=== PATIENT | male | born 1950 | race Caucasian/White ===

== ENCOUNTER → 2020-07-17 08:57 | Outpatient (BNVA) | payer OTHER, SELFPAY | PROVIDERS: Family Provider Family Medicine Adult Medicine; PCP Emergency Medicine Emergency Medical Services; Visit Provider Internal Medicine | DX: Z20.818 Contact with and (suspected) exposure to other bacterial communicable diseases (principal); Z86.010 Personal history of colon polyps | CPT/HCPCS: 87635 ==

== ENCOUNTER → 2020-07-28 15:40 | Outpatient (BNVA) | payer OTHER, SELFPAY | PROVIDERS: Family Provider Family Medicine Adult Medicine; PCP Emergency Medicine Emergency Medical Services; Visit Provider Nurse Practitioner Family | DX: R06.02 Shortness of breath (principal) | CPT/HCPCS: 87635 ==

== ENCOUNTER → 2021-03-08 11:50 | Outpatient (BNVA) | payer OTHER, SELFPAY | PROVIDERS: Family Provider Family Medicine Adult Medicine; PCP Nurse Practitioner Family; Referring Provider Emergency Medicine Emergency Medical Services; Visit Provider Specialist | DX: M25.561 Pain in right knee (principal); M17.11 Unilateral primary osteoarthritis, right knee | CPT/HCPCS: 73560; 73565 ==

== ENCOUNTER → 2021-09-27 10:07 | Outpatient (BNVA) | payer OTHER, SELFPAY | PROVIDERS: Family Provider Family Medicine Adult Medicine; PCP Nurse Practitioner Family; Visit Provider Surgery | DX: Z20.822 Contact with and (suspected) exposure to COVID-19 (principal); Z86.010 Personal history of colon polyps | CPT/HCPCS: 87635 ==

== ENCOUNTER → 2023-06-27 13:17 | Outpatient (BNVA) | payer OTHER, SELFPAY | PROVIDERS: Family Provider Family Medicine Adult Medicine; PCP Nurse Practitioner; Visit Provider Nurse Practitioner Family | DX: I87.2 Venous insufficiency (chronic) (peripheral) (principal); L30.4 Erythema intertrigo; D18.01 Hemangioma of skin and subcutaneous tissue; L71.1 Rhinophyma; L57.8 Other skin changes due to chronic exposure to nonionizing radiation; L85.3 Xerosis cutis; L81.4 Other melanin hyperpigmentation | CPT/HCPCS: 99214 ==

== ENCOUNTER 2023-09-15 11:04 | Emergency (ER) | payer OTHER, SELFPAY ==
[2023-09-15 11:06] VITALS: BP 161/79; PULSE 75; RESP 15; TEMP 36.8; O2SAT 96; BMI 51.3
--- NOTE | 2023-09-15 11:15 | ED_ITS ---
HPI - General Adult General: Chief complaint: General Medical Stated complaint: right abd pain Time Seen by Provider: 09/15/23 11:15 History of Present Illness: 72-year-old male presents emerged part with complaints of right lower quad abdominal pain. He states he was seen by his primary care provider approximately 45 minutes ago and was advised to come to the emergency department for additional evaluation treatment and care. He states that approximately 1 week ago he felt like he may have pulled something in his right lower groin/right lower quadrant abdominal area. He states it is continued to be a dull nagging type pain that he describes as a 4 out of 10 at present. He denies nausea vomiting fevers chills or night sweats. He states that nothing seems to be making it worse and nothing seems to be making it better Associated symptoms: Deny nausea or vomiting Review of Systems General: Reports: 10 or more systems reviewed and unremarkable except in HPI a nd below GI: Reports: abdominal pain; Denies: nausea or vomiting [facility] ED PFSH: Medical History DM type 2 (diabetes mellitus, type 2) Essential hypertension GERD (gastroesophageal reflux disease) Otitis externa Surgical History History of colonoscopy with polypectomy History of prostate surgery 2017 Family History Denies family history of Anesthesia complication Bleeding disorder Social History Smoking and tobacco/nicotine status: never used tobacco/nicotine Second hand smoke exposure: No Alcohol intake: never Physical Exam Narrative: EXAM NARRATIVE: Constitutional: the patient appeared well nourished and normally developed. Vital signs as documented. HENMT: Head exam is unremarkable. Neck is without jugular venous distension, thyromegaly, or carotid bruits. Carotid upstrokes are brisk bilaterally. Eye: No scleral icterus or corneal arcus noted Resp: Lungs are clear to auscultation and percussion. Cardio: Cardiac exam reveals the PMI to be normally sized and situated. Rhythm is regular. First and second heart sounds normal. No murmurs, rubs or gallops. GI: Abdominal exam reveals normal bowel sounds, no masses, no organomegaly and no aortic enlargement. Soft, mild tenderness to palpation to the right lower quadrant.. No obvious palpable masses noted. No hepatomegaly appreciated. Extremity: Extremities are non-edematous and both femoral and pedal pulses are normal. Moves all extremities well, she has sensation in all extremities. Neuro: Alert and oriented x4, person, place, time and situation. Cranial nerves II through XII are grossly intact, there is no focal neurological deficits that I can appreciate at present. Motor strength in the upper and lower extremities are equal and bilateral 5/5. Psych: Cooperative, calm, normal thought process, appropriate judgment. Skin: No lesions, rashes. Course Vital Signs: Vital signs: Vital Signs Temperature 98.2 F 09/15/23 11:06 Pulse Rate 57 L 09/15/23 12:03 Respiratory Rate 16 09/15/23 12:03 Blood Pressure 134/66 09/15/23 12:03 Pulse Oximetry 95 09/15/23 12:03 Oxygen Delivery Me thod Room Air 09/15/23 12:03 MDM - General Adult Medical Decision Making Physical exam completed and documented, I will obtain a CBC as well as a CMP and order the patient a CT scan of the abdomen pelvis with IV contrast. Given that he is a diabetic we will wait until his creatinine clearance and GFR returns to improve patient's safety. Differential Diagnosis Differential diagnosis includes acute appendicitis, inguinal hernia, femoral hernia, musculoskeletal strain. Medical Records I reviewed the patient's medical records. Lab Data I reviewed the patient's lab results. 09/15/23 11:38 09/15/23 11:38 Laboratory Results WBC 6.18 10^3/uL (3.29-11.43) 09/15/23 11:38 RBC 4.96 10^6/uL (3.85-5.65) 09/15/23 11:38 Hgb 14.20 g/dL (11.27-16.99) 09/15/23 11:38 Hct 44.2 % (37-53) 09/15/23 11:38 MCV 89.1 fl (82-101) 09/15/23 11:38 MCH 28.6 pg (27-33) 09/15/23 11:38 MCHC 32.1 g/dL (30-55) 09/15/23 11:38 RDW 13.6 % (12.1-15.1) 09/15/23 11:38 Plt Count 187 10^3/cmm (157-399) 09/15/23 11:38 MPV 9.6 fL (7.4-10.4) 09/15/23 11:38 Neut % (Auto) 68.8 % 09/15/23 11:38 Lymph % (Auto) 19.4 % 09/15/23 11:38 [place] % (Auto) 7.0 % 09/15/23 11:38 Eos % (Auto) 4.0 % 09/15/23 11:38 Baso % (Auto) 0.6 % 09/15/23 11:38 Neut # (Auto) 4.25 10^3/uL (1.8-7.7) 09/15/23 11:38 Lymph # (Auto) 1.2 10^3/uL (0.8-4.8) 09/15/23 11:38 [place] # (Auto) 0.4 10^3/uL (0.2-0.9) 09/15/23 11:38 Eos # (Auto) 0.3 10^3/uL (0.0-0.8) 09/15/23 11:38 Baso # (Auto) 0.0 10^3/uL (0.0-0.1) 09/15/23 11:38 Nucleated RBC % (auto) 0 % 09/15/23 11:38 Nucleated RBCs # 0.0 /100WBC 09/15/23 11:38 Sodium 137 mmol/L (136-145) 09/15/23 11:38 Potassium 4.4 mmol/L (3.5-5.1) 09/15/23 11:38 Chloride 100 mmol/L (98-107) 09/15/23 11:38 Carbon Dioxide 26 mmol/L (22-29) 09/15/23 11:38 Anion Gap 15.4 (5-19) 09/15/23 11:38 BUN 19 mg/dL (8-23) 09/15/23 11:38 Creatinine 1.0 mg/dL (0.7-1.2) 09/15/23 11:38 GFR Calculation 73.9 mL/min (90-130) L 09/15/23 11:38 Glucose 195 mg/dL (65-115) H 09/15/23 11:38 POC Glucose 159 mg/dL (70-110) H 09/15/23 13:22 Calculated Osmolality 292 mOsm/kg (285-295) 09/15/23 11:38 Calcium 9.1 mg/dL (8.5-10.5) 09/15/23 11:38 Total Bilirubin 0.4 mg/dL (0.15-1.2) 09/15/23 11:38 AST 12 U/L (0-40) 09/15/23 11:38 ALT 15 U/L (0-41) 09/15/23 11:38 Alkaline Phosphatase 71 U/L (40-130) 09/15/23 11:38 Total Protein 6.3 g/dL (6.6-8.7) L 09/15/23 11:38 Albumin 3.9 g/dL (3.5-5.2) 09/15/23 11:38 Globulin 2.4 g/dL (1.3-4.6) 09/15/23 11:38 All radiology interpretation(s) finalized by discharge ED provider radiology interpretation(s): CT scan of the abdomen pelvis as reported by Dr. Blackmon the radiologist demonstrates a small right lower abdominal wall hematoma most likely secondary to previous trauma. There is incidental finding of cholelithiasis without cholecystitis. Discharge Plan Discharge Patient Disposition: Home Clinical Impression: Traumatic hematoma of abdominal wall, Abdominal pain, Abdominal wall strain Condition: Stable Prescriptions: No Action diltiazem HCl 240 mg capsule,extended release 24hr 240 mg PO QAM lisinopril 5 mg tablet 2.5 mg PO DAILY naproxen 500 mg tablet 500 mg PO BID PRN (Reason: PAIN OR INFLAMATION) simvastatin 20 mg tablet 10 mg PO QPM urea 40 % Cream See Rx Instructions .ROUTE .COMPLEX Rx Instructions: Apply lightly to affected area(s) twice daily to promote healing. Rub in until completely absorbed. for topical use only clobetasol 0.05 % Cream 1 applic TOPICAL DAILY PRN (Reason: Rash) tamsulosin 0.4 mg Capsule 0.8 mg PO QPM Nitrostat 0.4 mg Tablet, Sublingual 0.4 mg SUBLINGUAL Q5M PRN (Reason: Chest Pain) Rx Instructions: do not exceed 3 doses per episode omeprazole 20 mg Capsule,Delayed Release(Dr/Ec) 20 mg PO BID EpiPen 0.3 mg/0.3 mL Auto-Injector See Rx Instructions .ROUTE .COMPLEX PRN (Reason: Allergic Reaction) Rx Instructions: 0.3 mg intramuscularly one time to thigh as needed for allergic reactio n/anaphylaxis. pioglitazone 30 mg Tablet 30 mg PO QAM Novolog Mix 70-30 U-100 Insuln 100 unit/mL (70-30) Solution See Rx Instructions .ROUTE .COMPLEX Rx Instructions: INJECT 81 UNITS UNDER THE SKIN EVERY MORNING AND 75 UNITS EVERY EVENING. ADMINISTER DOSE WITHIN 5-10 MINUTES OF START OF A MEAL. folic acid 0.8 mg Capsule 0.4 mg PO DAILY Vitamin D3 50 mcg (2,000 unit) Capsule 50 mcg PO DAILY Eucerin Cream See Rx Instructions .ROUTE .COMPLEX Rx Instructions: Apply sparingly to affected area(s) twice daily. (external use only) empagliflozin 25 mg Tablet 25 mg PO QAM Discharge Orders: Discharge ED (Routine); Ordered 09/15/23 Ordered By: Mike Brumfield Referrals: Hui Quevedo FNP [Primary Care Provider] - Patient Instructions: Abdominal Pain (ED) Activity Restrictions/Additional Instructions: Activity Restrictions/Additional Instructions: Thank you for choosing [facility] for your healthcare needs today. Please realize that you were seen in the Emergency Department and that we are providing you with an emergency medical screening exam and this may not be complete and all inclusive of all the testing and or medical work-up that you may need to determine your ailment or severity of your illness. It is very important that you follow-up as instructed with your Primary care provider or Specialist for additional evaluation and to discuss your medical treatment plan. You may return to the Emergency Department should you have concerns or if your condition changes or worsens in any way. Coding Level of Care Code ED Technology Infusion Specialist for Jose Aragon
--- NOTE | 2023-09-15 11:19 | CT_ITS ---
WS: [id number] CT ABDOMEN PELVIS TECHNIQUE: Contrast-enhanced CT of the abdomen and pelvis with coronal and sagittal reformatted image s. CLINICAL INFORMATION: Right lower quadrant abd pain COMPARISON: None. DLP: 1820.[address] scans at [facility] use at least one of these dose optimization techniques: automated e xposure control; mA and/or kV adjustment per patient size (includes targeted exams where dose is matc hed to clinical indication); or iterative reconstruction. FINDINGS: Mild induration with inflammatory stranding in the RIGHT abdominal wall fat. Thickening of the RIGHT rectus sheath suspicious for a small amount of rectus sheath hematoma. Mild diffuse fatty infiltration of the liver. Cholelithiasis. Normal spleen. Normal GE junction. Norm al portal vein and splenic vein. Lung bases are well aerated. Normal caliber abdominal aorta. Celiac and SMA are patent. Adrenal glands are normal. Normal renal pa renchymal enhancement. No hydronephrosis. Tiny fat-containing umbilical hernia. Sigmoid diverticulosi s. No evidence of acute diverticulitis. Urine distended lobulated bladder. IMPRESSION: 1. Thickening of the RIGHT rectus sheath suspicious for a small amount of rectus sheath hematoma. In flammatory stranding in the RIGHT adjacent abdominal wall fat. 2. Cholelithiasis. No gallbladder wall thickening or pericholecystic fluid. 3. No hydronephrosis in either kidney. 4. No other suspicious findings. Notified Mike Brumfield MD at 09/15/2023 1:32 PM.
[2023-09-15 11:44] LABS: Basophils % 0.6 %; Eosinophils # 0.3 10^3/uL (0.0-0.8); Hematocrit 44.2 % (37-53); Lymphocytes # 1.2 10^3/uL (0.8-4.8); Lymphocytes % 19.4 %; Mean Corpuscular HGB Conc 32.1 g/dL (30-55); Mean Corpuscular Hemoglobin 28.6 pg (27-33); Mean Corpuscular Volume 89.1 fl (82-101); Mean Platelet Volume 9.6 fL (7.4-10.4); Monocytes # 0.4 10^3/uL (0.2-0.9); Neutrophils # 4.25 10^3/uL (1.8-7.7); Neutrophils % 68.8 %; Nucleated Red Blood Cells % 0 %; Platelet Count 187 10^3/cmm (157-399); Red Blood Count 4.96 10^6/uL (3.85-5.65); Red Cell Distribution Width 13.6 % (12.1-15.1); White Blood Count 6.18 10^3/uL (3.29-11.43)
[2023-09-15 12:02] LABS: Alanine Aminotransferase 15 U/L (0-41); Albumin Level 3.9 g/dL (3.5-5.2); Alkaline Phosphatase 71 U/L (40-130); Anion Gap 15.4 (5-19); Aspartate Amino Transferase 12 U/L (0-40); Blood Urea Nitrogen 19 mg/dL (8-23); Calcium 9.1 mg/dL (8.5-10.5); Carbon Dioxide 26 mmol/L (22-29); Chloride 100 mmol/L (98-107); Globulin 2.4 g/dL (1.3-4.6); Glomerular Filtration Rate 73.9 mL/min (90-130); Glucose 195 mg/dL (65-115); Osmolality Calculated 292 mOsm/kg (285-295); Potassium 4.4 mmol/L (3.5-5.1); Sodium 137 mmol/L (136-145); Total Bilirubin 0.4 mg/dL (0.15-1.2); Total Protein 6.3 g/dL (6.6-8.7)
[2023-09-15 12:03] VITALS: BP 134/66; PULSE 57; RESP 16; O2SAT 95
[2023-09-15] MEDS: iohexol 350 mg/mL 500 mL Btl (per mL) IV (13:02)
[2023-09-15 13:25] LABS: Glucose Point of Care 159 mg/dL (70-110)
== END 2023-09-15 13:41 | disposition home or self-care (01) ==
PROVIDERS: Emergency Provider Internal Medicine; PCP Nurse Practitioner
DX: S30.1XXA Contusion of abdominal wall, initial encounter (principal); S39.011A Strain of muscle, fascia and tendon of abdomen, initial encounter; Z79.4 Long term (current) use of insulin; E11.9 Type 2 diabetes mellitus without complications; I10 Essential (primary) hypertension; X58.XXXA Exposure to other specified factors, initial encounter
CPT/HCPCS: 36415; 36416; 74177; 80053; 82962; 85025; 99285; Q9967

== ENCOUNTER → 2023-09-27 14:07 | Outpatient (BNVA) | payer OTHER, SELFPAY | PROVIDERS: PCP Nurse Practitioner; Visit Provider Nurse Practitioner Family | DX: I87.2 Venous insufficiency (chronic) (peripheral) (principal); L30.4 Erythema intertrigo; L71.1 Rhinophyma; D22.5 Melanocytic nevi of trunk; L57.8 Other skin changes due to chronic exposure to nonionizing radiation | CPT/HCPCS: 99214 ==

== ENCOUNTER → 2023-10-02 11:07 | Outpatient (BNVA) | payer OTHER, SELFPAY | PROVIDERS: PCP Nurse Practitioner; Referring Provider Emergency Medicine Emergency Medical Services; Visit Provider Surgery | DX: Z12.11 Encounter for screening for malignant neoplasm of colon (principal) | CPT/HCPCS: 99214 ==

== ENCOUNTER 2023-10-31 10:07 | Emergency (ER) | payer OTHER, SELFPAY ==
[2023-10-31 10:26] LABS: Basophils # 0.1 10^3/uL (0.0-0.1); Basophils % 0.7 %; Eosinophils # 0.3 10^3/uL (0.0-0.8); Eosinophils % 4.7 %; Lymphocytes # 1.3 10^3/uL (0.8-4.8); Lymphocytes % 18.1 %; Mean Corpuscular HGB Conc 31.7 g/dL (30-55); Mean Corpuscular Hemoglobin 28.7 pg (27-33); Mean Corpuscular Volume 90.6 fl (82-101); Mean Platelet Volume 9.8 fL (7.4-10.4); Monocytes # 0.4 10^3/uL (0.2-0.9); Monocytes % 5.5 %; Neutrophils # 5.17 10^3/uL (1.8-7.7); Neutrophils % 70.7 %; Nucleated Red Blood Cells % 0 %; Platelet Count 207 10^3/cmm (157-399); Red Blood Count 5.08 10^6/uL (3.85-5.65); Red Cell Distribution Width 13.5 % (12.1-15.1)
[2023-10-31 10:46] VITALS: BP 185/73; PULSE 68; TEMP 36.8; O2SAT 94; BMI 54.1
[2023-10-31 10:57] LABS: Alanine Aminotransferase 15 U/L (0-41); Albumin Level 3.9 g/dL (3.5-5.2); Alkaline Phosphatase 77 U/L (40-130); Anion Gap 13.3 (5-19); Aspartate Amino Transferase 11 U/L (0-40); Blood Urea Nitrogen 19 mg/dL (8-23); Calcium 9.2 mg/dL (8.5-10.5); Carbon Dioxide 28 mmol/L (22-29); Chloride 98 mmol/L (98-107); Globulin 2.9 g/dL (1.3-4.6); Glucose 218 mg/dL (65-115); Lipase 21 U/L (13-60); Osmolality Calculated 289 mOsm/kg (285-295); Potassium 4.3 mmol/L (3.5-5.1); Sodium 135 mmol/L (136-145); Total Bilirubin 0.5 mg/dL (0.15-1.2); Total Protein 6.8 g/dL (6.6-8.7)
--- NOTE | 2023-10-31 11:46 | CT_ITS ---
WS: [id number] CT ABDOMEN PELVIS TECHNIQUE: Contrast-enhanced CT of the abdomen and pelvis with coronal and sagittal reformatted image s. CLINICAL INFORMATION: abd pain COMPARISON: CT 09/15/23 DLP: 1654.[address] scans at [facility] use at least one of these dose optimization techniques: automated e xposure control; mA and/or kV adjustment per patient size (includes targeted exams where dose is matc hed to clinical indication); or iterative reconstruction. FINDINGS: Lung bases are well aerated. Cholelithiasis. Mild diffuse fatty filtration of the liver. Small esopha geal hiatal hernia. Normal spleen. Normal renal parenchymal enhancement. Cholelithiasis. Gallbladder is contracted. Normal portal vein and splenic vein. Adrenal glands are normal. No hydronephrosis in e ither kidney. Normal caliber abdominal aorta. Sigmoid diverticulosis. No evidence of acute diverticul itis. No evidence of high-grade small or large bowel obstruction. Small fat-containing umbilical hernia. In duration in the RIGHT abdominal subcutaneous fat similar to previous. Previously described small rect us sheath hematoma appears improved. Small amount of residual rectus sheath hematoma inferiorly. Mode rate spondylitic changes lumbar spine with multilevel disc bulging. No inguinal hernia. IMPRESSION: 1. Previously described small RIGHT rectus sheath hematoma appears improved with a small amount of r esidual increased attenuation hematoma along the RIGHT inferior rectus sheath. Stable induration in t he RIGHT anterior abdominal wall. 2. Stable cholelithiasis. 3. Sigmoid diverticulosis. 4. No other suspicious findings or changes compared to previous.
--- NOTE | 2023-10-31 11:48 | ED_ITS ---
HPI - Male Genitourinary 2 General: Chief complaint: Urogenital-Male Stated complaint: lower abd pain Time Seen by Provider: 10/31/23 10:08 Source: patient Mode of arrival: ambulatory Limitations: no limitations History of Present Illness: 33-year-old male over a month ago was di agnosed with rectus sheath hematoma he states over the last week has been having worsening pain in his right lower quadrant and right groin. States pain sharp in nature much worse with movement improved with rest he rates it a 4 out of 10 currently denies any vomiting denies any fevers. Associated symptoms: Deny dysuria, nausea or vomiting Review of Systems 2 Const: Denies: fever(s), chills, body aches or change in appetite ENMT: Denies: throat pain or dental pain Card: Denies: chest pain Resp: Denies: dyspnea GI: Reports: abdominal pain; Denies: nausea, vomiting or diarrhea : Denies: dysuria Musc: Denies: neck pain or back pain Skin/Breast: Denies: rash Neuro: Denies: headache(s) PFSH ED 2 PFSH: Medical History Otitis externa Essential hypertension DM type 2 (diabetes mellitus, type 2) GERD (gastroesophageal reflux disease) Surgical History History of prostate surgery 2017 History of colonoscopy with polypectomy Family History Denies family history of Anesthesia complication Bleeding disorder Social History Smoking and tobacco/nicotine status: never used tobacco/nicotine Second hand smoke exposure: No Alcohol intake: never Physical Exam 2 Const: COMMON NORMALS: no acute distress, patient oriented x3 and healthy appearing HENMT: COMMON NORMALS: normocephalic and atraumatic HEAD & SCALP: n ormocephalic and atraumatic Neck/C-Spine: COMMON NORMALS: full ROM and supple Chest: COMMONS NORMALS: normal inspection of the chest and normal palpation of entire chest wall Resp: COMMON NORMALS: normal respiratory effort Cardio: COMMON NORMALS: regular rate, regular rhythm and No murmurs present (Cardio) RATE: regular rate RHYTHM: regular rhythm GI: COMMON NORMALS: Normal to inspection, nondistended, normoactive bowel sounds present, Soft to palpation and no masses PALPATION: Yes Soft to palpation and Yes Tenderness to palpation present (GI) Details: RLQ Extremity: COMMON NORMALS: normal to inspection and full ROM Neuro: COMMON NORMALS: patient oriented x3, moves all extremities and no focal motor deficits Psych: COMMON NORMALS: mental status grossly normal, Normal thought process present and cooperative THOUGHT PROCESS: Normal thought process present Skin: COMMON NORMALS: no rashes or lesions noted and no wounds GENERAL SKIN EXAM: no rashes or lesions noted Course 2 Vital Signs: Vital signs: Vital Signs Temperature 98.2 F 10/31/23 10:46 Pulse Rate 61 10/31/23 13:20 Respiratory Rate 16 10/31/23 13:20 Blood Pressure 137/66 10/31/23 13:20 Pulse Oximetry 95 10/31/23 13:20 Oxygen Delivery Me thod Nasal Cannula 10/31/23 12:13 MDM - Male Medical Decision Making Patient presents abdominal pain likely from his rectus sheath hematoma is improving no other acute findings he feels improved here we will prescribe him tramadol for home he is follow-up with PCP and return if worsening. Medical Records I reviewed the patient's medical records. Lab Data I reviewed the patient's lab results. 10/31/23 10:18 10/31/23 10:18 Laboratory Results WBC 7.30 10^3/uL (3.29-11.43) 10/31/23 10:18 RBC 5.08 10^6/uL (3.85-5.65) 10/31/23 10:18 Hgb 14.60 g/dL (11.27-16.99) 10/31/23 10:18 Hct 46.0 % (37-53) 10/31/23 10:18 MCV 90.6 fl (82-101) 10/31/23 10:18 MCH 28.7 pg (27-33) 10/31/23 10:18 MCHC 31.7 g/dL (30-55) 10/31/23 10:18 RDW 13.5 % (12.1-15.1) 10/31/23 10:18 Plt Count 207 10^3/cmm (157-399) 10/31/23 10:18 MPV 9.8 fL (7.4-10.4) 10/31/23 10:18 Neut % (Auto) 70.7 % 10/31/23 10:18 Lymph % (Auto) 18.1 % 10/31/23 10:18 [place] % (Auto) 5.5 % 10/31/23 10:18 Eos % (Auto) 4.7 % 10/31/23 10:18 Baso % (Auto) 0.7 % 10/31/23 10:18 Neut # (Auto) 5.17 10^3/uL (1.8-7.7) 10/31/23 10:18 Lymph # (Auto) 1.3 10^3/uL (0.8-4.8) 10/31/23 10:18 [place] # (Auto) 0.4 10^3/uL (0.2-0.9) 10/31/23 10:18 Eos # (Auto) 0.3 10^3/uL (0.0-0.8) 10/31/23 10:18 Baso # (Auto) 0.1 10^3/uL (0.0-0.1) 10/31/23 10:18 Nucleated RBC % (auto) 0 % 10/31/23 10:18 Nucleated RBCs # 0.0 /100WBC 10/31/23 10:18 Sodium 135 mmol/L (136-145) L 10/31/23 10:18 Potassium 4.3 mmol/L (3.5-5.1) 10/31/23 10:18 Chloride 98 mmol/L (98-107) 10/31/23 10:18 Carbon Dioxide 28 mmol/L (22-29) 10/31/23 10:18 Anion Gap 13.3 (5-19) 10/31/23 10:18 BUN 19 mg/dL (8-23) 10/31/23 10:18 Creatinine 1.1 mg/dL (0.7-1.2) 10/31/23 10:18 GFR Calculation Not Reportable 10/31/23 10:18 Glucose 218 mg/dL (65-115) H 10/31/23 10:18 Calculated Osmolality 289 mOsm/kg (285-295) 10/31/23 10:18 Calcium 9.2 mg/dL (8.5-10.5) 10/31/23 10:18 Total Bilirubin 0.5 mg/dL (0.15-1.2) 10/31/23 10:18 AST 11 U/L (0-40) 10/31/23 10:18 ALT 15 U/L (0-41) 10/31/23 10:18 Alkaline Phosphatase 77 U/L (40-130) 10/31/23 10:18 Total Protein 6.8 g/dL (6.6-8.7) 10/31/23 10:18 Albumin 3.9 g/dL (3.5-5.2) 10/31/23 10:18 Globulin 2.9 g/dL (1.3-4.6) 10/31/23 10:18 Lipase 21 U/L (13-60) 10/31/23 10:18 Urine Color Yellow (Yellow) 10/31/23 12:07 Urine Appearance Clear (CLEAR) 10/31/23 12:07 Urine pH 5 (5-7) 10/31/23 12:07 Ur Specific [place] 1.010 (1.005-1.030) 10/31/23 12:07 Urine Protein Neg (Negative) 10/31/23 12:07 Urine Glucose (UA) 4+ (Normal) H 10/31/23 12:07 Urine Ketones 1+ (Negative) H 10/31/23 12:07 Urine Blood Neg (Negative) 10/31/23 12:07 Urine Nitrate Negative (Negative) 10/31/23 12:07 Urine Bilirubin Neg (Negative) 10/31/23 12:07 Urine Urobilinogen Norm mg/dL (Negative) 10/31/23 12:07 Ur Leukocyte Esterase Negative (Negative) 10/31/23 12:07 All radiology interpretation(s) finalized by discharge Discharge Plan Discharge Patient Disposition: Home Clinical Impression: Abdominal pain, Hematoma of rectus sheath Condition: Stable Prescriptions: New tramadol 50 mg tablet 50 mg PO Q8H PRN (Reason: pain) Qty: 14 0RF No Action diltiazem HCl 240 mg capsule,extended release 24hr 240 mg PO QAM lisinopril 5 mg tablet 2.5 mg PO DAILY simvastatin 20 mg tablet 10 mg PO QPM ibuprofen 800 mg Tablet 800 mg PO TID urea 40 % Cream See Rx Instructions .ROUTE .COMPLEX Rx Instructions: Apply lightly to affected area(s) twice daily to promote healing. Rub in until completely absorbed. for topical use only clobetasol 0.05 % Cream 1 applic TOPICAL DAILY PRN (Reason: Rash) tamsulosin 0.4 mg Capsule 0.8 mg PO QPM nitroglycerin [Nitrostat] 0.4 mg Tablet, Sublingual 0.4 mg SUBLINGUAL Q5M PRN (Reason: Chest Pain) Rx Instructions: do not exceed 3 doses per episode omeprazole 20 mg Capsule,Delayed Release(Dr/Ec) 20 mg PO BID epinephrine [EpiPen] 0.3 mg/0.3 mL Auto-Injector See Rx Instructions .ROUTE .COMPLEX PRN (Reason: Allergic Reaction) Rx Instructions: 0.3 mg intramuscularly one time to thigh as needed for allergic reaction/anaphylaxis. pioglitazone 30 mg Tablet 30 mg PO QAM insulin asp prt-insulin aspart [Novolog Mix 70-30 U-100 Insuln] 100 unit/mL (70-30) Solution See Rx Instructions .ROUTE .COMPLEX Rx Instructions: INJECT 70 UNITS UNDER THE SKIN EVERY MORNING AND 60 UNITS EVERY EVENING. ADMINISTER DOSE WITHIN 5-10 MINUTES OF START OF A MEAL. folic acid 0.8 mg Capsule 0.4 mg PO DAILY cholecalciferol (vitamin D3) [Vitamin D3] 50 mcg (2,000 unit) Capsule 50 mcg PO DAILY Eucerin Cream See Rx Instructions .ROUTE .COMPLEX Rx Instructions: Apply sparingly to affected area(s) twice daily. (external use only) Jardiance 25 mg Tablet 25 mg PO QAM Discharge Orders: Discharge ED (Routine); Ordered 10/31/23 Ordered By: Trupti Vo Referrals: Hui Quevedo FNP [Primary Care Provider] - 1-3 days Discharge Diet: Advance as tolerated Discharge Activity: Resume usual activity Patient Instructions: Abdominal Pain (ED), Hematoma (ED) Coding Level of Care Code ED Data Processing Mechanic for Jose Aragon
[2023-10-31 12:13] VITALS: BP 163/88; PULSE 68; RESP 18; O2SAT 97
[2023-10-31 12:32] LABS: Add Urine Microscopic? NO; Charge for UA Resulting for Rev
[2023-10-31] MEDS: TRAMadol 50 mg Tablet PO (12:33)
[2023-10-31 12:35] LABS: Urine Appearance Clear (CLEAR); Urine Color Yellow (Yellow)
[2023-10-31 12:36] LABS: Bilirubin Urine Neg (Negative); Blood Urine Neg (Negative); Glucose Urine UA 4+ (Normal); Ketones Urine 1+ (Negative); Leukocyte Esterase Urine Negative (Negative); Nitrate Urine Negative (Negative); Protein Urine Neg (Negative); Urobilinogen Urine Norm (Negative); pH Urine 5 (5-7)
[2023-10-31] MEDS: iohexol 350 mg/mL 500 mL Btl (per mL) IV (12:49)
--- NOTE | 2023-10-31 13:19 | PC.PHAR ---
VERIFIED MEDICATIONS WITH PT AND [facility] FOR [facility]. WILL MAKE CORRECTIONS. 10/31/23
[2023-10-31 13:20] VITALS: BP 137/66; PULSE 61; RESP 16; O2SAT 95
== END 2023-10-31 13:39 | disposition home or self-care (01) ==
PROVIDERS: Family Medicine; Emergency Provider Emergency Medicine; PCP Nurse Practitioner
DX: S36.62XA Contusion of rectum, initial encounter (principal); I10 Essential (primary) hypertension; E11.9 Type 2 diabetes mellitus without complications; R10.31 Right lower quadrant pain; X58.XXXA Exposure to other specified factors, initial encounter
CPT/HCPCS: 36415; 74177; 80053; 81003; 83690; 85025; 99285; Q9967

== ENCOUNTER 2023-11-04 19:04 | Observation (INO) | payer OTHER, SELFPAY ==
[2023-11-04 19:10] VITALS: BP 166/88; PULSE 96; RESP 20; TEMP 36.4; O2SAT 97; BMI 44.7
[2023-11-04 19:28] VITALS: BP 166/88; PULSE 59; RESP 12; O2SAT 97
--- NOTE | 2023-11-04 19:37 | ED_ITS ---
HPI - Dizziness 2 General: Chief Complaint: Dizziness Stated Complaint: DIZZY Time Seen by Provider: 11/04/23 19:19 Source: patient Mode of arrival: ambulatory Limitations: no limitations History of Present Illness: HPI Narrative: This patient states that he began becoming sick approximately 10:10 AM today. He states he has been body aches nausea dizziness and decreased appetite. He states he developed a mild headache later on in the day but had no headache initially and had no vertiginous symptoms. He is just felt a little lightheaded no one in his home is currently ill. He denies chest pain cough shortness of breath vomiting or diarrhea prior to arrival. He not been immunized against influenza or COVID this year. He does have a history of angina but again denies any chest pain. He denied any difficulty with speech, focal weakness or other neurologic symptoms MD elicited complaint: lightheadedness Associated symptoms: Reports chills, nausea and vomiting; Denies chest pain, headache(s), nasal congestion, palpitations or syncope Associated neuro symptoms: Deny numbness in extremities Review of Systems 2 Const: Reports: chills and body aches; Denies: fever(s) Eyes: Denies: change in vision or blurry vision ENMT: Denies: odynophagia, nasal discharge or nasal congestion Card: Denies: chest pain, palpitations, irregular heart rhythm, syncope or pre-syncope Resp: Denies: productive cough or non-productive cough GI: Reports: nausea and vomiting; Denies: abdominal pain or diarrhea : Denies: flank pain, difficulty urinating, dysuria or urinary frequency Musc: Denies: neck pain, back pain, extremity pain or extremity swelling Skin/Breast: Denies: rash, pruritus or erythema Neuro: Denies: headache(s), numbness in extremities, weakness in extremities or vertigo Psych: Denies: anxiety or depression Endo: Denies: polyuria Mason/Lymph: Denies: easy bruising or easy bleeding PFSH ED 2 PFSH: Medical History Otitis externa Essential hypertension DM type 2 (diabetes mellitus, type 2) GERD (gastroesophageal reflux disease) Surgical History History of prostate surgery 2017 History of colonoscopy with polypectomy Family History Denies family history of Anesthesia complication Bleeding disorder Social History Smoking and tobacco/nicotine status: never used tobacco/nicotine Second hand smoke exposure: No Alcohol intake: never Physical Exam 2 Narrative: EXAM NARRATIVE: Patient is alert and cooperative. During the initial part of the evaluation he became nauseated and retched a few times. Const: COMMON NORMALS: patient oriented x3 GENERAL APPEARANCE: cooperative NUTRITIONAL APPEARANCE: obese HENMT: COMMON NORMALS: normocephalic, atraumatic, Normal nasal mucous membranes and turbinates present and moist oral mucous membranes HEAD & SCALP: normocephalic and atraumatic FACE & SINUS: normal facial exam NOSE: Normal nasal mucous membranes and turbinates present Eye: COMMON NORMALS: Equal, round and reactive pupils present, EOMs intact bilaterally and conjunctivae normal CONJUNCTIVA: Yes conjunctivae normal P UPIL: Yes Equal, round and reactive pupils present OTHER: No nystagmus noted Neck/C-Spine: COMMON NORMALS: full ROM, no lymphadenopathy, supple, no JVD and No carotid bruits Chest: COMMONS NORMALS: normal inspection of the chest Resp: COMMON NORMALS: normal respiratory effort, No retractions, No use of accessory muscles and clear to auscultation bilaterally AUSCULTATION: clear to auscultation bilaterally Cardio: COMMON NORMALS: no JVD, regular rate, regular rhythm, No murmurs present (Cardio) and Peripheral pulses 2+ throughout RATE: regular rate R HYTHM: regular rhythm PERIPHERAL PULSES: Peripheral pulses 2+ throughout GI: COMMON NORMALS: Soft to palpation, non-tender and no masses INSPECTION: Yes central obesity PALPATION: Yes Soft to palpation : COMMON NORMALS: Yes no CVA tenderness BLADDER/KIDNEY EXAM: Yes no CVA tenderness Back/Pelvis: COMMON NORMALS: no CVA tenderness, thoracic and lumbar spine normal to inspection, no thoracic nor lumbar tenderness and thoraco-lumbar ROM normal Extremity: COMMON NORMALS: normal to inspection, full ROM, capillary refill normal, no joint enlargement, no clubbing, cyanosis or edema, no calf tenderness and no pedal edema Neuro: COMMON NORMALS: patient oriented x3, moves all extremities, no focal motor deficits and no sensory deficits noted CRANIAL NERVES: Yes CN normal except as noted Psych: COMMON NORMALS: mental status grossly normal Skin: COMMON NORMALS: no rashes or lesions noted, no wounds and turgor normal GENERAL SKIN EXAM: no rashes or lesions noted and turgor normal Course 2 Reevaluation(s): Reevaluation #1: Patient's spouse is now here. She collaborates his history. He states he feels a little bit better at this time. It was reexamined and no focal findings noted. Time: 20:57 Reevaluation #2: Patient states he is feeling some better. His blood pressure is improved and otherwise his vital signs are normal. He prefers to be discharged at this time. Discussed risks and benefits of going home without full or at least a more extensive workup at this time. He has family was also present and admonished him they would like for him to be more evaluated. We will get him up and see how he feels and see what his ability to do his ADLs and may be that we will shed more light on his going home. Time: 21:51 Reevaluation #3: Reviewed his current medications with his spouse as well. He apparently has been taking tramadol 3 times daily since earlier this week. That was for a rectal sheath hematoma. He also apparently has been having intermittent vertigo episodes since last fall which sometimes will be episodic and occur for some time and then ángel for period of time. Time: 22:43 Additional Reevaluation(s): Because of his recurrent vertigo and not well-controlled in the emergency department and the issue with being able to get him home safely with his elderly we will plan on putting him in observation to control his symptoms and then ensure that he is safe to discharge tomorrow. Again no evidence at this time to suggest this is a central etiology to his current presentation. Consultations: Consultation #1: Discussed with hospitalist who agreed to placement observation. Time: 23:09 Vital Signs: Vital signs: Vital Signs Temperature 97.6 F 11/04/23 19:10 Pulse Rate 79 11/04/23 22:49 Respiratory Rate 14 11/04/23 22:49 Blood Pressure 181/91 11/04/23 22:49 Pulse Oximetry 95 11/04/23 22:49 Oxygen Delivery Me thod Room Air 11/04/23 19:28 MDM - Dizziness Medical Decision Making Patient presented to our emergency department because of feeling lightheaded and dizzy today. He has a history of recurrent intermittent vertigo which has been present since last fall. He has not felt well today. He has a history of diabetes as well as his vertigo. He denies any headache or focal neurologic symptoms. He denies any fevers or chills but was having episodes of nausea with some retching with his vertigo symptoms. Evaluation here revealed him to be slightly hypertensive but otherwise no evidence of hypoxia tachycardia etc. His chest revealed some diminished breath sounds bilaterally with some intermittent crackles. Cardiovascular examination was unremarkable. His abdominal examination revealed to be soft and nontender without any masses but he has central obesity making his physical examination limited. Extremities revealed slight pretibial edema but otherwise no abnormalities. There was no neurologic focal findings notable. Workup ensued and was negative for any findings to suggest ACS, congestive heart failure or other concerning findings. His viral studies to include flu and COVID were also reassuring. No evidence at this time of a central etiology to his vertigo. He has biomarkers and other parameters did not suggest ACS acute congestive heart failure etc. He has recalcitrant vertigo that we will place in observation for control and then planning on discharge in the morning. Lab Data I reviewed the patient's lab results. 11/04/23 19:47 11/04/23 19:47 Radiology Impressions Chest X-Ray 11/04/23 20:57 IMPRESSION: 1. Interval development of moderate interstitial pulmonary edema. 2. Incidental/nonacute findings are listed in the report. Head CT 11/04/23 20:57 IMPRESSION: 1. No acute abnormality of the brain. 2. Moderate atrophy of the brain parenchyma. 3. Mild chronic white matter microangiopathic change. 4. 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 5. Incidental/nonacute findings are listed in the report. Laboratory Results WBC 8.09 10^3/uL (3.29-11.43) 11/04/23 19:47 RBC 5.16 10^6/uL (3.85-5.65) 11/04/23 19:47 Hgb 14.80 g/dL (11.27-16.99) 11/04/23 19:47 Hct 45.5 % (37-53) 11/04/23 19:47 MCV 88.2 fl (82-101) 11/04/23 19:47 MCH 28.7 pg (27-33) 11/04/23 19:47 MCHC 32.5 g/dL (30-55) 11/04/23 19:47 RDW 13.2 % (12.1-15.1) 11/04/23 19:47 Plt Count 203 10^3/cmm (157-399) 11/04/23 19:47 MPV 9.5 fL (7.4-10.4) 11/04/23 19:47 Neut % (Auto) 83.0 % 11/04/23 19:47 Lymph % (Auto) 10.1 % 11/04/23 19:47 Denali % (Auto) 4.0 % 11/04/23 19:47 Eos % (Auto) 1.6 % 11/04/23 19:47 Baso % (Auto) 0.4 % 11/04/23 19:47 Neut # (Auto) 6.72 10^3/uL (1.8-7.7) 11/04/23 19:47 Lymph # (Auto) 0.8 10^3/uL (0.8-4.8) 11/04/23 19:47 Denali # (Auto) 0.3 10^3/uL (0.2-0.9) 11/04/23 19:47 Eos # (Auto) 0.1 10^3/uL (0.0-0.8) 11/04/23 19:47 Baso # (Auto) 0.0 10^3/uL (0.0-0.1) 11/04/23 19:47 Nucleated RBC % (auto) 0 % 11/04/23 19:47 Nucleated RBCs # 0.0 /100WBC 11/04/23 19:47 Sodium 134 mmol/L (136-145) L 11/04/23 19:47 Potassium 4.5 mmol/L (3.5-5.1) 11/04/23 19:47 Chloride 98 mmol/L (98-107) 11/04/23 19:47 Carbon Dioxide 26 mmol/L (22-29) 11/04/23 19:47 Anion Gap 14.5 (5-19) 11/04/23 19:47 BUN 15 mg/dL (8-23) 11/04/23 19:47 Creatinine 0.9 mg/dL (0.7-1.2) 11/04/23 19:47 GFR Calculation Not Reportable 11/04/23 19:47 Glucose 187 mg/dL (65-115) H 11/04/23 19:47 Calculated Osmolality 284 mOsm/kg (285-295) L 11/04/23 19:47 Calcium 9.1 mg/dL (8.5-10.5) 11/04/23 19:47 Total Bilirubin 0.5 mg/dL (0.15-1.2) 11/04/23 19:47 AST 11 U/L (0-40) 11/04/23 19:47 ALT 15 U/L (0-41) 11/04/23 19:47 Alkaline Phosphatase 89 U/L (40-130) 11/04/23 19:47 Troponin T Baseline 10 ng/L (0-15) 11/04/23 19:47 Troponin T 120 Minute 11.03 ng/L (0-15) 11/04/23 22:05 Delta Troponin T 1.03 ABS# (0-10) 11/04/23 22:05 NT-Pro-B Natriuret Pep 56 pg/mL (0-125) 11/04/23 21:47 Total Protein 6.6 g/dL (6.6-8.7) 11/04/23 19:47 Albumin 4.1 g/dL (3.5-5.2) 11/04/23 19:47 Globulin 2.5 g/dL (1.3-4.6) 11/04/23 19:47 Lipase 14 U/L (13-60) 11/04/23 19:47 Influenza Type A Ag negative (Negative) 11/04/23 19:54 Influenza Type B Ag negative (Negative) 11/04/23 19:54 SARS-CoV-2 Ag (Rapid) negative (Negative) 11/04/23 19:54 All radiology interpretation(s) finalized by discharge EKG Data EKG 1: I personally reviewed and interpreted this EKG as follows: Interpretation: Resting EKG reveals a ventricular rate of 60 bpm. Borderline prolonged MA interval at 270 ms. Normal QRS duration, normal corrected QT interval. Leftward axis. No acute ST-T wave changes noted. No prior tracing available for comparison EKG 2: I personally reviewed and interpreted this EKG as follows: Interpretation: Second EKG contemporaneously reviewed this visit reveals a ventricular rate of 73 bpm. Still has a slightly prolonged MA interval suggestive of first-degree AV block. Normal QRS duration, normal corrected QT interval, leftward axis. Consistent with a left anterior Heema block but no acute ST-T wave changes and no change from prior tracing this visit Discharge Plan Discharge Patient Disposition: Placed in Observation Clinical Impression: Vertigo Condition: Stable Prescriptions: No Action diltiazem HCl 240 mg capsule,extended release 24hr 240 mg PO QAM lisinopril 5 mg tablet 2.5 mg PO DAILY simvastatin 20 mg tablet 10 mg PO QPM ibuprofen 800 mg Tablet 800 mg PO TID tramadol 50 mg tablet 50 mg PO Q8H PRN (Reason: pain) Qty: 14 0RF urea 40 % Cream See Rx Instructions .ROUTE .COMPLEX Rx Instructions: Apply lightly to affected area(s) twice daily to promote healing. Rub in until completely absorbed. for topical use only clobetasol 0.05 % Cream 1 applic TOPICAL DAILY PRN (Reason: Rash) tamsulosin 0.4 mg Capsule 0.8 mg PO QPM nitroglycerin [Nitrostat] 0.4 mg Tablet, Sublingual 0.4 mg SUBLINGUAL Q5M PRN (Reason: Chest Pain) Rx Instructions: do not exceed 3 doses per episode omeprazole 20 mg Capsule,Delayed Release(Dr/Ec) 20 mg PO BID epinephrine [EpiPen] 0.3 mg/0.3 mL Auto-Injector See Rx Instructions .ROUTE .COMPLEX PRN (Reason: Allergic Reaction) Rx Instructions: 0.3 mg intramuscularly one time to thigh as needed for allergic reaction/anaphylaxis. pioglitazone 30 mg Tablet 30 mg PO QAM insulin asp prt-insulin aspart [Novolog Mix 70-30 U-100 Insuln] 100 unit/mL (70-30) Solution See Rx Instructions .ROUTE .COMPLEX Rx Instructions: INJECT 70 UNITS UNDER THE SKIN EVERY MORNING AND 60 UNITS EVERY EVENING. ADMINISTER DOSE WITHIN 5-10 MINUTES OF START OF A MEAL. folic acid 0.8 mg Capsule 0.4 mg PO DAILY cholecalciferol (vitamin D3) [Vitamin D3] 50 mcg (2,000 unit) Capsule 50 mcg PO DAILY Eucerin Cream See Rx Instructions .ROUTE .COMPLEX Rx Instructions: Apply sparingly to affected area(s) twice daily. (external use only) Jardiance 25 mg Tablet 25 mg PO QAM Referrals: Hui Quevedo FNP [Primary Care Provider] - Coding Level of Care Code ED Optical Laboratory Manager for Pelong Margo
[2023-11-04 19:53] LABS: Basophils % 0.4 %; Eosinophils # 0.1 10^3/uL (0.0-0.8); Eosinophils % 1.6 %; Hematocrit 45.5 % (37-53); Lymphocytes # 0.8 10^3/uL (0.8-4.8); Lymphocytes % 10.1 %; Mean Corpuscular HGB Conc 32.5 g/dL (30-55); Mean Corpuscular Hemoglobin 28.7 pg (27-33); Mean Corpuscular Volume 88.2 fl (82-101); Mean Platelet Volume 9.5 fL (7.4-10.4); Monocytes # 0.3 10^3/uL (0.2-0.9); Neutrophils # 6.72 10^3/uL (1.8-7.7); Nucleated Red Blood Cells % 0 %; Platelet Count 203 10^3/cmm (157-399); Red Blood Count 5.16 10^6/uL (3.85-5.65); Red Cell Distribution Width 13.2 % (12.1-15.1); White Blood Count 8.09 10^3/uL (3.29-11.43)
[2023-11-04] MEDS: ondansetron 2 mg/ML SDV 2 mL 4 MG IVP (19:55)
[2023-11-04] MEDS: sodium chloride 0.9% 1,000 ML 999 ML IV (19:55)
[2023-11-04 20:17] VITALS: PULSE 72; RESP 16; O2SAT 97
[2023-11-04 20:18] LABS: Troponin(5th) Baseline 10 ng/L (0-15)
[2023-11-04 20:23] LABS: Alanine Aminotransferase 15 U/L (0-41); Albumin Level 4.1 g/dL (3.5-5.2); Alkaline Phosphatase 89 U/L (40-130); Anion Gap 14.5 (5-19); Aspartate Amino Transferase 11 U/L (0-40); Blood Urea Nitrogen 15 mg/dL (8-23); Calcium 9.1 mg/dL (8.5-10.5); Carbon Dioxide 26 mmol/L (22-29); Chloride 98 mmol/L (98-107); Globulin 2.5 g/dL (1.3-4.6); Glucose 187 mg/dL (65-115); Lipase 14 U/L (13-60); Osmolality Calculated 284 mOsm/kg (285-295); Potassium 4.5 mmol/L (3.5-5.1); Sodium 134 mmol/L (136-145); Total Bilirubin 0.5 mg/dL (0.15-1.2); Total Protein 6.6 g/dL (6.6-8.7)
[2023-11-04] MEDS: metoclopramide 5 mg/mL SDV 2 mL 10 MG IVP (20:32)
[2023-11-04 20:36] LABS: Influenza A by IFA negative (Negative); Influenza B by IFA negative (Negative); SARS Covid-2 Antigen negative (Negative)
[2023-11-04 20:54] VITALS: BP 182/91; PULSE 76; RESP 19; O2SAT 96
--- NOTE | 2023-11-04 20:57 | XRR_ITS ---
PROCEDURE INFORMATION: Exam: XR Chest Exam date and time: 11/04/2023 9:04 PM Age: 73 years old Clinical indication: Shortness of breath; Pt HX: SOB; Nausea TECHNIQUE: Imaging protocol: Radiologic exam of the chest. Views: 1 view. COMPARISON: CT abdomen pelvis w con* [id number] 10/31/2023 12:45 PM FINDINGS: Lungs: Interval development of moderate interstitial pulmonary edema. Stable mild elevation of the right hemidiaphragm. Pleural spaces: No pleural effusion. No pneumothorax. Heart/Mediastinum: Patien Stable moderate enlargement of the cardiac silhouette. Mediastinal contours are unremarkable. Bones/joints: Unremarkable for age. XR/XR chest 1V portable [id number] IMPRESSION: 1. Interval development of moderate interstitial pulmonary edema. 2. Incidental/nonacute findings are listed in the report.
--- NOTE | 2023-11-04 20:57 | CTR_ITS ---
PROCEDURE INFORMATION: Exam: CT Head Without Contrast Exam date and time: 11/04/2023 9:54 PM Age: 73 years old Clinical indication: Patient HX: Dizziness with nausea; Additional info: Dizzy and nauseated TECHNIQUE: Imaging protocol: Computed tomography of the head without contrast. Sagittal and coronal reformatted images were created and reviewed. Radiation optimization: All CT scans at this facility use at least one of these dose optimization techniques: automated exposure control; mA and/or kV adjustment per patient size (includes targeted exams where dose is matched to clinical indication); or iterative reconstruction. REPORTING DATA: Count of CT and Cardiac NM exams in prior 12 months: This patient has received 2 known CTs and 0 known cardiac nuclear medicine studies in the 12 months prior to the current study. COMPARISON: No relevant prior studies available. RADIATION DOSE METRICS: Total DLP (mGy-cm): 1945.91 FINDINGS: Brain: No acute intracranial hemorrhage. No acute infarct. No intra-axial or extra-axial masses. Koehler-white matter differentiation is preserved. No cerebral edema. No extra-axial fluid collections. No midline shift. Moderate atrophy of the brain parenchyma. Mildly decreased attenuation in the deep white matter, consistent with mild chronic microangiopathic change. Cerebral ventricles: No hydrocephalus. 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 Paranasal sinuses: Visualized paranasal sinuses are clear. Mastoid air cells: Visualized mastoid air cells are clear. Orbital cavities: No acute abnormality in the visualized orbits. Bones/joints: No acute fracture. Soft tissues: The extracranial soft tissues are unremarkable. Vasculature: Moderate atherosclerotic changes in the visualized arteries. CT/CT head wo con* [id number] IMPRESSION: 1. No acute abnormality of the brain. 2. Moderate atrophy of the brain parenchyma. 3. Mild chronic white matter microangiopathic change. 4. 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 5. Incidental/nonacute findings are listed in the report.
--- NOTE | 2023-11-04 21:36 | ECG_ITS ---
[facility] Test Date: 2023-11-04 Pat Name: Leon Barger Department: Room: 254 Gender: Male Manager City: : 1950 Requested By: Carson Dawson Order Number: [id number] Tomi MD: Lobo Abdalla M.D. Measurements Intervals [place] Rate: 60 P: 51 UT: 217 QRS: -55 QRSD: 98 T: 75 QT: 453 QTc: 453 Interpretive Statements SINUS RHYTHM WITH SINUS ARRHYTHMIA WITH FIRST DEGREE AV BLOCK PATTERN CONSISTENT WITH PULMONARY DISEASE LEFT ANTERIOR FASCICULAR BLOCK [QRS AXIS <= -45, QR IN I, RS IN II] No previous ECG available for comparison Electronically Signed On 11-05-2023 10:01:03 CONSTRUCTION PROJECT ASSISTANT by Lobo Abdalla M.D. [email or web address]
--- NOTE | 2023-11-04 21:39 | PC.NURSE ---
Patient was given ativan for CT scan. Patient was explained the reason for the ativan and medication was administered due to patient being agreeable to medication. Patient then began to refuse CT scan and stated he wanted to go home. Patient was adament he wanted to refuse CT scan. informed of this.
--- NOTE | 2023-11-04 21:44 | ECG_ITS ---
[facility] Test Date: 2023-11-04 Pat Name: Leon Barger Department: Room: Gender: Male Wedding Designer: : 1950 Requested By: Carson Dawson Order Number: [id number] Tomi MD: Lobo Abdalla M.D. Measurements Intervals [place] Rate: 73 P: 50 [place]: 217 QRS: -53 QRSD: 103 T: 79 QT: 430 QTc: 475 Interpretive Statements SINUS RHYTHM WITH FIRST DEGREE AV BLOCK PATTERN CONSISTENT WITH PULMONARY DISEASE LEFT ANTERIOR FASCICULAR BLOCK [QRS AXIS <= -45, QR IN I, RS IN II] No previous ECG available for comparison Electronically Signed On 11-05-2023 9:58:46 LIMEROCK TOWER LOADER by Lobo Abdalla M.D. [email or web address] [id number]
[2023-11-04 22:45] LABS: Troponin 5 2HR 11.03 ng/L (0-15); Troponin 5 2HR Delta 1.03 ABS# (0-10)
[2023-11-04 22:49] VITALS: BP 181/91; PULSE 79; RESP 14; O2SAT 95
[2023-11-04 22:54] LABS: NT Pro B Type Natriuretic Pept 56 pg/mL (0-125)
--- NOTE | 2023-11-04 23:07 | P.HP_ITS ---
Providers/Chief Complaint 2 Primary Care Provider: Hui Quevedo APN Chief Complaint: DIZZY History of Present Illness Leon Barger is a 73 year old male who present to the hospital for chief complaint of not feeling well. He has been experiencing dizziness which are associated with nausea and decreased appetite. This started today around 10 AM. Because of worsening of symptoms he developed headache as well, he has not experienced any syncope, chest pain, seizure-like activity recent diarrhea or febrile events. In the ER patient is not able to get up and walk around, stating that his will not be able to take care of him at home CBC BMP unremarkable, CT head unremarkable, Review of Systems 2 Const: Denies: fever(s) Eyes: Denies: change in vision ENMT: Denies: throat pain Card: Denies: chest pain Resp: Denies: dyspnea GI: Reports: nausea : Denies: flank pain Musc: Denies: neck pain Medications/Allergies Home Medications Medication Instructions Recorded Confirmed Last Taken Type diltiazem HCl 240 mg 240 mg PO QAM 12/24/19 11/03/23 10/31/23 History capsule,extended release 24 hr lisinopril 5 mg tablet 2.5 mg PO DAILY 12/24/19 11/03/23 10/31/23 History simvastatin 20 mg tablet 10 mg PO QPM 12/24/19 11/03/23 10/30/23 History cholecalciferol (vitamin D3) 50 50 mcg PO DAILY 09/15/23 11/03/23 10/31/23 History mcg (2,000 unit) capsule (Vitamin D3) clobetasol 0.05 % topical cream 1 applic topical DAILY PRN Rash 09/15/23 11/03/23 Unknown History empagliflozin 25 mg tablet 25 mg PO QAM 09/15/23 11/03/23 10/31/23 History (Jardiance) epinephrine 0.3 mg/0.3 mL See Rx Instructions .Route 09/15/23 11/03/23 Unknown History injection, auto-injector (EpiPen) .COMPLEX PRN Allergic Reaction folic acid 0.8 mg capsule 0.4 mg PO DAILY 09/15/23 11/03/23 10/31/23 History insulin aspar prt-insulin aspart See Rx Instructions .Route .COMPLEX 09/15/23 11/03/23 10/31/23 History 100 unit/mL (70-30) subcutaneous soln (Novolog Mix 70-30 U-100 Insuln) lanolin alcohols-mineral See Rx Instructions .Route .COMPLEX 09/15/23 11/03/23 09/14/23 History oil-w.petrolatum-ceresin topical cream (Eucerin topical cream) nitroglycerin 0.4 mg sublingual 0.4 mg sublingual Q5M PRN Chest 09/15/23 11/03/23 Unknown History tablet (Nitrostat) Pain omeprazole 20 mg capsule,delayed 20 mg PO BID 09/15/23 11/03/23 10/31/23 History release pioglitazone 30 mg tablet 30 mg PO QAM 09/15/23 11/03/23 10/31/23 History tamsulosin 0.4 mg capsule 0.8 mg PO QPM 09/15/23 11/03/23 10/30/23 History urea 40 % topical cream See Rx Instructions .Route .COMPLEX 09/15/23 11/03/23 09/15/23 History ibuprofen 800 mg tablet 800 mg PO TID 10/31/23 11/03/23 10/31/23 History tramadol 50 mg tablet 50 mg PO Q8H PRN pain #14 tabs 10/31/23 11/03/23 Unknown Rx Allergies Allergy/AdvReac Type Severity Reaction Status Date / Time Opioids - Morphine Analogues Allergy Intermediate sick Verified 11/03/23 13:23 PFSH Acute 2 PFSH: Medical History Otitis externa Essential hypertension DM type 2 (diabetes mellitus, type 2) GERD (gastroesophageal reflux disease) Surgical History History of prostate surgery 2017 History of colonoscopy with polypectomy Family History Denies family history of Anesthesia complication Bleeding disorder Social History Smoking and tobacco/nicotine status: never used tobacco/nicotine Second hand smoke exposure: No Alcohol intake: never Vitals/I&O/Wt Last Vital Signs Temp 97.6 F 11/04/23 19:10 Pulse 79 11/04/23 22:49 Resp 14 11/04/23 22:49 BP 181/91 11/04/23 22:49 Pulse Ox 95 11/04/23 22:49 O2 Del Method Room Air 11/04/23 19:28 Weight last 48 hrs Weight 149.685 kg Physical Exam 2 Narrative: Nonfocal neuroexam Mild signs of fluid overload Currently on room air Hypertension GCS 15 Pleasant and cooperative S1, S2 Abdomen soft No active wheezing or crackles Data 11/04/23 19:47 11/04/23 19:47 A&P Assessment and plan (1) Vertigo: Plan BPPV Symptomatic vertigo Requested physical therapy for Lacey's maneuver in the morning Hold meclizine until PT evaluation No active focal deficit to suggest posterior circulation stroke Troponin negative COVID antigen negative Patient is hypertensive I will discontinue lisinopril low-dose and given daily regimen of lisinopril 20 mg, Cardizem, he may benefit from the third agent considering his. Grade 2 hypertension Preserved ejection fraction heart failure exacerbation with mild edema Add low-dose Lasix No previous history of congestive heart failure Full code Consistent carb diet Continue sliding scale Unremarkable DVT No need to repeat labs in the morning Head CT unremarkable COVID antigen negative Will check B12 and TSH Attestations 2 Medical Necessity Statement*: Anticipating discharge within 48 hours Diagnoses Vertigo R42
[2023-11-04 23:27] VITALS: BP 181/91; PULSE 81; RESP 14; O2SAT 98
[2023-11-04 23:33] VITALS: BMI 44.7
[2023-11-05] VITALS: BP 181/80; PULSE 78; RESP 19; TEMP 36.6; O2SAT 93
--- NOTE | 2023-11-05 00:28 | USCV_ITS ---
Leon Barger Age: 73 Gender: M : 1950 Exam Date: 11/05/2023 12:54 Ordering Phys: Ramón Pierre MD Technologist: Maurice Lu [place] [facility] [place]: CHF BP: 135 / 66 HR: 68 Rhythm: Sinus Technical Quality: Adequate MEASUREMENTS (Male / Female) Normal Values 2D ECHO LVOT Diameter 2.2 cm LV Ejection Fraction MOD 2C 66.2 % LV Ejection Fraction 2C AL 66.5 % LA Diameter 4.5 cm LA Width 3.8 cm LA Height 3.7 cm RA Width 3.1 cm RA Height 4.2 cm Aorta at Sinotubular Diameter 2.3 cm M-MODE Aortic Annulus Diameter 3.0 cm LA Ao Ratio MM 1.6 MV E Point Septal Separation 0.6 cm DOPPLER MV Peak Velocity 106.0 cm/s MV Area PHT 4.2 cm squared Mitral E to A Ratio 0.8 MV E' Velocity 39.0 cm/s Mitral E to MV E' Ratio 8.7 Mitral E to LV E' Lateral Ratio 8.6 Mitral E to LV E' Septal Ratio 8.9 Right Atrial Pressure 8.0 mmHg PV Peak Velocity 119.0 cm/s RV Acceleration Time 0.1 s RV Ejection Time 0.2 s RV AcT/ET 0.4 FINDINGS Left Ventricle Left ventricle is normal in size. LV systolic function is normal with EF of 60 to 65%. No regional wall motion abnormalities are seen. Grade 1 diastolic dysfunction. Right Ventricle Normal in size and function Right Atrium Normal in size Left Atrium Normal in size Mitral Valve Grossly normal. Trace mitral regurgitation. Aortic Valve Aortic valve is thickened. Tricuspid Valve Not well visualized Pulmonic Valve Not well visualized Pericardium Not well visualized Aorta Grossly normal in size IVC Not well visualized CONCLUSIONS Technically limited quality echocardiogram because of poor ultrasonic windows. LV systolic function is normal with EF of 60 to 65%. Grade 1 diastolic dysfunction. Trace mitral regurgitation No comparsion studies are available Lobo Abdalla MD (Electronically Signed) Final Date: 05 November 2023 14:06 S
[2023-11-05] MEDS: lisinopril 20 mg Tablet PO ×2 (00:52→08:35)
[2023-11-05 02:09] LABS: D Dimer 0.51 ug/mLFEU (0-0.59)
[2023-11-05 02:16] LABS: Magnesium 2.1 mg/dL (1.7-2.3)
[2023-11-05 02:20] LABS: Troponin 5 6HR 10.78 ng/L (0-15); Troponin 5 6HR Delta 0.78 ng/L (0-12)
[2023-11-05 02:35] LABS: NT Pro B Type Natriuretic Pept 92 pg/mL (0-125); Thyroid Stimulating Hormone 1.48 uIU/mL (0.27-4.20); Vitamin B12 444 pg/mL (232-1245)
[2023-11-05 04:00] VITALS: BP 162/83; PULSE 84; RESP 19; TEMP 36.7; O2SAT 94
[2023-11-05] MEDS: dilTIAZem ER (24HR) 240 mg Capsule PO (05:34)
[2023-11-05] MEDS: enoxaparin 40 mg/0.4 mL Syringe SUBCUT (05:34)
[2023-11-05 06:42] LABS: Glucose Point of Care 117 mg/dL (70-110)
[2023-11-05 07:23] VITALS: PULSE 94; RESP 18; O2SAT 94
[2023-11-05 07:55] VITALS: BP 135/66; PULSE 91; RESP 18; O2SAT 94
[2023-11-05] MEDS: FUROsemide 10 mg/mL SDV 2mL 20 MG IVP (08:35)
[2023-11-05] MEDS: folic acid 1 mg Tablet PO (08:35)
--- NOTE | 2023-11-05 09:53 | CTR_ITS ---
PROCEDURE INFORMATION: Exam: CTA Head With Contrast, Arteriography Exam date and time: 11/05/2023 10:41 AM Age: 73 years old Clinical indication: Dizziness and giddiness; Additional info: Dizzyness TECHNIQUE: Imaging protocol: Computed tomographic angiography of the head with contrast. Exam focused on the arteries. 3D rendering (Not supervised by radiologist): MIP and/or 3D reconstructed images were created by the technologist. Total images: 1 Radiation optimization: All CT scans at this facility use at least one of these dose optimization techniques: automated exposure control; mA and/or kV adjustment per patient size (includes targeted exams where dose is matched to clinical indication); or iterative reconstruction. Contrast material: OMNI 350; Contrast volume: 100 ml; Contrast route: INTRAVENOUS (IV); REPORTING DATA: Count of CT and Cardiac NM exams in prior 12 months: This patient has received 3 known CTs and 0 known cardiac nuclear medicine studies in the 12 months prior to the current study. COMPARISON: CT head wo con* [id number] 11/04/2023 9:54 PM RADIATION DOSE METRICS: Total DLP (mGy-cm): 1103.92 FINDINGS: ANTERIOR CIRCULATION: Right internal carotid artery: Intracranial segment is patent with no significant stenosis. No aneurysm. Right middle cerebral artery: No occlusion or significant stenosis. No aneurysm. Right anterior cerebral artery: No occlusion or significant stenosis. No aneurysm. Left internal carotid artery: Intracranial segment is patent with no significant stenosis. No aneurysm. Left middle cerebral artery: No occlusion or significant stenosis. No aneurysm. Left anterior cerebral artery: No occlusion or significant stenosis. No aneurysm. POSTERIOR CIRCULATION: Right vertebral artery: Right vertebral artery dominant. Left vertebral artery: Hypoplastic left vertebral artery terminating into PICA. Basilar artery: No occlusion or significant stenosis. No aneurysm. Right posterior cerebral artery: No occlusion or significant stenosis. No aneurysm. Left posterior cerebral artery: No occlusion or significant stenosis. No aneurysm. 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 Cerebral ventricles: See Brain finding. Orbital cavities: Prior right lens extraction. Mastoid air cells: Under pneumatization of right mastoid air cells. Bones/joints: Unremarkable. No acute fracture. Soft tissues: Unremarkable. PROCEDURE INFORMATION: Exam: CTA Neck With Contrast Exam date and time: 11/05/2023 10:41 AM Age: 73 years old Clinical indication: Dizziness and giddiness; Additional info: Dizzyness TECHNIQUE: Imaging protocol: Computed tomographic angiography of the neck with contrast. Exam focused on the cervical segments of the vasculature. 3D rendering (Not supervised by radiologist): MIP and/or 3D reconstructed images were created by the technologist. Radiation optimization: All CT scans at this facility use at least one of these dose optimization techniques: automated exposure control; mA and/or kV adjustment per patient size (includes targeted exams where dose is matched to clinical indication); or iterative reconstruction. Contrast material: OMNI 350; Contrast volume: 100 ml; Contrast route: INTRAVENOUS (IV); REPORTING DATA: Count of CT and Cardiac NM exams in prior 12 months: This patient has received 3 known CTs and 0 known cardiac nuclear medicine studies in the 12 months prior to the current study. COMPARISON: CT head wo con* [id number] 11/04/2023 9:54 PM RADIATION DOSE METRICS: Total DLP (mGy-cm): 1103.92 FINDINGS: Right common carotid artery: No stenosis. No dissection or occlusion. Right internal carotid artery: No stenosis of the extracranial segment. No dissection or occlusion. Right external carotid artery: No occlusion or stenosis of the origin. Left common carotid artery: No stenosis. No dissection or occlusion. Left internal carotid artery: No stenosis of the extracranial segment. No dissection or occlusion. Left external carotid artery: No occlusion or stenosis of the origin. Right vertebral artery: Right vertebral artery dominant. Left vertebral artery: Hypoplastic left vertebral artery. Soft tissues: Normal. No significant soft tissue swelling. Bones/joints: Mild scattered degenerative changes of the spine. C5-7 degenerative disc disease with disc space narrowing and osteophyte formation. Other findings: Streak artifact from dental amalgam. CT/CT angio headneck* [id number] IMPRESSION: 1. No acute intracranial pathology detected. 2. No hemodynamically significant stenosis, vascular occlusions, aneurysm, dissection, nor AV malformation. IMPRESSION: No stenosis or occlusion. REFERENCES: NASCET CRITERIA. The degree of stenosis in the cervical segment of the internal carotid artery is based on NASCET criteria. Normal is no stenosis. Mild is less than 50% stenosis. Moderate is 50-69% stenosis. Severe is 70% to 99% stenosis. Total occlusion is no detectable patent lumen.
[2023-11-05 11:05] LABS: Glucose Point of Care 218 mg/dL (70-110)
[2023-11-05 11:49] VITALS: BP 115/65; PULSE 73; RESP 16; TEMP 36.6; O2SAT 91
[2023-11-05] MEDS: insulin lispro 100 unit/1 mL SUBCUT (11:53)
--- NOTE | 2023-11-05 11:54 | P.DS_ITS ---
Discharge Providers Date of Admission: 11/04/23 23:18 Date of Discharge: November 05, 2023 Attending Provider at Admission: Ramón Pierre MD Attending Provider at Discharge: Holden Esparza MD Primary Care Provider: Hui Quevedo APN Diagnoses at Discharge Discharge Diagnosis (1) Vertigo: Status: Acute Reason for Visit Reason for Visit: DIZZY Hospital Course Hospital Course This is a 73-year-old male with a past medical history of morbid obesity, type 2 diabetes mellitus, hyperlipidemia, who presents to [facility] due to complaints of feeling unwell and lightheadedness. Patient tells me that he has a history of dizziness and lightheadedness for the last 10 years, typically when changing positions done with changing head positions, however last night he started develop episodes of dizziness which changing position, which was persisting associate with feeling unwell,. He denies any chest pain, no palpitations, no slurring of his words no facial droop, no focal weakness, no focal paresthesias, no trouble coordinating, ? Here in the emergency room his CT head no acute findings ? CTA head and neck was within normal limits, ? EKG troponin trend was within normal limits ? Blood work was within normal limits ? He worked with PT OT, no recurrent lightheadedness or dizziness episodes was shown the Lacey maneuver, ? On examination he was alert oriented x 3, no focal neurologic deficits, he was seen and ambulating in the room without lightheadedness no focal weakness or trouble coordinating ? Etiology behind dizziness could be BPPV versus TIA ?discharged on aspirin and statin ? If any recurrent symptoms please go to emergency room context ?discharged with an event monitor Physical Exam Const: COMMON NORMALS: no acute distress and patient oriented x3 HENMT: COMMON NORMALS: normocephalic HEAD & SCALP: normocephalic Resp: COMMON NORMALS: normal respiratory effort, No retractions, No use of accessory muscles and clear to auscultation bilaterally AUSCULTATION: clear to auscultation bilaterally Cardio: COMMON NORMALS: regular rate, regular rhythm, S1 normal heart sound present and S2 normal heart sound present RATE: regular rate RHYTHM: regular rhythm HEART SOUNDS: S1 normal heart sound present and S2 normal heart sound present GI: COMMON NORMALS: Normal to inspection, nondistended, normoactive bowel sounds present and non-tender Extremity: COMMON NORMALS: no pedal edema Neuro: COMMON NORMALS: patient oriented x3, CN's II-XII intact bilaterally, moves all extremities, no focal motor deficits and no sensory deficits noted Psych: COMMON NORMALS: mental status grossly normal Discharge Data Studies Completed and Pending Completed Studies During Hospitalization Category Date Time Status CT angio head neck [CT angio headneck* [id number]] Cat Scan 11/05/23 09:[address] head wo con* [id number] Stat Cat Scan 11/04/23 20:57 Completed XR chest 1V portable [id number] Stat Exams 11/04/23 20:57 Completed Pending at discharge Category Date Time Status CV. echo complete* [id number] Routine Ultrasound 11/05/23 00:28 Ordered Radiology Impressions Chest X-Ray 11/04/23 20:57 IMPRESSION: 1. Interval development of moderate interstitial pulmonary edema. 2. Incidental/nonacute findings are listed in the report. Head CT 11/04/23 20:57 IMPRESSION: 1. No acute abnormality of the brain. 2. Moderate atrophy of the brain parenchyma. 3. Mild chronic white matter microangiopathic change. 4. 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 5. Incidental/nonacute findings are listed in the report. Head/Neck CTA 11/05/23 09:53 IMPRESSION: 1. No acute intracranial pathology detected. 2. No hemodynamically significant stenosis, vascular occlusions, aneurysm, dissection, nor AV malformation. IMPRESSION: No stenosis or occlusion. REFERENCES: NASCET CRITERIA. The degree of stenosis in the cervical segment of the internal carotid artery is based on NASCET criteria. Normal is no stenosis. Mild is less than 50% stenosis. Moderate is 50-69% stenosis. Severe is 70% to 99% stenosis. Total occlusion is no detectable patent lumen. Laboratory Results WBC 8.09 10^3/uL (3.29-11.43) 11/04/23 19:47 RBC 5.16 10^6/uL (3.85-5.65) 11/04/23 19:47 Hgb 14.80 g/dL (11.27-16.99) 11/04/23 19:47 Hct 45.5 % (37-53) 11/04/23 19:47 MCV 88.2 fl (82-101) 11/04/23 19:47 MCH 28.7 pg (27-33) 11/04/23 19:47 MCHC 32.5 g/dL (30-55) 11/04/23 19:47 RDW 13.2 % (12.1-15.1) 11/04/23 19:47 Plt Count 203 10^3/cmm (157-399) 11/04/23 19:47 MPV 9.5 fL (7.4-10.4) 11/04/23 19:47 Neut % (Auto) 83.0 % 11/04/23 19:47 Lymph % (Auto) 10.1 % 11/04/23 19:47 [place] % (Auto) 4.0 % 11/04/23 19:47 Eos % (Auto) 1.6 % 11/04/23 19:47 Baso % (Auto) 0.4 % 11/04/23 19:47 Neut # (Auto) 6.72 10^3/uL (1.8-7.7) 11/04/23 19:47 Lymph # (Auto) 0.8 10^3/uL (0.8-4.8) 11/04/23 19:47 [place] # (Auto) 0.3 10^3/uL (0.2-0.9) 11/04/23 19:47 Eos # (Auto) 0.1 10^3/uL (0.0-0.8) 11/04/23 19:47 Baso # (Auto) 0.0 10^3/uL (0.0-0.1) 11/04/23 19:47 Nucleated RBC % (auto) 0 % 11/04/23 19:47 Nucleated RBCs # 0.0 /100WBC 11/04/23 19:47 D-Dimer 0.51 ug/mLFEU (0-0.59) 11/05/23 01:43 Sodium 134 mmol/L (136-145) L 11/04/23 19:47 Potassium 4.5 mmol/L (3.5-5.1) 11/04/23 19:47 Chloride 98 mmol/L (98-107) 11/04/23 19:47 Carbon Dioxide 26 mmol/L (22-29) 11/04/23 19:47 Anion Gap 14.5 (5-19) 11/04/23 19:47 BUN 15 mg/dL (8-23) 11/04/23 19:47 Creatinine 0.9 mg/dL (0.7-1.2) 11/04/23 19:47 GFR Calculation Not Reportable 11/04/23 19:47 Glucose 187 mg/dL (65-115) H 11/04/23 19:47 POC Glucose 218 mg/dL (70-110) H 11/05/23 11:02 Calculated Osmolality 284 mOsm/kg (285-295) L 11/04/23 19:47 Calcium 9.1 mg/dL (8.5-10.5) 11/04/23 19:47 Magnesium 2.1 mg/dL (1.7-2.3) 11/05/23 01:43 Total Bilirubin 0.5 mg/dL (0.15-1.2) 11/04/23 19:47 AST 11 U/L (0-40) 11/04/23 19:47 ALT 15 U/L (0-41) 11/04/23 19:47 Alkaline Phosphatase 89 U/L (40-130) 11/04/23 19:47 Troponin T Baseline 10 ng/L (0-15) 11/04/23 19:47 Troponin T 120 Minute 11.03 ng/L (0-15) 11/04/23 22:05 Delta Troponin T 1.03 ABS# (0-10) 11/04/23 22:05 Troponin T Hi Sens 6Hr 10.78 ng/L (0-15) 11/05/23 01:43 Troponin T Hi Sens 6Hr Delta 0.78 ng/L (0-12) 11/05/23 01:43 NT-Pro-B Natriuret Pep 92 pg/mL (0-125) 11/05/23 01:43 Total Protein 6.6 g/dL (6.6-8.7) 11/04/23 19:47 Albumin 4.1 g/dL (3.5-5.2) 11/04/23 19:47 Globulin 2.5 g/dL (1.3-4.6) 11/04/23 19:47 Lipase 14 U/L (13-60) 11/04/23 19:47 Vitamin B12 444 pg/mL (232-1245) 11/05/23 01:43 TSH 1.48 uIU/mL (0.27-4.20) 11/05/23 01:43 Influenza Type A Ag negative (Negative) 11/04/23 19:54 Influenza Type B Ag negative (Negative) 11/04/23 19:54 SARS-CoV-2 Ag (Rapid) negative (Negative) 11/04/23 19:54 Vitals Last Vital Signs Temp 97.9 F 11/05/23 11:49 Pulse 73 11/05/23 11:49 Resp 16 11/05/23 11:49 BP 115/65 11/05/23 11:49 Pulse Ox 91 11/05/23 11:49 O2 Del Method Room Air 11/05/23 11:49 Discharge Plan Discharge Patient Disposition: Home Condition: Stable Prescriptions: New lisinopril 20 mg Tablet 20 mg PO DAILY 30 Days Qty: 30 0RF Continued diltiazem HCl 240 mg capsule,extended release 24hr 240 mg PO QAM simvastatin 20 mg tablet 10 mg PO QPM tramadol 50 mg tablet 50 mg PO Q8H PRN (Reason: pain) Qty: 14 0RF clobetasol 0.05 % Cream 1 applic TOPICAL DAILY PRN (Reason: Rash) tamsulosin 0.4 mg Capsule 0.8 mg PO QPM nitroglycerin [Nitrostat] 0.4 mg Tablet, Sublingual 0.4 mg SUBLINGUAL Q5M PRN (Reason: Chest Pain) Rx Instructions: do not exceed 3 doses per episode omeprazole 20 mg Capsule,Delayed Release(Dr/Ec) 20 mg PO BID epinephrine [EpiPen] 0.3 mg/0.3 mL Auto-Injector See Rx Instructions .ROUTE .COMPLEX PRN (Reason: Allergic Reaction) Rx Instructions: 0.3 mg intramuscularly one time to thigh as needed for allergic reaction/anaphylaxis. pioglitazone 30 mg Tablet 30 mg PO QAM insulin asp prt-insulin aspart [Novolog Mix 70-30 U-100 Insuln] 100 unit/mL (70-30) Solution See Rx Instructions .ROUTE .COMPLEX Rx Instructions: INJECT 70 UNITS UNDER THE SKIN EVERY MORNING AND 60 UNITS EVERY EVENING. ADMINISTER DOSE WITHIN 5-10 MINUTES OF START OF A MEAL. folic acid 0.8 mg Capsule 0.4 mg PO DAILY cholecalciferol (vitamin D3) [Vitamin D3] 50 mcg (2,000 unit) Capsule 50 mcg PO DAILY Eucerin Cream See Rx Instructions .ROUTE .COMPLEX Rx Instructions: Apply sparingly to affected area(s) twice daily. (external use only) Jardiance 25 mg Tablet 25 mg PO QAM Aspir-81 81 mg Tablet,Delayed Release (Dr/Ec) 81 mg PO DAILY Discontinued lisinopril 5 mg tablet 2.5 mg PO DAILY ibuprofen 800 mg Tablet 800 mg PO TID Discharge Orders: Discharge Order (Routine); Ordered 11/05/23 Ordered By: Holden Esparza Referrals: Hui Quevedo FNP [Primary Care Provider] - (We have notified your physician's clinic of the need for a follow-up appointment to be scheduled. If you have not heard from them within the next 2 business days, please call them directly. ) Discharge Diet: Cardiac Discharge Activity: Resume usual activity Patient Instructions: Lisinopril (By mouth), Vertigo (DC), Opioid Safety Activity Restrictions/Additional Instructions: - If you have any recurrent strokelike symptoms please go to the emergency room ? If any recurrent lightheadedness or dizziness please go to emergency room Discharge Attestations Time Spent in Discharge Care*: greater than 30 min Quality Metrics Clinical Quality Measures [ No reported AMI, CVA or VTE this stay] Coding Level of Care Code 06126 Total time (in minutes) for Discharge: 45 Diagnoses Vertigo R42
[2023-11-05] MEDS: perflutren protein-a microsphr 0.22 mg/mL SDV 3 mL IV (13:32)
[2023-11-05 15:24] VITALS: BP 115/65; PULSE 73; RESP 16; TEMP 36.6; O2SAT 91
== END 2023-11-05 15:25 | disposition home or self-care (01) ==
LOC: ER 23:17 → MEDSURG 23:18
PROVIDERS: Admitting Provider Internal Medicine; Emergency Provider Emergency Medicine; PCP Nurse Practitioner; Visit Provider Family Medicine
DX: H81.10 Benign paroxysmal vertigo, unspecified ear (principal); E66.01 Morbid (severe) obesity due to excess calories; Z68.43 Body mass index [BMI] 50.0-59.9, adult; E78.5 Hyperlipidemia, unspecified; I10 Essential (primary) hypertension; E11.9 Type 2 diabetes mellitus without complications; K21.9 Gastro-esophageal reflux disease without esophagitis; I44.0 Atrioventricular block, first degree
CPT/HCPCS: 36415; 36416; 70450; 70496; 70498; 71045; 80053; 82607; 82962; 83690; 83735; 83880; 84443; 84484; 85025; 85378; 87426; 87804; 93005; 96372; 96374; 96375; 97161; 99285; C8929; G0378; J1650; J1815; J1940; J2060; J2405; J2765; J7030; Q9956; Q9967

== ENCOUNTER → 2024-01-22 13:10 | Outpatient (BNVA) | payer OTHER, SELFPAY | PROVIDERS: PCP Nurse Practitioner; Referring Provider Emergency Medicine Emergency Medical Services; Visit Provider Internal Medicine Cardiovascular Disease | DX: R42 Dizziness and giddiness (principal); R06.02 Shortness of breath | CPT/HCPCS: 99203 ==

== ENCOUNTER → 2024-07-30 10:00 | Outpatient (BNVA) | payer OTHER, SELFPAY | PROVIDERS: PCP Nurse Practitioner; Visit Provider Internal Medicine Cardiovascular Disease | DX: R06.02 Shortness of breath (principal); E11.9 Type 2 diabetes mellitus without complications; E66.01 Morbid (severe) obesity due to excess calories; R42 Dizziness and giddiness; I10 Essential (primary) hypertension; Z68.43 Body mass index [BMI] 50.0-59.9, adult | CPT/HCPCS: 99214 ==

== ENCOUNTER 2024-08-06 10:05 | Day surgery (SDC) | payer OTHER, SELFPAY ==
[2024-08-06 10:30] VITALS: BP 166/87; PULSE 68; RESP 16; TEMP 36.2; O2SAT 97
[2024-08-06 10:33] VITALS: BMI 53.0
--- NOTE | 2024-08-06 10:37 | W.PM.OPSFHP ---
Same Day Surgery H&P Indication for Procedure/HPI DATE OF PROCEDURE: August 06, 2024 CHIEF COMPLAINT/INDICATIONFOR SURGICAL PROCEDURE: need for screening colonoscopy PREOP DIAGNOSIS: need for screening colonoscopy PLANNED PROCEDURE: Operation Date: 08/06/24 11:30 Proposed Procedures p Colonoscopy - 65551,G0121,Z12.11(Not Applicable) - Giuliano Martin MD Medications/Allergies* Home Medications Medication Instructions Recorded Confirmed Type diltiazem HCl 240 mg 240 mg PO QAM 12/24/19 08/06/24 History capsule,extended release 24 hr simvastatin 20 mg tablet 10 mg PO QPM 12/24/19 08/06/24 History cholecalciferol (vitamin D3) 50 50 mcg PO DAILY 09/15/23 08/06/24 History mcg (2,000 unit) capsule (Vitamin D3) empagliflozin 25 mg tablet 25 mg PO QAM 09/15/23 08/06/24 History (Jardiance) epinephrine 0.3 mg/0.3 mL 0.3 mg SUBCUT PRN PRN Allergic 09/15/23 08/06/24 History injection, auto-injector (EpiPen) Reaction folic acid 0.8 mg capsule 0.4 mg PO DAILY 09/15/23 08/06/24 History insulin aspar prt-insulin aspart 30 unit SUBCUT QAM PRN blood sugar 09/15/23 08/06/24 History 100 unit/mL (70-30) subcutaneous soln (Novolog Mix 70-30 U-100 Insuln) lanolin alcohols-mineral 1 applic topical BID PRN Itching 09/15/23 08/06/24 History oil-w.petrolatum-ceresin topical cream (Eucerin topical cream) nitroglycerin 0.4 mg sublingual 0.4 mg sublingual Q5M PRN Chest 09/15/23 08/06/24 History tablet (Nitrostat) Pain pioglitazone 30 mg tablet (Actos) 30 mg PO QAM 09/15/23 08/06/24 History tamsulosin 0.4 mg capsule 0.8 mg PO QPM 09/15/23 08/06/24 History aspirin 81 mg tablet,delayed 81 mg PO DAILY 11/05/23 08/06/24 History release semaglutide 1 mg/dose (2 mg/1.5 2 mg SUBCUT .WEEKLY 01/22/24 08/06/24 History mL) subcutaneous pen injector insulin aspar prot-insulin aspart 30 unit SUBCUT QPM PRN blood sugar 04/09/24 08/06/24 History 100 unit/mL (70-30) subcutaneous pen (Novolog Mix 70-30FlexPen U-100) furosemide 20 mg tablet 20 mg PO DAILY 07/30/24 08/06/24 History lisinopril 40 mg tablet 40 mg PO DAILY 07/30/24 08/06/24 History sucralfate 1 gram tablet 1 g PO BID 07/30/24 08/06/24 History Allergies/Adverse Reactions Allergy/AdvReac Type Severity Reaction Status Date / Time Opioids - Morphine Analogues Allergy Intermediate sick Verified 07/30/24 10:21 Pertinent History/Comorbid Conditions* Medical History (Updated 07/30/24 @ 13:06 by Aura Hernadez MD) Otitis externa Essential hypertension DM type 2 (diabetes mellitus, type 2) GERD (gastroesophageal reflux disease) Surgical History (Updated 11/06/23 @ 00:00 by DANIELLE Goss) History of prostate surgery 2017 History of colonoscopy with polypectomy Family History (Updated 02/17/20 @ 12:11 by Jacki Chen, [place]) Denies family history of Anesthesia complication Bleeding disorder Social History Smoking and tobacco/nicotine status: never used tobacco/nicotine Second hand smoke exposure: No Alcohol intake: never Pertinent Exam Findings alert, oriented x 3, clear to auscultation bilaterally and regular rate & rhythm Recommendations Surgery/Procedure today Coding Level of Care Code Acute Code for Jose Aragon
[2024-08-06] MEDS: sodium chloride 0.9% 1,000 ML 30 ML IV (10:44)
[2024-08-06 10:51] LABS: Glucose Point of Care 128 mg/dL (70-110)
--- NOTE | 2024-08-06 10:57 | ANES.PREANE2 ---
Pre-Anesthetic Assessment Height/Weight: Height 1.73 m Weight 158.304 kg Temp Pulse Resp BP Pulse Ox O2 Del Method 97.1 F L 68 16 166/87 97 Room Air 08/06/24 10:30 08/06/24 10:30 08/06/24 10:30 08/06/24 10:30 08/06/24 10:30 08/06/24 10:30 Preop Diagnosis: need for screening colonoscopy Operation Date: 08/06/24 11:30 Proposed Procedures p Colonoscopy - 09253,G0121,Z12.11(Not Applicable) - Giuliano Martin MD Familial anesthetic complications: None Was Beta Chente taken within 24 hours: N/A Was Clonidine taken within 24 hours: N/A Last intake: Intake Last Liquid Date 08/05/24 Last Liquid Time 23:00 Last Solid Date 08/04/24 Last Solid Time 22:00 Social No alcohol and No tobacco Exam alert, oriented x 3, clear to auscultation bilaterally and regular rate & rhythm Airway Mallampati: Class IV Dentition: full CV/HEM Stable Angina, Coronary Artery Disease and Hypertension Metabolic Diabetes Mellitus and Morbid Obesity Anesthetic Plan ASA status: 4 Anesthesia: MAC Risk of > 500 ml blood loss (7ml/kg in children): No Medications/Allergies Home Medications Medication Instructions Recorded Confirmed Last Taken Type diltiazem HCl 240 mg 240 mg PO QAM 12/24/19 08/06/24 08/05/24 History capsule,extended release 24 hr simvastatin 20 mg tablet 10 mg PO QPM 12/24/19 08/06/24 08/05/24 History cholecalciferol (vitamin D3) 50 50 mcg PO DAILY 09/15/23 08/06/24 08/05/24 History mcg (2,000 unit) capsule (Vitamin D3) empagliflozin 25 mg tablet 25 mg PO QAM 09/15/23 08/06/24 08/05/24 History (Jardiance) epinephrine 0.3 mg/0.3 mL 0.3 mg SUBCUT PRN PRN Allergic 09/15/23 08/06/24 04/09/24 History injection, auto-injector (EpiPen) Reaction folic acid 0.8 mg capsule 0.4 mg PO DAILY 09/15/23 08/06/24 08/05/24 History insulin aspar prt-insulin aspart 30 unit SUBCUT QAM PRN blood sugar 09/15/23 08/06/24 07/25/24 History 100 unit/mL (70-30) subcutaneous soln (Novolog Mix 70-30 U-100 Insuln) lanolin alcohols-mineral 1 applic topical BID PRN Itching 09/15/23 08/06/24 08/05/24 History oil-w.petrolatum-ceresin topical cream (Eucerin topical cream) nitroglycerin 0.4 mg sublingual 0.4 mg sublingual Q5M PRN Chest 09/15/23 08/06/24 04/09/24 History tablet (Nitrostat) Pain pioglitazone 30 mg tablet (Actos) 30 mg PO QAM 09/15/23 08/06/24 08/05/24 History tamsulosin 0.4 mg capsule 0.8 mg PO QPM 09/15/23 08/06/24 08/05/24 History aspirin 81 mg tablet,delayed 81 mg PO DAILY 11/05/23 08/06/24 08/05/24 History release semaglutide 1 mg/dose (2 mg/1.5 2 mg SUBCUT .WEEKLY 01/22/24 08/06/24 07/25/24 History mL) subcutaneous pen injector insulin aspar prot-insulin aspart 30 unit SUBCUT QPM PRN blood sugar 04/09/24 08/06/24 06/12/24 History 100 unit/mL (70-30) subcutaneous pen (Novolog Mix 70-30FlexPen U-100) ondansetron 4 mg disintegrating 8 mg (2 x 4 mg) PO Q8H PRN nausea 07/02/24 08/06/24 Unknown Rx tablet and vomiting #20 tabs furosemide 20 mg tablet 20 mg PO DAILY 07/30/24 08/06/24 08/05/24 History lisinopril 40 mg tablet 40 mg PO DAILY 07/30/24 08/06/24 08/05/24 History sucralfate 1 gram tablet 1 g PO BID 07/30/24 08/06/24 08/05/24 History Allergies Allergy/AdvReac Type Severity Reaction Status Date / Time Opioids - Morphine Analogues Allergy Intermediate sick Verified 07/30/24 10:21 Current Medications Generic Name Dose Route Start Last Admin Trade Name Freq PRN Reason Stop Dose Admin Sodium Chloride 1,000 mls @ 30 mls/hr 08/06/24 10:30 08/06/24 10:44 Sodium Chloride 0.9% IV 08/07/24 10:29 30 mls/hr .Q24H MELVIN Administration PFSH Anesthesia Medical History (Updated 07/30/24 @ 13:06 by Aura Hernadez MD) Otitis externa Essential hypertension DM type 2 (diabetes mellitus, type 2) GERD (gastroesophageal reflux disease) Surgical History History of prostate surgery 2017 History of colonoscopy with polypectomy Family History Denies family history of Anesthesia complication Bleeding disorder Social History Smoking and tobacco/nicotine status: never used tobacco/nicotine Second hand smoke exposure: No Alcohol intake: never Data Anesthesia Cardiac Studies: Echocardiogram 11/05/23 Cardiac Event Monitor 12/14/23
[2024-08-06 11:24] VITALS: BP 113/56; PULSE 62; RESP 18; TEMP 36.3; O2SAT 92
--- NOTE | 2024-08-06 11:32 | ANE.PACU2 ---
Inpatient post-anesthesia follow up: Airway intact: Yes Vital signs: Temperature 97.4 F Pulse Rate 62 Respiratory Rate 18 Blood Pressure 113/56 Pulse Oximetry 92 Oxygen Delivery Me thod Room Air Oxygen Flow Rate Fraction of Inspir ed Oxygen Hydration adequate: Yes Nausea and vomiting: No Pain level: 1 Mental status: Baseline
[2024-08-06 11:44] VITALS: BP 124/66; PULSE 68; RESP 20; O2SAT 94
== END 2024-08-06 12:15 | disposition home or self-care (01) ==
PROVIDERS: PCP Nurse Practitioner; Visit Provider Surgery
PROC: 0DJD8ZZ Inspection of Lower Intestinal Tract, Via Natural or Artificial Opening Endoscopic (ICD-10-PCS; CPT 45330; principal; 2024-08-06 11:30)
DX: Z12.11 Encounter for screening for malignant neoplasm of colon (principal); Z79.4 Long term (current) use of insulin; I10 Essential (primary) hypertension; E11.9 Type 2 diabetes mellitus without complications; K21.9 Gastro-esophageal reflux disease without esophagitis; I25.10 Atherosclerotic heart disease of native coronary artery without angina pectoris; E66.01 Morbid (severe) obesity due to excess calories; Z68.43 Body mass index [BMI] 50.0-59.9, adult; Z79.82 Long term (current) use of aspirin
CPT/HCPCS: 36416; 45330; 82962; J2704; J7030

== ENCOUNTER → 2024-09-24 11:15 | Outpatient (BNVA) | payer OTHER, SELFPAY | PROVIDERS: PCP Nurse Practitioner; Visit Provider Nurse Practitioner Family | DX: I87.2 Venous insufficiency (chronic) (peripheral) (principal); L71.1 Rhinophyma; D22.5 Melanocytic nevi of trunk; L57.8 Other skin changes due to chronic exposure to nonionizing radiation; L85.3 Xerosis cutis; L81.4 Other melanin hyperpigmentation; L91.8 Other hypertrophic disorders of the skin; L30.4 Erythema intertrigo; L57.0 Actinic keratosis; L73.8 Other specified follicular disorders | CPT/HCPCS: 17000; 99214 ==

== ENCOUNTER 2025-05-29 14:28 | Emergency (ER) | payer OTHER, SELFPAY ==
--- OUTSIDE RECORDS SUMMARY | 2024-07-09 08:00 | XMS_ITS | Encounter Summary ---
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 This section includes the names of all active insurance providers for the patient. Insurance Provider Type of Coverage Plan Name Start of Policy Coverage End of Policy Coverage Group Number Member ID Insurance Provider's Telephone Number Policy Mcgraw's Name Patient's Relationship to Policy Mcgraw [employer] RX PRESCRIPT ION ACTIV E [id number] May 13, 2012 [id number] [phone] Funmi COTTRELL PATIENT MEDICARE (WNR) MEDICARE (M) PART A Apr 13, 2016 PART A [id number] Funmi COTTRELL PATIENT MEDICARE (WNR) MEDICARE (M) PART A Apr 13, 2016 PART A [id number] [phone] Funmi COTTRELL PATIENT MEDICARE (WNR) MEDICARE (M) PART A Apr 13, 2016 PART A [id number] [phone] Funmi COTTRELL PATIENT [facility] [place] Bridges [facility] May 13, 2008 [id number] Funmi COTTRELL PATIENT Selected Encounter This section includes the information on record at [place] for the Encounter. Date/Time Encounter Type Encounter Description Reason Provider Source Jul 09, 2024 01:00 PM OFF/OP EST MARCH X REQ PHY/QHP PODIATRY ICD-10-CM L60.3 Nail dystrophy LAXMI ROCHA Trish Encounter Template Text not used by [place] Assessments - Encounter Diagnoses This section includes the primary and secondary diagnoses documented for the Encounter. Date/Time Primary/Secondary Diagnosis Diagnosis Name Provider Source Jul 09, 2024 01:50 PM PRIMARY Nail dystrophy LAXMI ROCHA POPLAR BLGATO [facility] Plan of Treatment: Future Appointments (+ 6 months) and Future Tests (+/- 45 days) The Plan of Treatment section includes future care activities for the patient from all [place] treatmentfacilities. This section includes future appointments and future orders which are active, pending or scheduled. Future Appointments This section includes appointments that were scheduled to occur 6 months from the date of the Encounter, up to a maximum of 20 appointments. The data comes from all [place] treatment facilities. Appointment Date/Time Appointment Type Appointme nt Facility Name Jul 30, 2024 10:00 AM AMBULATORY - MEDICINE [facility] BLU[facility] Jul 30, 2024 11:30 AM AMBULATORY - MEDICINE [facility] Aug 23, 2024 12:00 PM AMBULATORY - MEDICINE [facility] Aug 23, 2024 12:01 PM AMBULATORY - MEDICINE [facility] Sep 13, 2024 02:30 PM [facility] Sep 24, 2024 11:30 AM AMBULATORY - MEDICINE [facility] Oct 01, 2024 01:00 PM [facility] Oct 24, 2024 02:00 PM AMBULATORY - MEDICINE [facility] Oct 29, 2024 11:30 AM AMBULATORY - MEDICINE [facility] Nov 14, 2024 10:30 AM AMBULATORY - MEDICINE [facility] Jan 06, 2025 10:30 AM AMBULATORY - MEDICINE [facility] Jan 06, 2025 10:32 AM AMBULATORY - MEDICINE RAMONE WOOD [facility] Advance Directives: All historical and current Section Date Range: From patient's date of to the date document was created. This section includes ALL of a patient's completed or amended [place] Advance and Rescinded Directives. The entries below indicate that a directive exists for the patient, but an actual copy is not included with this document. The data comes from all [place] facilities. Date Advance Directives Provider Source Apr 24, 2015 RESCINDED ADVANCE DIRECTIVE PETE CROFT [facility] Encounter Notes: All associated encounter notes This section contains the clinical notes associated to the Encounter. Date/Time Encounter Note(s) Provider Source Jul 09, 2024 01:37 PM NURSING NOTE: LOCAL TITLE: SPECIALTY CLINIC NURSE FOOT CARE NOTE PB STANDARD TITLE: NURSING NOTE DATE OF NOTE: JUL 09, 2024@13:37 ENTRY DATE: JUL 09, 2024@13:37:10 AUTHOR: LAXMI ROCHA EXP COSIGNER: URGENCY: STATUS: COMPLETED Foot Assessment PB Patient's language preference for health information: Mozambican Other Communication Methods Needed: NONE Preferred Method of Education: Verbal Diagnosis or condition: Diabetes, Neuropathy Mobility or gait (how they arrived): Ambulatory, With Walker. [place] arrived in stable condition; verified Name, last 4 of SSN, COVID status, purpose of visit, allergies, and generalized pain level of 2/10. Anticoagulants: No Footwear: Type: prescribed Fit: adequate Condition: adequate Interior: clean Insoles: custom FOOT ASSESSMENT/PALPATION Skin Integrity: Warm, Dry, Callosities , Interdigital spaces dry, Hygiene appropriate, Color normal. Noted a healing wound on the Left midcalf, [place] stated it was from bug bites and he is putting medication on it. Noted redness and raised areas of the skin on shins, bilateral without drainage. stated he is being treated by the Senior Web Analyst for this condition along with the plaque areas on his feet, bilateral. PERFUSION: RIGHT: Dorsalis Pedis, Right: Yes Posterior Tibial, Right: Yes Capillary Refill Time (SURVEILLANCE ANALYST): Right: instant LEFT: Dorsalis Pedis, Left: Yes Posterior Tibial, Left: Yes Capillary Refill Time (SURVEILLANCE ANALYST): Left: instant Edema: Yes ankle, pre-tibial, pedal, bilateral, Non-pitting. stated he is being treated for the swelling by his PCP. Foot Structure: No abnormalities noted Nails: Dystrophic, Discolored, Subungual debris, Trauma or Nail hemorrhage, Left foot, 3rd toe, stated he did not know how he obtained the injury. NURSING FOOT CARE: Nails filed, Nails trimmed, Nails debrided (shortening or thinning of nail), Callus management: Heels bilateral INSTRUCTION OR PREVENTIVE CARE: Self-foot care and inspection, Foot wear, Prosthetic request for diabetic footwear, socks, sock aid and telescoping mirror. Risk Assessment Category: Moderate RTC: 3 months Notes: presents for routine Diabetic foot care. Nails moderate in length. [place] wearing Diabetic shoes and Diabetic white cotton socks. All nails trimmed, shortened, Thinned and shaped with rae were necessary. Calluses, as noted above, sanded until softened. educated on how to keep feet dry and clean; the usage of lotion on heels and sides of the feet, and to avoid moisture between toes due to possible maceration, acknowledged. [place] advised to keep a watch on the abrasions, noted above, for signs/symptoms of infection and to report it to his PCP or come to Urgent Care if needed, acknowledged. Coronavirus Disease 2019 (COVID-19) Screen The patient was asked if in the last 14 days they have had new onset of any COVID-19 symptoms. They report the following: No symptoms Within the past 14 days, the patient reports no exposure to someone with a febrile/respiratory illness or someone with a known or suspected case of COVID-19 (within 6 feet for > 15 minutes). Result: Screen is negative. /smith/ ULISSES Arias CGRN Anton Armstrong [facility] Signed: 07/09/2024 13:49 LAXMI ROCHAAR ISRAEL OSEGUERA [facility] Jul 09, 2024 01:05 PM TEAM OUTPATIENT NO TE: LOCAL TITLE: SPECIALTY CLINIC OUTPATIENT INSTRUCTIONS PB STANDARD TITLE: TEAM OUTPATIENT NOTE DATE OF NOTE: JUL 09, 2024@13:05 ENTRY DATE: JUL 09, 2024@13:05:51 AUTHOR: LAXMI ROCHA EXP COSIGNER: URGENCY: STATUS: COMPLETED Podiatry/Foot: +++++++++++++++++++++++++++++ ++++++++++++++++++++++++++ DIAGNOSIS: Diabetes, Neuropathy PROCEDURE: Nail Care CONSULTS: ASA Score: Mallampati Score: SPECIAL INSTRUCTIONS: 12/01/23 MRT1 - Med Reconciliation INCLUDED IN THIS LIST: Alphabetical list of active outpatient prescriptions dispensed from this [place] (local) and dispensed from another [place] or [facility] facility (remote) as well as inpatient orders (local pending and active), local clinic medications, locally documented non-VA medications, and local prescriptions that have or been discontinued in the past 90 days. Non-VA Meds Last Documented On: Sep 07, 2015 NOTE The display of VA prescriptions dispensed from another [place] or [facility] facility (remote) is limited to active outpatient prescription entries matched to National Drug File at the originating site and may not include some items such as investigational drugs, compounds, etc. NOT INCLUDED IN THIS LIST: Medications self-entered by the patient into personal health records (i.e. [employer]) are NOT included in this list. Non-VA medications documented outside this [place], remote inpatient orders (regardless of status) and remote clinic medications are NOT included in this list. The patient and provider must always discuss medications the patient is taking, regardless of where the medication was dispensed or obtained. OUTPT CHOLECALCIF 50MCG (D3-2,000UNIT) TAB (Status = Active) TAKE ONE TABLET BY MOUTH ONCE A DAY FOR VITAMIN D DEFICIENCY. Rx# [id number] Last Released: 03/20/24 Qty/Days Supply: 100/90 Rx Expiration Date: 02/28/25 Refills Remainin OUTPT CLOBETASOL PROPIONATE 0.05% CREAM (Status = Active) APPLY LIGHTLY TO AFFECTED AREA(S) TWICE DAILY NEEDED APPLY TOPICALLY TWICE A DAY TO AFFECTED AREAS ON LEGS NEEDED. NO MORE THAN 2 WEEKS OF THE MONTH. Rx# [id number] Last Released: 10/02/23 Qty/Days Supply: 60/30 Rx Expiration Date: 09/27/24 Refills Remainin Non-VA CLOTRIMAZOLE 1% TOP CREAM APPLY SPARINGLY TO AFFECTED AREA(S) TWICE A DAY Non-VA medication recommended by VA provider. to affected area daily OUTPT DILTIAZEM (EQV-TIAZAC) 240MG 24HR CAP (Status = Active) TAKE ONE CAPSULE BY MOUTH EVERY MORNING BEFORE A MEAL FOR HEART OR TO LOWER BLOOD PRESSURE Rx# [id number] Last Released: 03/22/24 Qty/Days Supply: 90/ Rx Expiration Date: 02/28/25 Refills Remainin OUTPT DOCUSATE NA 100MG CAP (Status = Active) TAKE ONE CAPSULE BY MOUTH THREE TIMES A DAY FOR SOFTENING STOOL HOLD FOR LOOSE STOOL/DIARRHEA. Rx# [id number] Last Released: 04/02/24 Qty/Days Supply: 300/90 Rx Expiration Date: 03/26/25 Refills Remainin Indication: FOR SOFTENING STOOL OUTPT EMPAGLIFLOZIN 25MG TAB (Status = Active) TAKE ONE TABLET BY MOUTH ONCE A DAY Rx# [id number] Last Released: 03/20/24 Qty/Days Supply: 90 Rx Expiration Date: 02/28/25 Refills Remainin OUTPT FOLIC ACID 0.4MG TAB (Status = Active) TAKE ONE TABLET BY MOUTH ONCE A DAY Rx# [id number] Last Released: 07/06/24 Qty/Days Supply: 100/90 Rx Expiration Date: 10/11/24 Refills Remainin Indication: FOR FOLIC ACID SUPPLEMENTATION OUTPT FUROSEMIDE 20MG TAB (Status = Discontinued) TAKE ONE TABLET BY MOUTH EVERY MORNING NEEDED FOR FLUID RETENTION (EDEMA) Rx# [id number] Last Released: 03/01/24 Qty/Days Supply: 50/90 Rx Expiration Date: 03/01/25 Refills Remainin Indication: FOR FLUID RETENTION (EDEMA) OUTPT FUROSEMIDE 20MG TAB (Status = Active) TAKE ONE TABLET BY MOUTH EVERY MORNING NEEDED FOR FLUID RETENTION (EDEMA) Rx# [id number] Last Released: 04/29/24 Qty/Days Supply: 90 Rx Expiration Date: 04/27/25 Refills Remainin Indication: FOR FLUID RETENTION (EDEMA) OUTPT HYDROPHILIC (EQV EUCERIN) TOP CREAM (Status = ) APPLY SPARINGLY TO AFFECTED AREA(S) TWICE A DAY (EXTERNAL USE ONLY) Rx# [id number] Last Released: 07/24/23 Qty/Days Supply: 1362/30 Rx Expiration Date: 06/27/24 Refills Remainin OUTPT INSULIN,ASPART,HUMAN 30 NOVOLOG INJ (Status = Active) INJECT 81 UNITS UNDER THE SKIN EVERY MORNING AND INJECT 75 UNITS EVERY EVENING (ADMINISTER DOSE WITHIN 5-10 MINUTES OF START OF A MEAL) Rx# [id number] Last Released: 12/12/23 Qty/Days Supply: Rx Expiration Date: 10/11/24 Refills Remainin OUTPT LISINOPRIL 40MG TAB (Status = Active) TAKE ONE-HALF TABLET BY MOUTH ONCE A DAY FOR HIGH BLOOD PRESSURE FOR BLOOD PRESSURE THIS TABLET IS TO BE CUT IN HALF FOR YOUR DOSE Rx# [id number] Last Released: 04/24/24 Qty/Days Supply: 45/90 Rx Expiration Date: 02/28/25 Refills Remainin Indication: FOR HIGH BLOOD PRESSURE OUTPT MECLIZINE HCL 25MG CHEW TAB (Status = Active) CHEW AND SWALLOW ONE TABLET BY MOUTH THREE TIMES A DAY NEEDED FOR VERTIGO CHEWABLE TABLETS MAY BE CHEWED OR SWALLOWED WHOLE. MAY CAUSE DROWSINESS. Rx# [id number] Last Released: 11/18/23 Qty/Days Supply: 100/90 Rx Expiration Date: 11/17/24 Refills Remainin Indication: FOR VERTIGO OUTPT NAPROXEN 500MG TAB (Status = Active) TAKE ONE TABLET BY MOUTH TWICE DAILY NEEDED FOR PAIN AND/OR INFLAMMATION. TAKE WITH FOOD. Rx# [id number] Last Released: 05/31/24 Qty/Days Supply: 100/50 Rx Expiration Date: 10/11/24 Refills Remainin OUTPT NITROGLYCERIN 0.4MG SL TAB (Status = Active) DISSOLVE ONE TABLET UNDER THE TONGUE ONE-TIME FOR CHEST PAIN NEEDED ; IF NO IMPROVEMENT AFTER FIRST DOSE CALL 9-1-1. MAY TAKE 2 ADDITIONAL DOSES, 5 MINUTES APART. TAKE WHILE SITTING. Rx# [id number] Last Released: 04/19/24 Qty/Days Supply: 100/ Rx Expiration Date: 04/18/25 Refills Remainin Indication: FOR CHEST PAIN OUTPT OMEPRAZOLE 20MG EC CAP (Status = Active) TAKE ONE CAPSULE BY MOUTH TWICE A DAY TO LOWER STOMACH ACID. TAKE 30 MINUTES PRIOR TO FOOD. Rx# [id number] Last Released: 10/12/23 Qty/Days Supply: 180 Rx Expiration Date: 10/11/24 Refills Remainin OUTPT ONDANSETRON 4MG ORAL DISINTEGRATING TAB (Status = Active) TAKE TWO TABLETS UNDER THE TONGUE EVERY EIGHT(8) HOURS NEEDED FOR NAUSEA AND VOMITING Rx# [id number] Last Released: 07/06/24 Qty/Days Supply: 30 Rx Expiration Date: 08/01/24 Refills Remainin OUTPT PIOGLITAZONE HCL 30MG TAB (Status = Active) TAKE ONE TABLET BY MOUTH ONCE A DAY FOR DIABETES TAKE WITH MORNING MEAL Rx# [id number] Last Released: 03/22/24 Qty/Days Supply: Rx Expiration Date: 02/28/25 Refills Remainin Indication: FOR DIABETES OUTPT POTASSIUM CL 20MEQ SA TAB (DISPERSIBLE) (Status = Discontinued) TAKE ONE-HALF TABLET BY MOUTH ONCE A DAY FOR POTASSIUM SUPPLEMENTATION TAKE WITH FOOD TAKE WITH LASIX Rx# [id number] Last Released: 05/01/24 Qty/Days Supply: 45 Rx Expiration Date: 04/27/25 Refills Remainin Indication: FOR POTASSIUM SUPPLEMENTATION OUTPT POTASSIUM CL 20MEQ SA TAB (DISPERSIBLE) (Status = Active) TAKE ONE-HALF TABLET BY MOUTH EVERY OTHER DAY FOR POTASSIUM SUPPLEMENTATION TAKE WITH FOOD TAKE WITH LASIX Rx# [id number] Last Released: 05/17/24 Qty/Days Supply: Rx Expiration Date: 05/14/25 Refills Remainin Indication: FOR POTASSIUM SUPPLEMENTATION OUTPT SEMAGLUTIDE 1MG/0.75ML INJ PEN 3ML (Status = Active) INJECT 1MG UNDER THE SKIN EVERY WEEK FOR DIABETES Rx# [id number] Last Released: 05/29/24 Qty/Days Supply: 12/10 Rx Expiration Date: 12/22/24 Refills Remainin Indication: FOR DIABETES OUTPT SIMVASTATIN 20MG TAB (Status = Active) TAKE ONE-HALF TABLET BY MOUTH EVERY EVENING TO LOWER CHOLESTEROL (REPORT ANY MUSCLE PAIN OR WEAKNESS) THIS TABLET IS TO BE CUT IN HALF FOR YOUR DOSE Rx# [id number] Last Released: 06/20/24 Qty/Days Supply: Rx Expiration Date: 07/20/24 Refills Remainin OUTPT TAMSULOSIN HCL 0.4MG CAP (Status = Active) TAKE TWO CAPSULES BY MOUTH EVERY EVENING FOR BENIGN PROSTATIC HYPERPLASIA APPROXIMATELY 30 MINUTES AFTER THE SAME MEAL EACH DAY (FOR PROSTATE) Rx# [id number] Last Released: 02/29/24 Qty/Days Supply: 180 Rx Expiration Date: 02/28/25 Refills Remainin Indication: FOR BENIGN PROSTATIC HYPERPLASIA OUTPT UREA 40% CREAM (Status = Active) APPLY LIGHTLY TO AFFECTED AREA(S) TWICE DAILY TO PROMOTE HEALING. RUB IN UNTIL COMPLETELY ABSORBED. FOR TOPICAL USE ONLY. Rx# [id number] Last Released: 03/04/24 Qty/Days Supply: 210 Rx Expiration Date: 02/28/25 Refills Remainin SUPPLIES OUTPT ACCU-CHEK GUIDE (GLUCOSE) TEST STRIP (Status = Active) USE 1 STRIP FOR BLOOD TEST TWICE A DAY FOR BLOOD SUGAR MONITORING Rx# [id number] Last Released: 07/03/24 Qty/Days Supply: 200/ Rx Expiration Date: 11/29/24 Refills Remainin Indication: FOR BLOOD SUGAR MONITORING OUTPT INSULIN SYRINGE 1ML 31G 6MM (Status = Active) USE SYRINGE UNDER THE SKIN TWICE A DAY FOR USE WITH INSULIN TO CONTROL BLOOD SUGAR. Rx# [id number] Last Released: 12/08/23 Qty/Days Supply: 200/90 Rx Expiration Date: 10/11/24 Refills Remainin OUTPT LANCET,SOFTCLIX (Status = Active) USE LANCET FOR BLOOD TEST TWICE A DAY TO MONITOR BLOOD SUGAR. USE DIRECTED. Rx# [id number] Last Released: 10/16/23 Qty/Days Supply: 200/90 Rx Expiration Date: 10/11/24 Refills Remainin PHARMACY TERMS AND POSSIBLE PATIENT ACTIONS INPT = [place] inpatient order IV = [place] intravenous medication OUTPT = [place] outpatient prescription PHARMACY POSSIBLE PATIENT TERMS EXPLANATION ACTIONS -------- --- ACTIVE A prescription that can be If you have refills, filled at the local [place] pharmacy. you may request a refill of this prescription from your [place] pharmacy. CLINIC A medication you received during If you have questions a visit to a [place] clinic or about this medication emergency department. contact your [place] healthcare team. DISCONTINUED A prescription your provider has Contact your VA stopped. It is no longer healthcare team if you available to be sent to you or need more of this picked up at the [place] pharmacy medication. window. A prescription which is too old Contact your VA to fill. This does not refer to healthcare team if you the expiration date of the need more of this medication in the container. medication. NON-VA A medication that came from If this medication someplace other than a VA information is pharmacy. This may be a incorrect or out of prescription from either the VA date, please tell your or non VA providers that was VA healthcare team. filled outside the VA. Or, it may be an [id number] (OTC), herbal, dietary supplements or sample medication. ON HOLD An active prescription that will Contact your VA not be filled until pharmacy pharmacy when you need resolves the issue. more of this medication. PARKED An active prescription that will Contact your VA not be filled until the patient pharmacy when you need requests it. this medication. PENDING This prescription order has been If you have been sent to the pharmacy for review instructed to start and is not ready yet. this medication now, contact your VA pharmacy. SUSPENDED An active prescription that is Contact your VA not scheduled to be filled yet. pharmacy if you need You should receive it before this medication now. you run out. ======== . RETURN TO CLINIC: Return appointment is needed. . /es/ ULISSES Arias CGRN Anton Armstrong [facility] Signed: 07/09/2024 13:09 LAXMI ROCHA [facility]
--- OUTSIDE RECORDS SUMMARY | 2024-08-23 07:01 | XMS_ITS ---
Author Name [facility] [facility] [facility] [place] Address [address] [place] [address] Care Team Providers Care Compensation Consultant Name Role Phone REINALDO HOLT Primary Care [...] Mcgraw CATALYST RX PRESCRIPT ION ACTIV E [id number] A25 May 13, 2012 [id number] SIMBAFunmi SVENCyrus PATIENT MEDICARE (WNR) MEDICARE (M) PART A Apr 13, 2016 PART A [id number] COTTRELLFunmi SVENL PATIENT MEDICARE (WNR) MEDICARE (M) PART A Apr 13, 2016 PART A [id number] SIMBAFunmi SVENL PATIENT MEDICARE (WNR) MEDICARE (M) PART A Apr 13, 2016 PART A [id number] SIMBAFunmi ANDREW PATIENT [facility] POINT OF SERVICE [place] Bridges [facility] May 13, 2008 [id number] Funmi COTTRELL PATIENT Selected Encounter This section includes the information on record at [place] for the Encounter. Date/Time Encounter Type Encounter Description Reason Provider Source Aug 23, 2024 12:01 PM HEARING AID REPAIR/MODIFYIN G AUDIOLOGY ICD-10-CM Z46.1 Encounter for fitting and adjustment of hearing aid RON NEGRO RA Chris [facility] Encounter Template Text not used by [place] Assessments - Encounter Diagnoses This section includes the primary and secondary diagnoses documented for the Encounter. Date/Time Primary/Secondary Diagnosis Diagnosis Name Provider Source Aug 23, 2024 11:58 AM PRIMARY Encounter for fitting and adjustment of hearing aid MARKYRON Chris [facility] Aug 23, 2024 11:58 AM SECONDARY Sensorineural hearing loss, bilateral RON NEGRO A [facility] Aug 23, 2024 11:58 AM SECONDARY Tinnitus, bilateral RON NEGRO RA A [facility] Plan of Treatment: Future Appointments (+ 6 months) and Future Tests (+/- 45 days) The Plan of Treatment section includes future care activities for the patient from all [place] treatmentfacilities. This section includes future appointments and future orders which are active, pending or scheduled. Future Appointments This section includes appointments that were scheduled to occur 6 months from the date of the Encounter, up to a maximum of 20 appointments. The data comes from all [place] treatment facilities. Appointment Date/Time Appointment Type Appointme nt Facility Name Sep 13, 2024 02:30 PM AMBULATORY - MEDICINE [facility] Sep 24, 2024 11:30 AM [facility] Oct 01, 2024 01:00 PM AMBULATORY - MEDICINE [facility] Oct 24, 2024 02:00 PM AMBULATORY - MEDICINE [facility] Oct 29, 2024 11:30 AM [facility] Nov 14, 2024 10:30 AM [facility] Jan 06, 2025 10:30 AM [facility] - MEDICINE [facility] Jan 06, 2025 10:32 AM [facility] Jan 17, 2025 02:00 PM AM[facility]ATORY - [facility] Jan 22, 2025 01:45 PM [facility] Feb 04, 2025 11:00 AM [facility] Feb 10, 2025 11:30 AM [facility] Advance Directives: All historical and current Section Date Range: From patient's date of to the date document was created. This section includes ALL of a patient's completed or amended [place] Advance and Rescinded Directives. The entries below indicate that a directive exists for the patient, but an actual copy is not included with this document. The data comes from all [place] facilities. Date Advance Directives Provider Source Apr 24, 2015 RESCINDED ADVANCE DIRECTIVE PETE CROFT [facility] Encounter Notes: All associated encounter notes This section contains the clinical notes associated to the Encounter. Date/Time Encounter Note(s) Provider Source Aug 23, 2024 08:07 AM AUDIOLOGY NOTE: LOCAL TITLE: HEARING CLINIC STANDARD TITLE: AUDIOLOGY NOTE DATE OF NOTE: AUG 23, 2024@08:07 ENTRY DATE: AUG 23, 2024@08:07:27 AUTHOR: FEDERICA NEGRO COSIGNER: URGENCY: STATUS: COMPLETED Diagnosis: Sensorineural Hearing Loss, Bilateral and Tinnitus, Bilateral Treatment: Hearing Aid Check Time spent with [place]: 30 minutes seen for a hearing aid check via Audio Telehealth and verbally consented to the Telehealth modality. Multi-factor personally identifiable information of the was obtained verbally (full name and date of ). [place] accompanied by: none Patient site: [facility] ____ HISTORY: Reason for Appointment: Patient is here today reporting 2022 hearing aids squeal with increased volume. He reports 2021 hearing aids are too sharp . He is requesting an additional distribution operations manager. HEARING DEVICES: 08/08/23 KAPIL NINOSKA AI ITC R R [id number] 08/08/23 KAPIL NINOSKA AI ITC R L [id number] - HEARCLEAR BACK UP HEARING DEVICES: 06/22/22 KAPIL EVOLV AI ITC R R [id number]* 06/22/22 KAPIL EVOLV AI ITC R L [id number]* OBJECTIVE/ASSESSMENT: Otoscopy was performed by collaboration of telehealth clinical cardiopulmonary technician and eeg tech and provider via telehealth technology/video otoscope which revealed: Right ear: unremarkable Left ear: unremarkable Both 2021 hearing aids were cleaned including replacement of filters. A listening check performed by the TCT confirmed proper function. Connected hearing aids to software. Decreased high frequency gain. Hearing aids are set to experience level 2. Both 2022 hearing aids were cleaned including replacement of filters. A listening check performed by the TCT confirmed proper function. Connected hearing aids to software. Datalogging showed about 14 hours of daily use. Completed feedback canceller. Reduced gain in areas of potential feedback. The was counseled/educated on services provided today and is in agreement with the plan. PLAN: Ordered additional distribution operations manager to patient home address in [place]. /smith/ Rae Caputo [facility] Signed: 08/23/2024 12:15 FEDERICA NEGRO [facility]
--- OUTSIDE RECORDS SUMMARY | 2024-10-24 09:00 | XMS_ITS | Encounter Summary ---
Author Name [facility] [place] [facility] [place] Address [address] [place] [address] Care Team Providers Care Supervisor Fruit Grading Name Role Phone YANET REINALDO Primary Care Provider Unavail able Insurance Providers: [...] Mcgraw CATALYST RX PRESCRIPT ION ACTIV E [id number] May 13, 2012 [id number] [phone] Funmi COTTRELL AUCyrus PATIENT MEDICARE (WNR) MEDICARE (M) PART A Apr 13, 2016 PART A [id number] Funmi COTTRELL AUL PATIENT MEDICARE (WNR) MEDICARE (M) PART A Apr 13, 2016 PART A [id number] Funmi COTTRELL AUL PATIENT MEDICARE (WNR) MEDICARE (M) PART A Apr 13, 2016 PART A [id number] Funmi COTTRELL AUCyrus PATIENT [facility] POINT OF SERVICE [place] Bridges [facility] May 13, 2008 [id number] Funmi COTTRELL PATIENT Selected Encounter This section includes the information on record at [place] for the Encounter. Date/Time Encounter Type Encounter Description Reason Provider Source Oct 24, 2024 02:00 PM OFFICE O/P EST MOD 30 MIN PRIMARY CARE/MEDICINE ICD-10-CM K59.00 Constipation, unspecified ZACK HOLT INE R IHE Encounter Template Text not used by [place] Assessments - Encounter Diagnoses This section includes the primary and secondary diagnoses documented for the Encounter. Date/Time Primary/Secondary Diagnosis Diagnosis Name Provider Source Oct 24, 2024 10:44 PM PRIMARY Constipation, unspecified ALPA HOLT NE R [facility] Plan of Treatment: Future Appointments (+ 6 months) and Future Tests (+/- 45 days) The Plan of Treatment section includes future care activities for the patient from all [place] treatmentfacilities. This section includes future appointments and future orders which are active, pending or scheduled. Future Appointments This section includes appointments that were scheduled to occur 6 months from the date of the Encounter, up to a maximum of 20 appointments. The data comes from all [place] treatment facilities. Appointment Date/Time Appointment Type Appointme nt Facility Name Oct 29, 2024 11:30 AM AMBULATORY - MEDIC[facility] Nov 14, 2024 10:30 AM AMBULATORY - MEDICINE [facility] Jan 06, 2025 10:30 AM AMBUL[facility]ORY - MEDICINE [facility] Jan 06, 2025 10:32 AM AMBULATORY - MEDIC[facility] Jan 17, 2025 02:00 PM AMBULATORY - [facility]CHIATRY [facility] Jan 22, 2025 01:45 PM AMBULATORY - MEDICINE [facility] Feb 04, 2025 11:00 AM AMBULATORY - MEDICINE [facility] Feb 10, 2025 11:30 AM [facility] [place] [facility] Mar 03, 2025 09:30 AM AMBULATORY - MEDICINE [facility] March 13, 2025 11:00 AM AMBULATORY - MEDICINE [facility] March 19, 2025 12:00 PM AMBULATORY - MEDICINE [facility] [place] [facility] March 19, 2025 12:01 PM [facility] [place] [facility] March 19, 2025 01:30 PM AMBULATORY - MEDICINE [facility] [place] [facility] March 20, 2025 11:00 AM [facility] [place] [facility] March 21, 2025 01:30 PM AMBULATORY - MEDICINE [facility] April 03, 2025 01:00 PM AMBULATORY - MEDICINE [facility] April 04, 2025 09:15 AM AMBULATORY [place]IC[place] [facility] April 08, 2025 08:30 AM [place]UL[place]IC[place] [facility] April 08, 2025 08:31 AM [facility]UL[facility]ORY [facility]IC[place] [facility] Apr 15, 2025 12:00 PM AMBULATORY - [place]IC[place] [facility] Vital Signs: All taken on the encounter date This section contains inpatient and outpatient Vital Signs collected on the date of the Encounter. Date/Time Temperature Pulse Blood Pressure Respiratory Rate SP02 Pain Height Weight Body Mass Index Source Oct 24, 2024 02:18 PM 97.8 58 124/78 22 97 3 336.5 51 [facility] Social History: Smoking Status (Most current) and Tobacco Use (All prior to encounter date) This section includes the most current, and the historical, smoking and tobacco- related health factors from the [place] facility where the Encounter took place. Current Smoking Status This section includes the most current smoking, or tobacco-related health factor, from the [place] facility where the Encounter took place. Date/Time Current Smoking Status Comment Facil ity Oct 02, 2023 09:30 AM VA-TOBACCO NEVER USED [facility] Tobacco Use History This section includes a history of the smoking, or tobacco-related health factors, that were collected on or before the date of the Encounter. The data comes from the [place] facility where the Encounter took place. Date/Time Smoking Status/Tobacco Use Comment F acility Apr 26, 2022 01:00 PM VA-TOBACCO FORMER USER [facility] Apr 26, 2022 01:00 PM VA-TOBACCO QUIT 5 TO < 15 YRS [facility] May 04, 2021 11:00 AM VA-TOBACCO NEVER USED [facility] [place] [facility] Aug 16, 2019 02:05 PM VA-TOBACCO NEVER USED [facility] [place] [facility] Jun 05, 2014 01:09 PM LIFETIME NON-USER OF TOBACCO [facility] Advance Directives: All historical and current Section Date Range: From patient's date of to the date document was created. This section includes ALL of a patient's completed or amended [place] Advance and Rescinded Directives. The entries below indicate that a directive exists for the patient, but an actual copy is not included with this document. The data comes from all [place] facilities. Date Advance Directives Provider Source Apr 24, 2015 RESCINDED ADVANCE DIRECTIVE PETE CROFT [facility] Encounter Notes: All associated encounter notes This section contains the clinical notes associated to the Encounter. Date/Time Encounter Note(s) Provider Source Oct 24, 2024 02:18 PM PRIMARY CARE NURSI NG NOTE: LOCAL TITLE: PRIMARY CARE NURSING PROGRESS NOTE (TEXT) NURSING P STANDARD TITLE: PRIMARY CARE NURSING NOTE DATE OF NOTE: OCT 24, 2024@14:18 ENTRY DATE: OCT 24, 2024@14:19:02 AUTHOR: EDE BAUGH EXP COSIGNER: URGENCY: STATUS: COMPLETED Established Patient FLASH COTTRELL IS A 74 YEAR OLD MALE BEING SEEN IN CLINIC OCT 24, 2024. == == REASON FOR VISIT: Here for complaint of increased acid reflux, abdominal painn that he states it's like when you are really hungry and you stomach grumbles but it's a pain . He states he is no longer having bm's every day but every 2-3 days and he is very concerned. Are you receiving care any where other than the [facility]? No HEALTH AND SURGICAL HISTORY: Does patient report using home oxygen? CURRENT ACTIVE MEDICATIONS FOR REVIEW: Allergies/ADRs (Tool #5) FACILITY ALLERGY/ADR -------- [facility] - ACETAMINOPHEN/HYDROCODONE [facility] - BEE STINGS [facility] BEE STINGS [facility] MORPHINE Med. Reconciliation (Tool #1) INCLUDED IN THIS LIST: Alphabetical list of active outpatient prescriptions dispensed from this [place] (local) and dispensed from another [place] or [facility] facility (remote) as well as inpatient orders (local pending and active), local clinic medications, locally documented non-VA medications, and local prescriptions that have or been discontinued in the past 90 days. Non-VA Meds Last Documented On: Sep 07, 2015 NOTE The display of VA prescriptions dispensed from another [place] or [facility] facility (remote) is limited to active outpatient prescription entries matched to National Drug File at the originating site and may not include some items such as investigational drugs, compounds, etc. NOT INCLUDED IN THIS LIST: Medications self-entered by the patient into personal health records (i.e. [facility]) are NOT included in this list. Non-VA medications documented outside this [place], remote inpatient orders (regardless of status) and remote clinic medications are NOT included in this list. The patient and provider must always discuss medications the patient is taking, regardless of where the medication was dispensed or obtained. OUTPT ALBUTEROL 90MCG (CFC-F) 200D ORAL INHL (Status = Active) INHALE 2 PUFFS BY ORAL INHALATION FOUR TIMES A DAY FOR COPD SHAKE WELL. RINSE MOUTHPIECE FREQUENTLY TO PREVENT CLOGGING. Rx# [id number] Last Released: 09/19/24 Qty/Days Supply: Rx Expiration Date: 09/14/25 Refills Remainin Indication: FOR COPD OUTPT BENZOYL PEROXIDE 5% WASH (Status = Active) WASH TO AFFECTED AREA(S) ONCE A DAY USE BODY WASH. ALLOW TO SIT FOR 2 MINUTES BEFORE RINSING Rx# [id number] Last Released: 09/30/24 Qty/Days Supply: 150/30 Rx Expiration Date: 09/25/25 Refills Remainin OUTPT CHOLECALCIF 50MCG (D3-2,000UNIT) TAB (Status = Active) TAKE ONE TABLET BY MOUTH ONCE A DAY FOR VITAMIN D DEFICIENCY. Rx# [id number] Last Released: 07/31/24 Qty/Days Supply: 100/90 Rx Expiration Date: 02/28/25 Refills Remainin OUTPT CLOBETASOL PROPIONATE 0.05% CREAM (Status = Discontinued) APPLY LIGHTLY TO AFFECTED AREA(S) TWICE DAILY NEEDED APPLY TOPICALLY TWICE A DAY TO AFFECTED AREAS ON LEGS NEEDED. NO MORE THAN 2 WEEKS OF THE MONTH. Rx# [id number] Last Released: 10/02/23 Qty/Days Supply: 60/30 Rx Expiration Date: 09/27/24 Refills Remainin OUTPT CLOBETASOL PROPIONATE 0.05% CREAM (Status = Active) APPLY TO AFFECTED AREA(S) TWICE DAILY NEEDED ON LEGS. NO MORE THAN TWO WEEKS OF THE MONTH.DO NOT USE ON FACE,GROIN,OR SKIN FOLDS. Rx# [id number] Last Released: 10/01/24 Qty/Days Supply: 60/30 Rx Expiration Date: 09/25/25 Refills Remainin Non-VA CLOTRIMAZOLE 1% TOP CREAM APPLY SPARINGLY TO AFFECTED AREA(S) TWICE A DAY Non-VA medication recommended by VA provider. to affected area daily OUTPT DILTIAZEM (EQV-TIAZAC) 240MG 24HR CAP (Status = Active) TAKE ONE CAPSULE BY MOUTH EVERY MORNING BEFORE A MEAL FOR HEART OR TO LOWER BLOOD PRESSURE Rx# [id number] Last Released: 10/04/24 Qty/Days Supply: 90/90 Rx Expiration Date: 02/28/25 Refills Remainin OUTPT DOCUSATE NA 100MG CAP (Status = Active) TAKE ONE CAPSULE BY MOUTH THREE TIMES A DAY FOR SOFTENING STOOL HOLD FOR LOOSE STOOL/DIARRHEA. Rx# [id number] Last Released: 04/02/24 Qty/Days Supply: 300/90 Rx Expiration Date: 03/26/25 Refills Remainin Indication: FOR SOFTENING STOOL OUTPT EMPAGLIFLOZIN 25MG TAB (Status = Active) TAKE ONE TABLET BY MOUTH ONCE A DAY Rx# [id number] Last Released: 08/01/24 Qty/Days Supply: Rx Expiration Date: 02/28/25 Refills Remainin OUTPT FLUTICAS 250/SALMETEROL 50 INHL DISK 60 (Status = Discontinued) INHALE 1 INHALATION BY ORAL INHALATION TWICE A DAY FOR COPD (OPEN DISKUS; CLICK ONLY ONCE; MAY INHALE TWICE TO COMPLETE DOSE; CLOSE WHEN FINISHED) RINSE MOUTH AND SPIT AFTER EACH USE. Rx# [id number] Last Released: 08/07/24 Qty/Days Supply: Rx Expiration Date: 08/01/25 Refills Remainin Indication: FOR COPD OUTPT FOLIC ACID 0.4MG TAB (Status = ) TAKE ONE TABLET BY MOUTH ONCE A DAY Rx# [id number] Last Released: 10/01/24 Qty/Days Supply: Rx Expiration Date: 10/11/24 Refills Remainin Indication: FOR FOLIC ACID SUPPLEMENTATION OUTPT FOLIC ACID 0.4MG TAB (Status = Pending) TAKE ONE TABLET BY MOUTH ONCE A DAY Renewed from Rx# [id number] Qty/ Supply: Login Date: 10/24/24 Refills Ordered: 3 OUTPT FUROSEMIDE 20MG TAB (Status = Active) TAKE ONE TABLET BY MOUTH EVERY MORNING NEEDED FOR FLUID RETENTION (EDEMA) Rx# [id number] Last Released: 10/03/24 Qty/Days Supply: Rx Expiration Date: 04/27/25 Refills Remainin Indication: FOR FLUID RETENTION (EDEMA) OUTPT INSULIN,ASPART,HUMAN 70/30 NOVOLOG INJ (Status = Discontinued) INJECT 81 UNITS UNDER THE SKIN EVERY MORNING AND INJECT 75 UNITS EVERY EVENING (ADMINISTER DOSE WITHIN 5-10 MINUTES OF START OF A MEAL) Rx# [id number] Last Released: 12/12/23 Qty/Days Supply: Rx Expiration Date: 10/11/24 Refills Remainin OUTPT INSULIN,ASPART,HUMAN 70/30 NOVOLOG INJ (Status = Active) INJECT 21 UNITS UNDER THE SKIN EVERY EVENING FOR DIABETES (ADMINISTER DOSE WITHIN 5-10 MINUTES OF START OF A MEAL) Rx# [id number] Last Released: 10/03/24 Qty/Days Supply: Rx Expiration Date: 10/02/25 Refills Remainin Indication: FOR DIABETES OUTPT KETOCONAZOLE 2% CREAM (Status = Active) APPLY TO AFFECTED AREA(S) ONCE A DAY FOR 28 DAYS MAY USE FOR RECURRENT FLARES. Rx# [id number] Last Released: 10/01/24 Qty/Days Supply: 60/30 Rx Expiration Date: 09/25/25 Refills Remainin OUTPT LISINOPRIL 40MG TAB (Status = Active) TAKE ONE-HALF TABLET BY MOUTH ONCE A DAY FOR HIGH BLOOD PRESSURE FOR BLOOD PRESSURE THIS TABLET IS TO BE CUT IN HALF FOR YOUR DOSE Rx# [id number] Last Released: 10/11/24 Qty/Days Supply: 45/90 Rx Expiration Date: 02/28/25 Refills Remainin Indication: FOR HIGH BLOOD PRESSURE OUTPT MECLIZINE HCL 25MG CHEW TAB (Status = Active) CHEW AND SWALLOW ONE TABLET BY MOUTH THREE TIMES A DAY NEEDED FOR VERTIGO CHEWABLE TABLETS MAY BE CHEWED OR SWALLOWED WHOLE. MAY CAUSE DROWSINESS. Rx# [id number] Last Released: 10/04/24 Qty/Days Supply: 100/90 Rx Expiration Date: 11/17/24 Refills Remainin Indication: FOR VERTIGO OUTPT MICONAZOLE NITRATE 2% TOP PWDR (Status = Active) APPLY TO AFFECTED AREA(S) ONCE A DAY NEEDED TO SKIN FOLDS. (EXTERNAL USE ONLY) Rx# [id number] Last Released: 09/27/24 Qty/Days Supply: 90/30 Rx Expiration Date: 09/25/25 Refills Remainin OUTPT NAPROXEN 500MG TAB (Status = ) TAKE ONE TABLET BY MOUTH TWICE DAILY NEEDED FOR PAIN AND/OR INFLAMMATION. TAKE WITH FOOD. Rx# [id number] Last Released: 09/13/24 Qty/Days Supply: 100/50 Rx Expiration Date: 10/11/24 Refills Remainin OUTPT NITROGLYCERIN 0.4MG SL TAB (Status = Active) DISSOLVE ONE TABLET UNDER THE TONGUE ONE-TIME FOR CHEST PAIN NEEDED ; IF NO IMPROVEMENT AFTER FIRST DOSE CALL --1. MAY TAKE 2 ADDITIONAL DOSES, 5 MINUTES APART. TAKE WHILE SITTING. Rx# [id number] Last Released: 04/19/24 Qty/Days Supply: 100/90 Rx Expiration Date: 04/18/25 Refills Remainin Indication: FOR CHEST PAIN OUTPT OMEPRAZOLE 20MG EC CAP (Status = ) TAKE ONE CAPSULE BY MOUTH TWICE A DAY TO LOWER STOMACH ACID. TAKE 30 MINUTES PRIOR TO FOOD. Rx# [id number] Last Released: 10/12/23 Qty/Days Supply: Rx Expiration Date: 10/11/24 Refills Remainin OUTPT ONDANSETRON 4MG ORAL DISINTEGRATING TAB (Status = ) TAKE TWO TABLETS UNDER THE TONGUE EVERY EIGHT(8) HOURS NEEDED FOR NAUSEA AND VOMITING Rx# [id number] Last Released: 07/06/24 Qty/Days Supply: 09/02 Rx Expiration Date: 08/01/24 Refills Remainin OUTPT PIOGLITAZONE HCL 30MG TAB (Status = Active) TAKE ONE TABLET BY MOUTH ONCE A DAY FOR DIABETES TAKE WITH MORNING MEAL Rx# [id number] Last Released: 08/05/24 Qty/Days Supply: Rx Expiration Date: 02/28/25 Refills Remainin Indication: FOR DIABETES OUTPT POTASSIUM CL 20MEQ SA TAB (DISPERSIBLE) (Status = Active/Suspended) TAKE ONE-HALF TABLET BY MOUTH EVERY OTHER DAY FOR POTASSIUM SUPPLEMENTATION TAKE WITH FOOD TAKE WITH LASIX Rx# [id number] Last Released: 09/17/24 Qty/Days Supply: Rx Expiration Date: 05/14/25 Refills Remainin Indication: FOR POTASSIUM SUPPLEMENTATION OUTPT SEMAGLUTIDE 1MG/0.75ML INJ PEN 3ML (Status = Active) INJECT 1MG UNDER THE SKIN EVERY WEEK FOR DIABETES Rx# [id number] Last Released: 09/10/24 Qty/Days Supply: 12/10 Rx Expiration Date: 12/22/24 Refills Remainin Indication: FOR DIABETES OUTPT SIMVASTATIN 20MG TAB (Status = Active) TAKE ONE-HALF TABLET BY MOUTH EVERY EVENING TO LOWER CHOLESTEROL (REPORT ANY MUSCLE PAIN OR WEAKNESS) THIS TABLET IS TO BE CUT IN HALF FOR YOUR DOSE Rx# [id number] Last Released: 08/28/24 Qty/Days Supply: Rx Expiration Date: 08/13/25 Refills Remainin OUTPT SUCRALFATE 1GM TAB (Status = Active) TAKE ONE TABLET BY MOUTH FOUR TIMES A DAY FOR ACID REFLUX - TAKE ON AN EMPTY STOMACH. Rx# [id number] Last Released: 10/09/24 Qty/Days Supply: 360/90 Rx Expiration Date: 07/31/25 Refills Remainin Indication: FOR ACID REFLUX OUTPT TAMSULOSIN HCL 0.4MG CAP (Status = Active) TAKE TWO CAPSULES BY MOUTH EVERY EVENING FOR BENIGN PROSTATIC HYPERPLASIA APPROXIMATELY 30 MINUTES AFTER THE SAME MEAL EACH DAY (FOR PROSTATE) Rx# [id number] Last Released: 02/29/24 Qty/Days Supply: 180/90 Rx Expiration Date: 02/28/25 Refills Remainin Indication: FOR BENIGN PROSTATIC HYPERPLASIA OUTPT UREA 40% CREAM (Status = Active) APPLY LIGHTLY TO AFFECTED AREA(S) TWICE DAILY TO PROMOTE HEALING. RUB IN UNTIL COMPLETELY ABSORBED. FOR TOPICAL USE ONLY. Rx# [id number] Last Released: 03/04/24 Qty/Days Supply: 210/90 Rx Expiration Date: 02/28/25 Refills Remainin SUPPLIES OUTPT ACCU-CHEK GUIDE (GLUCOSE) TEST STRIP (Status = Discontinued) USE 1 STRIP FOR BLOOD TEST TWICE A DAY FOR BLOOD SUGAR MONITORING Rx# [id number] Last Released: 07/03/24 Qty/Days Supply: 200/90 Rx Expiration Date: 10/11/24 Refills Remainin Indication: FOR BLOOD SUGAR MONITORING OUTPT ACCU-CHEK GUIDE (GLUCOSE) TEST STRIP (Status = Active) USE 1 STRIP FOR BLOOD TEST TWICE A DAY FOR BLOOD SUGAR MONITORING Rx# [id number] Last Released: 09/19/24 Qty/Days Supply: 100/50 Rx Expiration Date: 09/03/25 Refills Remainin Indication: FOR BLOOD SUGAR MONITORING OUTPT INSULIN SYRINGE 1ML 31G 6MM (Status = ) USE SYRINGE UNDER THE SKIN TWICE A DAY FOR USE WITH INSULIN TO CONTROL BLOOD SUGAR. Rx# [id number] Last Released: 12/08/23 Qty/Days Supply: 200/90 Rx Expiration Date: 10/11/24 Refills Remainin OUTPT INSULIN SYRINGE 1ML 31G 6MM (Status = Pending) 31G 6MM USE SYRINGE UNDER THE SKIN TWICE A DAY FOR USE WITH INSULIN TO CONTROL BLOOD SUGAR. Renewed from Rx# [id number] Qty/Days Supply: 200/90 Login Date: 10/24/24 Refills Ordered: 3 OUTPT LANCET,SOFTCLIX (Status = ) USE LANCET FOR BLOOD TEST TWICE A DAY TO MONITOR BLOOD SUGAR. USE DIRECTED. Rx# [id number] Last Released: 10/16/23 Qty/Days Supply: 200/90 Rx Expiration Date: 10/11/24 Refills Remainin OUTPT LANCET,SOFTCLIX (Status = Pending) USE LANCET FOR BLOOD TEST TWICE A DAY TO MONITOR BLOOD SUGAR. USE DIRECTED. Renewed from Rx# [id number] Qty/Days Supply: 20090 Login Date: 10/24/24 Refills Ordered: 3 PHARMACY TERMS AND POSSIBLE PATIENT ACTIONS INPT = [place] inpatient order IV = [place] intravenous medication OUTPT = [place] outpatient prescription PHARMACY POSSIBLE PATIENT TERMS EXPLANATION ACTIONS -------- ----- ACTIVE A prescription that can be If you have refills, filled at the local [place] pharmacy. you may request a refill of this prescription from your [place] pharmacy. CLINIC A medication you received during If you have questions a visit to a [place] clinic or about this medication emergency department. contact your [place] healthcare team. DISCONTINUED A prescription your provider has Contact your [facility] stopped. It is no longer healthcare team if you available to be sent to you or need more of this picked up at the [place] pharmacy medication. window. A prescription which is [...] the VA. Or, it may be an [id number] (OTC), herbal, dietary supplements or sample medication. [...] An active prescription that is Contact your [place] not scheduled to be filled yet. pharmacy if you need You should receive it before this medication now. you run out. insulin is as needed / He is taking sucralfate tid not qid / taking colace prn not daily / not using omeprazole. IS PATIENT TAKING ANY OVER THE COUNTER MEDICATIONS, SUCH VITAMINS OR HERBAL SUPPLEMENTS, INCLUDING ANY MEDICATIONS PRESCRIBED BY ANOTHER PHYSICIAN? No ALLERGIES/ADVERSE REACTIONS: MORPHINE, BEE STINGS Does patient have any new allergies to report since last visit? VITALS: TEMPERATURE: 97.8 F [36.6 C] (10/24/2024 14:18) BP: 124/78 (10/24/2024 14:18) RESP: 22 (10/24/2024 14:18) PULSE: 58 (10/24/2024 14:18) HT: 68.0 in [172.7 cm] (05/09/2024 10:57) WT: 336.5 lb [152.63 kg] (10/24/2024 14:18) BMI: 51.3 PAIN ASSESSMENT: (Most Recent Pain Score in Vitals Package: 3 (10/24/2024 14:18) ) The patient indicated that they and their close contacts have not traveled outside of the [place] in the past 21 days. The patient reports the following symptoms: No symptoms present The patient is not immunocompromised. The patient does not report having a history of Multi Drug Resistant Organism (MDRO) within the last five years. The patient does not report having been exposed to measles, chickenpox, or zoster in last 30 days. STRESS: Thank you for your service. Now let us serve you. At the [facility], we strive to provide you with exceptional health care that improves your health and well-being. Are you feeling sad, empty, or depressed? No Do you need to talk about things in your life that worry you or cause you stress? No Do you need to talk about personal problems, family problems, alcohol use, drug use, or mental or emotional illness? No SUICIDE SCREENING: The patient was asked, Over the past two weeks, how often have you been bothered by thoughts that you would be better off or of hurting yourself in some way? Not At All SPIRITUAL ASSESSMENT: Are there mosque practices or spiritual concerns you want the perinatal coordinator, your physician, and other health care team members to immediately know about? Patient advised to call the clinic for any concerns, questions, or symptoms. Patient and/or caregiver verbalized understanding of plan of care. Pain Assessment: - PAIN ASSESSMENT: .. Patient is reporting some pain. PAIN SCORE TODAY: 3 Patient's self identified pain goal: 0 /es/ EDE BAUGH SCRATCH POLISHER Signed: 10/24/2024 14:22 EDE BAUGH [facility] Oct 24, 2024 02:18 PM PRIMARY CARE PROGR ESS NOTE: LOCAL TITLE: PRIMARY CARE CLINIC PROGRESS NOTE PB STANDARD TITLE: PRIMARY CARE PROGRESS NOTE DATE OF NOTE: OCT 24, 2024@14:18 ENTRY DATE: OCT 24, 2024@14:18:50 AUTHOR: REINALDO HOLT COSIGNER: URGENCY: STATUS: COMPLETED PROVIDER ASSESSMENT DATE & TIME:Oct@14:18 CHIEF COMPLAINT: Stomach problems. HISTORY OF PRESENT ILLNESS: is being seen for complaints of acid reflux, constipation and fears of throat cancer. [place] states he is not taking his sulcrafate but three times a day, not taking his omeprazole and only has a normal bowel movement every other day. The rest of the time he has normal bowel movements. He is on ozempic and has noticed that he can not eat as much as once. He does not have chest pain. We have discussed that most of this is most likely related to his ozempic and that he needs to increase his water intake and avoid fried foods. He has lost close to 2lbs per week. We discussed staying on ozempic but taking his other medications as prescribed and adjusting his diet. He will try this and let the clinic know if this is effective. 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: 1) Vertigo (SNOMED CT 930087484) 2) DM - Diabetes mellitus (SNOMED CT 39408717) 3) Obesity 4) Primary hypertension (SNOMED CT 82912452) 5) Gastro-esophageal reflux (SNOMED CT 705995263) 6) Benign prostatic hyperplasia 7) Osteoarthritis 8) Sleep Apnea (SCT 77673901) 9) Angina 10) Cholelithiasis 11) Sensorineural hearing loss of bilateral ears 12) Bilateral tinnitus Active Outpatient Medications (including Supplies): Active Outpatient Medications Status 1) ACCU-CHEK GUIDE (GLUCOSE) TEST STRIP USE 1 STRIP FOR ACTIVE BLOOD TEST TWICE A DAY FOR BLOOD SUGAR MONITORING 2) ALBUTEROL 90MCG (CFC-F) 200D ORAL INHL INHALE 2 PUFFS ACTIVE BY ORAL INHALATION FOUR TIMES A DAY FOR COPD SHAKE WELL. RINSE MOUTHPIECE FREQUENTLY TO PREVENT CLOGGING. 3) BENZOYL PEROXIDE 5% WASH WASH TO AFFECTED AREA(S) ACTIVE ONCE A DAY USE BODY WASH. ALLOW TO SIT FOR 2 MINUTES BEFORE RINSING 4) CHOLECALCIF 50MCG (D3-2,000UNIT) TAB TAKE ONE TABLET ACTIVE BY MOUTH ONCE A DAY FOR VITAMIN D DEFICIENCY. 5) CLOBETASOL PROPIONATE 0.05% CREAM APPLY TO AFFECTED ACTIVE AREA(S) TWICE DAILY NEEDED ON LEGS. NO MORE THAN TWO WEEKS OF THE MONTH.DO NOT USE ON FACE,GROIN,OR SKIN FOLDS. 6) DILTIAZEM (EQV-TIAZAC) 240MG 24HR CAP TAKE ONE ACTIVE CAPSULE BY MOUTH EVERY MORNING BEFORE A MEAL FOR HEART OR TO LOWER BLOOD PRESSURE 7) DOCUSATE NA 100MG CAP TAKE ONE CAPSULE BY MOUTH THREE ACTIVE TIMES A DAY FOR SOFTENING STOOL HOLD FOR LOOSE STOOL/DIARRHEA. 8) EMPAGLIFLOZIN 25MG TAB TAKE ONE TABLET BY MOUTH ONCE ACTIVE A DAY 9) FUROSEMIDE 20MG TAB TAKE ONE TABLET BY MOUTH EVERY ACTIVE MORNING NEEDED FOR FLUID RETENTION (EDEMA) 10) INSULIN,ASPART,HUMAN 70/30 NOVOLOG INJ INJECT 21 ACTIVE UNITS UNDER THE SKIN EVERY EVENING FOR DIABETES (ADMINISTER DOSE WITHIN 5-10 MINUTES OF START OF A MEAL) 11) KETOCONAZOLE 2% CREAM APPLY TO AFFECTED AREA(S) ACTIVE ONCE A DAY FOR 28 DAYS MAY USE FOR RECURRENT FLARES. 12) LISINOPRIL 40MG TAB TAKE ONE-HALF TABLET BY MOUTH ACTIVE ONCE A DAY FOR HIGH BLOOD PRESSURE FOR BLOOD PRESSURE THIS TABLET IS TO BE CUT IN HALF FOR YOUR DOSE 13) MECLIZINE HCL 25MG CHEW TAB CHEW AND SWALLOW ONE ACTIVE TABLET BY MOUTH THREE TIMES A DAY NEEDED FOR VERTIGO CHEWABLE TABLETS MAY BE CHEWED OR SWALLOWED WHOLE. MAY CAUSE DROWSINESS. 14) MICONAZOLE NITRATE 2% TOP PWDR APPLY TO AFFECTED ACTIVE AREA(S) ONCE A DAY NEEDED TO SKIN FOLDS. (EXTERNAL USE ONLY) 15) NITROGLYCERIN 0.4MG SL TAB DISSOLVE ONE TABLET UNDER ACTIVE THE TONGUE ONE-TIME FOR CHEST PAIN NEEDED ; IF NO IMPROVEMENT AFTER FIRST DOSE CALL 9-1-1. MAY TAKE 2 ADDITIONAL DOSES, 5 MINUTES APART. TAKE WHILE SITTING. 16) PIOGLITAZONE HCL 30MG TAB TAKE ONE TABLET BY MOUTH ACTIVE ONCE A DAY FOR DIABETES TAKE WITH MORNING MEAL 17) POTASSIUM CL 20MEQ SA TAB (DISPERSIBLE) TAKE ONE-HALF ACTIVE (S) TABLET BY MOUTH EVERY OTHER DAY FOR POTASSIUM SUPPLEMENTATION TAKE WITH FOOD TAKE WITH LASIX 18) SEMAGLUTIDE 1MG/0.75ML INJ PEN 3ML INJECT 1MG UNDER ACTIVE THE SKIN EVERY WEEK FOR DIABETES 19) SIMVASTATIN 20MG TAB TAKE ONE-HALF TABLET BY MOUTH ACTIVE EVERY EVENING TO LOWER CHOLESTEROL (REPORT ANY MUSCLE PAIN OR WEAKNESS) THIS TABLET IS TO BE CUT IN HALF FOR YOUR DOSE 20) SUCRALFATE 1GM TAB TAKE ONE TABLET BY MOUTH FOUR ACTIVE TIMES A DAY FOR ACID REFLUX - TAKE ON AN EMPTY STOMACH. 21) TAMSULOSIN HCL 0.4MG CAP TAKE TWO CAPSULES BY MOUTH ACTIVE EVERY EVENING FOR BENIGN PROSTATIC HYPERPLASIA APPROXIMATELY 30 MINUTES AFTER THE SAME MEAL EACH DAY (FOR PROSTATE) 22) UREA 40% CREAM APPLY LIGHTLY TO AFFECTED AREA(S) ACTIVE TWICE DAILY TO PROMOTE HEALING. RUB IN UNTIL COMPLETELY ABSORBED. FOR TOPICAL USE ONLY. Pending Outpatient Medications Status 1) FOLIC ACID 0.4MG TAB TAKE ONE TABLET BY MOUTH ONCE A PENDING DAY 2) INSULIN SYRINGE 1ML 31G 6MM USE SYRINGE UNDER THE PENDING SKIN TWICE A DAY FOR USE WITH INSULIN TO CONTROL BLOOD SUGAR. 3) LANCET,SOFTCLIX USE LANCET FOR BLOOD TEST TWICE A DAY PENDING TO MONITOR BLOOD SUGAR. USE DIRECTED. Active Non-[facility] Medications Status 1) Non-[facility] CLOTRIMAZOLE 1% TOP CREAM SPARINGLY TO ACTIVE AFFECTED AREA(S) TWICE A DAY 26 Total Medications REVIEW OF SYSTEMS: HEENT: No Headache. No blurry vision, vision loss, eye pain, red eyes, or foreign body. No runnynose, congestion, or nose bleed. No hearing loss, ringing in the ears, or vertigo. No sore throat or dental pain. RESPIRATORY: No cough, SOA, wheezing, or sputum production. CARDIOVASCULAR: No chest pain, palpitations, tachycardia, PND, or orthopnea. GI: No abdominal pain, nausea, vomiting, diarrhea, constipation, melena, or hematochezia. acid reflux. : No dysuria, hematuria, urinary frequency, weak stream, or post-void dribbling. MUSCULOSKELETAL:No muscle or joint pain. SKIN: No rash, lesions, or infection PSYCH: No Depression or Anxiety. Not suicidal. PHYSICAL ASSESSMENT: VITAL SIGNS Pulse: 58 (10/24/2024 14:18) Blood Pressure: 124/78 (10/24/2024 14:18) Respiratory Rate: 22 (10/24/2024 14:18) Temperature: 97.8 F [36.6 C] (10/24/2024 14:18) Weight: 336.5 lb [152.63 kg] (10/24/2024 14:18) Height: 68.0 in [172.7 cm] (05/09/2024 10:57) Pain: 3 (10/24/2024 14:18) CARDIAC: Regular rate and rhythm without murmur. No edema. RESPIRATORY: CTA, BEBS GI: Abdomen soft,with ABS, no HSM, no guarding or rebound. MUSCULOSKELETAL:No muscle or joint tenderness. FROM. SKIN: [place] without rash or lesions. NEUROLOGICAL: The [place] is alert and oriented without distress. Affect appropriate. IMPRESSION: GERD-current Constipation-current PLAN: Increase water intake. Continue current medications. Discussed diet and water intake. RTC as previously scheduled. Patient is advised this primary care clinic has open access and he can make a same day appointment anytime a problem/concern arises. Patient further advised he can be seen on a walk-in basis as needed. Patient is provided clinic contact information. Medications reviewed and reconciled. Discussed diet and exercise as relevant to patient conditions. Treatment plan as noted above and the After Visit Summary was reviewed with ; opportunity provided to report concerns and ask question regarding aspects of care or treatment or services; concurrence reached and verbalized understanding. Please refer to addendum or follow up lab letter for plan of care/changes related to lab/test results not available at conclusion of appointment, if any. Discussed with patient that in the event of community imaging / testing being ordered in the future, once the imaging / testing has been completed, please notify [facility] of within 1 week by a [facility]; this is due to intermittent lapses in notification of imaging completion within [facility]. All questions answered; agrees to plan of care. Follow up as listed above, annually, and as needed. Keep all completion at outside facility if not called with results appointments. Medications Reconciled. Time spent 30 minutes. /smith/ JAKE Horne CBOC Signed: 10/24/2024 22:40 REINALDO HOLT
--- OUTSIDE RECORDS SUMMARY | 2024-10-29 06:30 | XMS_ITS | Encounter Summary ---
Author Name [facility] Address [address] [place] [address] Care Team Providers Care Proposal Analyst Name Role Phone REINALDO HOLT Primary Care [...] Mcgraw CATALYST RX PRESCRIPT ION ACTIV E [id number] May 13, [id number] [id number] Funmi COTTRELL PATIENT MEDICARE (WNR) MEDICARE (M) PART A Apr 13, 2016 PART A [id number] Funmi COTTRELL PATIENT MEDICARE (WNR) MEDICARE (M) PART A Apr 13, 2016 PART A [id number] [phone] Funmi COTTRELL PATIENT MEDICARE (WNR) MEDICARE (M) PART A Apr 13, 2016 PART A [id number] Funmi [address] PATIENT [facility] POINT OF SERVICE [place] [facility] May 13, 2008 [id number] Funmi COTTRELL PATIENT Selected Encounter This section includes the information on record at [place] for the Encounter. Date/Time Encounter Type Encounter Description Reason Provider Source Oct 29, 2024 11:30 AM OFF/OP EST MARCH X REQ PHY/QHP PODIATRY ICD-10-CM B35.1 Tinea unguium HANNY VERA Trish Encounter Template Text not used by [place] Assessments - Encounter Diagnoses This section includes the primary and secondary diagnoses documented for the Encounter. Date/Time Primary/Secondary Diagnosis Diagnosis Name Provider Source Oct 29, 2024 12:06 PM PRIMARY Tinea unguium FELIPE VERAAR [facility] [facility] Oct 29, 2024 12:06 PM SECONDARY Corns and callosities FELIPE VERA [place] Oct 29, 2024 12:06 PM SECONDARY Nail dystrophy FELIPE VERA [place] [facility] Plan of Treatment: Future Appointments (+ 6 months) and Future Tests (+/- 45 days) The Plan of Treatment section includes future care activities for the patient from all [place] treatmentfacilities. This section includes future appointments and future orders which are active, pending or scheduled. Future Appointments This section includes appointments that were scheduled to occur 6 months from the date of the Encounter, up to a maximum of 20 appointments. The data comes from all [place] treatment facilities. Appointment Date/Time Appointment Type Appointme nt Facility Name Nov 14, 2024 10:30 AM AMBULATORY - MEDICINE [place] [facility] Jan 06, 2025 10:30 AM AMBULATORY - MEDICINE MEDICINE [facility] Jan 06, 2025 10:32 AM AMBULATORY - MEDICINE [place] [facility] Jan 17, 2025 02:00 PM AMBULATORY - PSYCHIATRY [facility] Jan 22, 2025 01:45 PM AMBULATORY - MEDICINE [place] [facility] Feb 04, 2025 11:00 AM AMBULATORY - MEDICINE [place] [facility] Feb 10, 2025 11:30 AM AMBULATORY - MEDICINE [place] [facility] Mar 03, 2025 09:30 AM [facility] [place] [facility] [facility] March 13, 2025 11:00 AM [facility] [place] [facility] March 19, 2025 12:00 PM [facility] [place] [facility] March 19, 2025 12:01 PM AMBULATORY - MEDICINE [place] [facility] March 19, 2025 01:30 PM [facility] March 20, 2025 11:00 AM AMBULATORY - MEDICINE [place] [facility] March 21, 2025 01:30 PM [facility] April 03, 2025 01:00 PM [facility] April 04, 2025 09:15 AM AMBULATORY - MEDICINE [place] [facility] April 08, 2025 08:30 AM AMBULATORY - MEDICINE [facility] April 08, 2025 08:31 AM AMBULATORY - MEDICINE [place] [facility] Apr 15, 2025 12:00 PM AMBULATORY - MEDICINE [place] [facility] Apr 15, 2025 12:01 PM AMBULATORY - MEDICINE [facility] Advance Directives: All historical and current Section Date Range: From patient's date of to the date document was created. This section includes ALL of a patient's completed or amended [place] Advance and Rescinded Directives. The entries below indicate that a directive exists for the patient, but an actual copy is not included with this document. The data comes from all [place] facilities. Date Advance Directives Provider Source Apr 24, 2015 RESCINDED ADVANCE DIRECTIVE PETE CROFT [facility] Encounter Notes: All associated encounter notes This section contains the clinical notes associated to the Encounter. Date/Time Encounter Note(s) Provider Source Oct 29, 2024 11:53 AM NURSING NOTE: LOCAL TITLE: SPECIALTY CLINIC NURSE FOOT CARE NOTE PB STANDARD TITLE: NURSING NOTE DATE OF NOTE: OCT 29, 2024@11:53 ENTRY DATE: OCT 29, 2024@11:53:45 AUTHOR: FELIPE VERA COSIGNER: URGENCY: STATUS: COMPLETED Foot Assessment PB Patient's language preference for health information: Lao Other Communication Methods Needed: NONE Preferred Method of Education: Verbal Diagnosis or condition: Diabetes, Neuropathy Mobility or gait (how they arrived): Ambulatory, With Walker Anticoagulants: No Footwear: Type: prescribed Fit: adequate Condition: adequate Interior: clean Insoles: custom FOOT ASSESSMENT/PALPATION Skin Integrity: Warm, Dry, Callosities , Interdigital spaces with maceration; specify: Left foot: 1st and 2nd space, Hygiene appropriate, Color normal Calluses on Bilateral Heels Patient arrived to clinic with band-aid on left foot, 2nd toe. I removed the band-aid. Upon inspection, patient toe is macerated. Patient states, I tried to clip my toe nails and I cut myself. Patient's left foot: 2nd toe, right foot: 2nd and 4th toe have healing wounds. Patient states, I put that band-aid on because it was bleeding bad. I left it on for four days. I have been taking baths with it on. Cleaned sites with iodine. Informed patient to report to urgent care for evaluation of his toes. Advised patient to call [facility] to change appointment if toe nails are too long. Patient verbally agreed. PERFUSION: RIGHT: Dorsalis Pedis, Right: Yes Posterior Tibial, Right: Yes Capillary Refill Time (PHOTOGRAPH EDITOR): Right: instant LEFT: Dorsalis Pedis, Left: Yes Posterior Tibial, Left: Yes Capillary Refill Time (PHOTOGRAPH EDITOR): Left: instant Edema: No Foot Structure: No abnormalities noted Nails: Dystrophic, Malformed, Onychomycosis NURSING FOOT CARE: Nails filed, Nails trimmed, Nails debrided (shortening or thinning of nail), Moisturizer to Feet INSTRUCTION OR PREVENTIVE CARE: Self-foot care and inspection, Foot wear, Callus, corn care Risk Assessment Category: Moderate RTC: 3 months Notes: The patient is wearing clean diabetic shoes and socks. Patient nails were short in length. Foot odor is not present at is time. Assessed patients pulses. 2+ bilateral pulses noted. All toe nails were trimmed, debrided, and filed. Checked each nail for snags and filed until smooth. Calluses sanded down until soft. Cleaned patient feet with alcohol based svp monetization, cleaned in between patients toes with 4X4 gauze, and moisturized patients feet with Vaseline lotion provided by the facility. Applied patients shoes and socks. Patient educated on foot wear, self-foot care, how to inspect feet daily. Patient vocalized understanding. Patient has no question or concerns about this foot care at this time. Patient left the clinic in stable condition. Patient advised to return to clinic in three months. /smith/ MILTON Chandler [facility] Signed: 10/29/2024 12:06 Receipt Acknowledged By: 10/29/2024 13:59 /smith/ MONICA AriasN CGRN Anton Armstrong [facility] FELIPE VERA [facility] Oct 29, 2024 11:23 AM TEAM OUTPATIENT NO TE: LOCAL TITLE: SPECIALTY CLINIC OUTPATIENT INSTRUCTIONS PB STANDARD TITLE: TEAM OUTPATIENT NOTE DATE OF NOTE: OCT 29, 2024@11:23 ENTRY DATE: OCT 29, 2024@11:23:35 AUTHOR: FELIPE VERA EXP COSIGNER: URGENCY: STATUS: COMPLETED Podiatry/Foot: Today Labs: LABS TO BE DRAWN AT CLINIC APPT: LABS TO BE DRAWN 1 WEEK PRIOR TO APPT: \ \ ... ... RADIOLOGY/DIAGNOSTIC ORDERS: +++++++++++++++++++++++++++ +++++++++++++++++++++++++++ + DIAGNOSIS: Diabetes, neuropathy PROCEDURE: Nail Care CONSULTS: ASA Score: Mallampati Score: SPECIAL INSTRUCTIONS: 12/01/23 MRT1 - Med Reconciliation INCLUDED IN THIS LIST: Alphabetical list of active outpatient prescriptions dispensed from this [place] (local) and dispensed from another [place] or [facility] facility (remote) as well as inpatient orders (local pending and active), local clinic medications, locally documented non-VA medications, and local prescriptions that have or been discontinued in the past 90 days. Non-VA Meds Last Documented On: Sep 07, 2015 NOTE The display of VA prescriptions dispensed from another [place] or [facility] facility (remote) is limited to active outpatient prescription entries matched to National Drug File at the originating site and may not include some items such as investigational drugs, compounds, etc. NOT INCLUDED IN THIS LIST: Medications self-entered by the patient into personal health records (i.e. [employer]) are NOT included in this list. Non-VA medications documented outside this [place], remote inpatient orders (regardless of status) and [...] RINSE MOUTHPIECE FREQUENTLY TO PREVENT CLOGGING. Rx# [id number] Last Released: 09/19/24 Qty/Days Supply: Rx Expiration Date: 09/14/25 Refills Remainin Indication: FOR COPD OUTPT BENZOYL PEROXIDE 5% WASH (Status = Active) WASH TO AFFECTED AREA(S) ONCE A DAY USE BODY WASH. ALLOW TO SIT FOR 2 MINUTES BEFORE RINSING Rx# [id number] Last Released: 09/30/24 Qty/Days Supply: 150/30 Rx Expiration Date: 09/25/25 Refills Remainin OUTPT CHOLECALCIF 50MCG (D3-2,000UNIT) TAB (Status = Active) TAKE ONE TABLET BY MOUTH ONCE A DAY FOR VITAMIN D DEFICIENCY. Rx# [id number] Last Released: 07/31/24 Qty/Days Supply: 100/90 Rx Expiration Date: 02/28/25 Refills Remainin OUTPT CLOBETASOL PROPIONATE 0.05% CREAM (Status = Discontinued) APPLY LIGHTLY TO AFFECTED AREA(S) TWICE DAILY NEEDED APPLY TOPICALLY TWICE A DAY TO AFFECTED AREAS ON LEGS NEEDED. NO MORE THAN 2 WEEKS OF THE MONTH. Rx# [id number] Last Released: 10/02/23 Qty/Days Supply: 60/30 Rx Expiration Date: 09/27/24 Refills Remainin OUTPT CLOBETASOL PROPIONATE 0.05% CREAM (Status = Active) APPLY TO AFFECTED AREA(S) TWICE DAILY NEEDED ON LEGS. NO MORE THAN TWO WEEKS OF THE MONTH.DO NOT USE ON FACE,GROIN,OR SKIN FOLDS. Rx# [id number] Last Released: 10/01/24 Qty/Days Supply: 60 Rx Expiration Date: 09/25/25 Refills Remainin Non-VA CLOTRIMAZOLE 1% TOP CREAM APPLY SPARINGLY TO AFFECTED AREA(S) TWICE A DAY Non-VA medication recommended by VA provider. to affected area daily OUTPT DILTIAZEM (EQV-TIAZAC) 240MG 24HR CAP (Status = Active) TAKE ONE CAPSULE BY MOUTH EVERY MORNING BEFORE A MEAL FOR HEART OR TO LOWER BLOOD PRESSURE Rx# [id number] Last Released: 10/04/24 Qty/Days Supply: Rx Expiration Date: 02/28/25 Refills Remainin OUTPT DOCUSATE NA 100MG CAP (Status = Active) TAKE ONE CAPSULE BY MOUTH THREE TIMES A DAY FOR SOFTENING STOOL HOLD FOR LOOSE STOOL/DIARRHEA. Rx# [id number] Last Released: 04/02/24 Qty/Days Supply: 300/ Rx Expiration Date: 03/26/25 Refills Remainin Indication: FOR SOFTENING STOOL OUTPT EMPAGLIFLOZIN 25MG TAB (Status = Active) TAKE ONE TABLET BY MOUTH ONCE A DAY Rx# [id number] Last Released: 08/01/24 Qty/Days Supply: Rx Expiration Date: 02/28/25 Refills Remainin OUTPT FLUTICAS 250/SALMETEROL 50 INHL DISK 60 (Status = Discontinued) INHALE 1 INHALATION BY ORAL INHALATION TWICE A DAY FOR COPD (OPEN DISKUS; CLICK ONLY ONCE; MAY INHALE TWICE TO COMPLETE DOSE; CLOSE WHEN FINISHED) RINSE MOUTH AND SPIT AFTER EACH USE. Rx# [id number] Last Released: 08/07/24 Qty/Days Supply: Rx Expiration Date: 08/01/25 Refills Remainin Indication: FOR COPD OUTPT FOLIC ACID 0.4MG TAB (Status = Discontinued) TAKE ONE TABLET BY MOUTH ONCE A DAY Rx# [id number] Last Released: 10/01/24 Qty/Days Supply: 100 Rx Expiration Date: 10/11/24 Refills Remainin Indication: FOR FOLIC ACID SUPPLEMENTATION OUTPT FOLIC ACID 0.4MG TAB (Status = Active/Suspended) TAKE ONE TABLET BY MOUTH ONCE A DAY Rx# [id number] Last Released: Qt Supply: 100 Rx Expiration Date: 10/25/25 Refills Remainin Indication: FOR FOLIC ACID SUPPLEMENTATION OUTPT FUROSEMIDE 20MG TAB (Status = Active) TAKE ONE TABLET BY MOUTH EVERY MORNING NEEDED FOR FLUID RETENTION (EDEMA) Rx# [id number] Last Released: 10/03/24 Qty/Days Supply: 90 Rx Expiration Date: 04/27/25 Refills Remainin Indication: FOR FLUID RETENTION (EDEMA) OUTPT INSULIN,ASPART,HUMAN 70/30 NOVOLOG INJ (Status = Discontinued) INJECT 81 UNITS UNDER THE SKIN EVERY MORNING AND INJECT 75 UNITS EVERY EVENING (ADMINISTER DOSE WITHIN 5-10 MINUTES OF START OF A MEAL) Rx# [id number] Last Released: 12/12/23 Qty/Days Supply: Rx Expiration Date: 10/11/24 Refills Remainin OUTPT INSULIN,ASPART,HUMAN 70/30 NOVOLOG INJ (Status = Active) INJECT 21 UNITS UNDER THE SKIN EVERY EVENING FOR DIABETES (ADMINISTER DOSE WITHIN 5-10 MINUTES OF START OF A MEAL) Rx# [id number] Last Released: 10/03/24 Qty/Days Supply: Rx Expiration Date: 10/02/25 Refills Remainin Indication: FOR DIABETES OUTPT KETOCONAZOLE 2% CREAM (Status = Active) APPLY TO AFFECTED AREA(S) ONCE A DAY FOR 28 DAYS MAY USE FOR RECURRENT FLARES. Rx# [id number] Last Released: 10/01/24 Qty/Days Supply: 60 Rx Expiration Date: 09/25/25 Refills Remainin OUTPT LISINOPRIL 40MG TAB (Status = Active) TAKE ONE-HALF TABLET BY MOUTH ONCE A DAY FOR HIGH BLOOD PRESSURE FOR BLOOD PRESSURE THIS TABLET IS TO BE CUT IN HALF FOR YOUR DOSE Rx# [id number] Last Released: 10/11/24 Qty/Days Supply: 45 Rx Expiration Date: 02/28/25 Refills Remainin Indication: FOR HIGH BLOOD PRESSURE OUTPT MECLIZINE HCL 25MG CHEW TAB (Status = Active) CHEW AND SWALLOW ONE TABLET BY MOUTH THREE TIMES A DAY NEEDED FOR VERTIGO CHEWABLE TABLETS MAY BE CHEWED OR SWALLOWED WHOLE. MAY CAUSE DROWSINESS. Rx# [id number] Last Released: 10/04/24 Qty/Days Supply: 100/90 Rx Expiration Date: 11/17/24 Refills Remainin Indication: FOR VERTIGO OUTPT MICONAZOLE NITRATE 2% TOP PWDR (Status = Active) APPLY TO AFFECTED AREA(S) ONCE A DAY NEEDED TO SKIN FOLDS. (EXTERNAL USE ONLY) Rx# [id number] Last Released: 09/27/24 Qty/Days Supply: 90 Rx Expiration Date: 09/25/25 Refills Remainin OUTPT NAPROXEN 500MG TAB (Status = ) TAKE ONE TABLET BY MOUTH TWICE DAILY NEEDED FOR PAIN AND/OR INFLAMMATION. TAKE WITH FOOD. Rx# [id number] Last Released: 09/13/24 Qty/Days Supply: 100/50 Rx Expiration Date: 10/11/24 Refills Remainin OUTPT NITROGLYCERIN 0.4MG SL TAB (Status = Active) DISSOLVE ONE TABLET UNDER THE TONGUE ONE-TIME FOR CHEST PAIN NEEDED ; IF NO IMPROVEMENT AFTER FIRST DOSE CALL 9-1-1. MAY TAKE 2 ADDITIONAL DOSES, 5 MINUTES APART. TAKE WHILE SITTING. Rx# [id number] Last Released: 04/19/24 Qty/Days Supply: 100/90 Rx Expiration Date: 04/18/25 Refills Remainin Indication: FOR CHEST PAIN OUTPT OMEPRAZOLE 20MG EC CAP (Status = ) TAKE ONE CAPSULE BY MOUTH TWICE A DAY TO LOWER STOMACH ACID. TAKE 30 MINUTES PRIOR TO FOOD. Rx# [id number] Last Released: 10/12/23 Qty/Days Supply: 180/90 Rx Expiration Date: 10/11/24 Refills Remainin OUTPT ONDANSETRON 4MG ORAL DISINTEGRATING TAB (Status = ) TAKE TWO TABLETS UNDER THE TONGUE EVERY EIGHT(8) HOURS NEEDED FOR NAUSEA AND VOMITING Rx# [id number] Last Released: 07/06/24 Qty/Days Supply: 30/ Rx Expiration Date: 08/01/24 Refills Remainin OUTPT PIOGLITAZONE HCL 30MG TAB (Status = Active) TAKE ONE TABLET BY MOUTH ONCE A DAY FOR DIABETES TAKE WITH MORNING MEAL Rx# [id number] Last Released: 08/05/24 Qty/Days Supply: Rx Expiration Date: 02/28/25 Refills Remainin Indication: FOR DIABETES OUTPT POTASSIUM CL 20MEQ SA TAB (DISPERSIBLE) (Status = Active/Suspended) TAKE ONE-HALF TABLET BY MOUTH EVERY OTHER DAY FOR POTASSIUM SUPPLEMENTATION TAKE WITH FOOD TAKE WITH LASIX Rx# [id number] Last Released: 09/17/24 Qty/Days Supply: Rx Expiration Date: 05/14/25 Refills Remainin Indication: FOR POTASSIUM SUPPLEMENTATION OUTPT SEMAGLUTIDE 1MG/0.75ML INJ PEN 3ML (Status = Active) INJECT 1MG UNDER THE SKIN EVERY WEEK FOR DIABETES Rx# [id number] Last Released: 09/10/24 Qty/Days Supply: 12/10 Rx Expiration Date: 12/22/24 Refills Remainin Indication: FOR DIABETES OUTPT SIMVASTATIN 20MG TAB (Status = Active) TAKE ONE-HALF TABLET BY MOUTH EVERY EVENING TO LOWER CHOLESTEROL (REPORT ANY MUSCLE PAIN OR WEAKNESS) THIS TABLET IS TO BE CUT IN HALF FOR YOUR DOSE Rx# [id number] Last Released: 08/28/24 Qty/Days Supply: Rx Expiration Date: 08/13/25 Refills Remainin OUTPT SUCRALFATE 1GM TAB (Status = Active) TAKE ONE TABLET BY MOUTH FOUR TIMES A DAY FOR ACID REFLUX - TAKE ON AN EMPTY STOMACH. Rx# [id number] Last Released: 10/09/24 Qty/Days Supply: Rx Expiration Date: 07/31/25 Refills Remainin Indication: FOR ACID REFLUX OUTPT TAMSULOSIN HCL 0.4MG CAP (Status = Active) TAKE TWO CAPSULES BY MOUTH EVERY EVENING FOR BENIGN PROSTATIC HYPERPLASIA APPROXIMATELY 30 MINUTES AFTER THE SAME MEAL EACH DAY (FOR PROSTATE) Rx# [id number] Last Released: 02/29/24 Qty/Days Supply: Rx Expiration Date: 02/28/25 Refills Remainin Indication: FOR BENIGN PROSTATIC HYPERPLASIA OUTPT UREA 40% CREAM (Status = Active) APPLY LIGHTLY TO AFFECTED AREA(S) TWICE DAILY TO PROMOTE HEALING. RUB IN UNTIL COMPLETELY ABSORBED. FOR TOPICAL USE ONLY. Rx# [id number] Last Released: 03/04/24 Qty/Days Supply: 210/90 Rx Expiration Date: 02/28/25 Refills Remainin SUPPLIES OUTPT ACCU-CHEK GUIDE (GLUCOSE) TEST STRIP (Status = Discontinued) USE 1 STRIP FOR BLOOD TEST TWICE A DAY FOR BLOOD SUGAR MONITORING Rx# [id number] Last Released: 07/03/24 Qty/Days Supply: 200/90 Rx Expiration Date: 10/11/24 Refills Remainin Indication: FOR BLOOD SUGAR MONITORING OUTPT ACCU-CHEK GUIDE (GLUCOSE) TEST STRIP (Status = Active) USE 1 STRIP FOR BLOOD TEST TWICE A DAY FOR BLOOD SUGAR MONITORING Rx# [id number] Last Released: 09/19/24 Qty/Days Supply: 100/50 Rx Expiration Date: 09/03/25 Refills Remainin Indication: FOR BLOOD SUGAR MONITORING OUTPT INSULIN SYRINGE 1ML 31G 6MM (Status = Discontinued) USE SYRINGE UNDER THE SKIN TWICE A DAY FOR USE WITH INSULIN TO CONTROL BLOOD SUGAR. Rx# [id number] Last Released: 12/08/23 Qty/Days Supply: 200/90 Rx Expiration Date: 10/11/24 Refills Remainin OUTPT INSULIN SYRINGE 1ML 31G 6MM (Status = Active) USE SYRINGE UNDER THE SKIN TWICE A DAY FOR USE WITH INSULIN TO CONTROL BLOOD SUGAR. Rx# [id number] Last Released: 10/28/24 Qty/Days Supply: 200/90 Rx Expiration Date: 10/25/25 Refills Remainin OUTPT LANCET,SOFTCLIX (Status = Discontinued) USE LANCET FOR BLOOD TEST TWICE A DAY TO MONITOR BLOOD SUGAR. USE DIRECTED. Rx# [id number] Last Released: 10/16/23 Qty/Days Supply: 200/90 Rx Expiration Date: 10/11/24 Refills Remainin OUTPT LANCET,SOFTCLIX (Status = Active) USE LANCET FOR BLOOD TEST TWICE A DAY TO MONITOR BLOOD SUGAR. USE DIRECTED. Rx# [id number] Last Released: 10/29/24 Qty/Days Supply: 200/90 Rx Expiration Date: 10/25/25 Refills Remainin PHARMACY TERMS AND POSSIBLE PATIENT ACTIONS INPT = [place] inpatient order IV = HI intravenous medication OUTPT = [place] outpatient prescription PHARMACY POSSIBLE PATIENT TERMS EXPLANATION ACTIONS -------- ----- ACTIVE A prescription that can be If you have refills, filled at the local [place] pharmacy. you may request a refill of this prescription from your [facility] pharmacy. CLINIC A medication you received during If you have questions a visit to a [place] clinic or about this medication emergency department. contact your VA healthcare team. DISCONTINUED A prescription your provider has Contact your VA stopped. It is no longer healthcare team if you available to be sent to you or need more of this picked up at the [place] pharmacy medication. window. A prescription which is [...] the VA. Or, it may be an bqde-usa-hjmolvz (OTC), herbal, dietary supplements or sample medication. [...] before this medication now. you run out. . RETURN TO CLINIC: Return appointment is needed. . /es/ MILTON Chandler, [facility] Signed: 10/29/2024 12:55 FELIPE VERA [facility]
--- OUTSIDE RECORDS SUMMARY | 2025-01-06 05:30 | XMS_ITS | Encounter Summary ---
Author Name [facility] Organization [facility] Address [address] [place] [address] Care Team Providers Care Bladder Blower Name Role Phone REINALDO HOLT Primary Care [...] Mcgraw CATALYST RX PRESCRIPT ION ACTIV E [id number] May 13, 2012 [id number] Funmi COTTRELL PATIENT MEDICARE (WNR) MEDICARE (M) PART A Apr 13, 2016 PART A [id number] Funmi COTTRELL PATIENT MEDICARE (WNR) MEDICARE (M) PART A Apr 13, 2016 PART A [id number] Funmi COTTRELL PATIENT MEDICARE (WNR) MEDICARE (M) PART A Apr 13, 2016 PART A [id number] Funmi COTTRELL PATIENT [facility] POINT OF SERVICE [place] Bridges [facility] May 13, 2008 [id number] Funmi COTTRELL PATIENT Selected Encounter This section includes the information on record at ME for the Encounter. Date/Time Encounter Type Encounter Description Reason Provider Source Jan 06, 2025 10:30 AM [facility]LE[facility] FACILITY FEE PRIMARY CARE/MEDICINE ICD-10-CM H57.11 Ocular pain, right eye CRAFFORD,MARCELLA Cyrus M E Encounter Template Text not used by ME Assessments - Encounter Diagnoses This section includes the primary and secondary diagnoses documented for the Encounter. Date/Time Primary/Secondary Diagnosis Diagnosis Name Provider Source Jan 07, 2025 04:36 PM PRIMARY Ocular pain, right eye HENRY GALINDO [facility] Jan 07, 2025 04:36 PM SECONDARY Benign paroxysmal vertigo, unspecified ear HENRY GALINDO [facility] Jan 07, 2025 04:36 PM SECONDARY Headache, unspecified GONZALEZ,LUIS [facility] Jan 07, 2025 04:36 PM SECONDARY Type 2 diabetes mellitus without complications [facility] Plan of Treatment: Future Appointments (+ 6 months) and Future Tests (+/- 45 days) The Plan of Treatment section includes future care activities for the patient from all ME treatmentfacilities. This section includes future appointments and future orders which are active, pending or scheduled. Future Appointments This section includes appointments that were scheduled to occur 6 months from the date of the Encounter, up to a maximum of 20 appointments. The data comes from all ME treatment facilities. Appointment Date/Time Appointment Type Appointme nt Facility Name Jan 17, 2025 02:00 PM AMBULATORY - PS[facility]RY [facility] Jan 22, 2025 01:45 PM [facility]BULAT[facility] - MEDIC[facility] [place] [facility] Feb 04, 2025 11:00 AM [facility]ORY - [facility]IC[facility] [place] [facility] Feb 10, 2025 11:30 AM AM[facility]ORY - MEDIC[facility] [place] [facility] Mar 03, 2025 09:30 AM AMBULATORY - MEDICINE [facility] March 13, 2025 11:00 AM AMBULATORY - MEDICINE [facility] March 19, 2025 12:00 PM [place] [facility] March 19, 2025 12:01 PM [place] [facility] March 19, 2025 01:30 PM [place] [facility] March 20, 2025 11:00 AM [place]ORY [place] [facility] March 21, 2025 01:30 PM [place] [facility] April 03, 2025 01:00 PM [place] [facility] April 04, 2025 09:15 AM [place] [place] [facility] April 08, 2025 08:30 AM [place] [facility] April 08, 2025 08:31 AM [place] [place] [facility] Apr 15, 2025 12:00 PM AM[facility]ORY [place] [facility] Apr 15, 2025 12:01 PM AMBULATORY - MEDICINE [facility] Apr 24, 2025 01:20 PM [place] [facility] May 07, 2025 12:30 PM AMBULATORY - MEDICINE [facility] May 07, 2025 12:31 PM AMBULATORY - MEDICINE [place] [facility] Lab Results: +/- 30 days of the encounter This section includes the Chemistry and Hematology Lab Results on record with ME for the patient. Radiology Reports and Pathology Reports are provided separately, in subsequent sections. Lab Results This section contains the Chemistry/Hematology Results that were resulted 30 days before or 30 daysafter the date of the Encounter. Date/Time Source Result Type Result - Unit Interpretation Reference Range Specimen Type Comment Jan 06, 2025 10:58 AM [place] [facility] COMPREHENSIVE METABOLIC PANEL PLASMA Specimen Type: PLASMA No comment entered. Ordering Provider: NAFISA TODD Report Released Date/Time: Jan 06, 2025 08:43 AM Reporting Lab: [place] [facility] [address] [place] [address] Performing Lab: [place] [facility] [address] [place] [address] CREATININE 1.05 mg/dL 0.7-1.3 UREA NITROGEN 20 mg/dL 9-25 GLUCOSE 207 mg/dL H 72-99 SODIUM 141 meq/L 136-145 POTASSIUM 5.4 meq/L H 3.5-5 CHLORIDE 105 meq/L 98-107 CARBON DIOXIDE 26 meq/L 22-31 CALCIUM 9.5 mg/dL 8.4-10.4 PROTEIN 7.0 g/dL 6-8.6 ALBUMIN 4.2 g/dL 3.4-5 TOTAL BILIRUBIN 0.5 mg/dL 0.2-1.2 ALKALINE PHOSPHATASE 87 U/L 40-150 AST/SGOT 14 U/L 5-34 ALT/SGPT 11 U/L 8-40 EGFR (CKD-EPI 2020) 75 Jan 06, 2025 10:58 AM [facility] URINALYSIS W/ CX REFLEX (STL-PB) URINE Specim en Type: URINE Comment: Specific [place] may be elevated due to high Urine Glucose or high Urine Protein Ordering Provider: NAFISA TODD Report Released Date/Time: Jan 06, 2025 08:44 AM Reporting Lab: [place] [facility] [address] [facility] [place] [facility] [address] Performing Lab: [place] [facility] [address] [place] [facility] [address] URINE COLOR Light Yellow Yellow U.BILIRUBIN NEGATIVE mg/dL Negative U.PH 6.0 5.0-8.0 URINE WBC/HPF 6 /[HPF] H 0-5 URINE RBC/HPF 5 /[HPF] 0-5 APPEARANCE CLEAR Clear U.NITRITE NEGATIVE mg/dL Negative SQUAMOUS EPITH. <1 /[HPF] 0-5 URN.GLUCOSE >=1000 mg/dL H Negative URN.PROTEIN NEGATIVE mg/dL URN.UROBILINOGEN NORMAL mg/dL Normal URN.BLOOD 2+ mg/dL H Negative-Trace URN.KETONES NEGATIVE mg/dL Negative-Trac e URN.LEUK.EST. NEGATIVE Negative-Trace URN.SPECIFIC GRAVITY 1.037 H 1.005-1.029 Jan 06, 2025 10:58 AM [facility] CBC BLOO D Specimen Type: BLOOD No comment entered. Ordering Provider: NAFISA TODD Report Released Date/Time: Jan 06, 2025 08:43 AM Reporting Lab: [place] [facility] [address] [place] [facility] [address] Performing Lab: [place] [facility] [address] [place] [facility] [address] WBC 10.3 10*3/uL 3.6-11.2 RBC 5.18 10*6/uL 4.10-5.70 HGB 15.0 g/dL 13.1-16.8 HCT 48.1 38.2-48.4 MCV 92.9 fL 80.0-100.0 MCH 29.0 pg 27.0-34.0 MCHC 31.2 g/dL L 33.0-36.0 PLT 302 10*3/uL 150-400 MPV 10.4 fL 7.5-11.2 RDW 13.6 11.8-15.1 LYMPHOCYTES, AUTO % 17.1 MONOCYTES, AUTO % 5.4 NEUTROPHILS, AUTO % 74.5 EOSINOPHILS, AUTO % 2.1 BASOPHILS, AUTO % 0.5 LYMPHOCYTES, ABSOLUTE 1.76 10*3/uL 0.77- 4.50 MONOCYTES, ABSOLUTE 0.55 10*3/uL 0.19-0. 8 NEUTROPHILS, ABSOLUTE 7.66 10*3/uL 2.10- 8.00 EOSINOPHILS, ABSOLUTE 0.22 10*3/uL 0.00- 0.60 BASOPHILS, ABSOLUTE 0.05 10*3/uL 0.00-0. 20 IMMATURE GRANS, AUTO % 0.4 IMMATURE GRANS, AUTO ABS 0.04 10*3/uL 0. 00-0.05 Vital Signs: All taken on the encounter date This section contains inpatient and outpatient Vital Signs collected on the date of the Encounter. Date/Time Temperature Pulse Blood Pressure Respiratory Rate SP02 Pain Height Weight Body Mass Index Source Jan 06, 2025 10:35 AM 78 125/80 22 97 68.0 330.6 50 [facility] Social History: Smoking Status (Most current) and Tobacco Use (All prior to encounter date) This section includes the most current, and the historical, smoking and tobacco- related health factors from the ME facility where the Encounter took place. Current Smoking Status This section includes the most current smoking, or tobacco-related health factor, from the ME facility where the Encounter took place. Date/Time Current Smoking Status Comment Facil ity Oct 02, 2023 09:30 AM VA-TOBACCO NEVER USED [facility] Tobacco Use History This section includes a history of the smoking, or tobacco-related health factors, that were collected on or before the date of the Encounter. The data comes from the ME facility where the Encounter took place. Date/Time Smoking Status/Tobacco Use Comment F acility Apr 26, 2022 01:00 PM VA-TOBACCO FORMER USER [place] [facility] Apr 26, 2022 01:00 PM VA-TOBACCO QUIT 5 TO < 15 YRS [place] [facility] May 04, 2021 11:00 AM VA-TOBACCO NEVER USED [facility] Aug 16, 2019 02:05 PM VA-TOBACCO NEVER USED [facility] Jun 05, 2014 01:09 PM LIFETIME NON-USER OF TOBACCO [facility] Advance Directives: All historical and current Section Date Range: From patient's date of to the date document was created. This section includes ALL of a patient's completed or amended VA Advance and Rescinded Directives. The entries below indicate that a directive exists for the patient, but an actual copy is not included with this document. The data comes from all ME facilities. Date Advance Directives Provider Source Apr 24, 2015 RESCINDED ADVANCE DIRECTIVE PETE CROFT [facility] Radiology Reports: +/- 30 days of the encounter Radiology Reports For cases when an order for radiology services may have been completed prior to the date of the Encounter, the report list includes the Radiology Reports that were completed up to 30 days before dateof the Encounter. For cases when an order for radiology services may have been completed after the date of the Encounter, the report list also includes the Radiology Reports that were completed up to30 days after date of the Encounter. The data comes from all ME treatment facilities. Date/Time Radiology Report Provider Source Jan 06, 2025 11:01 AM SPINE CERVICAL MIN 4 OR 5 VIEWS: FLASH COTTRELL [id number] -[id number] M Exm Date: JAN 06, 2025@11:01 Req Phys: NAFISA TODD Pat Loc: PB-CVT PCP FLOAT(PRO) (Req'g L Img Loc: PB-XRAY [place] Service: [place] [address] (Case [id number] COMPLETE) SPINE CERVICAL MIN 4 OR 5 VIEWS (RAD Detailed) CPT:70477 Reason for Study: cervicalgia with hx of c6-c7 stenosis Clinical History: Report Status: Verified Date Reported: JAN 06, 2025 Date Verified: JAN 06, 2025 Forwarder Operator E-Sig: Report: AP, lateral, oblique, odontoid and swimmer's views of the cervical spine reveal degenerative skeletal change with disc space narrowing compatible with extensive disc disease at C5-C6 and C6-C7. There is mild to moderate narrowing of multiple neural foramina bilaterally. There is reversal of mid cervical lordosis, compatible with paraspinous muscle spasm. There is no appreciable acute osseous abnormality. There is calcification in the ligamentum nuchae. Impression: 1. 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 Paraspinous muscle spasm 3. No acute osseous abnormality Primary Interpreting Staff: CAROL RAJAN, RADIOLOGIST (Forwarder Operator, no e-sig) /[facility] Encounter Notes: All associated encounter notes This section contains the clinical notes associated to the Encounter. Date/Time Encounter Note(s) Provider Source Jan 06, 2025 10:32 AM PRIMARY CARE NURSI NG NOTE: LOCAL TITLE: PRIMARY CARE NURSING PROGRESS NOTE (TEXT) NURSING P STANDARD TITLE: PRIMARY CARE NURSING NOTE DATE OF NOTE: JAN 06, 2025@10:32 ENTRY DATE: JAN 06, 2025@10:32:51 AUTHOR: HENRY GALINDO EXP COSIGNER: URGENCY: STATUS: COMPLETED Established Patient FLASH COTTRELL IS A 74 YEAR OLD MALE BEING SEEN IN CLINIC JAN 06, 2025. REASON FOR VISIT: [place] here today for c/o Right jain pain that he describes and a sharp shooting pain. He states this has been present for a couple of months. He states that it has not happened in the last few days. Are you receiving care any where other than the ME? No HEALTH AND SURGICAL HISTORY: Does patient report using home oxygen? No CURRENT ACTIVE MEDICATIONS FOR REVIEW: Allergies/ADRs (Tool #5) FACILITY ALLERGY/ADR -------- [facility] - ACETAMINOPHEN/HYDROCODONE [facility] - BEE STINGS [facility]- DIVISION BEE STINGS [facility] Med. Reconciliation (Tool #1) INCLUDED IN THIS LIST: Alphabetical list of active outpatient prescriptions dispensed from this ME (local) and dispensed from another ME or [facility] facility (remote) as well as inpatient orders (local pending and active), local clinic medications, locally documented non-VA medications, and local prescriptions that have or been discontinued in the past 90 days. Non-VA Meds Last Documented On: Sep 07, 2015 NOTE The display of VA prescriptions dispensed from another ME or [facility] facility (remote) is limited to active outpatient prescription entries matched to National Drug File at the originating site and may not include some items such as investigational drugs, compounds, etc. NOT INCLUDED IN THIS LIST: Medications self-entered by the patient into personal health records (i.e. [employer]) are NOT included in this list. Non-VA medications documented outside this ME, remote inpatient orders (regardless of status) and [...] RINSE MOUTHPIECE FREQUENTLY TO PREVENT CLOGGING. Rx# [id number] Last Released: 09/19/24 Qty/Days Supply: Rx Expiration Date: 09/14/25 Refills Remainin Indication: FOR COPD OUTPT BENZOYL PEROXIDE 5% WASH (Status = Active) WASH TO AFFECTED AREA(S) ONCE A DAY USE BODY WASH. ALLOW TO SIT FOR 2 MINUTES BEFORE RINSING Rx# [id number] Last Released: 11/14/24 Qty/Days Supply: 150/30 Rx Expiration Date: 09/25/25 Refills Remainin OUTPT CHOLECALCIF 50MCG (D3-2,000UNIT) TAB (Status = Active) TAKE ONE TABLET BY MOUTH ONCE A DAY FOR VITAMIN D DEFICIENCY. Rx# [id number] Last Released: 12/14/24 Qty/Days Supply: 100/90 Rx Expiration Date: 02/28/25 Refills Remainin OUTPT CLOBETASOL PROPIONATE 0.05% CREAM (Status = Active) APPLY TO AFFECTED AREA(S) TWICE DAILY NEEDED ON LEGS. NO MORE THAN TWO WEEKS OF THE MONTH.DO NOT USE ON FACE,GROIN,OR SKIN FOLDS. Rx# [id number] Last Released: 10/01/24 Qty/Days Supply: 60/30 Rx Expiration Date: 09/25/25 Refills Remainin Non-VA CLOTRIMAZOLE 1% TOP CREAM APPLY SPARINGLY TO AFFECTED AREA(S) TWICE A DAY Non-VA medication recommended by VA provider. to affected area daily OUTPT COLON ELEC LAVAGE(EQV-MOVIPREP) FOR SOLN (Status = ) MIX AND DRINK CONTENTS OF KIT BY MOUTH ONE-TIME FOR COLONOSCOPY PREP. Rx# [id number] Last Released: 11/14/24 Qty/Days Supply: 11/13 Rx Expiration Date: 12/14/24 Refills Remainin OUTPT DILTIAZEM (EQV-TIAZAC) 240MG 24HR CAP (Status = Active) TAKE ONE CAPSULE BY MOUTH EVERY MORNING BEFORE A MEAL FOR HEART OR TO LOWER BLOOD PRESSURE Rx# [id number] Last Released: 10/04/24 Qty/Days Supply: 90/90 Rx Expiration Date: 02/28/25 Refills Remainin OUTPT DOCUSATE NA 100MG CAP (Status = Active) TAKE ONE CAPSULE BY MOUTH THREE TIMES A DAY FOR SOFTENING STOOL HOLD FOR LOOSE STOOL/DIARRHEA. Rx# [id number] Last Released: 04/02/24 Qty/Days Supply: 300/90 Rx Expiration Date: 03/26/25 Refills Remainin Indication: FOR SOFTENING STOOL OUTPT EMPAGLIFLOZIN 25MG TAB (Status = Active) TAKE ONE TABLET BY MOUTH ONCE A DAY Rx# [id number] Last Released: 11/20/24 Qty/Days Supply: 90 Rx Expiration Date: 02/28/25 Refills Remainin OUTPT FOLIC ACID 0.4MG TAB (Status = Discontinued) TAKE ONE TABLET BY MOUTH ONCE A DAY Rx# [id number] Last Released: 10/01/24 Qty/Days Supply: 100/90 Rx Expiration Date: 10/11/24 Refills Remainin Indication: FOR FOLIC ACID SUPPLEMENTATION OUTPT FOLIC ACID 0.4MG TAB (Status = Active) TAKE ONE TABLET BY MOUTH ONCE A DAY Rx# [id number] Last Released: 12/07/24 Qty/Days Supply: 10090 Rx Expiration Date: 10/25/25 Refills Remainin Indication: FOR FOLIC ACID SUPPLEMENTATION OUTPT FUROSEMIDE 20MG TAB (Status = Active) TAKE ONE TABLET BY MOUTH EVERY MORNING NEEDED FOR FLUID RETENTION (EDEMA) Rx# [id number] Last Released: 12/31/24 Qty/Days Supply: 90 Rx Expiration Date: 04/27/25 Refills Remainin Indication: FOR FLUID RETENTION (EDEMA) OUTPT INSULIN,ASPART,HUMAN 70/30 NOVOLOG INJ (Status = Active) INJECT 21 UNITS UNDER THE SKIN EVERY EVENING FOR DIABETES (ADMINISTER DOSE WITHIN 5-10 MINUTES OF START OF A MEAL) Rx# [id number] Last Released: 10/03/24 Qty/Days Supply: Rx Expiration Date: 10/02/25 Refills Remainin Indication: FOR DIABETES OUTPT KETOCONAZOLE 2% CREAM (Status = Active) APPLY TO AFFECTED AREA(S) ONCE A DAY FOR 28 DAYS MAY USE FOR RECURRENT FLARES. Rx# [id number] Last Released: 10/01/24 Qty/Days Supply: 6030 Rx Expiration Date: 09/25/25 Refills Remainin OUTPT LISINOPRIL 40MG TAB (Status = Active) TAKE ONE-HALF TABLET BY MOUTH ONCE A DAY FOR HIGH BLOOD PRESSURE FOR BLOOD PRESSURE THIS TABLET IS TO BE CUT IN HALF FOR YOUR DOSE Rx# [id number] Last Released: 10/11/24 Qty/Days Supply: 45/ Rx Expiration Date: 02/28/25 Refills Remainin Indication: FOR HIGH BLOOD PRESSURE OUTPT MECLIZINE HCL 25MG CHEW TAB (Status = ) CHEW AND SWALLOW ONE TABLET BY MOUTH THREE TIMES A DAY NEEDED FOR VERTIGO CHEWABLE TABLETS MAY BE CHEWED OR SWALLOWED WHOLE. MAY CAUSE DROWSINESS. Rx# [id number] Last Released: 10/04/24 Qty/Days Supply: 100/90 Rx Expiration Date: 11/17/24 Refills Remainin Indication: FOR VERTIGO OUTPT MICONAZOLE NITRATE 2% TOP PWDR (Status = Active) APPLY TO AFFECTED AREA(S) ONCE A DAY NEEDED TO SKIN FOLDS. (EXTERNAL USE ONLY) Rx# [id number] Last Released: 09/27/24 Qty/Days Supply: Rx Expiration Date: 09/25/25 Refills Remainin OUTPT NAPROXEN 500MG TAB (Status = ) TAKE ONE TABLET BY MOUTH TWICE DAILY NEEDED FOR PAIN AND/OR INFLAMMATION. TAKE WITH FOOD. Rx# [id number] Last Released: 09/13/24 Qty/Days Supply: 100/50 Rx Expiration Date: 10/11/24 Refills Remainin OUTPT NAPROXEN 500MG TAB (Status = Active) TAKE ONE TABLET BY MOUTH TWICE A DAY FOR PAIN TAKE WITH FOOD. Rx# [id number] Last Released: 12/19/24 Qty/Days Supply: 180/90 Rx Expiration Date: 12/17/25 Refills Remainin Indication: FOR PAIN OUTPT NITROGLYCERIN 0.4MG SL TAB (Status = Active) DISSOLVE ONE TABLET UNDER THE TONGUE ONE-TIME FOR CHEST PAIN NEEDED ; IF NO IMPROVEMENT AFTER FIRST DOSE CALL 9-1-1. MAY TAKE 2 ADDITIONAL DOSES, 5 MINUTES APART. TAKE WHILE SITTING. Rx# [id number] Last Released: 04/19/24 Qty/Days Supply: 100/90 Rx Expiration Date: 04/18/25 Refills Remainin Indication: FOR CHEST PAIN OUTPT OMEPRAZOLE 20MG EC CAP (Status = Discontinued) TAKE ONE CAPSULE BY MOUTH TWICE A DAY TO LOWER STOMACH ACID. TAKE 30 MINUTES PRIOR TO FOOD. Rx# [id number] Last Released: 10/12/23 Qty/Days Supply: 180/90 Rx Expiration Date: 10/11/24 Refills Remainin OUTPT OMEPRAZOLE 40MG EC CAP (Status = Discontinued) TAKE ONE CAPSULE BY MOUTH ONCE A DAY TAKE 30 MINUTES PRIOR TO FOOD. Rx# [id number] Last Released: 11/28/24 Qty/Days Supply: Rx Expiration Date: 02/23/25 Refills Remainin OUTPT PANTOPRAZOLE NA 40MG EC TAB (Status = Active) TAKE ONE TABLET BY MOUTH TWICE A DAY TAKE 30 MINUTES BEFORE MEAL(S) DO NOT TAKE WITH OMEPRAZOLE Rx# [id number] Last Released: 12/25/24 Qty/Days Supply: Rx Expiration Date: 12/19/25 Refills Remainin OUTPT PIOGLITAZONE HCL 30MG TAB (Status = Active) TAKE ONE TABLET BY MOUTH ONCE A DAY FOR DIABETES TAKE WITH MORNING MEAL Rx# [id number] Last Released: 12/18/24 Qty/Days Supply: Rx Expiration Date: 02/28/25 Refills Remainin Indication: FOR DIABETES OUTPT POTASSIUM CL 20MEQ SA TAB (DISPERSIBLE) (Status = Discontinued) TAKE ONE-HALF TABLET BY MOUTH EVERY OTHER DAY FOR POTASSIUM SUPPLEMENTATION TAKE WITH FOOD TAKE WITH LASIX Rx# [id number] Last Released: 09/17/24 Qty/Days Supply: Rx Expiration Date: 05/14/25 Refills Remainin Indication: FOR POTASSIUM SUPPLEMENTATION OUTPT POTASSIUM CL 20MEQ SA TAB (DISPERSIBLE) (Status = Active) TAKE ONE-HALF TABLET BY MOUTH EVERY OTHER DAY FOR POTASSIUM SUPPLEMENTATION TAKE WITH FOOD TAKE WITH LASIX Rx# [id number] Last Released: 11/26/24 Qty/Days Supply: Rx Expiration Date: 05/14/25 Refills Remainin Indication: FOR POTASSIUM SUPPLEMENTATION OUTPT SEMAGLUTIDE 1MG/0.75ML INJ PEN 3ML (Status = Discontinued) INJECT 1MG UNDER THE SKIN EVERY WEEK FOR DIABETES Rx# [id number] Last Released: 09/10/24 Qty/Days Supply: 12/10 Rx Expiration Date: 12/22/24 Refills Remainin Indication: FOR DIABETES OUTPT SEMAGLUTIDE 1MG/0.75ML INJ PEN 3ML (Status = Active) INJECT 1MG UNDER THE SKIN EVERY WEEK FOR DIABETES Rx# [id number] Last Released: 11/27/24 Qty/Days Supply: Rx Expiration Date: 1/4/26 Refills Remainin Indication: FOR DIABETES OUTPT SIMVASTATIN 20MG TAB (Status = Active) TAKE ONE-HALF TABLET BY MOUTH EVERY EVENING TO LOWER CHOLESTEROL (REPORT ANY MUSCLE PAIN OR WEAKNESS) THIS TABLET IS TO BE CUT IN HALF FOR YOUR DOSE Rx# [id number] Last Released: 08/28/24 Qty/Days Supply: 45/ Rx Expiration Date: 08/13/25 Refills Remainin OUTPT SUCRALFATE 1GM TAB (Status = Active) TAKE ONE TABLET BY MOUTH FOUR TIMES A DAY FOR ACID REFLUX - TAKE ON AN EMPTY STOMACH. Rx# [id number] Last Released: 10/09/24 Qty/Days Supply: 360/90 Rx Expiration Date: 07/31/25 Refills Remainin Indication: FOR ACID REFLUX OUTPT TAMSULOSIN HCL 0.4MG CAP (Status = Active) TAKE TWO CAPSULES BY MOUTH EVERY EVENING FOR BENIGN PROSTATIC HYPERPLASIA APPROXIMATELY 30 MINUTES AFTER THE SAME MEAL EACH DAY (FOR PROSTATE) Rx# [id number] Last Released: 02/29/24 Qty/Days Supply: 180/ Rx Expiration Date: 02/28/25 Refills Remainin Indication: FOR BENIGN PROSTATIC HYPERPLASIA OUTPT UREA 40% CREAM (Status = Active) APPLY LIGHTLY TO AFFECTED AREA(S) TWICE DAILY TO PROMOTE HEALING. RUB IN UNTIL COMPLETELY ABSORBED. FOR TOPICAL USE ONLY. Rx# [id number] Last Released: 03/04/24 Qty/Days Supply: 210/ Rx Expiration Date: 02/28/25 Refills Remainin SUPPLIES OUTPT ACCU-CHEK GUIDE (GLUCOSE) TEST STRIP (Status = Active) USE 1 STRIP FOR BLOOD TEST TWICE A DAY FOR BLOOD SUGAR MONITORING Rx# [id number] Last Released: 11/28/24 Qty/Days Supply: 100/50 Rx Expiration Date: 09/03/25 Refills Remainin Indication: FOR BLOOD SUGAR MONITORING OUTPT INSULIN SYRINGE 1ML 31G 6MM (Status = Discontinued) USE SYRINGE UNDER THE SKIN TWICE A DAY FOR USE WITH INSULIN TO CONTROL BLOOD SUGAR. Rx# [id number] Last Released: 12/08/23 Qty/Days Supply: 200/90 Rx Expiration Date: 10/11/24 Refills Remainin OUTPT INSULIN SYRINGE 1ML 31G 6MM (Status = Active) USE SYRINGE UNDER THE SKIN TWICE A DAY FOR USE WITH INSULIN TO CONTROL BLOOD SUGAR. Rx# [id number] Last Released: 10/28/24 Qty/Days Supply: 200/90 Rx Expiration Date: 10/25/25 Refills Remainin OUTPT LANCET,SOFTCLIX (Status = Discontinued) USE LANCET FOR BLOOD TEST TWICE A DAY TO MONITOR BLOOD SUGAR. USE DIRECTED. Rx# [id number] Last Released: 10/16/23 Qty/Days Supply: 200/90 Rx Expiration Date: 10/11/24 Refills Remainin OUTPT LANCET,SOFTCLIX (Status = Active) USE LANCET FOR BLOOD TEST TWICE A DAY TO MONITOR BLOOD SUGAR. USE DIRECTED. Rx# [id number] Last Released: 10/29/24 Qty/Days Supply: 200/90 Rx Expiration Date: 10/25/25 Refills Remainin PHARMACY TERMS AND POSSIBLE PATIENT ACTIONS INPT = ME inpatient order IV = ME intravenous medication OUTPT = ME outpatient prescription PHARMACY POSSIBLE PATIENT TERMS EXPLANATION ACTIONS -------- --- ACTIVE A prescription that can be If you have refills, filled at the local ME pharmacy. you may request a refill of this prescription from your VA pharmacy. CLINIC A medication you received during If you have questions a visit to a ME clinic or about this medication emergency department. contact your ME healthcare team. DISCONTINUED A prescription your provider has Contact your VA stopped. It is no longer healthcare team if you available to be sent to you or need more of this picked up at the ME pharmacy medication. window. A prescription which is [...] the VA. Or, it may be an oszo-[id number] (OTC), herbal, dietary supplements or sample medication. [...] An active prescription that is Contact your ME not scheduled to be filled yet. pharmacy if you need You should receive it before this medication now. you run out. ======== Medication list reviewed with Patient Patient/Caregiver reports taking medications as ordered. IS PATIENT TAKING ANY OVER THE COUNTER MEDICATIONS, SUCH VITAMINS OR HERBAL SUPPLEMENTS, INCLUDING ANY MEDICATIONS PRESCRIBED BY ANOTHER PHYSICIAN? No Does patient have any new allergies to report since last visit? NO VITALS: TEMPERATURE: 97.8 F [36.6 C] (10/24/2024 [...] chickenpox, or zoster in last 30 days. Patient reports no pain at this visit. Pain Score = 0. STRESS: Thank you for your service. Now let us serve you. At the [facility], we strive to provide you with exceptional [...] Not At All SPIRITUAL ASSESSMENT: Are there congregation practices or spiritual concerns you want the organizational consultant, your physician, and other health care team members to immediately know about? No Patient advised to call the clinic for any concerns, questions, or symptoms. Patient and/or caregiver verbalized understanding of plan of care. /smith/ HENRY GALINDO LPN Signed: 01/06/2025 11:17 HENRY GALINDO [facility]
--- OUTSIDE RECORDS SUMMARY | 2025-01-06 05:32 | XMS_ITS | Encounter Summary ---
Author Name [facility] Organization [facility] [place] Address [address] [place] [address] Care Team Providers Care Corporate Relations Director Name Role Phone REINALDO HOLT Primary Care [...] Mcgraw CATALYST RX PRESCRIPT ION ACTIV E [id number] May 13, [id number] Funmi BARGER PATIENT MEDICARE (WNR) MEDICARE (M) PART A Apr 13, 2016 PART A [id number] [phone] Funmi BARGER PATIENT MEDICARE (WNR) MEDICARE (M) PART A Apr 13, 2016 PART A [id number] [phone] Funmi BARGER PATIENT MEDICARE (WNR) MEDICARE (M) PART A Apr 13, 2016 PART A [id number] Funmi BARGER PATIENT [facility] POINT OF SERVICE [place] Bridges [facility] May 13, 2008 [id number] Funmi BARGER PATIENT Selected Encounter This section includes the information on record at [place] for the Encounter. Date/Time Encounter Type Encounter Description Reason Provider Source Jan 06, 2025 10:32 AM OFFICE O/P EST MOD 30 MIN PRIMARY CARE/MEDICINE ICD-10-CM H57.11 Ocular pain, right eye CRAFFORD,PALAK M IHE Encounter Template Text not used by [place] Assessments - Encounter Diagnoses This section includes the primary and secondary diagnoses documented for the Encounter. Date/Time Primary/Secondary Diagnosis Diagnosis Name Provider Source Jan 14, 2025 07:53 AM PRIMARY Ocular pain, right eye CRAFFORD,MARCELLA L M [place] [facility] Jan 14, 2025 07:53 AM SECONDARY Benign paroxysmal vertigo, unspecified ear CRAFFORD,MARCELLA L M [place] [facility] Jan 14, 2025 07:53 AM SECONDARY Headache, unspecified CRAFFORD,MARCELLA L M [place] [facility] Jan 14, 2025 07:53 AM SECONDARY Type 2 diabetes mellitus without complications CRAFFORD,MARCELLA L M [place] [facility] Plan of Treatment: Future Appointments (+ 6 months) and Future Tests (+/- 45 days) The Plan of Treatment section includes future care activities for the patient from all [place] treatmentfacilities. This section includes future appointments and future orders which are active, pending or scheduled. Future Appointments This section includes appointments that were scheduled to occur 6 months from the date of the Encounter, up to a maximum of 20 appointments. The data comes from all [place] treatment facilities. Appointment Date/Time Appointment Type Appointme nt Facility Name Jan 17, 2025 02:00 PM AMBULATORY - PSYCHIATRY [facility] Jan 22, 2025 01:45 PM AMBULATORY - MEDIC[place] [facility] Feb 04, 2025 11:00 AM AMBULATORY - MEDIC[place] [facility] Feb 10, 2025 11:30 AM AMBULATORY - MEDIC[place] [facility] Mar 03, 2025 09:30 AM AMBULATORY - MEDICINE [facility] March 13, 2025 11:00 AM [place] [facility] March 19, 2025 12:00 PM [place] [place] [facility] March 19, 2025 12:01 PM [place] [facility] March 19, 2025 01:30 PM [place] [place] [facility] March 20, 2025 11:00 AM [place]ORY - [place]IC[place] [facility] March 21, 2025 01:30 PM [facility] [place] [facility] April 03, 2025 01:00 PM [place] [place] [facility] April 04, 2025 09:15 AM [facility]ORY - [place]IC[place] [facility] April 08, 2025 08:30 AM [facility] [place] [facility] April 08, 2025 08:31 AM [facility]ORY - [place]IC[place] [facility] Apr 15, 2025 12:00 PM AMBULATORY - MEDIC[place] [facility] Apr 15, 2025 12:01 PM AMBULATORY - MEDICINE [facility] Apr 24, 2025 01:20 PM [place] [place] [facility] May 07, 2025 12:30 PM [facility] [place] [facility] May 07, 2025 12:31 PM AMBULATORY - MEDIC[place] [facility] Lab Results: +/- 30 days of the encounter This section includes the Chemistry and Hematology Lab Results on record with [place] for the patient. Radiology Reports and Pathology Reports are provided separately, in subsequent sections. Lab Results This section contains the Chemistry/Hematology Results that were resulted 30 days before or 30 daysafter the date of the Encounter. Date/Time Source Result Type Result - Unit Interpretation Reference Range Specimen Type Comment Jan 06, 2025 10:58 AM [place] [facility] COMPREHENSIVE METABOLIC PANEL PLASMA Specimen Type: PLASMA No comment entered. Ordering Provider: PALAK WALTER Report Released Date/Time: Jan 06, 2025 08:43 AM Reporting Lab: [place] [facility] [address] [place] [address] Performing Lab: [place] [facility] [address] [place] [address] CREATININE 1.05 mg/dL 0.7-1.3 UREA NITROGEN 20 [...] 2020) 75 Jan 06, 2025 10:58 AM [facility] URINALYSIS W/ CX REFLEX (STL-PB) URINE Specim en Type: URINE Comment: Specific [place] may be elevated due to high Urine Glucose or high Urine Protein Ordering Provider: PALAK WALTER Report Released Date/Time: Jan 06, 2025 08:44 AM Reporting Lab: [place] [facility] [address] [facility] [place] [facility] [address] Performing Lab: [place] [facility] [address] [address] URINE COLOR Light Yellow Yellow U.BILIRUBIN NEGATIVE [...] H 1.005-1.029 Jan 06, 2025 10:58 AM [facility] CBC BLOO D Specimen Type: BLOOD No comment entered. Ordering Provider: PALAK WALTER Report Released Date/Time: Jan 06, 2025 08:43 AM Reporting Lab: [place] [facility] [address] [place] [facility] [address] Performing Lab: [place] [facility] [address] [place] [address] WBC 10.3 10*3/uL 3.6-11.2 RBC 5.18 10*6/uL [...] GRANS, AUTO ABS 0.04 10*3/uL 0. 00-0.05 Advance Directives: All historical and current Section Date Range: From patient's date of to the date document was created. This section includes ALL of a patient's completed or amended [place] Advance and Rescinded Directives. The entries below indicate that a directive exists for the patient, but an actual copy is not included with this document. The data comes from all [place] facilities. Date Advance Directives Provider Source Apr 24, 2015 RESCINDED ADVANCE DIRECTIVE PETE CRO[facility] Radiology Reports: +/- 30 days of [...] the Encounter. The data comes from all [place] treatment facilities. Date/Time Radiology Report Provider Source Jan 06, 2025 11:01 AM SPINE CERVICAL MIN 4 OR 5 VIEWS: LEON BARGER [id number] -[id number] Exm Date: JAN 06, 2025@11:01 Req Phys: PALAK WALTER Pat Loc: PB-CVT PCP FLOAT(PRO) (Req'g L Img Loc: PB-XRAY [place] Service: [place] [address] (Case [id number] COMPLETE) SPINE CERVICAL MIN 4 OR 5 VIEWS (RAD Detailed) CPT:06989 Reason for Study: cervicalgia with hx of c6-c7 stenosis Clinical History: Report Status: Verified Date Reported: JAN 06, 2025 Date Verified: JAN 06, 2025 [employer] Gatherer E-Sig: Report: AP, lateral, oblique, odontoid and [...] abnormality Primary Interpreting Staff: CAROL RAJAN, RADIOLOGIST ([employer] Gatherer, no e-sig) /CAROL Bello [facility] Encounter Notes: All associated encounter notes This section contains the clinical notes associated to the Encounter. Date/Time Encounter Note(s) Provider Source Jan 07, 2025 08:32 AM ADDENDUM: LOCAL TITLE: Addendum STANDARD TITLE: ADDENDUM DATE OF NOTE: JAN 07, 2025@08:32:33 ENTRY DATE: JAN 07, 2025@08:32:35 AUTHOR: PALAK WALTER EXP COSIGNER: URGENCY: STATUS: COMPLETED 's lasix renewed, labs indicate a elevated potassium of 5.4 on furosemide 20mg daily and potassium 10mg daily as a insulin dependent diabetic, please hold potassium for 2 days for acute treatment, improve ADA diet as elevated glucose may also result in elevated potassium- that may cause muscle spasms, kidney damage, or heart arrythmias.Cervical imaging indicates C5-C6 narrowing that may cause muscle spasms. Neck pain can cause or contribute to sikhism pain, headaches. Please monitor symptoms for identification of triggers or symptoms associated with right sikhism pain: *neck pain? *vertigo? *stinging pain when touching right sikhism? *elevated BG? *blurred vision? SPINE CERVICAL MIN 4 OR 5 VIEWS Exm Date: JAN 06, 2025@11:01 Req Phys: PEYTONPALAK M Pat Loc: PB-CVT PCP FLOAT(PRO) (Req'g L Img Loc: PB-XRAY [place] Service: [place] [address] (Case [id number] COMPLETE) SPINE CERVICAL MIN 4 OR 5 VIEWS (RAD Detailed) CPT:15473 Reason for Study: cervicalgia with hx of c6-c7 stenosis Clinical History: Report Status: Verified Date Reported: JAN 06, 2025 Date Verified: JAN 06, 2025 [employer] Gatherer E-Sig: Report: AP, lateral, oblique, odontoid and [...] abnormality Primary Interpreting Staff: CAROL RAJAN, RADIOLOGIST ([employer] Gatherer, no e-sig) /rld Anthropometric Measurements: Height:68.0 in [172.7 cm] (01/06/2025 10:35) BMI: 50.4 Weight: Patient Weight History - Last Four 1. 330.6 lbs. / 150.0 kg. on JAN 06, 2025@10:35 2. 336.5 lbs. / 152.6 kg. on OCT 24, 2024@14:18:21 3. 349.0 lbs. / 158.3 kg. on JUL 30, 2024@11:45 4. 367.0 lbs. / 166.5 kg. on MAY 09, 2024@10:57 Recent Routine Lab Results: WBC 10.3 10*3/uL 01/06/2025 10:58 RBC 5.18 10*6/uL 01/06/2025 10:58 HGB 15.0 g/dL 01/06/2025 10:58 HCT 48.1 % 01/06/2025 10:58 MCV 92.9 fL 01/06/2025 10:58 MCH 29.0 pg 01/06/2025 10:58 MCHC 31.2 L g/dL 01/06/2025 10:58 RDW 13.6 % 01/06/2025 10:58 PLT 302 10*3/uL 01/06/2025 10:58 MPV 10.4 fL 01/06/2025 10:58 NEUTROPHILS, AUTO % 74.5 % 01/06/2025 10:58 LYMPHOCYTES, AUTO % 17.1 % 01/06/2025 10:58 MONOCYTES, AUTO % 5.4 % 01/06/2025 10:58 EOSINOPHILS, AUTO % 2.1 % 01/06/2025 10:58 BASOPHILS, AUTO % 0.5 % 01/06/2025 10:58 IMMATURE GRANS, AUTO % 0.4 % 01/06/2025 10:58 NEUTROPHILS, ABSOLUTE 7.66 10*3/uL 01/06/2025 10:58 LYMPHOCYTES, ABSOLUTE 1.76 10*3/uL 01/06/2025 10:58 MONOCYTES, ABSOLUTE 0.55 10*3/uL 01/06/2025 10:58 EOSINOPHILS, ABSOLUTE 0.22 10*3/uL 01/06/2025 10:58 BASOPHILS, ABSOLUTE 0.05 10*3/uL 01/06/2025 10:58 IMMATURE GRANS, AUTO ABS 0.04 10*3/uL 01/06/2025 10:58 SODIUM 141 mEq/L 01/06/2025 10:58 POTASSIUM 5.4 H mEq/L 01/06/2025 10:58 CHLORIDE 105 mEq/L 01/06/2025 10:58 UREA NITROGEN 20 mg/dL 01/06/2025 10:58 CREATININE 1.05 mg/dL 01/06/2025 10:58 CALCIUM 9.5 mg/dL 01/06/2025 10:58 PROTEIN 7.0 g/dL 01/06/2025 10:58 ALBUMIN 4.2 g/dL 01/06/2025 10:58 ALKALINE PHOSPHATASE 87 U/L 01/06/2025 10:58 ALT/SGPT 11 U/L 01/06/2025 10:58 AST/SGOT 14 U/L 01/06/2025 10:58 TOTAL BILIRUBIN 0.5 mg/dL 01/06/2025 10:58 CARBON DIOXIDE 26 mEq/L 01/06/2025 10:58 GLUCOSE 207 H mg/dL 01/06/2025 10:58 EGFR (CKD-EPI 2020) 75 01/06/2025 10:58 TRIGLYCERIDE 130 mg/dL 09/24/2024 10:39 CHOLESTEROL 126 mg/dL 09/24/2024 10:39 HDL(New) 40.0 H mg/dL 09/24/2024 10:39 DIRECT LDL 73.1 mg/dL 09/24/2024 10:39 CALCULATED LDL 60.0 mg/dL 09/24/2024 10:39 HDL % OF TOTAL CHOLESTEROL (PB) 31.7 % 09/24/2024 10:39 PROST. SPECIFIC AG.(PB-STL) 0.23 ng/mL 03/01/2023 11:02 TSH 1.829 uIU/mL 02/29/2024 13:32 VITAMIN D, 25-HYDROXY 48.4 ng/mL 09/24/2024 10:39 SLT - Lab Tests Selected Collection DT Specimen Test Name Result Units Ref Range 09/24/2024 10:39 BLOOD HGA1C 6.9 H % 4.0 - 6.0 05/09/2024 10:46 BLOOD HGA1C 6.8 H % 4.0 - 6.0 02/29/2024 13:32 BLOOD HGA1C 6.4 H % 4.0 - 6.0 12/14/2023 10:13 BLOOD HGA1C 6.6 H % 4.0 - 6.0 08/08/2023 10:39 BLOOD HGA1C 7.0 H % 4.0 - 6.0 03/01/2023 11:02 BLOOD HGA1C 7.2 H % 4.0 - 6.0 URINALYSIS 30D Collection DT Specimen Test Name Result Units Ref Range 01/06/2025 10:58 URINE URINE COLOR Light Yellow Ref: Yellow 01/06/2025 10:58 URINE U.BILIRUBIN NEGATIVE mg/dL Ref: Negative 01/06/2025 10:58 URINE U.PH 6.0 5.0 - 8.0 01/06/2025 10:58 URINE URINE WBC/HPF 6 H /HPF 0 - 5 01/06/2025 10:58 URINE URINE RBC/HPF 5 /HPF 0 - 5 01/06/2025 10:58 URINE APPEARANCE CLEAR Ref: Clear 01/06/2025 10:58 URINE U.NITRITE NEGATIVE mg/dL Ref: Negative 01/06/2025 10:58 URINE SQUAMOUS EPITH. <1 /HPF 0 - 5 Comment: Specific [place] may be elevated due to high Urine Glucose or high Comment: Urine Protein uACR (PB-MA) 17.81 mcg/mg 02/29/2024 13:32 URINE ALBUMIN (PB-STL) 10.30 mg/L 02/29/2024 13:32 CREATININE URINE/OTHERS 57.82 mg/dL 02/29/2024 13:32 Labs: Reviewed. /es/ Palak Walter APRN, [employer] INSTRUCTOR-C, WCC Anton Henning [place] [facility] Signed: 01/07/2025 08:54 Receipt Acknowledged By: 01/08/2025 09:28 /es/ HENRY GALINDO LPN --- Original Document --- 01/06/25 PRIMARY CARE CLINIC PROGRESS NOTE PB: JAN 06, 2025 Leon Barger is a 74 years old MALE who presents with right sided sikhism pain Identified by Name and SSN S: Subjective: 74-year old presents to clinic for a focused assessment concerning right sikhism pain. He has a past medical history of with insulin dependent diabetes, hypertension, GERD, osteoarthritis, BPH, obesity. CMP, CBC, Urinalysis ordered to evaluate infectious process and fluid and electrolyte levels in consideration of 's compromised immune state and past history of mild hyponatremia. cervical imaging ordered for evaluation of nerve involvement with history of narrowing C6-C7 disc space. 's most recent cervical imaging was completed 01/11/2021 with evidence of degenerative joint disease, narrowing C6-7 disc space, and muscle spasms. No history of CVA, migraines noted in chart, CT of head 09/19/2018- mild cerebellar and cerebral atrophy without evidence of past CVA or tumors documented. c/o right sikhism pain/headache- onset/triggers:3 weeks, no known triggers duration/frequency:5-6sec x 30 min intermittenly not daily severity/description:sharp stabbing pain lasting a few seconds before self resolving without treatment radiation, affected areas or auras: stays within the sikhism, no noticed auras better/worse:unknown as veteranhas not been able to identify triggers or trialed medications at home trialed at home:none Last eye exam:01/09/2024 Naproxen not renewed with tamsulosin and simvastatin, eye drops and MV will be overnighted by the pharmacy with a short term supply of gabapentin sent to local pharmacy. Tylenol restricted due to reported allergy to Vicodin with N/V. However and report no known reaction to tylenol alone for pain. NSAIDS are not recommended in an older patient, constipated on ozempic,insulin dependent diabetic, history of GERD with regurgitation due to risk of ulceration or GI bleed. Gabapentin 300mg bid prn trial dose for suspected nerve involement,teleretinal and eye exam recommended as reports continued blurred vision despite cataract surgery reported as approx 1-2 years ago. Cervical imaging ordered, will order medication according to lab/image results. O: Objective VITALS: Previous HR & BP Pulse: 58 (10/24/2024 14:18) BP: 124/78 (10/24/2024 14:18) JAN 06, 2025 VITALS: Pulse: 78 (01/06/2025 10:35) BP: 125/80 (01/06/2025 10:35) Resp: 22 (01/06/2025 10:35) Temp: 97.8 F [36.6 C] (10/24/2024 14:18) Pain: 3 (10/24/2024 14:18) BMI: 50.4 O2sat: 97% (01/06/2025 10:35)% on [RA] PAST MEDICAL HISTORY 1) Vertigo (SNOMED CT 269771336) 2) DM - Diabetes mellitus (SNOMED CT 84727205) 3) Obesity 4) Primary hypertension (SNOMED CT 09018952) 5) Gastro-esophageal reflux (SNOMED CT 819148882) 6) Benign prostatic hyperplasia 7) Osteoarthritis 8) Sleep Apnea (SCT 59823261) 9) Angina 10) Cholelithiasis 11) Sensorineural hearing loss of bilateral ears 12) Bilateral tinnitus Active Outpatient Medications: Active Outpatient Medications (including Supplies): Active Outpatient Medications Status 1) ACCU-CHEK GUIDE (GLUCOSE) TEST STRIP USE 1 STRIP FOR BLOOD ACTIVE TEST TWICE A DAY Indication: FOR BLOOD SUGAR MONITORING 2) ALBUTEROL 90MCG (CFC-F) 200D ORAL INHL INHALE 2 PUFFS BY ACTIVE ORAL INHALATION FOUR TIMES A DAY SHAKE WELL. RINSE MOUTHPIECE FREQUENTLY TO PREVENT CLOGGING. Indication: FOR COPD 3) BENZOYL PEROXIDE 5% WASH WASH TO AFFECTED AREA(S) ONCE A ACTIVE DAY USE BODY WASH. ALLOW TO SIT FOR 2 MINUTES BEFORE RINSING 4) CHOLECALCIF 50MCG (D3-2,000UNIT) TAB TAKE ONE TABLET BY ACTIVE MOUTH ONCE A DAY FOR VITAMIN D DEFICIENCY. 5) CLOBETASOL PROPIONATE 0.05% CREAM APPLY TO AFFECTED ACTIVE AREA(S) TWICE DAILY NEEDED ON LEGS. NO MORE THAN TWO WEEKS OF THE MONTH.DO NOT USE ON FACE,GROIN,OR SKIN FOLDS. 6) DILTIAZEM (EQV-TIAZAC) 240MG 24HR CAP TAKE ONE CAPSULE BY ACTIVE MOUTH EVERY MORNING BEFORE A MEAL FOR HEART OR TO LOWER BLOOD PRESSURE 7) DOCUSATE NA 100MG CAP TAKE ONE CAPSULE BY MOUTH THREE TIMES ACTIVE A DAY HOLD FOR LOOSE STOOL/DIARRHEA. Indication: FOR SOFTENING STOOL 8) EMPAGLIFLOZIN 25MG TAB TAKE ONE TABLET BY MOUTH ONCE A DAY ACTIVE 9) FOLIC ACID 0.4MG TAB TAKE ONE TABLET BY MOUTH ONCE A DAY ACTIVE Indication: FOR FOLIC ACID SUPPLEMENTATION 10) FUROSEMIDE 20MG TAB TAKE ONE TABLET BY MOUTH EVERY MORNING ACTIVE NEEDED Indication: FOR FLUID RETENTION (EDEMA) 11) INSULIN SYRINGE 1ML 31G 6MM USE SYRINGE UNDER THE SKIN TWICE ACTIVE A DAY FOR USE WITH INSULIN TO CONTROL BLOOD SUGAR. 12) INSULIN,ASPART,HUMAN 70/30 NOVOLOG INJ INJECT 21 UNITS UNDER ACTIVE THE SKIN EVERY EVENING (ADMINISTER DOSE WITHIN 5-10 MINUTES OF START OF A MEAL) Indication: FOR DIABETES 13) KETOCONAZOLE 2% CREAM APPLY TO AFFECTED AREA(S) ONCE A DAY ACTIVE FOR 28 DAYS MAY USE FOR RECURRENT FLARES. 14) LANCET,SOFTCLIX USE LANCET FOR BLOOD TEST TWICE A DAY TO ACTIVE MONITOR BLOOD SUGAR. USE DIRECTED. 15) LISINOPRIL 40MG TAB TAKE ONE-HALF TABLET BY MOUTH ONCE A DAY ACTIVE FOR BLOOD PRESSURE THIS TABLET IS TO BE CUT IN HALF FOR YOUR DOSE Indication: FOR HIGH BLOOD PRESSURE 16) MICONAZOLE NITRATE 2% TOP PWDR APPLY TO AFFECTED AREA(S) ACTIVE ONCE A DAY NEEDED TO SKIN FOLDS. (EXTERNAL USE ONLY) 17) NAPROXEN 500MG TAB TAKE ONE TABLET BY MOUTH TWICE A DAY ACTIVE TAKE WITH FOOD. Indication: FOR PAIN 18) NITROGLYCERIN 0.4MG SL TAB DISSOLVE ONE TABLET UNDER THE ACTIVE TONGUE ONE-TIME NEEDED ; IF NO IMPROVEMENT AFTER FIRST DOSE CALL --. MAY TAKE 2 ADDITIONAL DOSES, 5 MINUTES APART. TAKE WHILE SITTING. Indication: FOR CHEST PAIN 19) PANTOPRAZOLE NA 40MG EC TAB TAKE ONE TABLET BY MOUTH TWICE A ACTIVE DAY TAKE 30 MINUTES BEFORE MEAL(S) DO NOT TAKE WITH OMEPRAZOLE 20) PIOGLITAZONE HCL 30MG TAB TAKE ONE TABLET BY MOUTH ONCE A ACTIVE DAY TAKE WITH MORNING MEAL Indication: FOR DIABETES 21) POTASSIUM CL 20MEQ SA TAB (DISPERSIBLE) TAKE ONE-HALF TABLET ACTIVE BY MOUTH EVERY OTHER DAY TAKE WITH FOOD TAKE WITH LASIX Indication: FOR POTASSIUM SUPPLEMENTATION 22) SEMAGLUTIDE 1MG/0.75ML INJ PEN 3ML INJECT 1MG UNDER THE SKIN ACTIVE EVERY WEEK Indication: FOR DIABETES 23) SIMVASTATIN 20MG TAB TAKE ONE-HALF TABLET BY MOUTH EVERY ACTIVE EVENING TO LOWER CHOLESTEROL (REPORT ANY MUSCLE PAIN OR WEAKNESS) THIS TABLET IS TO BE CUT IN HALF FOR YOUR DOSE 24) SUCRALFATE 1GM TAB TAKE ONE TABLET BY MOUTH FOUR TIMES A DAY ACTIVE - TAKE ON AN EMPTY STOMACH. Indication: FOR ACID REFLUX 25) TAMSULOSIN HCL 0.4MG CAP TAKE TWO CAPSULES BY MOUTH EVERY ACTIVE EVENING APPROXIMATELY 30 MINUTES AFTER THE SAME MEAL EACH DAY (FOR PROSTATE) Indication: FOR BENIGN PROSTATIC HYPERPLASIA 26) UREA 40% CREAM APPLY LIGHTLY TO AFFECTED AREA(S) TWICE DAILY ACTIVE TO PROMOTE HEALING. RUB IN UNTIL COMPLETELY ABSORBED. FOR TOPICAL USE ONLY. Active Non-VA Medications Status 1) Non-VA CLOTRIMAZOLE 1% TOP CREAM SPARINGLY TO AFFECTED ACTIVE AREA(S) TWICE A DAY 27 Total Medications PHYSICAL EXAM focused assessment General: NAD noted, A&Ox3, pleasant, appears stated age HEENT: Normocephalic and atraumatic, facial exam shows no asymmetry; PERRLA, right sikhism pain and headaches. Neck: Supple, normal ROM, no lymphadenopathy, no masses palpated Heart: RRR, no murmur, clicks, or rub Resp: Lungs CTA bilaterally, respirations even and unlabored Abdomen: BSx4,Soft, non-tender Musculo- skeletal: No obvious deformity, no reported problems Extremity: No edema or cyanosis, +3PP BLE Skin: No rashes or lesions. Warm, Intact, Appropriate for ethnicity Psych: Affect normal, Alert and cooperative with exam, answers questions appropriately throughout visit Neuro: No focal neurological deficits. CN II-XII grossly intact, but not individually tested. ASSESSMENT/PLAN: Labs ordered today will be reviewed and communicated to once resulted along with any change in care. 1. Right eye strain & temporal pain- increase oral hydration and improve sleep hygeine, report any teeth grinding that may contribute to right sikhism nerve pain. Gabapentin 300mg BID prn for nerve pain. Ared MV and Ketotifen eye drops bid prn trialed for inflammation with hx of cataract surgey and Dm with blurred vision r/t elevated blood glucose. Diabetic eye exame recommended pending labs and images for further evaluation Per [facility] Directive 1605.06, wristband documentation: Patient wristband was removed and and placed in the designated Shred bin by nursing staff. Anthropometric Measurements: Weight: Patient Weight History Date/Time Ht Weight BMI 2024-10-24 14:18 336.5 51 2024-07-30 11:45 728 12 3465-06-27 10:57 68.0 367.0 56 2024-02-29 13:28 368.4 56 2023-11-17 11:13 369.7 56 2023-10-02 09:46 372.8 57 Recent Routine Lab Results: WBC 7.3 10*3/uL 09/24/2024 10:39 RBC 5.02 10*6/uL 09/24/2024 10:39 HGB 14.7 g/dL 09/24/2024 10:39 HCT 45.4 % 09/24/2024 10:39 MCV 90.4 fL 09/24/2024 10:39 MCH 29.3 pg 09/24/2024 10:39 MCHC 32.4 L g/dL 09/24/2024 10:39 RDW 13.4 % 09/24/2024 10:39 PLT 259 10*3/uL 09/24/2024 10:39 MPV 9.9 fL 09/24/2024 10:39 NEUTROPHILS, AUTO % 67.5 % 09/24/2024 10:39 LYMPHOCYTES, AUTO % 21.8 % 09/24/2024 10:39 MONOCYTES, AUTO % 5.5 % 09/24/2024 10:39 EOSINOPHILS, AUTO % 4.1 % 09/24/2024 10:39 BASOPHILS, AUTO % 0.8 % 09/24/2024 10:39 IMMATURE GRANS, AUTO % 0.3 % 09/24/2024 10:39 NEUTROPHILS, ABSOLUTE 4.93 10*3/uL 09/24/2024 10:39 LYMPHOCYTES, ABSOLUTE 1.59 10*3/uL 09/24/2024 10:39 MONOCYTES, ABSOLUTE 0.40 10*3/uL 09/24/2024 10:39 EOSINOPHILS, ABSOLUTE 0.30 10*3/uL 09/24/2024 10:39 BASOPHILS, ABSOLUTE 0.06 10*3/uL 09/24/2024 10:39 IMMATURE GRANS, AUTO ABS 0.02 10*3/uL 09/24/2024 10:39 SODIUM 133 L mEq/L 09/24/2024 10:39 POTASSIUM 4.3 mEq/L 09/24/2024 10:39 CHLORIDE 98 mEq/L 09/24/2024 10:39 UREA NITROGEN 15 mg/dL 09/24/2024 10:39 CREATININE 1.23 mg/dL 09/24/2024 10:39 CALCIUM 9.1 mg/dL 09/24/2024 10:39 PROTEIN 6.9 g/dL 09/24/2024 10:39 ALBUMIN 3.9 g/dL 09/24/2024 10:39 ALKALINE PHOSPHATASE 71 U/L 09/24/2024 10:39 ALT/SGPT 14 U/L 09/24/2024 10:39 AST/SGOT 13 U/L 09/24/2024 10:39 TOTAL BILIRUBIN 0.5 mg/dL 09/24/2024 10:39 CARBON DIOXIDE 25 mEq/L 09/24/2024 10:39 GLUCOSE 164 H mg/dL 09/24/2024 10:39 EGFR (CKD-EPI 2020) 63 09/24/2024 10:39 TRIGLYCERIDE 130 mg/dL 09/24/2024 10:39 CHOLESTEROL 126 mg/dL 09/24/2024 10:39 HDL(New) 40.0 H mg/dL 09/24/2024 10:39 DIRECT LDL 73.1 mg/dL 09/24/2024 10:39 CALCULATED LDL 60.0 mg/dL 09/24/2024 10:39 HDL % OF TOTAL CHOLESTEROL (PB) 31.7 % 09/24/2024 10:39 PROST. SPECIFIC AG.(PB-STL) 0.23 ng/mL 03/01/2023 11:02 TSH 1.829 uIU/mL 02/29/2024 13:32 VITAMIN D, 25-HYDROXY 48.4 ng/mL 09/24/2024 10:39 SLT - Lab Tests Selected Collection DT Specimen Test Name Result Units Ref Range 09/24/2024 10:39 BLOOD HGA1C 6.9 H % 4.0 - 6.0 05/09/2024 10:46 BLOOD HGA1C 6.8 H % 4.0 - 6.0 02/29/2024 13:32 BLOOD HGA1C 6.4 H % 4.0 - 6.0 12/14/2023 10:13 BLOOD HGA1C 6.6 H % 4.0 - 6.0 08/08/2023 10:39 BLOOD HGA1C 7.0 H % 4.0 - 6.0 03/01/2023 11:02 BLOOD HGA1C 7.2 H % 4.0 - 6.0 Electrolyte Profile (showing max: 5, if available) Collection DT Spec NA K CL GLU BUN CREAT eGFR 09/24/2024 10:39 PLASM 133 L 4.3 98 164 H 15 1.23 63 05/09/2024 10:46 PLASM 137 4.9 103 156 H 20 1.41 H 53 02/29/2024 13:32 PLASM 137 4.7 104 182 H 19 1.28 60 12/14/2023 10:13 PLASM 134 L 4.4 101 198 H 21 1.18 66 08/08/2023 10:39 PLASM 139 3.8 102 78 20 1.19 66 URINALYSIS 30D No data available uACR (PB-MA) 17.81 mcg/mg 02/29/2024 13:32 URINE ALBUMIN (PB-STL) 10.30 mg/L 02/29/2024 13:32 CREATININE URINE/OTHERS 57.82 mg/dL 02/29/2024 13:32 Labs: Reviewed. /smith/ Plaak Walter APRN, [facility], [facility] Anton Armstrong [facility] Signed: 01/06/2025 12:06 01/07/2025 ADDENDUM STATUS: COMPLETED Called and reviewed recommendations by provider. voiced understanding. /smith/ HENRY GALINDO LPN Signed: 01/07/2025 16:34 PALAK WALTER [facility] Jan 06, 2025 08:22 AM PRIMARY CARE PROGR ESS NOTE: LOCAL TITLE: PRIMARY CARE CLINIC PROGRESS NOTE PB STANDARD TITLE: PRIMARY CARE PROGRESS NOTE DATE OF NOTE: JAN 06, 2025@08:22 ENTRY DATE: JAN 06, 2025@08:22:49 AUTHOR: PALAK WALTER COSIGNER: URGENCY: STATUS: COMPLETED PRIMARY CARE CLINIC PROGRESS NOTE PB Has ADDENDA JAN 06, 2025 Leon Barger is a 74 years old MALE who presents with right sided sikhism pain [place] Identified by Name and SSN S: Subjective: 74-year old presents to clinic for a focused assessment concerning right sikhism pain. He has a past medical history of with insulin dependent diabetes, hypertension, GERD, osteoarthritis, BPH, obesity. CMP, CBC, Urinalysis ordered to evaluate infectious process and fluid and electrolyte levels in consideration of 's compromised immune state and past history of mild hyponatremia. cervical imaging ordered for evaluation of nerve involvement with history of narrowing C6-C7 disc space. [place]'s most recent cervical imaging was completed 01/11/2021 with evidence of degenerative joint disease, narrowing C6-7 disc space, and muscle spasms. No history of CVA, migraines noted in chart, CT of head 09/19/2018- mild cerebellar and cerebral atrophy without evidence of past CVA or tumors documented. c/o right sikhism pain/headache- onset/triggers:3 weeks, no known triggers duration/frequency:5-6sec x 30 min intermittenly not daily severity/description:sharp stabbing pain lasting a few seconds before self resolving without treatment radiation, affected areas or auras: stays within the sikhism, no noticed auras better/worse:unknown as veteranhas not been able to identify triggers or trialed medications at home trialed at home:none Last eye exam:01/09/2024 Naproxen not renewed with tamsulosin and simvastatin, eye drops and MV will be overnighted by the pharmacy with a short term supply of gabapentin sent to local pharmacy. Tylenol restricted due to reported allergy to Vicodin with N/V. However and report no known reaction to tylenol alone for pain. NSAIDS are not recommended in an older patient, constipated on ozempic,insulin dependent diabetic, history of GERD with regurgitation due to risk of ulceration or GI bleed. Gabapentin 300mg bid prn trial dose for suspected nerve involement,teleretinal and eye exam recommended as reports continued blurred vision despite cataract surgery reported as approx 1-2 years ago. Cervical imaging ordered, will order medication according to lab/image results. O: Objective VITALS: Previous HR & BP Pulse: 58 (10/24/2024 14:18) BP: 124/78 (10/24/2024 14:18) JAN 06, 2025 VITALS: Pulse: 78 (01/06/2025 10:35) BP: 125/80 (01/06/2025 10:35) Resp: 22 (01/06/2025 10:35) Temp: 97.8 F [36.6 C] (10/24/2024 14:18) Pain: 3 (10/24/2024 14:18) BMI: 50.4 O2sat: 97% (01/06/2025 10:35)% on [RA] PAST MEDICAL HISTORY 1) Vertigo (SNOMED CT 349183259) 2) DM - Diabetes mellitus (SNOMED CT 39113038) 3) Obesity 4) Primary hypertension (SNOMED CT 70190373) 5) Gastro-esophageal reflux (SNOMED CT 402566258) 6) Benign prostatic hyperplasia 7) Osteoarthritis 8) Sleep Apnea (SCT 20156635) 9) Angina 10) Cholelithiasis 11) Sensorineural hearing loss of bilateral ears 12) Bilateral tinnitus Active Outpatient Medications: Active Outpatient Medications (including Supplies): Active Outpatient Medications Status 1) ACCU-CHEK GUIDE (GLUCOSE) TEST STRIP USE 1 STRIP FOR BLOOD ACTIVE TEST TWICE A DAY Indication: FOR BLOOD SUGAR MONITORING 2) ALBUTEROL 90MCG (CFC-F) 200D ORAL INHL INHALE 2 PUFFS BY ACTIVE ORAL INHALATION FOUR TIMES A DAY SHAKE WELL. RINSE MOUTHPIECE FREQUENTLY TO PREVENT CLOGGING. Indication: FOR COPD 3) BENZOYL PEROXIDE 5% WASH WASH TO AFFECTED AREA(S) ONCE A ACTIVE DAY USE BODY WASH. ALLOW TO SIT FOR 2 MINUTES BEFORE RINSING 4) CHOLECALCIF 50MCG (D3-2,000UNIT) TAB TAKE ONE TABLET BY ACTIVE MOUTH ONCE A DAY FOR VITAMIN D DEFICIENCY. 5) CLOBETASOL PROPIONATE 0.05% CREAM APPLY TO AFFECTED ACTIVE AREA(S) TWICE DAILY NEEDED ON LEGS. NO MORE THAN TWO WEEKS OF THE MONTH.DO NOT USE ON FACE,GROIN,OR SKIN FOLDS. 6) DILTIAZEM (EQV-TIAZAC) 240MG 24HR CAP TAKE ONE CAPSULE BY ACTIVE MOUTH EVERY MORNING BEFORE A MEAL FOR HEART OR TO LOWER BLOOD PRESSURE 7) DOCUSATE NA 100MG CAP TAKE ONE CAPSULE BY MOUTH THREE TIMES ACTIVE A DAY HOLD FOR LOOSE STOOL/DIARRHEA. Indication: FOR SOFTENING STOOL 8) EMPAGLIFLOZIN 25MG TAB TAKE ONE TABLET BY MOUTH ONCE A DAY ACTIVE 9) FOLIC ACID 0.4MG TAB TAKE ONE TABLET BY MOUTH ONCE A DAY ACTIVE Indication: FOR FOLIC ACID SUPPLEMENTATION 10) FUROSEMIDE 20MG TAB TAKE ONE TABLET BY MOUTH EVERY MORNING ACTIVE NEEDED Indication: FOR FLUID RETENTION (EDEMA) 11) INSULIN SYRINGE 1ML 31G 6MM USE SYRINGE UNDER THE SKIN TWICE ACTIVE A DAY FOR USE WITH INSULIN TO CONTROL BLOOD SUGAR. 12) INSULIN,ASPART,HUMAN 70/30 NOVOLOG INJ INJECT 21 UNITS UNDER ACTIVE THE SKIN EVERY EVENING (ADMINISTER DOSE WITHIN 5-10 MINUTES OF START OF A MEAL) Indication: FOR DIABETES 13) KETOCONAZOLE 2% CREAM APPLY TO AFFECTED AREA(S) ONCE A DAY ACTIVE FOR 28 DAYS MAY USE FOR RECURRENT FLARES. 14) LANCET,SOFTCLIX USE LANCET FOR BLOOD TEST TWICE A DAY TO ACTIVE MONITOR BLOOD SUGAR. USE DIRECTED. 15) LISINOPRIL 40MG TAB TAKE ONE-HALF TABLET BY MOUTH ONCE A DAY ACTIVE FOR BLOOD PRESSURE THIS TABLET IS TO BE CUT IN HALF FOR YOUR DOSE Indication: FOR HIGH BLOOD PRESSURE 16) MICONAZOLE NITRATE 2% TOP PWDR APPLY TO AFFECTED AREA(S) ACTIVE ONCE A DAY NEEDED TO SKIN FOLDS. (EXTERNAL USE ONLY) 17) NAPROXEN 500MG TAB TAKE ONE TABLET BY MOUTH TWICE A DAY ACTIVE TAKE WITH FOOD. Indication: FOR PAIN 18) NITROGLYCERIN 0.4MG SL TAB DISSOLVE ONE TABLET UNDER THE ACTIVE TONGUE ONE-TIME NEEDED ; IF NO IMPROVEMENT AFTER FIRST DOSE CALL -1-1. MAY TAKE 2 ADDITIONAL DOSES, 5 MINUTES APART. TAKE WHILE SITTING. Indication: FOR CHEST PAIN 19) PANTOPRAZOLE NA 40MG EC TAB TAKE ONE TABLET BY MOUTH TWICE A ACTIVE DAY TAKE 30 MINUTES BEFORE MEAL(S) DO NOT TAKE WITH OMEPRAZOLE 20) PIOGLITAZONE HCL 30MG TAB TAKE ONE TABLET BY MOUTH ONCE A ACTIVE DAY TAKE WITH MORNING MEAL Indication: FOR DIABETES 21) POTASSIUM CL 20MEQ SA TAB (DISPERSIBLE) TAKE ONE-HALF TABLET ACTIVE BY MOUTH EVERY OTHER DAY TAKE WITH FOOD TAKE WITH LASIX Indication: FOR POTASSIUM SUPPLEMENTATION 22) SEMAGLUTIDE 1MG/0.75ML INJ PEN 3ML INJECT 1MG UNDER THE SKIN ACTIVE EVERY WEEK Indication: FOR DIABETES 23) SIMVASTATIN 20MG TAB TAKE ONE-HALF TABLET BY MOUTH EVERY ACTIVE EVENING TO LOWER CHOLESTEROL (REPORT ANY MUSCLE PAIN OR WEAKNESS) THIS TABLET IS TO BE CUT IN HALF FOR YOUR DOSE 24) SUCRALFATE 1GM TAB TAKE ONE TABLET BY MOUTH FOUR TIMES A DAY ACTIVE - TAKE ON AN EMPTY STOMACH. Indication: FOR ACID REFLUX 25) TAMSULOSIN HCL 0.4MG CAP TAKE TWO CAPSULES BY MOUTH EVERY ACTIVE EVENING APPROXIMATELY 30 MINUTES AFTER THE SAME MEAL EACH DAY (FOR PROSTATE) Indication: FOR BENIGN PROSTATIC HYPERPLASIA 26) UREA 40% CREAM APPLY LIGHTLY TO AFFECTED AREA(S) TWICE DAILY ACTIVE TO PROMOTE HEALING. RUB IN UNTIL COMPLETELY ABSORBED. FOR TOPICAL USE ONLY. Active Non-VA Medications Status 1) Non-VA CLOTRIMAZOLE 1% TOP CREAM SPARINGLY TO AFFECTED ACTIVE AREA(S) TWICE A DAY 27 Total Medications PHYSICAL EXAM focused assessment General: NAD noted, A&Ox3, pleasant, appears stated age HEENT: Normocephalic and atraumatic, facial exam shows no asymmetry; PERRLA, right sikhism pain and headaches. Neck: Supple, normal ROM, no lymphadenopathy, no masses palpated Heart: RRR, no murmur, clicks, or rub Resp: Lungs CTA bilaterally, respirations even and unlabored Abdomen: BSx4,Soft, non-tender Musculo- skeletal: No obvious deformity, no reported problems Extremity: No edema or cyanosis, +3PP BLE Skin: No rashes or lesions. Warm, Intact, Appropriate for ethnicity Psych: Affect normal, Alert and cooperative with exam, answers questions appropriately throughout visit Neuro: No focal neurological deficits. CN II-XII grossly intact, but not individually tested. ASSESSMENT/PLAN: Labs ordered today will be reviewed and communicated to once resulted along with any change in care. 1. Right eye strain & temporal pain- increase oral hydration and improve sleep hygeine, report any teeth grinding that may contribute to right sikhism nerve pain. Gabapentin 300mg BID prn for nerve pain. Ared MV and Ketotifen eye drops bid prn trialed for inflammation with hx of cataract surgey and Dm with blurred vision r/t elevated blood glucose. Diabetic eye exame recommended pending labs and images for further evaluation Per [facility] Directive 1605.06, wristband documentation: Patient wristband was removed and and placed in the designated Shred bin by nursing staff. Anthropometric Measurements: Weight: Patient Weight History Date/Time Ht Weight BMI 2024-10-24 14:18 336.5 51 2024-07-30 11:45 516 34 1235-06-27 10:57 68.0 367.0 56 2024-02-29 13:28 368.4 56 2023-11-17 11:13 369.7 56 2023-10-02 09:46 372.8 57 Recent Routine Lab Results: WBC 7.3 10*3/uL 09/24/2024 10:39 RBC 5.02 10*6/uL 09/24/2024 10:39 HGB 14.7 g/dL 09/24/2024 10:39 HCT 45.4 % 09/24/2024 10:39 MCV 90.4 fL 09/24/2024 10:39 MCH 29.3 pg 09/24/2024 10:39 MCHC 32.4 L g/dL 09/24/2024 10:39 RDW 13.4 % 09/24/2024 10:39 PLT 259 10*3/uL 09/24/2024 10:39 MPV 9.9 fL 09/24/2024 10:39 NEUTROPHILS, AUTO % 67.5 % 09/24/2024 10:39 LYMPHOCYTES, AUTO % 21.8 % 09/24/2024 10:39 MONOCYTES, AUTO % 5.5 % 09/24/2024 10:39 EOSINOPHILS, AUTO % 4.1 % 09/24/2024 10:39 BASOPHILS, AUTO % 0.8 % 09/24/2024 10:39 IMMATURE GRANS, AUTO % 0.3 % 09/24/2024 10:39 NEUTROPHILS, ABSOLUTE 4.93 10*3/uL 09/24/2024 10:39 LYMPHOCYTES, ABSOLUTE 1.59 10*3/uL 09/24/2024 10:39 MONOCYTES, ABSOLUTE 0.40 10*3/uL 09/24/2024 10:39 EOSINOPHILS, ABSOLUTE 0.30 10*3/uL 09/24/2024 10:39 BASOPHILS, ABSOLUTE 0.06 10*3/uL 09/24/2024 10:39 IMMATURE GRANS, AUTO ABS 0.02 10*3/uL 09/24/2024 10:39 SODIUM 133 L mEq/L 09/24/2024 10:39 POTASSIUM 4.3 mEq/L 09/24/2024 10:39 CHLORIDE 98 mEq/L 09/24/2024 10:39 UREA NITROGEN 15 mg/dL 09/24/2024 10:39 CREATININE 1.23 mg/dL 09/24/2024 10:39 CALCIUM 9.1 mg/dL 09/24/2024 10:39 PROTEIN 6.9 g/dL 09/24/2024 10:39 ALBUMIN 3.9 g/dL 09/24/2024 10:39 ALKALINE PHOSPHATASE 71 U/L 09/24/2024 10:39 ALT/SGPT 14 U/L 09/24/2024 10:39 AST/SGOT 13 U/L 09/24/2024 10:39 TOTAL BILIRUBIN 0.5 mg/dL 09/24/2024 10:39 CARBON DIOXIDE 25 mEq/L 09/24/2024 10:39 GLUCOSE 164 H mg/dL 09/24/2024 10:39 EGFR (CKD-EPI 2020) 63 09/24/2024 10:39 TRIGLYCERIDE 130 mg/dL 09/24/2024 10:39 CHOLESTEROL 126 mg/dL 09/24/2024 10:39 HDL(New) 40.0 H mg/dL 09/24/2024 10:39 DIRECT LDL 73.1 mg/dL 09/24/2024 10:39 CALCULATED LDL 60.0 mg/dL 09/24/2024 10:39 HDL % OF TOTAL CHOLESTEROL (PB) 31.7 % 09/24/2024 10:39 PROST. SPECIFIC AG.(PB-STL) 0.23 ng/mL 03/01/2023 11:02 TSH 1.829 uIU/mL 02/29/2024 13:32 VITAMIN D, 25-HYDROXY 48.4 ng/mL 09/24/2024 10:39 SLT - Lab Tests Selected Collection DT Specimen Test Name Result Units Ref Range 09/24/2024 10:39 BLOOD HGA1C 6.9 H % 4.0 - 6.0 05/09/2024 10:46 BLOOD HGA1C 6.8 H % 4.0 - 6.0 02/29/2024 13:32 BLOOD HGA1C 6.4 H % 4.0 - 6.0 12/14/2023 10:13 BLOOD HGA1C 6.6 H % 4.0 - 6.0 08/08/2023 10:39 BLOOD HGA1C 7.0 H % 4.0 - 6.0 03/01/2023 11:02 BLOOD HGA1C 7.2 H % 4.0 - 6.0 Electrolyte Profile (showing max: 5, if available) Collection DT Spec NA K CL GLU BUN CREAT eGFR 09/24/2024 10:39 PLASM 133 L 4.3 98 164 H 15 1.23 63 05/09/2024 10:46 PLASM 137 4.9 103 156 H 20 1.41 H 53 02/29/2024 13:32 PLASM 137 4.7 104 182 H 19 1.28 60 12/14/2023 10:13 PLASM 134 L 4.4 101 198 H 21 1.18 66 08/08/2023 10:39 PLASM 139 3.8 102 78 20 1.19 66 URINALYSIS 30D No data available uACR (PB-MA) 17.81 mcg/mg 02/29/2024 13:32 URINE ALBUMIN (PB-STL) 10.30 mg/L 02/29/2024 13:32 CREATININE URINE/OTHERS 57.82 mg/dL 02/29/2024 13:32 Labs: Reviewed. /smith/ Palak Walter APRN, [employer]-C, [facility] Anton Armstrong [facility] Signed: 01/06/2025 12:06 01/07/2025 ADDENDUM STATUS: COMPLETED [place]'s lasix renewed, labs indicate a elevated potassium of 5.4 on furosemide 20mg daily and potassium 10mg daily as a insulin dependent diabetic, please hold potassium for 2 days for acute treatment, improve ADA diet as elevated glucose may also result in elevated potassium- that may cause muscle spasms, kidney damage, or heart arrythmias.Cervical imaging indicates C5-C6 narrowing that may cause muscle spasms. Neck pain can cause or contribute to sikhism pain, headaches. Please monitor symptoms for identification of triggers or symptoms associated with right sikhism pain: *neck pain? *vertigo? *stinging pain when touching right sikhism? *elevated BG? *blurred vision? SPINE CERVICAL MIN 4 OR 5 VIEWS Exm Date: JAN 06, 2025@11:01 Req Phys: PALAK WALTER Pat Loc: PB-CVT PCP FLOAT(PRO) (Req'g L Img Loc: PB-XRAY HAYNES Service: [place] [address] (Case [id number] COMPLETE) SPINE CERVICAL MIN 4 OR 5 VIEWS (RAD Detailed) CPT:24906 Reason for Study: cervicalgia with hx of c6-c7 stenosis Clinical History: Report Status: Verified Date Reported: JAN 06, 2025 Date Verified: JAN 06, 2025 [place] Gatherer E-Sig: Report: AP, lateral, oblique, odontoid and [...] abnormality Primary Interpreting Staff: CAROL RAJAN, RADIOLOGIST ([place] Gatherer, no e-sig) /rld Anthropometric Measurements: Height:68.0 in [172.7 cm] (01/06/2025 10:35) BMI: 50.4 Weight: Patient Weight History - Last Four 1. 330.6 lbs. / 150.0 kg. on JAN 06, 2025@10:35 2. 336.5 lbs. / 152.6 kg. on OCT 24, 2024@14:18:21 3. 349.0 lbs. / 158.3 kg. on JUL 30, 2024@11:45 4. 367.0 lbs. / 166.5 kg. on MAY 09, 2024@10:57 Recent Routine Lab Results: WBC 10.3 10*3/uL 01/06/2025 10:58 RBC 5.18 10*6/uL 01/06/2025 10:58 HGB 15.0 g/dL 01/06/2025 10:58 HCT 48.1 % 01/06/2025 10:58 MCV 92.9 fL 01/06/2025 10:58 MCH 29.0 pg 01/06/2025 10:58 MCHC 31.2 L g/dL 01/06/2025 10:58 RDW 13.6 % 01/06/2025 10:58 PLT 302 10*3/uL 01/06/2025 10:58 MPV 10.4 fL 01/06/2025 10:58 NEUTROPHILS, AUTO % 74.5 % 01/06/2025 10:58 LYMPHOCYTES, AUTO % 17.1 % 01/06/2025 10:58 MONOCYTES, AUTO % 5.4 % 01/06/2025 10:58 EOSINOPHILS, AUTO % 2.1 % 01/06/2025 10:58 BASOPHILS, AUTO % 0.5 % 01/06/2025 10:58 IMMATURE GRANS, AUTO % 0.4 % 01/06/2025 10:58 NEUTROPHILS, ABSOLUTE 7.66 10*3/uL 01/06/2025 10:58 LYMPHOCYTES, ABSOLUTE 1.76 10*3/uL 01/06/2025 10:58 MONOCYTES, ABSOLUTE 0.55 10*3/uL 01/06/2025 10:58 EOSINOPHILS, ABSOLUTE 0.22 10*3/uL 01/06/2025 10:58 BASOPHILS, ABSOLUTE 0.05 10*3/uL 01/06/2025 10:58 IMMATURE GRANS, AUTO ABS 0.04 10*3/uL 01/06/2025 10:58 SODIUM 141 mEq/L 01/06/2025 10:58 POTASSIUM 5.4 H mEq/L 01/06/2025 10:58 CHLORIDE 105 mEq/L 01/06/2025 10:58 UREA NITROGEN 20 mg/dL 01/06/2025 10:58 CREATININE 1.05 mg/dL 01/06/2025 10:58 CALCIUM 9.5 mg/dL 01/06/2025 10:58 PROTEIN 7.0 g/dL 01/06/2025 10:58 ALBUMIN 4.2 g/dL 01/06/2025 10:58 ALKALINE PHOSPHATASE 87 U/L 01/06/2025 10:58 ALT/SGPT 11 U/L 01/06/2025 10:58 AST/SGOT 14 U/L 01/06/2025 10:58 TOTAL BILIRUBIN 0.5 mg/dL 01/06/2025 10:58 CARBON DIOXIDE 26 mEq/L 01/06/2025 10:58 GLUCOSE 207 H mg/dL 01/06/2025 10:58 EGFR (CKD-EPI 2020) 75 01/06/2025 10:58 TRIGLYCERIDE 130 mg/dL 09/24/2024 10:39 CHOLESTEROL 126 mg/dL 09/24/2024 10:39 HDL(New) 40.0 H mg/dL 09/24/2024 10:39 DIRECT LDL 73.1 mg/dL 09/24/2024 10:39 CALCULATED LDL 60.0 mg/dL 09/24/2024 10:39 HDL % OF TOTAL CHOLESTEROL (PB) 31.7 % 09/24/2024 10:39 PROST. SPECIFIC AG.(PB-STL) 0.23 ng/mL 03/01/2023 11:02 TSH 1.829 uIU/mL 02/29/2024 13:32 VITAMIN D, 25-HYDROXY 48.4 ng/mL 09/24/2024 10:39 SLT - Lab Tests Selected Collection DT Specimen Test Name Result Units Ref Range 09/24/2024 10:39 BLOOD HGA1C 6.9 H % 4.0 - 6.0 05/09/2024 10:46 BLOOD HGA1C 6.8 H % 4.0 - 6.0 02/29/2024 13:32 BLOOD HGA1C 6.4 H % 4.0 - 6.0 12/14/2023 10:13 BLOOD HGA1C 6.6 H % 4.0 - 6.0 08/08/2023 10:39 BLOOD HGA1C 7.0 H % 4.0 - 6.0 03/01/2023 11:02 BLOOD HGA1C 7.2 H % 4.0 - 6.0 URINALYSIS 30D Collection DT Specimen Test Name Result Units Ref Range 01/06/2025 10:58 URINE URINE COLOR Light Yellow Ref: Yellow 01/06/2025 10:58 URINE U.BILIRUBIN NEGATIVE mg/dL Ref: Negative 01/06/2025 10:58 URINE U.PH 6.0 5.0 - 8.0 01/06/2025 10:58 URINE URINE WBC/HPF 6 H /HPF 0 - 5 01/06/2025 10:58 URINE URINE RBC/HPF 5 /HPF 0 - 5 01/06/2025 10:58 URINE APPEARANCE CLEAR Ref: Clear 01/06/2025 10:58 URINE U.NITRITE NEGATIVE mg/dL Ref: Negative 01/06/2025 10:58 URINE SQUAMOUS EPITH. <1 /HPF 0 - 5 Comment: Specific [place] may be elevated due to high Urine Glucose or high Comment: Urine Protein uACR (PB-MA) 17.81 mcg/mg 02/29/2024 13:32 URINE ALBUMIN (PB-STL) 10.30 mg/L 02/29/2024 13:32 CREATININE URINE/OTHERS 57.82 mg/dL 02/29/2024 13:32 Labs: Reviewed. /smith/ Palak Walter APRN, YAMILKA-C, [facility] Anton Armstrong [facility] Signed: 01/07/2025 08:54 Receipt Acknowledged By: 01/08/2025 09:28 /smith/ HENRY GALINDO LPN 01/07/2025 ADDENDUM STATUS: COMPLETED Called and reviewed recommendations by provider. voiced understanding. /rashi GALINDO LPN Signed: 01/07/2025 16:34 01/14/2025 ADDENDUM STATUS: COMPLETED Visit conducted by synchronous video telehealth; patient verbal consent obtained. Location and emergency point of contact and/or number confirmed was notified of right to decline Telehealth services and eligibility for other options. consented to be seen via Video into the Clinic (CVT). Verified Patient's location and contact information for this appointment: [facility] [address] [place] [address] [place] [address] [phone] A survey of the environment was conducted and all participants identified in the room and the exam door is closed. Providers: Take measures to minimize the noise outside the clinic room by ensuring the room's door is closed, and a sign is posted on the door to indicate a telehealth visit is in session. Provider location: [facility] [address]39 x [phone] The [place] was educated about the use of Clinical Video Telehealth for this encounter. The also understands that a video-technology is being used for this visit and that he/she has the option to be seen using an in-person same space face to face visit if desired. The [place] consents to be seen today using Clinical Video Telehealth. /smith/ Palak Walter APRN, FNP-C, [facility] Anton Armstrong [facility] Signed: 01/14/2025 15:37 PALAK WALTER [facility]
--- OUTSIDE RECORDS SUMMARY | 2025-01-17 09:00 | XMS_ITS | Encounter Summary ---
Author Name [facility] [place] [facility] [place] Address [address] [place] [address] Care Team Providers Care Bench Hand Name Role Phone REINALDO HOLT Primary Care [...] Mcgraw CATALYST RX PRESCRIPT ION ACTIV E [id number] May 13, 2012 [id number] SIMBAFunmi ANDREW PATIENT MEDICARE (WNR) MEDICARE (M) PART A Apr 13, 2016 PART A [id number] SIMBAFunmi SVENL PATIENT MEDICARE (WNR) MEDICARE (M) PART A Apr 13, 2016 PART A [id number] SIMBAFunmi AUL PATIENT MEDICARE (WNR) MEDICARE (M) PART A Apr 13, 2016 PART A [id number] SIMBAFunmi AUL PATIENT [facility] POINT OF SERVICE [place] Bridges [facility] May 13, 2008 [id number] SIMBAFunmi ANDREW PATIENT Selected Encounter This section includes the information on record at [place] for the Encounter. Date/Time Encounter Type Encounter Description Reason Provider Source Jan 17, 2025 02:00 PM PSYTX W PT 60 MINUTES [facility] - IND ICD-10-CM Z63.0 Problems in relationship with spouse or partner MÓNICA REYNOLDS [employer] Encounter Template Text not used by [place] Assessments - Encounter Diagnoses This section includes the primary and secondary diagnoses documented for the Encounter. Date/Time Primary/Secondary Diagnosis Diagnosis Name Provider Source Jan 17, 2025 04:17 PM PRIMARY Problems in relationship with spouse or partner REYNA REYNOLDS [facility] Plan of Treatment: Future Appointments (+ 6 months) and Future Tests (+/- 45 days) The Plan of Treatment section includes future care activities for the patient from all [place] treatmentfacilities. This section includes future appointments and future orders which are active, pending or scheduled. Future Appointments This section includes appointments that were scheduled to occur 6 months from the date of the Encounter, up to a maximum of 20 appointments. The data comes from all [place] treatment facilities. Appointment Date/Time Appointment Type Appointme nt Facility Name Jan 22, 2025 01:45 PM AMBULATORY - [place]IC[place] [facility] Feb 04, 2025 11:00 AM AMBULATORY - [place]IC[place] [facility] Feb 10, 2025 11:30 AM [facility]ATORY - MEDIC[place] [facility] Mar 03, 2025 09:30 AM [facility] March 13, 2025 11:00 AM [facility] March 19, 2025 12:00 PM [facility] March 19, 2025 12:01 PM AMBULATORY - MEDIC[place] [facility] March 19, 2025 01:30 PM [facility] March 20, 2025 11:00 AM AM[facility]ULATORY - [facility]IC[facility] [place] [facility] March 21, 2025 01:30 PM [facility] April 03, 2025 01:00 PM AMBULATORY - MEDICINE [facility] April 04, 2025 09:15 AM AM[facility]UL[facility]ORY - [place]IC[place] [facility] April 08, 2025 08:30 AM AMBULATORY - MEDICINE [facility] April 08, 2025 08:31 AM [facility] [place] [facility] Apr 15, 2025 12:00 PM [facility] [place] [facility] Apr 15, 2025 12:01 PM AMBULATORY - MEDICINE [facility] Apr 24, 2025 01:20 PM AMBULATORY - MEDICINE [facility] May 07, 2025 12:30 PM AMBULATORY - MEDICINE [facility] May 07, 2025 12:31 PM AM[facility]ULATORY - [place]IC[place] [facility] May 29, 2025 11:30 AM AMBULATORY - MEDIC[place] [facility] Lab Results: +/- 30 days of the encounter This section includes the Chemistry and Hematology Lab Results on record with [place] for the patient. Radiology Reports and Pathology Reports are provided separately, in subsequent sections. Lab Results This section contains the Chemistry/Hematology Results that were resulted 30 days before or 30 daysafter the date of the Encounter. Date/Time Source Result Type Result - Unit Interpretation Reference Range Specimen Type Comment Jan 06, 2025 10:58 AM [facility] COMPREHENSIVE METABOLIC PANEL PLASMA Specimen Type: PLASMA No comment entered. Ordering Provider: NAFISA TODD Report Released Date/Time: Jan 06, 2025 08:43 AM Reporting Lab: [facility] [place] [facility] [address] [place] [address] Performing Lab: [place] [facility] [address] [place] [address] CREATININE 1.05 mg/dL 0.7-1.3 UREA NITROGEN 20 [...] 2020) 75 Jan 06, 2025 10:58 AM [facility] URINALYSIS W/ CX REFLEX (STL-PB) URINE Specim en Type: URINE Comment: Specific [place] may be elevated due to high Urine Glucose or high Urine Protein Ordering Provider: NAFISA TODD Report Released Date/Time: Jan 06, 2025 08:44 AM Reporting Lab: [place] [facility] [address] [place] [address] Performing Lab: [place] [facility] [address] [address] [facility] [address] URINE COLOR Light Yellow Yellow U.BILIRUBIN NEGATIVE [...] H 1.005-1.029 Jan 06, 2025 10:58 AM [facility] CBC BLOO D Specimen Type: BLOOD No comment entered. Ordering Provider: NAFISA TODD Report Released Date/Time: Jan 06, 2025 08:43 AM Reporting Lab: [place] [facility] [address] [place] [address] Performing Lab: [place] [facility] [address] [facility] [place] [id number] WBC 10.3 10*3/uL 3.6-11.2 RBC 5.18 10*6/uL [...] GRANS, AUTO ABS 0.04 10*3/uL 0. 00-0.05 Social History: Smoking Status (Most current) and Tobacco Use (All prior to encounter date) This section includes the most current, and the historical, smoking and tobacco- related health factors from the [place] facility where the Encounter took place. Current Smoking Status This section includes the most current smoking, or tobacco-related health factor, from the [place] facility where the Encounter took place. Date/Time Current Smoking Status Comment Andi ity Oct 02, 2023 09:30 AM VA-TOBACCO NEVER USED [facility] Tobacco Use History This section includes a history of the smoking, or tobacco-related health factors, that were collected on or before the date of the Encounter. The data comes from the [place] facility where the Encounter took place. Date/Time Smoking Status/Tobacco Use Comment F acility Apr 26, 2022 01:00 PM VA-TOBACCO FORMER USER [facility] Apr 26, 2022 01:00 PM VA-TOBACCO QUIT 5 TO < 15 YRS [facility] May 04, 2021 11:00 AM VA-TOBACCO NEVER USED [facility] Aug 16, 2019 02:05 PM VA-TOBACCO NEVER USED [facility] Jun 05, 2014 01:09 PM LIFETIME NON-USER OF TOBACCO [facility] Advance Directives: All historical and current Section Date Range: From patient's date of to the date document was created. This section includes ALL of a patient's completed or amended VA Advance and Rescinded Directives. The entries below indicate that a directive exists for the patient, but an actual copy is not included with this document. The data comes from all [place] facilities. Date Advance Directives Provider Source Apr 24, 2015 RESCINDED ADVANCE DIRECTIVE PETE CRO[facility] Radiology Reports: +/- 30 days of the [...] the Encounter. The data comes from all [place] treatment facilities. Date/Time Radiology Report Provider Source Jan 06, 2025 11:01 AM SPINE CERVICAL MIN 4 OR 5 VIEWS: FLASH COTTRELL [id number] -[id number] M Exm Date: JAN 06, 2025@11:01 Req Phys: NAFISA TODD Pat Loc: PB-CVT PCP FLOAT(PRO) (Req'g L Img Loc: PB-XRAY [place] Service: [place] [address] (Case [id number] COMPLETE) SPINE CERVICAL MIN 4 OR 5 VIEWS (RAD Detailed) CPT:84151 Reason for Study: cervicalgia with hx of c6-c7 stenosis Clinical History: Report Status: Verified Date Reported: JAN 06, 2025 Date Verified: JAN 06, 2025 International Project Engineer E-Sig: Report: AP, lateral, oblique, odontoid and [...] abnormality Primary Interpreting Staff: CAROL RAJAN, RADIOLOGIST (International Project Engineer, no e-sig) /[facility] Encounter Notes: All associated encounter notes This section contains the clinical notes associated to the Encounter. Date/Time Encounter Note(s) Provider Source Jan 27, 2025 08:08 AM MENTAL HEALTH CONS ULT: LOCAL TITLE: MENTAL HEALTH CONSULT NOTE STANDARD TITLE: MENTAL HEALTH CONSULT DATE OF NOTE: JAN 27, 2025@08:08 ENTRY DATE: JAN 27, 2025@08:08:09 AUTHOR: REYNA REYNOLDS EXP COSIGNER: URGENCY: STATUS: COMPLETED Late Entry. Alleene seen on 01-17-2025 by provider. Please See Mental Health Initial Assessment dated . 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 Served during: [place] War Other/Peacetime: Served in combat: No Behavioral issues while in Service: No Disciplinary actions: Highest Rank: E-5 Rank at Discharge: E-5 Alleene Discharge Type: Honorable ADULT RELATIONSHIPS : Interpersonal Relationship History Currently in a relationship: Yes Current Marital Status: Current relationship issues/difficulties: Yes Clutter in Home Currently living with a spouse or partner: Past significant relationship(s): Sexual Orientation: Straight or heterosexual Caretaking/Parenting Issues: Children (including stepchildren): 2 children - a daughter and 2 sons Dependent: Yes Daughter Special needs Adult/Independent: Yes Provides care for any children on an ongoing basis (e.g. children, grandchildren, foster children?) Yes Daughter Cheese Blender responsibilities for ill or disabled family/friend/Significant Other: Yes Daughter Others living with Alleene: HOUSING AND LIVING ENVIRONMENT: Current housing situation: Owns house Satisfied with current living arrangements. Satisfied with home unsatisfied with the state of the interior of home due to clutter CHILDHOOD AND FAMILY HISTORY: Family of origin and significant childhood experience: Alleene reports being born in [place], has two step-sisters and brother who from cancer History of behavioral, developmental or emotional problems in childhood: No Family history of mental illness: No Family history of substance abuse/addictive behaviors: No CULTURAL & SPIRITUAL HISTORY: Self-identified ethnic/cultural identity Dilan Ross cites ethnic/cultural identity as a wen component of care: no Current Anglican/Spiritual Preference or identity Orthodox Current place of sabianism: yes First Islam Worship Annabel Meza Vet cites cultural/spirituality beliefs and practices as a wen component of care: no Helping Spiritual Practices: Prayer, Attending hindu services, Music ACADEMIC AND/OR EDUCATIONAL HISTORY : EDUCATIONAL HISTORY: High School: High School diploma ACTIVITIES OF DAILY LIVING AND INSTRUMENTAL ADLS: Activities of Daily Living: Bathing: Independent Dressing: Independent Toileting/continence: Some Assistance Transfer: Independent Feeding: Independent Mobility: Independent Comments: Instrumental Activities of Daily Living: Ability to use telephone: Independent Shopping: Independent Food preparation: Independent Housekeeping: Independent Laundry: Independent Mode of transportation: Independent Responsibility for own medications: Independent Ability to handle finances: Independent Comments: EMPLOYMENT HISTORY: Current Employment Status: Unemployed and not seeking work. 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 Was fired due to arguing wiht the guys Disabled and receiving VA Service Connected Disability 80 % service connection FINANCIAL HISTORY: Current sources of income: VA Service Connection, SSI, Usp/Non- VA Pension Management of Financial Affairs: Manages financial affairs independently. Current Income: Is sufficient to make ends meet . LEISURE ACTIVITIES: Current activities engaged in for fun and/or relaxation: Plays guitar and sing music. Typical social activities: Barriers to activities: Physical Limitations Significant change in typical activities/activity level: MENTAL STATUS EXAM: Presented alert and oriented for person, time, and place. Dress and hygiene were Good and appeared about stated age. Manner was calm and cooperative,with good eye contact. No evidence of psychomotor agitation or retardation. Speech was of normal rate, goal directed and content was appropriate to situation. There was no evidence of pressured speech. No evidence of thought disorder. Affect was euthymic and appropriate. No emotional blunting. Mood was consistent with affect. Denied any hallucinations.No delusions noted. Insight was good, judgment was good,impulse control was good. Cognition and memory appeared grossly intact. INTEGRATED SUMMARY: Alleene is a 74 year old [place] who presents today to find ways to deal with his frustrations over the clutter in his home. Veterans consult identified depressive disorder which denies any depression or anxiety other than the distress caused by his not cleaning up the stuff she has cluttered the home with. All relevant MH treatment options, including evidence-based treatments, were discussed with the : INITIAL DSM-V DIAGNOSIS: DIAGNOSIS: Z63.0 Relationship Distress with Spouse Initial Treatment Plan: Individual psychotherapy PROBLEMS: frustration over clutter GOALS: learn ways to help with frustrations OBJECTIVES: INTERVENTION: Provider will use evidenced based interventions to help assure Alleene experiences a desired outcome. Was Evidenced Based Therapy offered? Yes, Patient verbalizes preferences for CBT & EMDR Therapy model at this time. Time spent with Alleene was 60 minutes, CPT Code 58994 /es/ REYNA REYNOLDS Signed: 01/17/2025 14:56 REYNA REYNOLDS [facility] Jan 17, 2025 02:25 PM SUICIDE PREVENTION NOTE: LOCAL TITLE: [place]-SUICIDE SEVERITY RATING SCALE STANDARD TITLE: SUICIDE PREVENTION NOTE DATE OF NOTE: JAN 17, 2025@14:25 ENTRY DATE: JAN 17, 2025@14:25:58 AUTHOR: REYNA REYNOLDS EXP COSIGNER: URGENCY: STATUS: COMPLETED [place]-Suicide Severity Rating Scale (C-SSRS Screener) 1. Over the past month, have you wished you were or wished you could go to sleep and not wake up? No 2. Over the past month, have you had any actual thoughts of killing yourself? No 3. Over the past month, have you been thinking about how you might do this? Response not required due to responses to other questions. 4. Over the past month, have you had these thoughts and had some intention of acting on them? Response not required due to responses to other questions. 5. Over the past month, have you started to work out or worked out the details of how to kill yourself? Response not required due to responses to other questions. 6. If yes, at any time in the past month did you intend to carry out this plan? Response not required due to responses to other questions. 7. In your lifetime, have you ever done anything, started to do anything, or prepared to do anything to end your life (for example, collected pills, obtained a gun, gave away valuables, went to the roof but didn't jump)? No 8. If YES, was this within the past 3 months? Response not required due to responses to other questions. I have reviewed the results of the Mental Health screens and have evaluated the patient. Based on the evaluation, the following disposition plan will be implemented: No further intervention is needed at this time. Contact information and instructions for accessing emergency services provided. /smith/ REYNA REYNOLDS Signed: 01/17/2025 16:17 REYNA REYNOLDS [facility]
--- OUTSIDE RECORDS SUMMARY | 2025-01-22 08:45 | XMS_ITS | Encounter Summary ---
Author Name [facility] [place] [facility] [place] [facility] [place] Address [address] [place] [address] Care Team Providers Care Parts Washer Name Role Phone REINALDO HOLT Primary Care [...] Mcgraw CATALYST RX PRESCRIPT ION ACTIV E [id number] May 13, 2012 [phone] SIMBAFunmi SVENCyrus PATIENT MEDICARE (WNR) MEDICARE (M) PART A Apr 13, 2016 PART A [id number] SIMBAFunmi SVENL PATIENT MEDICARE (WNR) MEDICARE (M) PART A Apr 13, 2016 PART A [id number] COTTRELLFunmi BONILLA PATIENT MEDICARE (WNR) MEDICARE (M) PART A Apr 13, 2016 PART A [id number] Funmi COTTRELL PATIENT [facility] POINT OF SERVICE [place] Bridges BOARD May 13, [id number] [phone] Funmi COTTRELL PATIENT Selected Encounter This section includes the information on record at [place] for the Encounter. Date/Time Encounter Type Encounter Description Reason Provider Source Jan 22, 2025 01:45 PM COMPRE OPH EXAM EST PT 1/> OPTOMETRY ICD-10-CM H52.222 Regular astigmatism, left eye ANA MATHEWS IHE Encounter Template Text not used by [place] Assessments - Encounter Diagnoses This section includes the primary and secondary diagnoses documented for the Encounter. Date/Time Primary/Secondary Diagnosis Diagnosis Name Provider Source Jan 22, 2025 03:03 PM PRIMARY Regular astigmatism, left eye ANA MATHEWS [place] [facility] Jan 22, 2025 03:03 PM SECONDARY Other chronic allergic conjunctivitis ANA MATHEWS [place] [facility] Jan 22, 2025 03:03 PM SECONDARY Presbyopia ANA MATHEWS [place] [facility] Jan 22, 2025 03:03 PM SECONDARY Presence of intraocular lens ANA MATHEWS [facility] [facility] Jan 22, 2025 03:03 PM SECONDARY Type 2 diabetes mellitus without complications ANA MATHEWS [place] [facility] Plan of Treatment: Future Appointments (+ 6 months) and Future Tests (+/- 45 days) The Plan of Treatment section includes future care activities for the patient from all [place] treatmentfacilities. This section includes future appointments and future orders which are active, pending or scheduled. Future Appointments This section includes appointments that were scheduled to occur 6 months from the date of the Encounter, up to a maximum of 20 appointments. The data comes from all [place] treatment facilities. Appointment Date/Time Appointment Type Appointme nt Facility Name Feb 04, 2025 11:00 AM [facility] - [facility] [place] [facility] Feb 10, 2025 11:30 AM [facility] - [facility] [place] [facility] Mar 03, 2025 09:30 AM [facility] - MED[facility]INE [facility] March 13, 2025 11:00 AM [facility] - MEDICINE [facility] March 19, 2025 12:00 PM [facility] [place] [facility] March 19, 2025 12:01 PM [facility] [place] [facility] March 19, 2025 01:30 PM [facility] [place] [facility] March 20, 2025 11:00 AM [facility] [place] [facility] March 21, 2025 01:30 PM [facility] [place] [facility] April 03, 2025 01:00 PM [facility] [place] [facility] April 04, 2025 09:15 AM [facility] [place] [facility] April 08, 2025 08:30 AM [facility] [place] [facility] April 08, 2025 08:31 AM [facility] [place] [facility] Apr 15, 2025 12:00 PM [facility] [place] [facility] Apr 15, 2025 12:01 PM [facility] [place] [facility] Apr 24, 2025 01:20 PM [facility] [place] [facility] May 07, 2025 12:30 PM [facility] [place] [facility] May 07, 2025 12:31 PM [facility] [place] [facility] May 29, 2025 11:30 AM [facility] [place] [facility] May 29, 2025 01:00 PM [facility] [place] [facility] Lab Results: +/- 30 days of the encounter This section includes the Chemistry and Hematology Lab Results on record with [place] for the patient. Radiology Reports and Pathology Reports are provided separately, in subsequent sections. Lab Results This section contains the Chemistry/Hematology Results that were resulted 30 days before or 30 daysafter the date of the Encounter. Date/Time Source Result Type Result - Unit Interpretation Reference Range Specimen Type Comment Jan 06, 2025 10:58 AM [facility] [facility] COMPREHENSIVE METABOLIC PANEL PLASMA Specimen Type: PLASMA No comment entered. Ordering Provider: NAFISA TODD Report Released Date/Time: Jan 06, 2025 08:43 AM Reporting Lab: [facility] [facility] [address] [place] [address] Performing Lab: [place] [facility] [address] [place] [address] CREATININE 1.05 mg/dL 0.7-1.3 UREA NITROGEN 20 [...] 2020) 75 Jan 06, 2025 10:58 AM [facility] URINALYSIS W/ CX REFLEX (STL-PB) URINE Specim en Type: URINE Comment: Specific [place] may be elevated due to high Urine Glucose or high Urine Protein Ordering Provider: NAFISA TODD Report Released Date/Time: Jan 06, 2025 08:44 AM Reporting Lab: [facility] [address] [facility] [address] Performing Lab: [facility] [address] [facility] [address] URINE COLOR Light Yellow Yellow U.BILIRUBIN NEGATIVE [...] H 1.005-1.029 Jan 06, 2025 10:58 AM [facility] CBC BLOO D Specimen Type: BLOOD No comment entered. Ordering Provider: NAFISA TODD Report Released Date/Time: Jan 06, 2025 08:43 AM Reporting Lab: [facility] [address] [place] [address] Performing Lab: [facility] [address] [place] [address] WBC 10.3 10*3/uL 3.6-11.2 RBC 5.18 10*6/uL [...] ALL of a patient's completed or amended [place] Advance and Rescinded Directives. The entries below indicate that a directive exists for the patient, but an actual copy is not included with this document. The data comes from all [place] facilities. Date Advance Directives Provider Source Apr 24, 2015 RESCINDED ADVANCE DIRECTIVE PETE CROFT COLMARNico [facility] Radiology Reports: +/- 30 days [...] the Encounter. The data comes from all [place] treatment facilities. Date/Time Radiology Report Provider Source Jan 06, 2025 11:01 AM SPINE CERVICAL MIN 4 OR 5 VIEWS: FLASH COTTRELL [id number] -[id number] M Exm Date: JAN 06, 2025@11:01 Req Phys: NAFISA TODD M Pat Loc: PB-CVT PCP FLOAT(PRO) (Req'g L Img Loc: PB-XRAY [place] Service: [place] [address] (Case [id number] COMPLETE) SPINE CERVICAL MIN 4 OR 5 VIEWS (RAD Detailed) CPT:50344 Reason for Study: cervicalgia with hx of c6-c7 stenosis Clinical History: Report Status: Verified Date Reported: JAN 06, 2025 Date Verified: JAN 06, 2025 Bench Technician E-Sig: Report: AP, lateral, oblique, odontoid and [...] abnormality Primary Interpreting Staff: CAROL RAJAN, RADIOLOGIST (Bench Technician, no e-sig) /CAROL Bello [facility] Encounter Notes: All associated encounter notes This section contains the clinical notes associated to the Encounter. Date/Time Encounter Note(s) Provider Source Jan 22, 2025 02:32 PM OPHTHALMOLOGY E & M NOTE: LOCAL TITLE: OPHTHALMIC EXAM PB STANDARD TITLE: OPHTHALMOLOGY E & M NOTE DATE OF NOTE: JAN 22, 2025@14:32 ENTRY DATE: JAN 22, 2025@14:32:11 AUTHOR: ANA MATHEWS EXP COSIGNER: URGENCY: STATUS: COMPLETED CHIEF COMPLAINT 'eyes are fuzzy' -SUBJECTIVE- 74M here for eye exam with symptoms as stated above. Says he gets fuzziness even w/ gls on & wonders if it may be from the diabetes . Eyes feel fine otherwise. OHx: KURT 2021. Patient reports no history of eye injury. He is s/p CE w/ PCIOL w/ [facility] + iStent OD 2021 Dr De La Torre (OS Sx was scheduled for the same combined procedures, but patient cancelled surgery b/c he said he 'got sick' after the first surgery & didn't want to get sick again). MHx: +Type 2 DM (Dx'd 2011). ALLERGIES: MORPHINE, BEE STINGS. -OBJECTIVE- VAcc OD:+0.25 -0.75 x 050 20/25 DVO OS:-0.75 -0.75 x 130 20/70 phni Pupils as above EOMs FROM CVF FTFW CT ORTHO REFRACTION plano -0.75 x 050 20/20 -0.75 -0.75 x 130 20/70 No change in VAs w/ refraction attempt Add: +2.25 SLEx (have to hold lids to examine) -Adnexa normal -L/L sign sup dermatochalasis ou -Conj trace diffuse hyperemia ou -Cornea arcus ou -Irises intact, no nvi ou -A/C quiet ou -Lens pciol appears centered w/ 1+ pco centrally od, 2-3+ ns os FE (w/ 90D Lens) -Vit clear ou -C/D 0.7 od, 0.3 w/ tilted disc os -Macula clear, no technical mgr or csme ou -Vessels normal ou -Retina at posterior pole appears normal ou -Periphery not fully assessed today per patient Tonometry w/ [facility] 9/8 mmHg -ASSESSMENT/PLAN- 1 A) Nuclear Sclerosis os (appears surgical & c/w <20/70 bcva) P) Options discussed. Patient would like to proceed with consult for cataract extraction ou. Offered JCVA, but patient prefers community consult--entered today. 2 A) Type 2 diabetes x 13 years. No diabetic retinopathy ou P) Discussed potential ophthalmic complications of diabetes w/ patient. 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
--- OUTSIDE RECORDS SUMMARY | 2025-02-10 06:30 | XMS_ITS ---
Author Name [facility] [place] [facility] [place] [facility] [facility] [place] Address [address] [place] [address] Care Team Providers Care Safety Deposit Boxes Custodian Name Role Phone REINALDO HOLT Primary Care [...] Mcgraw CATALYST RX PRESCRIPT ION ACTIV E [id number] May 13, 2012 [id number] [phone] Funmi COTTRELL PATIENT MEDICARE (WNR) MEDICARE (M) PART A Apr 13, 2016 PART A [id number] Funmi COTTRELL PATIENT MEDICARE (WNR) MEDICARE (M) PART A Apr 13, 2016 PART A [id number] Funmi COTTRELL PATIENT MEDICARE (WNR) MEDICARE (M) PART A Apr 13, 2016 PART A [id number] Funmi COTTRELL PATIENT [facility] POINT OF SERVICE [place] [facility] May 13, 2008 [id number] Funmi COTTRELL PATIENT Selected Encounter This section includes the information on record at [place] for the Encounter. Date/Time Encounter Type Encounter Description Reason Provider Source Feb 10, 2025 11:30 AM OFF/OP EST MARCH X REQ PHY/QHP PODIATRY ICD-10-CM B35.1 Tinea unguium HANNY VERA Trish Encounter Template Text not used by [place] Assessments - Encounter Diagnoses This section includes the primary and secondary diagnoses documented for the Encounter. Date/Time Primary/Secondary Diagnosis Diagnosis Name Provider Source Feb 10, 2025 11:57 AM PRIMARY Tinea unguium FELIPE [facility] [place] [facility] Feb 10, 2025 11:57 AM SECONDARY Corns and callosities FELIPE VERA [place] [facility] Feb 10, 2025 11:57 AM SECONDARY Nail dystrophy FELIPE VERA [place] [facility] Plan of Treatment: Future Appointments (+ 6 months) and Future Tests (+/- 45 days) The Plan of Treatment section includes future care activities for the patient from all [place] treatmentfacilities. This section includes future appointments and future orders which are active, pending or scheduled. Future Appointments This section includes appointments that were scheduled to occur 6 months from the date of the Encounter, up to a maximum of 20 appointments. The data comes from all [place] treatment facilities. Appointment Date/Time Appointment Type Appointme nt Facility Name Mar 03, 2025 09:30 AM AMBULATORY - MEDICINE [facility] March 13, 2025 11:00 AM AMBULATORY - MEDICINE [facility] March 19, 2025 12:00 PM AMBULATORY - MEDICINE [facility] March 19, 2025 12:01 PM AMBULATORY - [place]IC[place] [facility] March 19, 2025 01:30 PM AMBULATORY - MEDICINE [facility] March 20, 2025 11:00 AM AMBULATORY [place] [facility] March 21, 2025 01:30 PM [place] [facility] April 03, 2025 01:00 PM [place] [facility] April 04, 2025 09:15 AM [place] [facility] April 08, 2025 08:30 AM AM[facility]ULATORY - MEDIC[place] [facility] April 08, 2025 08:31 AM [place] [facility] Apr 15, 2025 12:00 PM AM[facility]UL[facility]ORY [place] [facility] Apr 15, 2025 12:01 PM [facility]ORY - [facility] Apr 24, 2025 01:20 PM [facility]ORY - [facility] May 07, 2025 12:30 PM AMBULATORY - MEDIC[facility] May 07, 2025 12:31 PM [facility]ORY [place] [facility] May 29, 2025 11:30 AM AM[place]UL[facility]ORY [place] [facility] May 29, 2025 01:00 PM [place] [facility] Jun 04, 2025 10:30 AM [place] [facility] Jun 04, 2025 10:31 AM AM[place]UL[place] [facility] Advance Directives: All historical and current Section Date Range: From patient's date of to the date document was created. This section includes ALL of a patient's completed or amended [place] Advance and Rescinded Directives. The entries below indicate that a directive exists for the patient, but an actual copy is not included with this document. The data comes from all [place] facilities. Date Advance Directives Provider Source Apr 24, 2015 RESCINDED ADVANCE DIRECTIVE PETE CROFT [facility] Radiology Reports: +/- 30 days of [...] the Encounter. The data comes from all [place] treatment facilities. Date/Time Radiology Report Provider Source Mar 03, 2025 09:33 AM KNEE,RIGHT,1 OR 2 VIEWS: FLASH COTTRELL [id number] -1950 M Exm Date: MAR 03, 2025@09:33 Req Phys: BERNARDO,WILL Pat Loc: PB-BARB PACT ECHO PROCEDURE (Re Img Loc: [facility] Service: [place] [address] (Case [id number] COMPLETE) KNEE,RIGHT,1 OR 2 VIEWS (RAD Detailed) CPT:25656 Proc Modifiers : RIGHT Reason for Study: PAIN NO INJURY Clinical History: Report Status: Verified Date Reported: MAR 03, 2025 Date Verified: MAR 03, 2025 [place] [facility] E-Sig: Report: 2 views of the right knee reveal moderate to extensive degenerative skeletal change with osteophytosis and joint space narrowing. There is no appreciable acute osseous or adjacent soft tissue abnormality. Vascular calcifications are noted Impression: 1. DJD 2. No acute process Primary Interpreting Staff: MARLEEN SOARES ([place]aver [facility], no e-sig) /CAROL Bello [facility] Mar 03, 2025 09:33 AM KNEE,LEFT 1 OR 2 V IEWS: FLASH COTTRELL [id number] -1950 M Exm Date: MAR 03, 2025@09:33 Req Phys: BERNARDO,WILL Pat Loc: PB-BARB PACT ECHO PROCEDURE (Re Img Loc: [facility] Service: [place] [address] (Case [id number] COMPLETE) KNEE,LEFT 1 OR 2 VIEWS (RAD Detailed) CPT:36853 Proc Modifiers : LEFT Reason for Study: pain no injury Clinical History: Report Status: Verified Date Reported: MAR 03, 2025 Date Verified: MAR 03, 2025 [place] E-Sig: Report: 2 views of the left knee reveal mild degenerative skeletal change with no acute osseous or adjacent soft tissue abnormality. Vascular calcifications are noted. Impression: No acute process Primary Interpreting Staff: MARLEEN SOARES ([place] [facility], no e-sig) /CAROL Bello [place] [facility] Encounter Notes: All associated encounter notes This section contains the clinical notes associated to the Encounter. Date/Time Encounter Note(s) Provider Source Feb 10, 2025 11:52 AM NURSING NOTE: LOCAL TITLE: SPECIALTY CLINIC NURSE FOOT CARE NOTE PB STANDARD TITLE: NURSING NOTE DATE OF NOTE: FEB 10, 2025@11:52 ENTRY DATE: FEB 10, 2025@11:52:17 AUTHOR: FELIPE VERA COSIGNER: URGENCY: STATUS: COMPLETED Foot Assessment PB Patient's language preference for health information: Azerbaijani Other Communication Methods Needed: NONE Preferred Method of Education: Verbal Diagnosis or condition: Diabetes, Neuropathy Mobility or gait (how they arrived): Ambulatory, With Walker Anticoagulants: No Footwear: Type: prescribed Fit: adequate Condition: adequate Interior: clean Insoles: custom FOOT ASSESSMENT/PALPATION Skin Integrity: Warm, Dry, Callosities , Interdigital spaces with maceration; specify: All interdigital spaces, Hygiene appropriate, Color normal Calluses on Bilateral Heels Patient states, I have been putting Eucerin lotion in-between my toes. Advised patient to stop applying lotion in-between the interdigital spaces because of the maceration. Demonstrated how to apply lotion. Patient vocalized understanding. Patient has no questions at this time. PERFUSION: RIGHT: Dorsalis Pedis, Right: Yes Posterior Tibial, Right: Yes Capillary Refill Time (FIBERGLASS MODEL MAKER): Right: instant LEFT: Dorsalis Pedis, Left: Yes Posterior Tibial, Left: Yes Capillary Refill Time (FIBERGLASS MODEL MAKER): Left: instant Edema: No Foot Structure: No abnormalities noted Nails: Dystrophic, Malformed, Onychomycosis NURSING FOOT CARE: Nails filed, Nails trimmed, Nails debrided (shortening or thinning of nail), Moisturizer to Feet INSTRUCTION OR PREVENTIVE CARE: Self-foot care and inspection, Foot wear, Callus, corn care Prosthetic request for diabetic shoes Risk Assessment Category: Moderate RTC: 3 months [...] soft. Cleaned patient feet with alcohol based stripper black and white, cleaned in between patients toes with 4X4 [...] return to clinic in three months. /smith/ ULISSES Chandler RN CORRY HERRING [facility] Signed: 02/10/2025 11:57 FELIPE VERA [place] [facility] Feb 10, 2025 11:24 AM TEAM OUTPATIENT NO TE: LOCAL TITLE: SPECIALTY CLINIC OUTPATIENT INSTRUCTIONS PB STANDARD TITLE: TEAM OUTPATIENT NOTE DATE OF NOTE: FEB 10, 2025@11:24 ENTRY DATE: FEB 10, 2025@11:24:27 AUTHOR: FELIPE VERA EXP COSIGNER: URGENCY: STATUS: COMPLETED Podiatry/Foot: Today Labs: LABS TO BE DRAWN AT CLINIC APPT: LABS TO BE DRAWN 1 WEEK PRIOR TO APPT: \ \ ... ... RADIOLOGY/DIAGNOSTIC ORDERS: +++++++++++++++++++++++++++ +++++++++++++++++++++++++++ + DIAGNOSIS: Diabetes, Neuropathy PROCEDURE: Nail care CONSULTS: ASA Score: Mallampati Score: SPECIAL INSTRUCTIONS: 01-16-25 MRT1 - Med Reconciliation INCLUDED IN THIS LIST: Alphabetical list of active outpatient prescriptions [facility] from this [facility] (local) and dispensed from another [place] or [place] facility (remote) as well as inpatient orders (local pending and active), local clinic medications, locally documented non-VA medications, and local prescriptions that have or been discontinued in the past 90 days. Non-VA Meds Last Documented On: Sep 07, 2015 NOTE The display of VA prescriptions dispensed from another [place] or [place] facility (remote) is limited to active outpatient prescription entries matched to National Drug File at the originating site and may not include some items such as investigational drugs, compounds, etc. NOT INCLUDED IN THIS LIST: Medications self-entered by the patient into personal health records (i.e. [employer]) are NOT included in this list. Non-VA medications documented outside this [place], remote inpatient orders (regardless of status) and remote clinic medications are NOT included in this list. The patient and provider must always discuss medications the patient is taking, regardless of where the medication was dispensed or obtained. OUTPT ACETAMINOPHEN 500MG TAB (Status = Active) TAKE ONE TABLET BY MOUTH FOUR TIMES A DAY FOR PAIN CAUTION: DO NOT EXCEED 4000MG PER DAY ACETAMINOPHEN (APAP) FROM ALL MEDS. Rx# [id number] Last Released: 01/09/25 Qty/Days Supply: 400/90 Rx Expiration Date: 01/07/26 Refills Remainin Indication: FOR PAIN OUTPT ALBUTEROL 90MCG (CFC-F) 200D ORAL INHL (Status = Active) INHALE 2 PUFFS BY ORAL INHALATION FOUR TIMES A DAY FOR COPD SHAKE WELL. RINSE MOUTHPIECE FREQUENTLY TO PREVENT CLOGGING. Rx# [id number] Last Released: 09/19/24 Qty/Days Supply: 3 Rx Expiration Date: 09/14/25 Refills Remainin Indication: FOR COPD OUTPT BENZOYL PEROXIDE 5% WASH (Status = Active) WASH TO AFFECTED AREA(S) ONCE A DAY USE BODY WASH. ALLOW TO SIT FOR 2 MINUTES BEFORE RINSING Rx# [id number] Last Released: 11/14/24 Qty/Days Supply: 150/30 Rx Expiration Date: 09/25/25 Refills Remainin OUTPT CHOLECALCIF 50MCG (D3-2,000UNIT) TAB (Status = Active) TAKE ONE TABLET BY MOUTH ONCE A DAY FOR VITAMIN D DEFICIENCY. Rx# [id number] Last Released: 12/14/24 Qty/Days Supply: 100/90 Rx Expiration Date: 02/28/25 Refills Remainin OUTPT CLOBETASOL PROPIONATE 0.05% CREAM (Status = Active) APPLY TO AFFECTED AREA(S) TWICE DAILY NEEDED ON LEGS. NO MORE THAN TWO WEEKS OF THE MONTH.DO NOT USE ON FACE,GROIN,OR SKIN FOLDS. Rx# [id number] Last Released: 10/01/24 Qty/Days Supply: 60/30 Rx Expiration Date: 09/25/25 Refills Remainin Non-VA CLOTRIMAZOLE 1% TOP CREAM APPLY SPARINGLY TO AFFECTED AREA(S) TWICE A DAY Non-VA medication recommended by VA provider. to affected area daily OUTPT COLON ELEC LAVAGE(EQV-MOVIPREP) FOR SOLN (Status = ) MIX AND DRINK CONTENTS OF KIT BY MOUTH ONE-TIME FOR COLONOSCOPY PREP. Rx# [id number] Last Released: 11/14/24 Qty/Days Supply: 11/13 Rx Expiration Date: 12/14/24 Refills Remainin OUTPT DILTIAZEM (EQV-TIAZAC) 240MG 24HR CAP (Status = Active) TAKE ONE CAPSULE BY MOUTH EVERY MORNING BEFORE A MEAL FOR HEART OR TO LOWER BLOOD PRESSURE Rx# [id number] Last Released: 01/27/25 Qty/Days Supply: 90/90 Rx Expiration Date: 02/28/25 Refills Remainin OUTPT DOCUSATE NA 100MG CAP (Status = Active) TAKE ONE CAPSULE BY MOUTH THREE TIMES A DAY FOR SOFTENING STOOL HOLD FOR LOOSE STOOL/DIARRHEA. Rx# [id number] Last Released: 04/02/24 Qty/Days Supply: 300/90 Rx Expiration Date: 03/26/25 Refills Remainin Indication: FOR SOFTENING STOOL OUTPT EMPAGLIFLOZIN 25MG TAB (Status = Active) TAKE ONE TABLET BY MOUTH ONCE A DAY Rx# [id number] Last Released: 11/20/24 Qty/Days Supply: 90/90 Rx Expiration Date: 02/28/25 Refills Remainin OUTPT FOLIC ACID 0.4MG TAB (Status = Active) TAKE ONE TABLET BY MOUTH ONCE A DAY Rx# [id number] Last Released: 12/07/24 Qty/Days Supply: 100/90 Rx Expiration Date: 10/25/25 Refills Remainin Indication: FOR FOLIC ACID SUPPLEMENTATION OUTPT FUROSEMIDE 20MG TAB (Status = Discontinued) TAKE ONE TABLET BY MOUTH EVERY MORNING NEEDED FOR FLUID RETENTION (EDEMA) Rx# [id number] Last Released: 12/31/24 Qty/Days Supply: 90/90 Rx Expiration Date: 04/27/25 Refills Remainin Indication: FOR FLUID RETENTION (EDEMA) OUTPT FUROSEMIDE 20MG TAB (Status = Active/Suspended) TAKE ONE TABLET BY MOUTH EVERY MORNING NEEDED FOR FLUID RETENTION (EDEMA) Rx# [id number] Last Released: Qt Supply: Rx Expiration Date: 01/08/26 Refills Remainin Indication: FOR FLUID RETENTION (EDEMA) OUTPT GABAPENTIN 300MG CAP (Status = Active) TAKE ONE CAPSULE BY MOUTH TWICE DAILY NEEDED FOR NERVE PAIN Rx# [id number] Last Released: 02/03/25 Qty/Days Supply: Rx Expiration Date: 01/07/26 Refills Remainin Indication: FOR NERVE PAIN OUTPT INSULIN,ASPART,HUMAN NOVOLOG INJ (Status = Active) INJECT 21 UNITS UNDER THE SKIN EVERY EVENING FOR DIABETES (ADMINISTER DOSE WITHIN 5-10 MINUTES OF START OF A MEAL) Rx# [id number] Last Released: 10/03/24 Qty/Days Supply: Rx Expiration Date: 10/02/25 Refills Remainin Indication: FOR DIABETES OUTPT KETOCONAZOLE 2% CREAM (Status = Active) APPLY TO AFFECTED AREA(S) ONCE A DAY FOR 28 DAYS MAY USE FOR RECURRENT FLARES. Rx# [id number] Last Released: 10/01/24 Qty/Days Supply: Rx Expiration Date: 09/25/25 Refills Remainin OUTPT KETOTIFEN 0.025% OPH SOLN (Status = Active) INSTILL 1 DROP IN BOTH EYES TWICE DAILY NEEDED FOR EYE INFLAMMATION Rx# [id number] Last Released: 01/06/25 Qty/Days Supply: 04/11 Rx Expiration Date: 01/07/26 Refills Remainin Indication: FOR EYE INFLAMMATION OUTPT LISINOPRIL 40MG TAB (Status = Active) TAKE ONE-HALF TABLET BY MOUTH ONCE A DAY FOR HIGH BLOOD PRESSURE FOR BLOOD PRESSURE THIS TABLET IS TO BE CUT IN HALF FOR YOUR DOSE Rx# [id number] Last Released: 01/24/25 Qty/Days Supply: Rx Expiration Date: 02/28/25 Refills Remainin Indication: FOR HIGH BLOOD PRESSURE OUTPT MECLIZINE HCL 25MG CHEW TAB (Status = ) CHEW AND SWALLOW ONE TABLET BY MOUTH THREE TIMES A DAY NEEDED FOR VERTIGO CHEWABLE TABLETS MAY BE CHEWED OR SWALLOWED WHOLE. MAY CAUSE DROWSINESS. Rx# [id number] Last Released: 10/04/24 Qty/Days Supply: 100/90 Rx Expiration Date: 11/17/24 Refills Remainin Indication: FOR VERTIGO OUTPT MICONAZOLE NITRATE 2% TOP PWDR (Status = Active) APPLY TO AFFECTED AREA(S) ONCE A DAY NEEDED TO SKIN FOLDS. (EXTERNAL USE ONLY) Rx# [id number] Last Released: 09/27/24 Qty/Days Supply: 90 Rx Expiration Date: 09/25/25 Refills Remainin OUTPT MULTIVIT/OPHTH AREDS2/LUTE/ZEAX CAP/TAB (Status = Active) TAKE 1 CAP/TAB BY MOUTH TWICE A DAY WITH MEAL(S) FOR EYE HEALTH AVOID IF YOU HAVE PEANUT ALLERGY. Rx# [id number] Last Released: 01/06/25 Qty/Days Supply: 120/90 Rx Expiration Date: 01/07/26 Refills Remainin Indication: FOR EYE HEALTH OUTPT NAPROXEN 500MG TAB (Status = Active) TAKE ONE TABLET BY MOUTH TWICE A DAY FOR PAIN TAKE WITH FOOD. Rx# [id number] Last Released: 12/19/24 Qty/Days Supply: 180/90 Rx Expiration Date: 12/17/25 Refills Remainin Indication: FOR PAIN OUTPT NITROGLYCERIN 0.4MG SL TAB (Status = Active) DISSOLVE ONE TABLET UNDER THE TONGUE ONE-TIME FOR CHEST PAIN NEEDED ; IF NO IMPROVEMENT AFTER FIRST DOSE CALL 9-1-1. MAY TAKE 2 ADDITIONAL DOSES, 5 MINUTES APART. TAKE WHILE SITTING. Rx# [id number] Last Released: 04/19/24 Qty/Days Supply: 100/90 Rx Expiration Date: 04/18/25 Refills Remainin Indication: FOR CHEST PAIN OUTPT OMEPRAZOLE 40MG EC CAP (Status = Discontinued) TAKE ONE CAPSULE BY MOUTH ONCE A DAY TAKE 30 MINUTES PRIOR TO FOOD. Rx# [id number] Last Released: 11/28/24 Qty/Days Supply: 90/90 Rx Expiration Date: 02/23/25 Refills Remainin OUTPT PANTOPRAZOLE NA 40MG EC TAB (Status = Active) TAKE ONE TABLET BY MOUTH TWICE A DAY TAKE 30 MINUTES BEFORE MEAL(S) DO NOT TAKE WITH OMEPRAZOLE Rx# [id number] Last Released: 12/25/24 Qty/Days Supply: Rx Expiration Date: 12/19/25 Refills Remainin OUTPT PIOGLITAZONE HCL 30MG TAB (Status = Active) TAKE ONE TABLET BY MOUTH ONCE A DAY FOR DIABETES TAKE WITH MORNING MEAL Rx# [id number] Last Released: 12/18/24 Qty/Days Supply: Rx Expiration Date: 02/28/25 Refills Remainin Indication: FOR DIABETES OUTPT POTASSIUM CL 20MEQ SA TAB (DISPERSIBLE) (Status = Discontinued) TAKE ONE-HALF TABLET BY MOUTH EVERY OTHER DAY FOR POTASSIUM SUPPLEMENTATION TAKE WITH FOOD TAKE WITH LASIX Rx# [id number] Last Released: 09/17/24 Qty/Days Supply: Rx Expiration Date: 05/14/25 Refills Remainin Indication: FOR POTASSIUM SUPPLEMENTATION OUTPT POTASSIUM CL 20MEQ SA TAB (DISPERSIBLE) (Status = Active) TAKE ONE-HALF TABLET BY MOUTH EVERY OTHER DAY FOR POTASSIUM SUPPLEMENTATION TAKE WITH FOOD TAKE WITH LASIX Rx# [id number] Last Released: 11/26/24 Qty/Days Supply: Rx Expiration Date: 05/14/25 Refills Remainin Indication: FOR POTASSIUM SUPPLEMENTATION OUTPT SEMAGLUTIDE 1MG/0.75ML INJ PEN 3ML (Status = Discontinued) INJECT 1MG UNDER THE SKIN EVERY WEEK FOR DIABETES Rx# [id number] Last Released: 09/10/24 Qty/Days Supply: 12/10 Rx Expiration Date: 12/22/24 Refills Remainin Indication: FOR DIABETES OUTPT SEMAGLUTIDE 1MG/0.75ML INJ PEN 3ML (Status = Active) INJECT 1MG UNDER THE SKIN EVERY WEEK FOR DIABETES Rx# [id number] Last Released: 11/27/24 Qty/Days Supply: Rx Expiration Date: 11/16/25 Refills Remainin Indication: FOR DIABETES OUTPT SIMVASTATIN 20MG TAB (Status = Discontinued) TAKE ONE-HALF TABLET BY MOUTH EVERY EVENING TO LOWER CHOLESTEROL (REPORT ANY MUSCLE PAIN OR WEAKNESS) THIS TABLET IS TO BE CUT IN HALF FOR YOUR DOSE Rx# [id number] Last Released: 08/28/24 Qty/Days Supply: Rx Expiration Date: 08/13/25 Refills Remainin OUTPT SIMVASTATIN 20MG TAB (Status = Active) TAKE ONE-HALF TABLET BY MOUTH EVERY EVENING TO LOWER CHOLESTEROL (REPORT ANY MUSCLE PAIN OR WEAKNESS) THIS TABLET IS TO BE CUT IN HALF FOR YOUR DOSE Rx# [id number] Last Released: 01/09/25 Qty/Days Supply: 45/ Rx Expiration Date: 01/07/26 Refills Remainin OUTPT SUCRALFATE 1GM TAB (Status = Active) TAKE ONE TABLET BY MOUTH FOUR TIMES A DAY FOR ACID REFLUX - TAKE ON AN EMPTY STOMACH. Rx# [id number] Last Released: 10/09/24 Qty/Days Supply: 360/90 Rx Expiration Date: 07/31/25 Refills Remainin Indication: FOR ACID REFLUX OUTPT TAMSULOSIN HCL 0.4MG CAP (Status = Discontinued) TAKE TWO CAPSULES BY MOUTH EVERY EVENING FOR BENIGN PROSTATIC HYPERPLASIA APPROXIMATELY 30 MINUTES AFTER THE SAME MEAL EACH DAY (FOR PROSTATE) Rx# [id number] Last Released: 02/29/24 Qty/Days Supply: 180 Rx Expiration Date: 02/28/25 Refills Remainin Indication: FOR BENIGN PROSTATIC HYPERPLASIA OUTPT TAMSULOSIN HCL 0.4MG CAP (Status = Active) TAKE TWO CAPSULES BY MOUTH EVERY EVENING FOR BENIGN PROSTATIC HYPERPLASIA APPROXIMATELY 30 MINUTES AFTER THE SAME MEAL EACH DAY (FOR PROSTATE) Rx# [id number] Last Released: 01/08/25 Qty/Days Supply: 180/90 Rx Expiration Date: 01/07/26 Refills Remainin Indication: FOR BENIGN PROSTATIC HYPERPLASIA OUTPT UREA 40% CREAM (Status = Active) APPLY LIGHTLY TO AFFECTED AREA(S) TWICE DAILY TO PROMOTE HEALING. RUB IN UNTIL COMPLETELY ABSORBED. FOR TOPICAL USE ONLY. Rx# [id number] Last Released: 03/04/24 Qty/Days Supply: 210 Rx Expiration Date: 02/28/25 Refills Remainin SUPPLIES OUTPT ACCU-CHEK GUIDE (GLUCOSE) TEST STRIP (Status = Active) USE 1 STRIP FOR BLOOD TEST TWICE A DAY FOR BLOOD SUGAR MONITORING Rx# [id number] Last Released: 11/28/24 Qty/Days Supply: 100/50 Rx Expiration Date: 09/03/25 Refills Remainin Indication: FOR BLOOD SUGAR MONITORING OUTPT INSULIN SYRINGE 1ML 31G 6MM (Status = Active) USE SYRINGE UNDER THE SKIN TWICE A DAY FOR USE WITH INSULIN TO CONTROL BLOOD SUGAR. Rx# [id number] Last Released: 10/28/24 Qty/Days Supply: 200/90 Rx Expiration Date: 10/25/25 Refills Remainin OUTPT LANCET,SOFTCLIX (Status = Active) USE LANCET FOR BLOOD TEST TWICE A DAY TO MONITOR BLOOD SUGAR. USE DIRECTED. Rx# [id number] Last Released: 10/29/24 Qty/Days Supply: 200/90 Rx Expiration Date: 10/25/25 Refills Remainin PHARMACY TERMS AND POSSIBLE PATIENT ACTIONS [place]PT = [place] inpatient order IV = [place] intravenous medication OUTPT = [place] outpatient prescription PHARMACY POSSIBLE PATIENT TERMS EXPLANATION ACTIONS -------- ----- ACTIVE A prescription that can be If you have refills, filled at the local [place] pharmacy. you may request a refill of this prescription from your [place] pharmacy. CLINIC A medication you received during If you have questions a visit to a [place] clinic or about this medication emergency department. contact your [place] healthcare team. DISCONTINUED A prescription your provider has Contact your [facility] stopped. It is no longer healthcare team if you available to be sent to you or need more of this picked up at the [place] pharmacy medication. window. A prescription which is [...] the VA. Or, it may be an obip-hkn-lotslxi (OTC), herbal, dietary supplements or sample medication. [...] An active prescription that is Contact your [place] not scheduled to be filled yet. pharmacy if you need You should receive it before this medication now. you run out. . RETURN TO CLINIC: Return appointment is needed. . /es/ ULISSES Chandler RN [facility] Signed: 02/10/2025 11:25 FELIPE VERA [facility]
--- OUTSIDE RECORDS SUMMARY | 2025-03-03 04:30 | XMS_ITS | Encounter Summary ---
Author Name [facility] [place] [facility] [place] [facility] [facility] [place] Address [address] [place] [address] Care Team Providers Care Practice Consultant Name Role Phone YANET REINALDO Primary Care [...] Mcgraw CATALYST RX PRESCRIPT ION ACTIV E [id number] May 13, [id number] Funmi COTTRELL PATIENT MEDICARE (WNR) MEDICARE (M) PART A Apr 13, 2016 PART A [id number] Funmi COTTRELLL PATIENT MEDICARE (WNR) MEDICARE (M) PART A Apr 13, 2016 PART A [id number] Funmi COTTRELLL PATIENT MEDICARE (WNR) MEDICARE (M) PART A Apr 13, 2016 PART A [id number] Funmi COTTRELL PATIENT [facility] POINT OF SERVICE [place] [facility] May 13, 2008 [id number] Funmi COTTRELL PATIENT Selected Encounter This section includes the information on record at [place] for the Encounter. Date/Time Encounter Type Encounter Description Reason Provider Source Mar 03, 2025 09:30 AM OFFICE O/P EST LOW 20 MIN PRIMARY CARE/MEDICINE ICD-10-CM M17.0 Bilateral primary osteoarthritis of knee MELSISA STALLINGS [employer] Encounter Template Text not used by [place] Assessments - Encounter Diagnoses This section includes the primary and secondary diagnoses documented for the Encounter. Date/Time Primary/Secondary Diagnosis Diagnosis Name Provider Source Mar 12, 2025 03:45 PM PRIMARY Bilateral primary osteoarthritis of knee JOANN STALLINGS [facility] Plan of Treatment: Future Appointments (+ 6 months) and Future Tests (+/- 45 days) The Plan of Treatment section includes future care activities for the patient from all [place] treatmentfacilities. This section includes future appointments and future orders which are active, pending or scheduled. Future Appointments This section includes appointments that were scheduled to occur 6 months from the date of the Encounter, up to a maximum of 20 appointments. The data comes from all [place] treatment facilities. Appointment Date/Time Appointment Type Appointme nt Facility Name March 13, 2025 11:00 AM AMBULATORY - MEDICINE [facility] March 19, 2025 12:00 PM AMBULATORY - MEDICINE [facility] March 19, 2025 12:01 PM [facility] [place] [facility] March 19, 2025 01:30 PM AMBULATORY - MEDICINE [facility] March 20, 2025 11:00 AM [place]UL[place] [place] [facility] March 21, 2025 01:30 PM AMBULATORY - MEDICINE [facility] April 03, 2025 01:00 PM AMBULATORY - MEDICINE [facility] April 04, 2025 09:15 AM AMBULATORY - [place]IC[place] [facility] April 08, 2025 08:30 AM AMBULATORY - MEDICINE [facility] April 08, 2025 08:31 AM AMBULATORY [facility] [place] [facility] Apr 15, 2025 12:00 PM AMBULATORY - [place] [facility] Apr 15, 2025 12:01 PM [facility] Apr 24, 2025 01:20 PM [facility] May 07, 2025 12:30 PM [facility] May 07, 2025 12:31 PM AMBULATORY - [place]IC[place] [facility] May 29, 2025 11:30 AM AMBULATORY - [place]IC[place] [facility] May 29, 2025 01:00 PM [facility] Jun 04, 2025 10:30 AM [facility] [place] [facility] [place] [facility] Jun 04, 2025 10:31 AM AM[facility]UL[facility]ORY - [place]IC[place] [facility] Jun 18, 2025 01:45 PM AMBULATORY - MEDICINE [place] [facility] Lab Results: +/- 30 days of the encounter This section includes the Chemistry and Hematology Lab Results on record with [place] for the patient. Radiology Reports and Pathology Reports are provided separately, in subsequent sections. Lab Results This section contains the Chemistry/Hematology Results that were resulted 30 days before or 30 daysafter the date of the Encounter. Date/Time Source Result Type Result - Unit Interpretation Reference Range Specimen Type Comment March 13, 2025 11:28 AM [facility] HGA1C BLOOD Specimen Type: BLOOD No comment entered. Ordering Provider: REINALDO HOLT Report Released Date/Time: March 13, 2025 11:13 AM Reporting Lab: [place] [facility] [address] [place] [id number] Performing Lab: [place] [facility] [address] [place] [id number] HGA1C 7.1 H 4.0-6.0 March 13, 2025 11:28 AM [facility] CHOLESTEROL PANEL (PB) PLASMA Specimen Type: P LASMA No comment entered. Ordering Provider: REINALDO HOLT Report Released Date/Time: March 13, 2025 11:13 AM Reporting Lab: [place] [facility] [address] [place] [address] Performing Lab: [place] [facility] [address] [place] [address] CHOLESTEROL 135 mg/dL 0-200 TRIGLYCERIDE 124 mg/dL 0-150 CALCULATED LDL 75.0 mg/dL HDL(New) 35.2 mg/dL L >40 HDL % OF TOTAL CHOLESTEROL (PB) 26.1 >25 March 13, 2025 11:28 AM [facility] URINE ALBUMIN PROFILE-ih (PB) URINE Specimen Type: URINE No comment entered. Ordering Provider: REINALDO HOLT Report Released Date/Time: March 13, 2025 11:13 AM Reporting Lab: [place] [facility] [address] [place] [address] Performing Lab: [place] [facility] [address] [place] [address] URINE ALBUMIN (PB-STL) 39.95 mg/L uACR (PB-MA) 64.52 mg/g H 0-30 CREATININE URINE/OTHERS 61.92 mg/dL March 13, 2025 11:28 AM [facility] URINALYSIS (STL-PB) URINE Specimen Type: URIN E Comment: Specific [place] may be elevated due to high Urine Glucose or high Urine Protein Ordering Provider: REINALDO HOLT Report Released Date/Time: March 13, 2025 11:13 AM Reporting Lab: [place] [facility] [address] [place] [address] Performing Lab: [place] [facility] [address] [place] [address] URINE COLOR Light Yellow Yellow U.BILIRUBIN NEGATIVE mg/dL Negative U.PH 6.0 5.0-8.0 URINE WBC/HPF 7 /[HPF] H 0-5 URINE RBC/HPF 63 /[HPF] H 0-5 APPEARANCE CLEAR Clear U.NITRITE NEGATIVE mg/dL Negative SQUAMOUS EPITH. 1 /[HPF] 0-5 MUCUS RARE /[LPF] Negative-Rare URN.GLUCOSE >=1000 mg/dL H Negative URN.PROTEIN NEGATIVE mg/dL URN.UROBILINOGEN NORMAL mg/dL Normal URN.BLOOD 2+ mg/dL H Negative-Trace URN.KETONES NEGATIVE mg/dL Negative-Trac e URN.LEUK.EST. NEGATIVE Negative-Trace URN.SPECIFIC GRAVITY 1.028 1.005-1.029 March 13, 2025 11:28 AM [facility] COMPREHENSIVE METABOLIC PANEL PLASMA Specimen Type: PLASMA No comment entered. Ordering Provider: REINALDO HOLT Report Released Date/Time: March 13, 2025 11:13 AM Reporting Lab: [place] [facility] [address] [place] [id number] Performing Lab: [place] [facility] [address] [place] [id number] CREATININE 1.00 mg/dL 0.7-1.3 UREA NITROGEN 15 mg/dL 9-25 GLUCOSE 142 mg/dL H 72-99 SODIUM 138 meq/L 136-145 POTASSIUM 4.7 meq/L 3.5-5 CHLORIDE 102 meq/L 98-107 CARBON DIOXIDE 26 meq/L 22-31 CALCIUM 9.1 mg/dL 8.4-10.4 PROTEIN 6.6 g/dL 6-8.6 ALBUMIN 3.9 g/dL 3.4-5 TOTAL BILIRUBIN 0.4 mg/dL 0.2-1.2 ALKALINE PHOSPHATASE 78 U/L 40-150 AST/SGOT 12 U/L 5-34 ALT/SGPT 13 U/L 8-40 EGFR (CKD-EPI 2020) 80 Vital Signs: All taken on the encounter date This section contains inpatient and outpatient Vital Signs collected on the date of the Encounter. Date/Time Temperature Pulse Blood Pressure Respiratory Rate SP02 Pain Height Weight Body Mass Index Source Mar 03, 2025 09:45 AM 74 119/75 16 97 5 68.0 344.8 53 [facility] Mar 03, 2025 09:39 AM 68 344.8 53 [facility] Social History: Smoking Status (Most current) and Tobacco Use (All prior to encounter date) This section includes the most current, and the historical, smoking and tobacco- related health factors from the [place] facility where the Encounter took place. Current Smoking Status This section includes the most current smoking, or tobacco-related health factor, from the [place] facility where the Encounter took place. Date/Time Current Smoking Status Comment Andi syed Oct 02, 2023 09:30 AM [place]-TOBACCO NEVER USED [facility] Tobacco Use History This section includes a history of the smoking, or tobacco-related health factors, that were collected on or before the date of the Encounter. The data comes from the [place] facility where the Encounter took place. Date/Time Smoking Status/Tobacco Use Comment F [email or web address] Apr 26, 2022 01:00 PM [place]-TOBAC[place] FORMER USER [facility] Apr 26, 2022 01:00 PM VA-TOBACCO QUIT 5 TO < 15 YRS [facility] May 04, 2021 11:00 AM VA-TOBACCO NEVER USED [facility] Aug 16, 2019 02:05 PM VA-TOBACCO NEVER USED [facility] Jun 05, 2014 01:09 PM LIFETIME NON-USER OF TOBACCO [facility] Advance Directives: All historical and current Section Date Range: From patient's date of to the date document was created. This section includes ALL of a patient's completed or amended [place] Advance and Rescinded Directives. The entries below indicate that a directive exists for the patient, but an actual copy is not included with this document. The data comes from all [place] facilities. Date Advance Directives Provider Source Apr 24, 2015 RESCINDED ADVANCE DIRECTIVE PETE CROFT Carlos [facility] Radiology Reports: +/- 30 days of the [...] the Encounter. The data comes from all [place] treatment facilities. Date/Time Radiology Report Provider Source Mar 03, 2025 09:33 AM KNEE,LEFT 1 OR 2 V IEWS: FLASH COTTRELL [id number] -[id number] M Exm Date: MAR 03, 2025@09:33 Req Phys: BERNARDO,JOANN Pat Loc: PB-BARB PACT ECHO PROCEDURE (Re Img Loc: PB-XRAY [place] Service: [place] [address] (Case [id number] COMPLETE) KNEE,LEFT 1 OR 2 VIEWS (RAD Detailed) CPT:82009 Proc Modifiers : LEFT Reason for Study: pain no injury Clinical History: Report Status: Verified Date Reported: MAR 03, 2025 Date Verified: MAR 03, 2025 [employer] E-Sig: Report: 2 views of the left knee reveal mild degenerative skeletal change with no acute osseous or adjacent soft tissue abnormality. Vascular calcifications are noted. Impression: No acute process Primary Interpreting Staff: CAROL RAJAN RADIOLOGIST (Automobile And Property Underwriter, no e-sig) /[facility] Mar 03, 2025 09:33 AM KNEE,RIGHT,1 OR 2 VIEWS: FLASH COTTRELL [id number] -1950 M Exm Date: MAR 03, 2025@09:33 Req Phys: JOANN STALLINGS Pat Loc: PB-BARB PACT ECHO PROCEDURE (Re Img Loc: PB-XRAY [place] Service: [place] [address] (Case [id number] COMPLETE) KNEE,RIGHT,1 OR 2 VIEWS (RAD Detailed) CPT:24720 Proc Modifiers : RIGHT Reason for Study: PAIN NO INJURY Clinical History: Report Status: Verified Date Reported: MAR 03, 2025 Date Verified: MAR 03, 2025 [employer] Property [employer] E-Sig: Report: 2 views of the right knee reveal moderate to extensive degenerative skeletal change with osteophytosis and joint space narrowing. There is no appreciable acute osseous or adjacent soft tissue abnormality. Vascular calcifications are noted Impression: 1. DJD 2. No acute process Primary Interpreting Staff: CAROL RAJAN RADIOLOGIST (Automobile And Property Underwriter, no e-sig) /[facility] Encounter Notes: All associated encounter notes This section contains the clinical notes associated to the Encounter. Date/Time Encounter Note(s) Provider Source Mar 03, 2025 09:49 AM PRIMARY CARE PROGR ESS NOTE: LOCAL TITLE: PRIMARY CARE CLINIC PROGRESS NOTE PB STANDARD TITLE: PRIMARY CARE PROGRESS NOTE DATE OF NOTE: MAR 03, 2025@09:49 ENTRY DATE: MAR 03, 2025@09:49:49 AUTHOR: JOANN STALLINGS EXP COSIGNER: URGENCY: STATUS: COMPLETED CC: Bilateral knee pain HPI: This 74-year-old male patient has significant degenerative changes bilateral knees secondary to osteoarthritis and obesity. He comes in today as a referral for bilateral knee steroid injections. Problem list: 1) Vertigo (SNOMED CT 133049540) 2) DM - Diabetes mellitus (SNOMED CT 20623898) 3) Obesity 4) Primary hypertension (SNOMED CT 26188909) 5) Gastro-esophageal reflux (SNOMED CT 045361904) 6) Benign prostatic hyperplasia 7) Osteoarthritis 8) Sleep Apnea (SCT 79876732) 9) Angina 10) Cholelithiasis 11) Sensorineural hearing loss of bilateral ears 12) Bilateral tinnitus 13) Partner relationship problem Active Outpatient Medications (including Supplies): Active Outpatient Medications Status 1) ACCU-CHEK GUIDE (GLUCOSE) TEST STRIP USE 1 STRIP FOR BLOOD ACTIVE TEST TWICE A DAY Indication: FOR BLOOD SUGAR MONITORING 2) ACETAMINOPHEN 500MG TAB TAKE ONE TABLET BY MOUTH FOUR TIMES ACTIVE (S) A DAY CAUTION: DO NOT EXCEED 4000MG PER DAY ACETAMINOPHEN (APAP) FROM ALL MEDS. Indication: FOR PAIN 3) ALBUTEROL 90MCG (CFC-F) 200D ORAL INHL INHALE 2 PUFFS BY ACTIVE ORAL INHALATION FOUR TIMES A DAY SHAKE WELL. RINSE MOUTHPIECE FREQUENTLY TO PREVENT CLOGGING. Indication: FOR COPD 4) BENZOYL PEROXIDE 5% WASH WASH TO AFFECTED AREA(S) ONCE A ACTIVE DAY USE BODY WASH. ALLOW TO SIT FOR 2 MINUTES BEFORE RINSING 5) CLOBETASOL PROPIONATE 0.05% CREAM APPLY TO AFFECTED ACTIVE AREA(S) TWICE DAILY NEEDED ON LEGS. NO MORE THAN TWO WEEKS OF THE MONTH.DO NOT USE ON FACE,GROIN,OR SKIN FOLDS. 6) DOCUSATE NA 100MG CAP TAKE ONE CAPSULE BY MOUTH THREE TIMES ACTIVE A DAY HOLD FOR LOOSE STOOL/DIARRHEA. Indication: FOR SOFTENING STOOL 7) FOLIC ACID 0.4MG TAB TAKE ONE TABLET BY MOUTH ONCE A DAY ACTIVE Indication: FOR FOLIC ACID SUPPLEMENTATION 8) FUROSEMIDE 20MG TAB TAKE ONE TABLET BY MOUTH EVERY MORNING ACTIVE (S) NEEDED Indication: FOR FLUID RETENTION (EDEMA) 9) GABAPENTIN 300MG CAP TAKE ONE CAPSULE BY MOUTH TWICE DAILY ACTIVE NEEDED Indication: FOR NERVE PAIN 10) INSULIN SYRINGE 1ML 31G 6MM USE SYRINGE UNDER THE SKIN TWICE ACTIVE A DAY FOR USE WITH INSULIN TO CONTROL BLOOD SUGAR. 11) INSULIN,ASPART,HUMAN 70/30 NOVOLOG INJ INJECT 21 UNITS UNDER ACTIVE THE SKIN EVERY EVENING (ADMINISTER DOSE WITHIN 5-10 MINUTES OF START OF A MEAL) Indication: FOR DIABETES 12) KETOCONAZOLE 2% CREAM APPLY TO AFFECTED AREA(S) ONCE A DAY ACTIVE FOR 28 DAYS MAY USE FOR RECURRENT FLARES. 13) KETOTIFEN 0.025% OPH SOLN INSTILL 1 DROP IN BOTH EYES TWICE ACTIVE DAILY NEEDED Indication: FOR EYE INFLAMMATION 14) LANCET,SOFTCLIX USE LANCET FOR BLOOD TEST TWICE A DAY TO ACTIVE MONITOR BLOOD SUGAR. USE DIRECTED. 15) MICONAZOLE NITRATE 2% TOP PWDR APPLY TO AFFECTED AREA(S) ACTIVE ONCE A DAY NEEDED TO SKIN FOLDS. (EXTERNAL USE ONLY) 16) MULTIVIT/OPHTH AREDS2/LUTE/ZEAX CAP/TAB TAKE 1 CAP/TAB BY ACTIVE (S) MOUTH TWICE A DAY WITH MEAL(S) AVOID IF YOU HAVE PEANUT ALLERGY. Indication: FOR EYE HEALTH 17) NAPROXEN 500MG TAB TAKE ONE TABLET BY MOUTH TWICE A DAY ACTIVE TAKE WITH FOOD. Indication: FOR PAIN 18) NITROGLYCERIN 0.4MG SL TAB DISSOLVE ONE TABLET UNDER THE ACTIVE TONGUE ONE-TIME NEEDED ; IF NO IMPROVEMENT AFTER FIRST DOSE CALL . MAY TAKE 2 ADDITIONAL DOSES, 5 MINUTES APART. TAKE WHILE SITTING. Indication: FOR CHEST PAIN 19) PANTOPRAZOLE NA 40MG EC TAB TAKE ONE TABLET BY MOUTH TWICE A ACTIVE DAY TAKE 30 MINUTES BEFORE MEAL(S) DO NOT TAKE WITH OMEPRAZOLE 20) POTASSIUM CL 20MEQ SA TAB (DISPERSIBLE) TAKE ONE-HALF TABLET ACTIVE BY MOUTH EVERY OTHER DAY TAKE WITH FOOD TAKE WITH LASIX Indication: FOR POTASSIUM SUPPLEMENTATION 21) SEMAGLUTIDE 1MG/0.75ML INJ PEN 3ML INJECT 1MG UNDER THE SKIN ACTIVE EVERY WEEK Indication: FOR DIABETES 22) SIMVASTATIN 20MG TAB TAKE ONE-HALF TABLET BY MOUTH EVERY ACTIVE EVENING TO LOWER CHOLESTEROL (REPORT ANY MUSCLE PAIN OR WEAKNESS) THIS TABLET IS TO BE CUT IN HALF FOR YOUR DOSE 23) SUCRALFATE 1GM TAB TAKE ONE TABLET BY MOUTH FOUR TIMES A DAY ACTIVE - TAKE ON AN EMPTY STOMACH. Indication: FOR ACID REFLUX 24) TAMSULOSIN HCL 0.4MG CAP TAKE TWO CAPSULES BY MOUTH EVERY ACTIVE EVENING APPROXIMATELY 30 MINUTES AFTER THE SAME MEAL EACH DAY (FOR PROSTATE) Indication: FOR BENIGN PROSTATIC HYPERPLASIA Active Non-VA Medications Status 1) Non-VA CLOTRIMAZOLE 1% TOP CREAM SPARINGLY TO AFFECTED ACTIVE AREA(S) TWICE A DAY 25 Total Medications OBJECTIVE: Vital Signs Temperature: 97.8 F [36.6 C] (10/24/2024 14:18) Respiratory Rate: 16 (03/03/2025 09:45) Pulse Rate: 74 (03/03/2025 09:45) Blood Pressure: 119/75 (03/03/2025 09:45) HT: 68.0 in [172.7 cm] (03/03/2025 09:45) WT: 344.8 lb [156.40 kg] (03/03/2025 09:45) BMI: 52.5 97% (03/03/2025 09:45) Physical Exam General: NAD noted, A&Ox3, pleasant, appears stated age HEENT: NCAT, TM's clear, nares and oropharynx clear Neck: Supple with normal active ROM, without any lymphadenopathy Heart: RRR, no murmur, clicks, or rub Resp: Lungs CTA bilaterally, respirations even and unlabored Abdomen: Soft, non-distended, non-tender Ext: No clubbing, cyanosis, edema or obvious deformity Neuro: Grossly intact Psych: Affect normal, answers questions appropriately throughout visit Assessment/Plan: Bilateral knee osteoarthritis severe-discussed risk and benefits of steroid injection patient wanted to proceed with this Informed consent was obtained and time out performed. Bilateral knee joint was prepped with betadine and injected with 2ml of 0.25% bupivacaine and 40mg of triamcinolone with lateral approach on the left knee; injected 2 mL of 0.25% bupivacaine and 40 mg of triamcinolone with medial approach on right knee. Patient tolerated well. Patient tolerated well. Area cleaned and band-aide applied. Time of Timeout: March 03, 2025 at 10:05 AM Has a valid consent form been obtained? Yes PATIENT IDENTIFICATION: (The patient is identified by at least two of the following (check all that apply)) Full Name, Full SSN, Method of Identification: (no less than two of the following) Patient verbalized name, Patient verbalized social security number, Patient verbalized date of PROCEDURE: Bilateral knee steroid injections SITE (including laterality if applicable): Bilateral knee joints VERIFICATION OF SITE MARKING: (Required for procedures involving left/right distinction, multiple structures (fingers, toes, kidneys, etc.), or multiple levels (as in spinal procedures)) Location of site marked Obvious wound or lesion, single organ, mucous membranes, interventional case for which insertion site is not pre-determined (cardiac catheterization, central line, etc.) PATIENT POSITION: Sitting upright If applicable, pertinent medical images have been confirmed? Yes If applicable, appropriate antibiotic prophylaxis has been ordered? N/A TIME OUT PARTICIPANTS (list all members present): , HOUSE FATHER, PA (s): Joann Stallings MD and Ann Galindo LPN Follow-up: as needed. Discussed with patient that in the event of community imaging / testing being ordered in the future, once the imaging / testing has been completed, please notify PACT of completion at outside facility if not called with results within 1 week by a [facility] PACT member; this is due to intermittent lapses in notification of imaging completion within [facility]. All questions answered; agrees to plan of care. Follow up as listed above, annually, and as needed. Keep all appointments. Medications Reconciled. See AVS given to [place]. Time spent 30 minutes. /es/ Joann Stallings MD [facility] Signed: 03/03/2025 10:09 JOANN STALLINGS [facility] Mar 03, 2025 09:30 AM PRIMARY CARE NURSI NG NOTE: LOCAL TITLE: PRIMARY CARE NURSING PROGRESS NOTE (TEXT) NURSING P STANDARD TITLE: PRIMARY CARE NURSING NOTE DATE OF NOTE: MAR 03, 2025@09:30 ENTRY DATE: MAR 03, 2025@09:30:13 AUTHOR: HENRY GALINDO EXP COSIGNER: URGENCY: STATUS: COMPLETED PRIMARY CARE NURSING PROGRESS NOTE (TEXT) NURSING PB Has ADDENDA Established Patient FLASH COTTRELL IS A 74 YEAR OLD MALE BEING SEEN IN CLINIC MAR 03, 2025. REASON FOR VISIT: Bilateral Knee Injections Are you receiving care any where other than the [facility]? No HEALTH AND SURGICAL HISTORY: Does patient report using home oxygen? No CURRENT ACTIVE MEDICATIONS FOR REVIEW: Allergies/ADRs (Tool #5) FACILITY ALLERGY/ADR -------- [facility] MORPHINE [facility] - ACETAMINOPHEN/HYDROCODONE [facility] MORPHINE Med. Reconciliation (Tool #1) INCLUDED IN THIS LIST: Alphabetical list of active outpatient prescriptions dispensed from this [place] (local) and dispensed from another [place] or [facility] facility (remote) as well as inpatient orders (local pending and active), local clinic medications, locally documented non-VA medications, and local prescriptions that have or been discontinued in the past 90 days. Non-VA Meds Last Documented On: Sep 07, 2015 NOTE The display of VA prescriptions dispensed from another [place] or [facility] facility (remote) is limited to active outpatient prescription entries matched to National Drug File at the originating site and may not include some items such as investigational drugs, compounds, etc. NOT INCLUDED IN THIS LIST: Medications self-entered by the patient into personal health records (i.e. [employer]) are NOT included in this list. Non-VA medications documented outside this [place], remote inpatient orders (regardless of status) and remote clinic medications are NOT included in this list. The patient and provider must always discuss medications the patient is taking, regardless of where the medication was dispensed or obtained. OUTPT ACETAMINOPHEN 500MG TAB (Status = Active/Suspended) TAKE ONE TABLET BY MOUTH FOUR TIMES A DAY FOR PAIN CAUTION: DO NOT EXCEED 4000MG PER DAY ACETAMINOPHEN (APAP) FROM ALL MEDS. Rx# [id number] Last Released: 01/09/25 Qty/Days Supply: 400/90 Rx Expiration Date: 01/07/26 Refills Remainin Indication: FOR PAIN OUTPT ALBUTEROL 90MCG (CFC-F) 200D ORAL INHL (Status = Active) INHALE 2 PUFFS BY ORAL INHALATION FOUR TIMES A DAY FOR COPD SHAKE WELL. RINSE MOUTHPIECE FREQUENTLY TO PREVENT CLOGGING. Rx# [id number] Last Released: 09/19/24 Qty/Days Supply: 3 Rx Expiration Date: 09/14/25 Refills Remainin Indication: FOR COPD OUTPT BENZOYL PEROXIDE 5% WASH (Status = Active) WASH TO AFFECTED AREA(S) ONCE A DAY USE BODY WASH. ALLOW TO SIT FOR 2 MINUTES BEFORE RINSING Rx# [id number] Last Released: 11/14/24 Qty/Days Supply: 150/30 Rx Expiration Date: 09/25/25 Refills Remainin OUTPT CHOLECALCIF 50MCG (D3-2,000UNIT) TAB (Status = ) TAKE ONE TABLET BY MOUTH ONCE A DAY FOR VITAMIN D DEFICIENCY. Rx# [id number] Last Released: 12/14/24 Qty/Days Supply: 100/90 Rx Expiration Date: 02/28/25 Refills Remainin OUTPT CLOBETASOL PROPIONATE 0.05% CREAM (Status = Active) APPLY TO AFFECTED AREA(S) TWICE DAILY NEEDED ON LEGS. NO MORE THAN TWO WEEKS OF THE MONTH.DO NOT USE ON FACE,GROIN,OR SKIN FOLDS. Rx# [id number] Last Released: 10/01/24 Qty/Days Supply: 60/30 Rx Expiration Date: 09/25/25 Refills Remainin Non-VA CLOTRIMAZOLE 1% TOP CREAM APPLY SPARINGLY TO AFFECTED AREA(S) TWICE A DAY Non-VA medication recommended by VA provider. to affected area daily OUTPT COLON ELEC LAVAGE(EQV-MOVIPREP) FOR SOLN (Status = ) MIX AND DRINK CONTENTS OF KIT BY MOUTH ONE-TIME FOR COLONOSCOPY PREP. Rx# [id number] Last Released: 11/14/24 Qty/Days Supply: 11/13 Rx Expiration Date: 12/14/24 Refills Remainin OUTPT DILTIAZEM (EQV-TIAZAC) 240MG 24HR CAP (Status = ) TAKE ONE CAPSULE BY MOUTH EVERY MORNING BEFORE A MEAL FOR HEART OR TO LOWER BLOOD PRESSURE Rx# [id number] Last Released: 01/27/25 Qty/Days Supply: 90/ Rx Expiration Date: 02/28/25 Refills Remainin OUTPT DOCUSATE NA 100MG CAP (Status = Active) TAKE ONE CAPSULE BY MOUTH THREE TIMES A DAY FOR SOFTENING STOOL HOLD FOR LOOSE STOOL/DIARRHEA. Rx# [id number] Last Released: 04/02/24 Qty/Days Supply: 300/ Rx Expiration Date: 03/26/25 Refills Remainin Indication: FOR SOFTENING STOOL OUTPT EMPAGLIFLOZIN 25MG TAB (Status = ) TAKE ONE TABLET BY MOUTH ONCE A DAY Rx# [id number] Last Released: 11/20/24 Qty/Days Supply: 90 Rx Expiration Date: 02/28/25 Refills Remainin OUTPT FOLIC ACID 0.4MG TAB (Status = Active) TAKE ONE TABLET BY MOUTH ONCE A DAY Rx# [id number] Last Released: 12/07/24 Qty/Days Supply: 100/ Rx Expiration Date: 10/25/25 Refills Remainin Indication: FOR FOLIC ACID SUPPLEMENTATION OUTPT FUROSEMIDE 20MG TAB (Status = Discontinued) TAKE ONE TABLET BY MOUTH EVERY MORNING NEEDED FOR FLUID RETENTION (EDEMA) Rx# [id number] Last Released: 12/31/24 Qty/Days Supply: 90 Rx Expiration Date: 04/27/25 Refills Remainin Indication: FOR FLUID RETENTION (EDEMA) OUTPT FUROSEMIDE 20MG TAB (Status = Active/Suspended) TAKE ONE TABLET BY MOUTH EVERY MORNING NEEDED FOR FLUID RETENTION (EDEMA) Rx# [id number] Last Released: Qty/Days Supply: Rx Expiration Date: 01/08/26 Refills Remainin Indication: FOR FLUID RETENTION ([place]) OUTPT GABAPENTIN 300MG CAP (Status = Discontinued) TAKE ONE CAPSULE BY MOUTH TWICE DAILY NEEDED FOR NERVE PAIN Rx# [id number] Last Released: 02/03/25 Qty/Days Supply: 6030 Rx Expiration Date: 01/07/26 Refills Remainin Indication: FOR NERVE PAIN OUTPT GABAPENTIN 300MG CAP (Status = Active) TAKE ONE CAPSULE BY MOUTH TWICE DAILY NEEDED FOR NERVE PAIN Rx# [id number] Last Released: Qty/Days Supply: Rx Expiration Date: 02/27/26 Refills Remainin Indication: FOR NERVE PAIN OUTPT INSULIN,ASPART,HUMAN /30 NOVOLOG INJ (Status = Active) INJECT 21 UNITS UNDER THE SKIN EVERY EVENING FOR DIABETES (ADMINISTER DOSE WITHIN 5-10 MINUTES OF START OF A MEAL) Rx# [id number] Last Released: 10/03/24 Qty/Days Supply: Rx Expiration Date: 10/02/25 Refills Remainin Indication: FOR DIABETES OUTPT KETOCONAZOLE 2% CREAM (Status = Active) APPLY TO AFFECTED AREA(S) ONCE A DAY FOR 28 DAYS MAY USE FOR RECURRENT FLARES. Rx# [id number] Last Released: 10/01/24 Qty/Days Supply: Rx Expiration Date: 09/25/25 Refills Remainin OUTPT KETOTIFEN 0.025% OPH SOLN (Status = Active) INSTILL 1 DROP IN BOTH EYES TWICE DAILY NEEDED FOR EYE INFLAMMATION Rx# [id number] Last Released: 01/06/25 Qty/Days Supply: 04/11 Rx Expiration Date: 01/07/26 Refills Remainin Indication: FOR EYE INFLAMMATION OUTPT LISINOPRIL 40MG TAB (Status = ) TAKE ONE-HALF TABLET BY MOUTH ONCE A DAY FOR HIGH BLOOD PRESSURE FOR BLOOD PRESSURE THIS TABLET IS TO BE CUT IN HALF FOR YOUR DOSE Rx# [id number] Last Released: 01/24/25 Qty/Days Supply: Rx Expiration Date: 02/28/25 Refills Remainin Indication: FOR HIGH BLOOD PRESSURE OUTPT MICONAZOLE NITRATE 2% TOP PWDR (Status = Active) APPLY TO AFFECTED AREA(S) ONCE A DAY NEEDED TO SKIN FOLDS. (EXTERNAL USE ONLY) Rx# [id number] Last Released: 09/27/24 Qty/Days Supply: Rx Expiration Date: 09/25/25 Refills Remainin OUTPT MULTIVIT/OPHTH AREDS2/LUTE/ZEAX CAP/TAB (Status = Active/Suspended) TAKE 1 CAP/TAB BY MOUTH TWICE A DAY WITH MEAL(S) FOR EYE HEALTH AVOID IF YOU HAVE PEANUT ALLERGY. Rx# [id number] Last Released: 01/06/25 Qty/Days Supply: 120/90 Rx Expiration Date: 01/07/26 Refills Remainin Indication: FOR EYE HEALTH OUTPT NAPROXEN 500MG TAB (Status = Active) TAKE ONE TABLET BY MOUTH TWICE A DAY FOR PAIN TAKE WITH FOOD. Rx# [id number] Last Released: 12/19/24 Qty/Days Supply: 180 Rx Expiration Date: 12/17/25 Refills Remainin Indication: FOR PAIN OUTPT NITROGLYCERIN 0.4MG SL TAB (Status = Active) DISSOLVE ONE TABLET UNDER THE TONGUE ONE-TIME FOR CHEST PAIN NEEDED ; IF NO IMPROVEMENT AFTER FIRST DOSE CALL 9-1-1. MAY TAKE 2 ADDITIONAL DOSES, 5 MINUTES APART. TAKE WHILE SITTING. Rx# [id number] Last Released: 04/19/24 Qty/Days Supply: 100/90 Rx Expiration Date: 04/18/25 Refills Remainin Indication: FOR CHEST PAIN OUTPT OMEPRAZOLE 40MG EC CAP (Status = Discontinued) TAKE ONE CAPSULE BY MOUTH ONCE A DAY TAKE 30 MINUTES PRIOR TO FOOD. Rx# [id number] Last Released: 11/28/24 Qty/Days Supply: 90 Rx Expiration Date: 02/23/25 Refills Remainin OUTPT PANTOPRAZOLE NA 40MG EC TAB (Status = Active) TAKE ONE TABLET BY MOUTH TWICE A DAY TAKE 30 MINUTES BEFORE MEAL(S) DO NOT TAKE WITH OMEPRAZOLE Rx# [id number] Last Released: 03/03/25 Qty/Days Supply: 180 Rx Expiration Date: 12/19/25 Refills Remainin OUTPT PIOGLITAZONE HCL 30MG TAB (Status = ) TAKE ONE TABLET BY MOUTH ONCE A DAY FOR DIABETES TAKE WITH MORNING MEAL Rx# [id number] Last Released: 12/18/24 Qty/Days Supply: Rx Expiration Date: 02/28/25 Refills Remainin Indication: FOR DIABETES OUTPT POTASSIUM CL 20MEQ SA TAB (DISPERSIBLE) (Status = Active) TAKE ONE-HALF TABLET BY MOUTH EVERY OTHER DAY FOR POTASSIUM SUPPLEMENTATION TAKE WITH FOOD TAKE WITH LASIX Rx# [id number] Last Released: 11/26/24 Qty/Days Supply: Rx Expiration Date: 05/14/25 Refills Remainin Indication: FOR POTASSIUM SUPPLEMENTATION OUTPT SEMAGLUTIDE 1MG/0.75ML INJ PEN 3ML (Status = Active) INJECT 1MG UNDER THE SKIN EVERY WEEK FOR DIABETES Rx# [id number] Last Released: 11/27/24 Qty/Days Supply: Rx Expiration Date: 11/16/25 Refills Remainin Indication: FOR DIABETES OUTPT SIMVASTATIN 20MG TAB (Status = Discontinued) TAKE ONE-HALF TABLET BY MOUTH EVERY EVENING TO LOWER CHOLESTEROL (REPORT ANY MUSCLE PAIN OR WEAKNESS) THIS TABLET IS TO BE CUT IN HALF FOR YOUR DOSE Rx# [id number] Last Released: 08/28/24 Qty/Days Supply: Rx Expiration Date: 08/13/25 Refills Remainin OUTPT SIMVASTATIN 20MG TAB (Status = Active) TAKE ONE-HALF TABLET BY MOUTH EVERY EVENING TO LOWER CHOLESTEROL (REPORT ANY MUSCLE PAIN OR WEAKNESS) THIS TABLET IS TO BE CUT IN HALF FOR YOUR DOSE Rx# [id number] Last Released: 01/09/25 Qty/Days Supply: Rx Expiration Date: 01/07/26 Refills Remainin OUTPT SUCRALFATE 1GM TAB (Status = Active) TAKE ONE TABLET BY MOUTH FOUR TIMES A DAY FOR ACID REFLUX - TAKE ON AN EMPTY STOMACH. Rx# [id number] Last Released: 10/09/24 Qty/Days Supply: 360 Rx Expiration Date: 07/31/25 Refills Remainin Indication: FOR ACID REFLUX OUTPT TAMSULOSIN HCL 0.4MG CAP (Status = Discontinued) TAKE TWO CAPSULES BY MOUTH EVERY EVENING FOR BENIGN PROSTATIC HYPERPLASIA APPROXIMATELY 30 MINUTES AFTER THE SAME MEAL EACH DAY (FOR PROSTATE) Rx# [id number] Last Released: 02/29/24 Qty/Days Supply: 180 Rx Expiration Date: 02/28/25 Refills Remainin Indication: FOR BENIGN PROSTATIC HYPERPLASIA OUTPT TAMSULOSIN HCL 0.4MG CAP (Status = Active) TAKE TWO CAPSULES BY MOUTH EVERY EVENING FOR BENIGN PROSTATIC HYPERPLASIA APPROXIMATELY 30 MINUTES AFTER THE SAME MEAL EACH DAY (FOR PROSTATE) Rx# [id number] Last Released: 01/08/25 Qty/Days Supply: Rx Expiration Date: 01/07/26 Refills Remainin Indication: FOR BENIGN PROSTATIC HYPERPLASIA OUTPT UREA 40% CREAM (Status = ) APPLY LIGHTLY TO AFFECTED AREA(S) TWICE DAILY TO PROMOTE HEALING. RUB IN UNTIL COMPLETELY ABSORBED. FOR TOPICAL USE ONLY. Rx# [id number] Last Released: 03/04/24 Qty/Days Supply: 210/90 Rx Expiration Date: 02/28/25 Refills Remainin SUPPLIES OUTPT ACCU-CHEK GUIDE (GLUCOSE) TEST STRIP (Status = Active) USE 1 STRIP FOR BLOOD TEST TWICE A DAY FOR BLOOD SUGAR MONITORING Rx# [id number] Last Released: 02/20/25 Qty/Days Supply: 100/50 Rx Expiration Date: 09/03/25 Refills Remainin Indication: FOR BLOOD SUGAR MONITORING OUTPT INSULIN SYRINGE 1ML 31G 6MM (Status = Active) USE SYRINGE UNDER THE SKIN TWICE A DAY FOR USE WITH INSULIN TO CONTROL BLOOD SUGAR. Rx# [id number] Last Released: 10/28/24 Qty/Days Supply: 200/90 Rx Expiration Date: 10/25/25 Refills Remainin OUTPT LANCET,SOFTCLIX (Status = Active) USE LANCET FOR BLOOD TEST TWICE A DAY TO MONITOR BLOOD SUGAR. USE DIRECTED. Rx# [id number] Last Released: 10/29/24 Qty/Days Supply: 200/90 Rx Expiration Date: 10/25/25 Refills Remainin PHARMACY TERMS AND POSSIBLE PATIENT ACTIONS INPT = [facility] inpatient order IV = [facility] intravenous medication OUTPT = [facility] outpatient prescription PHARMACY POSSIBLE PATIENT TERMS EXPLANATION ACTIONS -------- --- ACTIVE A prescription that can be If you have refills, filled at the local [facility] pharmacy. you may request a refill of this prescription from your [facility] pharmacy. CLINIC A medication you received during If you have questions a visit to a [facility] clinic or about this medication emergency department. contact your [facility] healthcare team. DISCONTINUED A prescription your provider has [facility] stopped. It is no longer healthcare team if you available to be sent to you or need more of this picked up at the [facility] pharmacy medication. window. A prescription which is [...] the [facility]. Or, it may be an [id number] (OTC), herbal, dietary supplements or sample medication. [...] An active prescription that is [facility] not scheduled to be filled yet. pharmacy [...] 97.8 F [36.6 C] (10/24/2024 14:18) BP: 125/80 (01/06/2025 10:35) RESP: 22 (01/06/2025 10:35) PULSE: 78 (01/06/2025 10:35) HT: 68.0 in [172.7 cm] (01/06/2025 10:35) WT: 330.6 lb [149.96 kg] (01/06/2025 10:35) BMI: 50.4 PAIN ASSESSMENT: (Most Recent Pain Score in [...] chickenpox, or zoster in last 30 days. This patient's last pain assessment score was: 3 (10/24/2024 14:18). A detailed pain assessment showed the following: Pain characteristics (per patient's own words) Constant, Aching Location of current pain bilateral knee pain STRESS: Thank you for your service. Now let us serve you. At the [facility], we strive to provide you with [...] Not At All SPIRITUAL ASSESSMENT: Are there scientology practices or spiritual concerns you want the instructional support technician, your physician, and other health care team members to immediately know about? No Patient advised to call the clinic for any concerns, questions, or symptoms. Patient and/or caregiver verbalized understanding of plan of care. /rashi GALINDO LPN Signed: 03/03/2025 12:24 03/03/2025 ADDENDUM STATUS: COMPLETED Depression Screening - V: Perform PHQ-2 A PHQ-2 screen was performed. The score was 0 which is a negative screen for depression. Over the past two weeks, how often have you been bothered by the following problems? 1. Little interest or pleasure in doing things Not at all 2. Feeling down, depressed, or hopeless Not at all /rashi GALINDO LPN Signed: 03/03/2025 12:24 [facility]
--- OUTSIDE RECORDS SUMMARY | 2025-03-13 06:00 | XMS_ITS | Encounter Summary ---
Author Name [facility] Organization [facility] [place] Address [address] [place] [address] Care Team Providers Care Occupational Therapist Rehab Manager Name Role Phone YANET REINALDO Primary Care [...] Mcgraw CATALYST RX PRESCRIPT ION ACTIV E [id number] May 13, [phone] [id number] [id number] Funmi COTTRELL PATIENT MEDICARE (WNR) MEDICARE (M) PART A Apr 13, 2016 PART A [id number] Funmi COTTRELLL PATIENT MEDICARE (WNR) MEDICARE (M) PART A Apr 13, 2016 PART A [id number] Funmi COTTRELLL PATIENT MEDICARE (WNR) MEDICARE (M) PART A Apr 13, 2016 PART A [id number] Funmi COTTRELL PATIENT [facility] POINT OF SERVICE [place] Bridges [facility] May 13, 2008 [id number] Funmi COTTRELL PATIENT Selected Encounter This section includes the information on record at [place] for the Encounter. Date/Time Encounter Type Encounter Description Reason Provider Source March 13, 2025 11:00 AM OFFICE O/P EST MOD 30 MIN PRIMARY CARE/MEDICINE ICD-10-CM E11.9 Type 2 diabetes mellitus without complications MARQUISE HOLT IHE Encounter Template Text not used by [place] Assessments - Encounter Diagnoses This section includes the primary and secondary diagnoses documented for the Encounter. Date/Time Primary/Secondary Diagnosis Diagnosis Name Provider Source March 13, 2025 01:55 PM PRIMARY Type 2 diabetes mellitus without complications ZACK HOLT [place] [facility] March 13, 2025 01:55 PM SECONDARY Benign prostatic hyperplasia with lower urinary tract symp ZACK HOLT [place] [facility] March 13, 2025 01:55 PM SECONDARY Constipation, unspecified MIRNA HOLTER INE [place] [facility] March 13, 2025 01:55 PM SECONDARY Essential (primary) hypertension ZACK HOLT [place] [facility] March 13, 2025 01:55 PM SECONDARY Obesity, unspecified YANETCATHER INE R [place] [facility] March 13, 2025 01:55 PM SECONDARY Osteoarthritis of knee, unspecified MIRNA HOLTER INE [place] [facility] Plan of Treatment: Future Appointments (+ 6 months) and Future Tests (+/- 45 days) The Plan of Treatment section includes future care activities for the patient from all [place] treatmentfacilities. This section includes future appointments and future orders which are active, pending or scheduled. Future Appointments This section includes appointments that were scheduled to occur 6 months from the date of the Encounter, up to a maximum of 20 appointments. The data comes from all [place] treatment facilities. Appointment Date/Time Appointment Type Appointme nt Facility Name March 19, 2025 12:00 PM AMBULATORY - MEDICINE [facility] March 19, 2025 12:01 PM [facility] March 19, 2025 01:30 PM AMBULATORY - MEDICINE [facility] March 20, 2025 11:00 AM [facility] [place] [facility] March 21, 2025 01:30 PM [facility] [place] [facility] April 03, 2025 01:00 PM [facility] [place] [facility] April 04, 2025 09:15 AM [facility] [place] [facility] April 08, 2025 08:30 AM [facility] [place] [facility] April 08, 2025 08:31 AM [facility] - [facility] [place] [facility] Apr 15, 2025 12:00 PM AMBULATORY - MEDICINE [place] [facility] Apr 15, 2025 12:01 PM [facility] [place] [facility] Apr 24, 2025 01:20 PM [facility] [place] [facility] May 07, 2025 12:30 PM [facility] [place] [facility] May 07, 2025 12:31 PM [facility] - MEDIC[facility] [place] [facility] May 29, 2025 11:30 AM [facility]ORY - MED[facility] [place] [facility] May 29, 2025 01:00 PM [facility] [place] [facility] Jun 04, 2025 10:30 AM [facility] [place] [facility] [place] [facility] Jun 04, 2025 10:31 AM [facility] - [facility] [place] [facility] Jun 18, 2025 01:45 PM AMBULATORY - MEDIC[facility] [place] [facility] Active, Pending, and Scheduled Orders This section includes a listing of several types of active, pending, and scheduled orders, including clinic medications orders, diagnostic test orders, procedure orders and consult orders; where the start date of the order is 45 days before the date of the Encounter or 45 days after the date of theEncounter. The data comes from all [place] treatment facilities. Test Date/Time Test Type Test Details Facility Name Apr 27, 2025 01:59 PM Consult Order [facility] [id number] Cons Quality Control Inspector's Choice [facility] Lab Results: +/- 30 days of the encounter This section includes the Chemistry and Hematology Lab Results on record with [place] for the patient. Radiology Reports and Pathology Reports are provided separately, in subsequent sections. Lab Results This section contains the Chemistry/Hematology Results that were resulted 30 days before or 30 daysafter the date of the Encounter. Date/Time Source Result Type Result - Unit Interpretation Reference Range Specimen Type Comment March 13, 2025 11:28 AM [facility] HGA1C BLOOD Specimen Type: BLOOD No comment entered. Ordering Provider: REINALDO HOLT Report Released Date/Time: March 13, 2025 11:13 AM Reporting Lab: [place] [facility] [address] [place] [address] Performing Lab: [place] [facility] [address] [place] [address] HGA1C 7.1 H 4.0-6.0 March 13, 2025 11:28 AM [facility] URINE ALBUMIN PROFILE-ih (PB) URINE Specimen Type: URINE No comment entered. Ordering Provider: REINALDO HOLT Report Released Date/Time: March 13, 2025 11:13 AM Reporting Lab: [place] [facility] [address] [place] [address] Performing Lab: [place] [facility] [address] [place] [address] URINE ALBUMIN (PB-STL) 39.95 mg/L uACR (PB-MA) 64.52 mg/g H 0-30 CREATININE URINE/OTHERS 61.92 mg/dL March 13, 2025 11:28 AM [facility] CHOLESTEROL PANEL (PB) PLASMA Specimen Type: P LASMA No comment entered. Ordering Provider: REINALDO HOLT Report Released Date/Time: March 13, 2025 11:13 AM Reporting Lab: [place] [facility] [address] [place] [address] Performing Lab: [place] [facility] [address] [place] [address] CHOLESTEROL 135 mg/dL 0-200 TRIGLYCERIDE 124 mg/dL 0-150 CALCULATED LDL 75.0 mg/dL HDL(New) 35.2 mg/dL L >40 HDL % OF TOTAL CHOLESTEROL (PB) 26.1 >25 March 13, 2025 11:28 AM [facility] URINALYSIS (STL-PB) URINE Specimen Type: URIN E Comment: Specific [place] may be elevated due to high Urine Glucose or high Urine Protein Ordering Provider: REINALDO HOLT Report Released Date/Time: March 13, 2025 11:13 AM Reporting Lab: [place] [facility] [address] [place] [address] Performing Lab: [facility] [address] [facility] [place] [address] URINE COLOR Light Yellow Yellow U.BILIRUBIN NEGATIVE [...] 1.028 1.005-1.029 March 13, 2025 11:28 AM [facility] COMPREHENSIVE METABOLIC PANEL PLASMA Specimen Type: PLASMA No comment entered. Ordering Provider: REINALDO HOLT Report Released Date/Time: March 13, 2025 11:13 AM Reporting Lab: [facility] [address] [facility] [facility] Performing Lab: [facility] [address] [facility] [place] [address] CREATININE 1.00 mg/dL 0.7-1.3 UREA NITROGEN 15 [...] Pain Height Weight Body Mass Index Source March 13, 2025 11:08 AM 97.5 66 131/51 20 98 335.2 51 [facility] [place] [facility] Social History: Smoking Status (Most current) and Tobacco Use (All prior to encounter date) This section includes the most current, and the historical, smoking and tobacco- related health factors from the [place] facility where the Encounter took place. Current Smoking Status This section includes the most current smoking, or tobacco-related health factor, from the PR facility where the Encounter took place. Date/Time Current Smoking Status Comment Facil ity March 13, 2025 11:00 AM VA-TOBACCO NEVER USED CIGARETTES [facility] Tobacco Use History This section includes a history of the smoking, or tobacco-related health factors, that were collected on or before the date of the Encounter. The data comes from the PR facility where the Encounter took place. Date/Time Smoking Status/Tobacco Use Comment F acility March 13, 2025 11:00 AM VA-TOBACCO NEVER USED OTHER TYPE [facility] Oct 02, 2023 09:30 AM VA-TOBACCO NEVER USED [facility] Apr 26, 2022 01:00 PM VA-TOBACCO FORMER USER [facility] [place] Apr 26, 2022 01:00 PM VA-TOBACCO QUIT 5 TO < 15 YRS [facility] [place] [facility] May 04, 2021 11:00 AM VA-TOBACCO NEVER USED [facility] [place] [facility] Aug 16, 2019 02:05 PM VA-TOBACCO NEVER USED [facility] [facility] Jun 05, 2014 01:09 PM LIFETIME NON-USER OF TOBACCO [facility] [place] Advance Directives: All historical and current Section Date Range: From patient's date of to the date document was created. This section includes ALL of a patient's completed or amended VA Advance and Rescinded Directives. The entries below indicate that a directive exists for the patient, but an actual copy is not included with this document. The data comes from all [place] facilities. Date Advance Directives Provider Source Apr 24, 2015 RESCINDED ADVANCE DIRECTIVE PETE CROFT [facility] [place] Radiology Reports: +/- 30 days [...] the Encounter. The data comes from all PR treatment facilities. Date/Time Radiology Report Provider Source April 04, 2025 08:59 AM US ABDOMEN, LIMITE D: FLASH COTTRELL [id number] -1950 M Exm Date: APRIL 04, 2025@08:59 Req Phys: REINALDO HOLT Loc: OUTSIDE PB-ULTRASOUND (Req'g L Img Loc: OUTSIDE PB-ULTRASOUND Service: Unknown (Case [id number] COMPLETE) US ABDOMEN, LIMITED (US Detailed) CPT:70884 Reason for Study: Exam imported from outside Clinical History: Original Data for Imported Study Patient Name: FALSH COTTRELL Date: 1950 Sex: M Study Date: 04/04/25 Study Time: 08:59:20 Study Description: US ABDOMEN LIMITED Referring Physician: REINALDO HOLT Series 1: 9 US files Series 2: 1 SR file, description: Report Report Status: Electronically Filed Date Reported: APR 22, 2025 Report: No report text Impression: No impression text VERIFIED BY: / *ELECTRONICALLY FILED* [place] [facility] Mar 03, 2025 09:33 AM KNEE,RIGHT,1 OR 2 VIEWS: FLASH COTTRELL [id number] -1950 M Exm Date: MAR 03, 2025@09:33 Req Phys: WILL CHANG Loc: PB-BARB PACT ECHO PROCEDURE (Re Img Loc: PB-XRAY [place] Service: Unknown [facility] [place] [address] (Case [id number] COMPLETE) KNEE,RIGHT,1 OR 2 VIEWS (RAD Detailed) CPT:34328 Proc Modifiers : RIGHT Reason for Study: PAIN NO INJURY Clinical History: Report Status: Verified Date Reported: MAR 03, 2025 Date Verified: MAR 03, 2025 Food Service Order Clerk E-Sig: Report: 2 views of the right knee reveal moderate to extensive degenerative skeletal change with osteophytosis and joint space narrowing. There is no appreciable acute osseous or adjacent soft tissue abnormality. Vascular calcifications are noted Impression: 1. DJD 2. No acute process Primary Interpreting Staff: CAROL RAJAN RADIOLOGIST (Food Service Order Clerk, no e-sig) /CAROL Bello [facility] Mar 03, 2025 09:33 AM KNEE,LEFT 1 OR 2 V IEWS: FLASH COTTRELL [id number] -1950 M Exm Date: MAR 03, 2025@09:33 Req Phys: WILL CHANG Pat Loc: PB-BARB PACT ECHO PROCEDURE (Re Img Loc: PB-XRAY [place] Service: [place] [address] (Case [id number] COMPLETE) KNEE,LEFT 1 OR 2 VIEWS (RAD Detailed) CPT:72377 Proc Modifiers : LEFT Reason for Study: pain no injury Clinical History: Report Status: Verified Date Reported: MAR 03, 2025 Date Verified: MAR 03, 2025 Food Service Order Clerk E-Sig: Report: 2 views of the left knee reveal mild degenerative skeletal change with no acute osseous or adjacent soft tissue abnormality. Vascular calcifications are noted. Impression: No acute process Primary Interpreting Staff: CAROL RAJAN RADIOLOGIST (Food Service Order Clerk, no e-sig) /CAROL Bello [facility] [facility] Encounter Notes: All associated encounter notes This section contains the clinical notes associated to the Encounter. Date/Time Encounter Note(s) Provider Source March 13, 2025 11:29 AM PRIMARY CARE NURSI NG NOTE: LOCAL TITLE: PRIMARY CARE NURSING PROGRESS NOTE (TEXT) NURSING P STANDARD TITLE: PRIMARY CARE NURSING NOTE DATE OF NOTE: MARCH 13, 2025@11:29 ENTRY DATE: MARCH 13, 2025@11:29:51 AUTHOR: ALYSIA CANTU EXP COSIGNER: URGENCY: STATUS: COMPLETED Established Patient FLASH COTTRELL IS A 74 YEAR OLD MALE BEING SEEN IN CLINIC MARCH 13, 2025. == == REASON FOR VISIT: Annual appt Are you receiving care any where other than the [facility]? No HEALTH AND SURGICAL HISTORY: Does patient report using home oxygen? No CURRENT ACTIVE MEDICATIONS FOR REVIEW: If the list for review does not include a component, then it was not applicable to this patient. Allergies/ADRs (Tool #5) FACILITY ALLERGY/ADR -------- [facility]PH[facility] - ACETAMINOPHEN/HYDROCODONE [facility] - BEE STINGS [facility] BEE [facility] M[facility]PHINE Med. Reconciliation (Tool #1) INCLUDED IN THIS LIST: Alphabetical list of active outpatient prescriptions dispensed from this [place] (local) and dispensed from another PR or [facility] facility (remote) as well as inpatient orders (local pending and active), local clinic medications, locally documented non-VA medications, and local prescriptions that have or been discontinued in the past 90 days. Non-VA Meds Last Documented On: Sep 07, 2015 NOTE The display of VA prescriptions dispensed from another PR or [facility] facility (remote) is limited to active outpatient prescription entries matched to National Drug File at the originating site and may not include some items such as investigational drugs, compounds, etc. NOT INCLUDED IN THIS LIST: Medications self-entered by the patient into personal health records (i.e. [employer]) are NOT included in this list. Non-VA medications documented outside this PR, remote inpatient orders (regardless of status) and [...] DAY ACETAMINOPHEN (APAP) FROM ALL MEDS. Rx# [id number] Last Released: 01/09/25 Qty/Days Supply: 400/90 Rx Expiration Date: 01/07/26 Refills Remainin Indication: FOR PAIN OUTPT ALBUTEROL 90MCG (CFC-F) 200D ORAL INHL (Status = Active) INHALE 2 PUFFS BY ORAL INHALATION FOUR TIMES A DAY FOR COPD SHAKE WELL. RINSE MOUTHPIECE FREQUENTLY TO PREVENT CLOGGING. Rx# [id number] Last Released: 09/19/24 Qty/Days Supply: 3 Rx Expiration Date: 09/14/25 Refills Remainin Indication: FOR COPD OUTPT BENZOYL PEROXIDE 5% WASH (Status = Active) WASH TO AFFECTED AREA(S) ONCE A DAY USE BODY WASH. ALLOW TO SIT FOR 2 MINUTES BEFORE RINSING Rx# [id number] Last Released: 11/14/24 Qty/Days Supply: 150/30 Rx Expiration Date: 09/25/25 Refills Remainin OUTPT CHOLECALCIF 50MCG (D3-2,000UNIT) TAB (Status = Discontinued) TAKE ONE TABLET BY MOUTH ONCE A DAY FOR VITAMIN D DEFICIENCY. Rx# [id number] Last Released: 12/14/24 Qty/Days Supply: 100/ Rx Expiration Date: 02/28/25 Refills Remainin OUTPT CHOLECALCIF 50MCG (D3-2,000UNIT) TAB (Status = Active) TAKE ONE TABLET BY MOUTH ONCE A DAY FOR VITAMIN D DEFICIENCY. Rx# [id number] Last Released: 03/12/25 Qty/Days Supply: 100 Rx Expiration Date: 03/11/26 Refills Remainin OUTPT CLOBETASOL PROPIONATE 0.05% CREAM (Status = Active) APPLY TO AFFECTED AREA(S) TWICE DAILY NEEDED ON LEGS. NO MORE THAN TWO WEEKS OF THE MONTH.DO NOT USE ON FACE,GROIN,OR SKIN FOLDS. Rx# [id number] Last Released: 10/01/24 Qty/Days Supply: 60/30 Rx Expiration Date: 09/25/25 Refills Remainin Non-VA CLOTRIMAZOLE 1% TOP CREAM APPLY SPARINGLY TO AFFECTED AREA(S) TWICE A DAY Non-VA medication recommended by VA provider. to affected area daily OUTPT COLON ELEC LAVAGE(EQV-MOVIPREP) FOR SOLN (Status = ) MIX AND DRINK CONTENTS OF KIT BY MOUTH ONE-TIME FOR COLONOSCOPY PREP. Rx# [id number] Last Released: 11/14/24 Qty/Days Supply: 11/13 Rx Expiration Date: 12/14/24 Refills Remainin OUTPT DILTIAZEM (EQV-TIAZAC) 240MG 24HR CAP (Status = Discontinued) TAKE ONE CAPSULE BY MOUTH EVERY MORNING BEFORE A MEAL FOR HEART OR TO LOWER BLOOD PRESSURE Rx# [id number] Last Released: 01/27/25 Qty/Days Supply: 90 Rx Expiration Date: 02/28/25 Refills Remainin OUTPT DILTIAZEM (EQV-TIAZAC) 240MG 24HR CAP (Status = Active/Suspended) TAKE ONE CAPSULE BY MOUTH EVERY MORNING BEFORE A MEAL FOR HEART OR TO LOWER BLOOD PRESSURE Rx# [id number] Last Released: Qty/Days Supply: Rx Expiration Date: 03/11/26 Refills Remainin OUTPT DOCUSATE NA 100MG CAP (Status = Active) TAKE ONE CAPSULE BY MOUTH THREE TIMES A DAY FOR SOFTENING STOOL HOLD FOR LOOSE STOOL/DIARRHEA. Rx# [id number] Last Released: 04/02/24 Qty/Days Supply: 300/90 Rx Expiration Date: 03/26/25 Refills Remainin Indication: FOR SOFTENING STOOL OUTPT EMPAGLIFLOZIN 25MG TAB (Status = Discontinued) TAKE ONE TABLET BY MOUTH ONCE A DAY Rx# [id number] Last Released: 11/20/24 Qty/Days Supply: 90 Rx Expiration Date: 02/28/25 Refills Remainin OUTPT EMPAGLIFLOZIN 25MG TAB (Status = Active) TAKE ONE TABLET BY MOUTH ONCE A DAY Rx# [id number] Last Released: Qty/Days Supply: Rx Expiration Date: 03/11/26 Refills Remainin OUTPT FOLIC ACID 0.4MG TAB (Status = Active) TAKE ONE TABLET BY MOUTH ONCE A DAY Rx# [id number] Last Released: 12/07/24 Qty/Days Supply: 100 Rx Expiration Date: 10/25/25 Refills Remainin Indication: FOR FOLIC ACID SUPPLEMENTATION OUTPT FUROSEMIDE 20MG TAB (Status = Discontinued) TAKE ONE TABLET BY MOUTH EVERY MORNING NEEDED FOR FLUID RETENTION (EDEMA) Rx# [id number] Last Released: 12/31/24 Qty/Days Supply: Rx Expiration Date: 04/27/25 Refills Remainin Indication: FOR FLUID RETENTION (EDEMA) OUTPT FUROSEMIDE 20MG TAB (Status = Active/Suspended) TAKE ONE TABLET BY MOUTH EVERY MORNING NEEDED FOR FLUID RETENTION (EDEMA) Rx# [id number] Last Released: Qty/Days Supply: Rx Expiration Date: 01/08/26 Refills Remainin Indication: FOR FLUID RETENTION (EDEMA) OUTPT GABAPENTIN 300MG CAP (Status = Discontinued) TAKE ONE CAPSULE BY MOUTH TWICE DAILY NEEDED FOR NERVE PAIN Rx# [id number] Last Released: 02/03/25 Qty/Days Supply: 60 Rx Expiration Date: 01/07/26 Refills Remainin Indication: FOR NERVE PAIN OUTPT GABAPENTIN 300MG CAP (Status = Active) TAKE ONE CAPSULE BY MOUTH TWICE DAILY NEEDED FOR NERVE PAIN Rx# [id number] Last Released: 03/05/25 Qty/Days Supply: 6030 Rx Expiration Date: 02/27/26 Refills Remainin Indication: FOR NERVE PAIN OUTPT INSULIN,ASPART,HUMAN 70/30 NOVOLOG INJ (Status = Active) INJECT 21 UNITS UNDER THE SKIN EVERY EVENING FOR DIABETES (ADMINISTER DOSE WITHIN 5-10 MINUTES OF START OF A MEAL) Rx# [id number] Last Released: 10/03/24 Qty/Days Supply: Rx Expiration Date: 10/02/25 Refills Remainin Indication: FOR DIABETES OUTPT KETOCONAZOLE 2% CREAM (Status = Active) APPLY TO AFFECTED AREA(S) ONCE A DAY FOR 28 DAYS MAY USE FOR RECURRENT FLARES. Rx# [id number] Last Released: 10/01/24 Qty/Days Supply: 6030 Rx Expiration Date: 09/25/25 Refills Remainin OUTPT KETOTIFEN 0.025% OPH SOLN (Status = Active) INSTILL 1 DROP IN BOTH EYES TWICE DAILY NEEDED FOR EYE INFLAMMATION Rx# [id number] Last Released: 01/06/25 Qty/Days Supply: 04/11 Rx Expiration Date: 01/07/26 Refills Remainin Indication: FOR EYE INFLAMMATION OUTPT LISINOPRIL 40MG TAB (Status = Discontinued) TAKE ONE-HALF TABLET BY MOUTH ONCE A DAY FOR HIGH BLOOD PRESSURE FOR BLOOD PRESSURE THIS TABLET IS TO BE CUT IN HALF FOR YOUR DOSE Rx# [id number] Last Released: 01/24/25 Qty/Days Supply: 45 Rx Expiration Date: 02/28/25 Refills Remainin Indication: FOR HIGH BLOOD PRESSURE OUTPT LISINOPRIL 40MG TAB (Status = Active/Suspended) TAKE ONE-HALF TABLET BY MOUTH ONCE A DAY FOR HIGH BLOOD PRESSURE FOR BLOOD PRESSURE THIS TABLET IS TO BE CUT IN HALF FOR YOUR DOSE Rx# [id number] Last Released: Qty/Days Supply: 45 Rx Expiration Date: 03/11/26 Refills Remainin Indication: FOR HIGH BLOOD PRESSURE OUTPT MICONAZOLE NITRATE 2% TOP PWDR (Status = Active) APPLY TO AFFECTED AREA(S) ONCE A DAY NEEDED TO SKIN FOLDS. (EXTERNAL USE ONLY) Rx# [id number] Last Released: 09/27/24 Qty/Days Supply: Rx Expiration Date: 09/25/25 Refills Remainin OUTPT MULTIVIT/OPHTH AREDS2/LUTE/ZEAX CAP/TAB (Status = Discontinued) TAKE 1 CAP/TAB BY MOUTH TWICE A DAY WITH MEAL(S) FOR EYE HEALTH AVOID IF YOU HAVE PEANUT ALLERGY. Rx# [id number] Last Released: 01/06/25 Qty/Days Supply: 120/90 Rx Expiration Date: 01/07/26 Refills Remainin Indication: FOR EYE HEALTH OUTPT MULTIVIT/OPHTH AREDS2/LUTE/ZEAX CAP/TAB (Status = Pending) MULTIVIT/OPHTH AREDS2/LUTE/ZEAX CAP/TAB TAKE 1 CAP/TAB BY MOUTH BID WM AVOID IF YOU HAVE PEANUT ALLERGY. Login Date: 03/13/25 Qty/Days Supply: 180/90 Refills Ordered: 3 OUTPT NAPROXEN 500MG TAB (Status = Active) TAKE ONE TABLET BY MOUTH TWICE A DAY FOR PAIN TAKE WITH FOOD. Rx# [id number] Last Released: 12/19/24 Qty/Days Supply: 180/ Rx Expiration Date: 12/17/25 Refills Remainin Indication: FOR PAIN OUTPT NITROGLYCERIN 0.4MG SL TAB (Status = Active) DISSOLVE ONE TABLET UNDER THE TONGUE ONE-TIME FOR CHEST PAIN NEEDED ; IF NO IMPROVEMENT AFTER FIRST DOSE CALL 9-1-1. MAY TAKE 2 ADDITIONAL DOSES, 5 MINUTES APART. TAKE WHILE SITTING. Rx# [id number] Last Released: 04/19/24 Qty/Days Supply: 100/90 Rx Expiration Date: 04/18/25 Refills Remainin Indication: FOR CHEST PAIN OUTPT OMEPRAZOLE 40MG EC CAP (Status = Discontinued) TAKE ONE CAPSULE BY MOUTH ONCE A DAY TAKE 30 MINUTES PRIOR TO FOOD. Rx# [id number] Last Released: 11/28/24 Qty/Days Supply: 90/90 Rx Expiration Date: 02/23/25 Refills Remainin OUTPT PANTOPRAZOLE NA 40MG EC TAB (Status = Discontinued) TAKE ONE TABLET BY MOUTH TWICE A DAY TAKE 30 MINUTES BEFORE MEAL(S) DO NOT TAKE WITH OMEPRAZOLE Rx# [id number] Last Released: 03/03/25 Qty/Days Supply: 18090 Rx Expiration Date: 12/19/25 Refills Remainin OUTPT PANTOPRAZOLE NA 40MG EC TAB (Status = Active/Suspended) TAKE ONE TABLET BY MOUTH TWICE A DAY TAKE 30 MINUTES BEFORE MEAL(S) DO NOT TAKE WITH OMEPRAZOLE Rx# [id number] Last Released: Qty/Days Supply: 180 Rx Expiration Date: 03/11/26 Refills Remainin OUTPT PIOGLITAZONE HCL 30MG TAB (Status = Discontinued) TAKE ONE TABLET BY MOUTH ONCE A DAY FOR DIABETES TAKE WITH MORNING MEAL Rx# [id number] Last Released: 12/18/24 Qty/Days Supply: 90 Rx Expiration Date: 02/28/25 Refills Remainin Indication: FOR DIABETES OUTPT PIOGLITAZONE HCL 30MG TAB (Status = Active) TAKE ONE TABLET BY MOUTH ONCE A DAY FOR DIABETES TAKE WITH MORNING MEAL Rx# [id number] Last Released: 03/12/25 Qty/Days Supply: 90/90 Rx Expiration Date: 03/11/26 Refills Remainin Indication: FOR DIABETES OUTPT POTASSIUM CL 20MEQ SA TAB (DISPERSIBLE) (Status = Active) TAKE ONE-HALF TABLET BY MOUTH EVERY OTHER DAY FOR POTASSIUM SUPPLEMENTATION TAKE WITH FOOD TAKE WITH LASIX Rx# [id number] Last Released: 11/26/24 Qty/Days Supply: Rx Expiration Date: 05/14/25 Refills Remainin Indication: FOR POTASSIUM SUPPLEMENTATION OUTPT SEMAGLUTIDE 1MG/0.75ML INJ PEN 3ML (Status = Active) INJECT 1MG UNDER THE SKIN EVERY WEEK FOR DIABETES Rx# [id number] Last Released: 11/27/24 Qty/Days Supply: Rx Expiration Date: 11/16/25 Refills Remainin Indication: FOR DIABETES OUTPT SIMVASTATIN 20MG TAB (Status = Discontinued) TAKE ONE-HALF TABLET BY MOUTH EVERY EVENING TO LOWER CHOLESTEROL (REPORT ANY MUSCLE PAIN OR WEAKNESS) THIS TABLET IS TO BE CUT IN HALF FOR YOUR DOSE Rx# [id number] Last Released: 08/28/24 Qty/Days Supply: Rx Expiration Date: 08/13/25 Refills Remainin OUTPT SIMVASTATIN 20MG TAB (Status = Active) TAKE ONE-HALF TABLET BY MOUTH EVERY EVENING TO LOWER CHOLESTEROL (REPORT ANY MUSCLE PAIN OR WEAKNESS) THIS TABLET IS TO BE CUT IN HALF FOR YOUR DOSE Rx# [id number] Last Released: 01/09/25 Qty/Days Supply: Rx Expiration Date: 01/07/26 Refills Remainin OUTPT SUCRALFATE 1GM TAB (Status = Active) TAKE ONE TABLET BY MOUTH FOUR TIMES A DAY FOR ACID REFLUX - TAKE ON AN EMPTY STOMACH. Rx# [id number] Last Released: 10/09/24 Qty/Days Supply: Rx Expiration Date: 07/31/25 Refills Remainin Indication: FOR ACID REFLUX OUTPT TAMSULOSIN HCL 0.4MG CAP (Status = Discontinued) TAKE TWO CAPSULES BY MOUTH EVERY EVENING FOR BENIGN PROSTATIC HYPERPLASIA APPROXIMATELY 30 MINUTES AFTER THE SAME MEAL EACH DAY (FOR PROSTATE) Rx# [id number] Last Released: 02/29/24 Qty/Days Supply: Rx Expiration Date: 02/28/25 Refills Remainin Indication: FOR BENIGN PROSTATIC HYPERPLASIA OUTPT TAMSULOSIN HCL 0.4MG CAP (Status = Active) TAKE TWO CAPSULES BY MOUTH EVERY EVENING FOR BENIGN PROSTATIC HYPERPLASIA APPROXIMATELY 30 MINUTES AFTER THE SAME MEAL EACH DAY (FOR PROSTATE) Rx# [id number] Last Released: 01/08/25 Qty/Days Supply: 180/90 Rx Expiration Date: 01/07/26 Refills Remainin Indication: FOR BENIGN PROSTATIC HYPERPLASIA OUTPT UREA 40% CREAM (Status = ) APPLY LIGHTLY TO AFFECTED AREA(S) TWICE DAILY TO PROMOTE HEALING. RUB IN UNTIL COMPLETELY ABSORBED. FOR TOPICAL USE ONLY. Rx# [id number] Last Released: 03/04/24 Qty/Days Supply: 210/90 Rx Expiration Date: 02/28/25 Refills Remainin SUPPLIES OUTPT ACCU-CHEK GUIDE (GLUCOSE) TEST STRIP (Status = Active) USE 1 STRIP FOR BLOOD TEST TWICE A DAY FOR BLOOD SUGAR MONITORING Rx# [id number] Last Released: 02/20/25 Qty/Days Supply: 100/50 Rx Expiration Date: 09/03/25 Refills Remainin Indication: FOR BLOOD SUGAR MONITORING OUTPT INSULIN SYRINGE 1ML 31G 6MM (Status = Active) USE SYRINGE UNDER THE SKIN TWICE A DAY FOR USE WITH INSULIN TO CONTROL BLOOD SUGAR. Rx# [id number] Last Released: 10/28/24 Qty/Days Supply: 200/90 Rx Expiration Date: 10/25/25 Refills Remainin OUTPT LANCET,SOFTCLIX (Status = Active) USE LANCET FOR BLOOD TEST TWICE A DAY TO MONITOR BLOOD SUGAR. USE DIRECTED. Rx# [id number] Last Released: 10/29/24 Qty/Days Supply: 200/90 Rx Expiration Date: 10/25/25 Refills Remainin PHARMACY TERMS AND POSSIBLE PATIENT ACTIONS INPT = [place] inpatient order IV = [place] intravenous medication OUTPT = [place] outpatient prescription PHARMACY POSSIBLE PATIENT TERMS EXPLANATION ACTIONS -------- ----- ACTIVE A prescription that can be If you have refills, filled at the local [place] pharmacy. you may request a refill of [...] more of this picked up at the [place] pharmacy medication. window. A prescription which is [...] [facility]. Or, it may be an [id number]-uzp-[id number] (OTC), herbal, dietary supplements or sample medication. [...] before this medication now. you run out. Medication list reviewed with Patient Patient/Caregiver reports taking medications as ordered. IS PATIENT TAKING ANY OVER THE COUNTER MEDICATIONS, SUCH VITAMINS OR HERBAL SUPPLEMENTS, INCLUDING ANY MEDICATIONS PRESCRIBED BY ANOTHER PHYSICIAN? No Does patient have any new allergies to report since last visit? NO VITALS: TEMPERATURE: 97.5 F [36.4 C] (03/13/2025 11:08) BP: 131/51 (03/13/2025 11:08) RESP: 20 (03/13/2025 11:08) PULSE: 66 (03/13/2025 11:08) HT: 68.0 in [172.7 cm] (03/03/2025 09:45) WT: 335.2 lb [152.04 kg] (03/13/2025 11:08) BMI: 51.1 PAIN ASSESSMENT: (Most Recent Pain Score in Vitals Package: 5 (03/03/2025 09:45) ) The patient indicated that they and [...] let us serve you. At the [facility], we strive to provide you with exceptional [...] Not At All SPIRITUAL ASSESSMENT: Are there oriental orthodox practices or spiritual concerns you want the accelerator operator, your physician, and other health care team members to immediately know about? No Patient advised to call the clinic for any concerns, questions, or symptoms. Patient and/or caregiver verbalized understanding of plan of care. Tobacco Use Screening - AT,DE,L,M,N,P,PH,PS,RT,S,U: The patient has never smoked cigarettes. The patient has never used other types of tobacco. Alcohol Use Screen (AUDIT-C) - V: Alcohol Screen: SCREEN FOR ALCOHOL (AUDIT-C) An alcohol screening test (AUDIT-C) was negative (score=0). 1. How often did you have a drink containing alcohol in the past year? Consider a drink to be a 12 ounce can or bottle of regular beer, 8 ounces of malt liquor, a 5 ounce glass of table wine, or a 1.5 ounce shot of liquor (like scotch, gin, or vodka). Never 2. How many drinks containing alcohol did you have on a typical day when you were drinking in the past year? Response not required due to responses to other questions. 3. How often did you have six or more drinks on one occasion in the past year? Response not required due to responses to other questions. Sexual Orientation - CP,L,N,P,PH,PS,S,U: The patient thinks of their sexual orientation as: Straight or Heterosexual Weight Control/Nutrition Counseling: * The patient received the following counseling at this encounter: Patient was encouraged to restrict fat, especially saturated fats, in a normal diet. Benefit of a diet high in fiber was discussed. Patient was advised to include 5 or more servings of fruit and vegetables and six or more servings of grains as a well balanced diet. Homelessness/Food Insecurity Screen - DI,L,N,P,PH,PS,S,U: In the past 2 months, have you been living in stable housing that you own, rent, or stay in as part of a household? Yes - Living in stable housing. Are you worried or concerned that in the next 2 months you may NOT have stable housing that you own, rent, or stay in as part of a household? No - Not worried about housing near future The reports the following: Within the past 12 months, you worried whether your food would run out before you got money to buy more. Never true Within the past 12 months, the food you bought just didn't last and you didn't have money to get more. Never true PAVE Foot Check - L,N,P,PH,PO,PT,U: Patient indicates foot exam (including monofilament test for sensation) was performed in the past year in the private sector: Date: December 14, 2024 Result: Normal /es/ Alysia Cantu RN [facility], [facility] Signed: 03/13/2025 11:32 ALYSIA CANTU [facility] March 13, 2025 11:13 AM PRIMARY CARE PROGR ESS NOTE: LOCAL TITLE: PRIMARY CARE CLINIC PROGRESS NOTE PB STANDARD TITLE: PRIMARY CARE PROGRESS NOTE DATE OF NOTE: MARCH 13, 2025@11:13 ENTRY DATE: MARCH 13, 2025@11:13:22 AUTHOR: REINALDO HOLTER: URGENCY: STATUS: COMPLETED PROVIDER ASSESSMENT DATE & TIME:March@11:13 CHIEF COMPLAINT: 6 month follow up on chronic illness. HISTORY OF PRESENT ILLNESS: Altagracia is being seen for 6 month follow up on chronic illness. had knee injections last week and states his knees are feeling better. [place] is having eye surgery next week. also see's podiatry next week. [place] states he continues to try and lose weight. has a bulge near his umbilicus that he is uncertain what it is. He has not ever had surgery in that area before. He does not have pain. He denies any home needs. 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 6) CLOBETASOL PROPIONATE 0.05% CREAM APPLY TO AFFECTED ACTIVE AREA(S) TWICE DAILY NEEDED ON LEGS. NO MORE THAN TWO WEEKS OF THE MONTH.DO NOT USE ON FACE,GROIN,OR SKIN FOLDS. 7) DILTIAZEM (EQV-TIAZAC) 240MG 24HR CAP TAKE ONE CAPSULE BY ACTIVE (S) MOUTH EVERY MORNING BEFORE A MEAL FOR HEART OR TO LOWER BLOOD PRESSURE 8) DOCUSATE NA 100MG CAP TAKE ONE CAPSULE BY MOUTH THREE TIMES ACTIVE A DAY HOLD FOR LOOSE STOOL/DIARRHEA. Indication: FOR SOFTENING STOOL 9) EMPAGLIFLOZIN 25MG TAB TAKE ONE TABLET BY MOUTH ONCE A DAY ACTIVE 10) FOLIC ACID 0.4MG TAB TAKE ONE TABLET BY MOUTH ONCE A DAY ACTIVE Indication: FOR FOLIC ACID SUPPLEMENTATION 11) FUROSEMIDE 20MG TAB TAKE ONE TABLET BY MOUTH EVERY MORNING ACTIVE (S) NEEDED Indication: FOR FLUID RETENTION (EDEMA) 12) GABAPENTIN 300MG CAP TAKE ONE CAPSULE BY MOUTH TWICE DAILY ACTIVE NEEDED Indication: FOR NERVE PAIN 13) INSULIN SYRINGE 1ML 31G 6MM USE SYRINGE UNDER THE SKIN TWICE ACTIVE A DAY FOR USE WITH INSULIN TO CONTROL BLOOD SUGAR. 14) INSULIN,ASPART,HUMAN 70/30 NOVOLOG INJ INJECT 21 UNITS UNDER ACTIVE THE SKIN EVERY EVENING (ADMINISTER DOSE WITHIN 5-10 MINUTES OF START OF A MEAL) Indication: FOR DIABETES 15) KETOCONAZOLE 2% CREAM APPLY TO AFFECTED AREA(S) ONCE A DAY ACTIVE FOR 28 DAYS MAY USE FOR RECURRENT FLARES. 16) KETOTIFEN 0.025% OPH SOLN INSTILL 1 DROP IN BOTH EYES TWICE ACTIVE DAILY NEEDED Indication: FOR EYE INFLAMMATION 17) LANCET,SOFTCLIX USE LANCET FOR BLOOD TEST TWICE A DAY TO ACTIVE MONITOR BLOOD SUGAR. USE DIRECTED. 18) LISINOPRIL 40MG TAB TAKE ONE-HALF TABLET BY MOUTH ONCE A DAY ACTIVE (S) FOR BLOOD PRESSURE THIS TABLET IS TO BE CUT IN HALF FOR YOUR DOSE Indication: FOR HIGH BLOOD PRESSURE 19) MICONAZOLE NITRATE 2% TOP PWDR APPLY TO AFFECTED AREA(S) ACTIVE ONCE A DAY NEEDED TO SKIN FOLDS. (EXTERNAL USE ONLY) 20) MULTIVIT/OPHTH AREDS2/LUTE/ZEAX CAP/TAB TAKE 1 CAP/TAB BY ACTIVE (S) MOUTH TWICE A DAY WITH MEAL(S) AVOID IF YOU HAVE PEANUT ALLERGY. Indication: FOR EYE HEALTH 21) NAPROXEN 500MG TAB TAKE ONE TABLET BY MOUTH TWICE A DAY ACTIVE TAKE WITH FOOD. Indication: FOR PAIN 22) NITROGLYCERIN 0.4MG SL TAB DISSOLVE ONE TABLET UNDER THE ACTIVE TONGUE ONE-TIME NEEDED ; IF NO IMPROVEMENT AFTER FIRST DOSE CALL . MAY TAKE 2 ADDITIONAL DOSES, 5 MINUTES APART. TAKE WHILE SITTING. Indication: FOR CHEST PAIN 23) PANTOPRAZOLE NA 40MG EC TAB TAKE ONE TABLET BY MOUTH TWICE A ACTIVE (S) DAY TAKE 30 MINUTES BEFORE MEAL(S) DO NOT TAKE WITH OMEPRAZOLE 24) PIOGLITAZONE HCL 30MG TAB TAKE ONE TABLET BY MOUTH ONCE A ACTIVE DAY TAKE WITH MORNING MEAL Indication: FOR DIABETES 25) POTASSIUM CL 20MEQ SA TAB (DISPERSIBLE) TAKE ONE-HALF TABLET ACTIVE BY MOUTH EVERY OTHER DAY TAKE WITH FOOD TAKE WITH LASIX Indication: FOR POTASSIUM SUPPLEMENTATION 26) SEMAGLUTIDE 1MG/0.75ML INJ PEN 3ML INJECT 1MG UNDER THE SKIN ACTIVE EVERY WEEK Indication: FOR DIABETES 27) SIMVASTATIN 20MG TAB TAKE ONE-HALF TABLET BY MOUTH EVERY ACTIVE EVENING TO LOWER CHOLESTEROL (REPORT ANY MUSCLE PAIN OR WEAKNESS) THIS TABLET IS TO BE CUT IN HALF FOR YOUR DOSE 28) SUCRALFATE 1GM TAB TAKE ONE TABLET BY MOUTH FOUR TIMES A DAY ACTIVE - TAKE ON AN EMPTY STOMACH. Indication: FOR ACID REFLUX 29) TAMSULOSIN HCL 0.4MG CAP TAKE TWO CAPSULES BY MOUTH EVERY ACTIVE EVENING APPROXIMATELY 30 MINUTES AFTER THE SAME MEAL EACH DAY (FOR PROSTATE) Indication: FOR BENIGN PROSTATIC HYPERPLASIA Active Non-VA Medications Status 1) Non-VA CLOTRIMAZOLE 1% TOP CREAM SPARINGLY TO AFFECTED ACTIVE AREA(S) TWICE A DAY 30 Total Medications REVIEW OF SYSTEMS: HEENT: No [...] nausea, vomiting, diarrhea, constipation, melena, or hematochezia. bulge in umbilical area. : No dysuria, hematuria, urinary frequency, weak stream, or post-void dribbling. MUSCULOSKELETAL:No muscle or joint pain. SKIN: No rash, lesions, or infection PSYCH: No Depression or Anxiety. Not suicidal. PHYSICAL ASSESSMENT: VITAL SIGNS Pulse: 66 (03/13/2025 11:08) Blood Pressure: 131/51 (03/13/2025 11:08) Respiratory Rate: 20 (03/13/2025 11:08) Temperature: 97.5 F [36.4 C] (03/13/2025 11:08) Weight: 335.2 lb [152.04 kg] (03/13/2025 11:08) Height: 68.0 in [172.7 cm] (03/03/2025 09:45) Pain: 5 (03/03/2025 09:45) HEENT:PERRL, EOMI, Fundi benign, TM's clear, Pharynx not red and without exudate, tonsils normal size. NECK: Supple, no lymhadenopathy, thyroid normal. CARDIAC: Regular rate and rhythm without murmur. No edema. RESPIRATORY: CTA, BEBS GI: Abdomen soft,with ABS, difficult to palpate related to habitus. approx 5cm bulge in umbilical area. MUSCULOSKELETAL:Chronic joint pain with no acute change. Wide based gait. FROM. SKIN: [place] without rash or lesions. NEUROLOGICAL: The is alert and oriented without distress. Affect appropriate. IMPRESSION: Diabetes Mellitus Type II-stable Hypertension-stable GERD-stable Obesity-current Osteoarthritis-current PLAN: Will order abdominal US for suspicion of umbilical hernia. Increase water intake. Continue current medications. Follow with specialists. Discussed diet and exercise. Labs today. RTC in 6 months or sooner if needed. Patient is advised this primary care clinic [...] appointments. Medications Reconciled. Time spent 30 minutes. Assess Statin Use - Lipids (CVD/DM) - N,P,PH: The patient declines to have the lipid lowering therapy changed at this time. /smith/ CR[facility] Signed: 03/13/2025 13:52 REINALDO HOLT
--- OUTSIDE RECORDS SUMMARY | 2025-03-18 09:01 | XMS_ITS | Encounter Summary ---
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 Name Role Phone REINALDO HOLT Primary Care [...] Mcgraw CATALYST RX PRESCRIPT ION ACTIV E [id number] May 13, 2012 [id number] [phone] Funmi COTTRELL PATIENT MEDICARE (WNR) MEDICARE (M) PART A Apr 13, 2016 PART A [id number] Funmi COTTRELL PATIENT MEDICARE (WNR) MEDICARE (M) PART A Apr 13, 2016 PART A [id number] Funmi COTTRELLL PATIENT MEDICARE (WNR) MEDICARE (M) PART A Apr 13, 2016 PART A [id number] Funmi COTTRELL PATIENT [facility] POINT OF SERVICE [place] [facility] May 13, 2008 [id number] Funmi COTTRELL PATIENT Selected Encounter This section includes the information on record at MD for the Encounter. Date/Time Encounter Type Encounter Description Reason Pro vider Source March 18, 2025 02:01 PM Outpatient Encounter ADMIN PAT ACTIVTIES (MASNONCT) IHE Encounter Template Text not used by MD Plan of Treatment: Future Appointments (+ 6 months) and Future Tests (+/- 45 days) The Plan of Treatment section includes future care activities for the patient from all MD treatmentfacilities. This section includes future appointments and future orders which are active, pending or scheduled. Future Appointments This section includes appointments that were scheduled to occur 6 months from the date of the Encounter, up to a maximum of 20 appointments. The data comes from all MD treatment facilities. Appointment Date/Time Appointment Type Appointme nt Facility Name March 19, 2025 12:00 PM AMBULATORY - MEDICINE [facility] March 19, 2025 12:01 PM AMBULATORY [place]IC[place] [facility] March 19, 2025 01:30 PM AMBULATORY - MEDICINE [facility] March 20, 2025 11:00 AM AMBULATORY - MEDIC[place] [facility] March 21, 2025 01:30 PM AMBULATORY - MEDICINE [facility] April 03, 2025 01:00 PM AMBULATORY - MEDICINE [facility] April 04, 2025 09:15 AM AMBULATORY - [place]IC[place] [facility] April 08, 2025 08:30 AM AMBULATORY - MEDICINE [facility] April 08, 2025 08:31 AM AMBULATORY - [place]IC[place] [facility] Apr 15, 2025 12:00 PM AMBULATORY - [place] [facility] Apr 15, 2025 12:01 PM [facility] [place] [facility] Apr 24, 2025 01:20 PM [facility] [facility] May 07, 2025 12:30 PM AMBULATORY - MEDICINE [facility] May 07, 2025 12:31 PM AMBULATORY - [place]IC[place] [facility] May 29, 2025 11:30 AM AMBULATORY - [place]IC[place] [facility] May 29, 2025 01:00 PM [facility] [place] [facility] Jun 04, 2025 10:30 AM AMBULATORY - MEDICINE [facility] Jun 04, 2025 10:31 AM AMBUL[facility]ORY [place]IC[place] [facility] Jun 18, 2025 01:45 PM AMBULATORY - [place]IC[place] [facility] Sep 15, 2025 11:00 AM AMBULATORY - MEDICINE [facility] Active, Pending, and Scheduled Orders This section includes a listing of several types of active, pending, and scheduled orders, including clinic medications orders, diagnostic test orders, procedure orders and consult orders; where the start date of the order is 45 days before the date of the Encounter or 45 days after the date of theEncounter. The data comes from all MD treatment facilities. Test Date/Time Test Type Test Details Facility Name Apr 27, 2025 01:59 PM Consult Order [facility] [id number] Cons Dry [employer] Fe[employer] [facility] Lab Results: +/- 30 days of the encounter This section includes the Chemistry and Hematology Lab Results on record with MD for the patient. Radiology Reports and Pathology Reports are provided separately, in subsequent sections. Lab Results This section contains the Chemistry/Hematology Results that were resulted 30 days before or 30 daysafter the date of the Encounter. Date/Time Source Result Type Result - Unit Interpretation Reference Range Specimen Type Comment March 13, 2025 11:28 AM [facility] HGA1C BLOOD Specimen Type: BLOOD No comment entered. Ordering Provider: REINALDO HOLT Report Released Date/Time: March 13, 2025 11:13 AM Reporting Lab: [place] [facility] [address] [place] [address] Performing Lab: [place] [facility] [address] [place] [address] HGA1C 7.1 H 4.0-6.0 March 13, 2025 11:28 AM [facility] CHOLESTEROL PANEL (PB) PLASMA Specimen Type: P LASMA No comment entered. Ordering Provider: REINALDO HOLT Report Released Date/Time: March 13, 2025 11:13 AM Reporting Lab: [place] [facility] [address] [place] [facility] Performing Lab: [place] [facility] [address] [place] [id number] CHOLESTEROL 135 mg/dL 0-200 TRIGLYCERIDE 124 mg/dL 0-150 CALCULATED LDL 75.0 mg/dL HDL(New) 35.2 mg/dL L >40 HDL % OF TOTAL CHOLESTEROL (PB) 26.1 >25 March 13, 2025 11:28 AM [facility] URINE ALBUMIN PROFILE-ih (PB) URINE Specimen Type: URINE No comment entered. Ordering Provider: REINALDO HOLT Report Released Date/Time: March 13, 2025 11:13 AM Reporting Lab: [place] [facility] [address] [place] [facility] Performing Lab: [place] [facility] [address] [place] [address] URINE ALBUMIN (PB-STL) 39.95 mg/L uACR (PB-MA) 64.52 mg/g H 0-30 CREATININE URINE/OTHERS 61.92 mg/dL March 13, 2025 11:28 AM [facility] URINALYSIS (STL-PB) URINE Specimen Type: URIN E Comment: Specific [place] may be elevated due to high Urine Glucose or high Urine Protein Ordering Provider: REINALDO HOLT Report Released Date/Time: March 13, 2025 11:13 AM Reporting Lab: [place] [facility] [address] [place] [id number] Performing Lab: [place] [facility] [address] [place] [address] URINE COLOR Light Yellow Yellow U.BILIRUBIN NEGATIVE [...] 1.028 1.005-1.029 March 13, 2025 11:28 AM [facility] COMPREHENSIVE METABOLIC PANEL PLASMA Specimen Type: PLASMA No comment entered. Ordering Provider: REINALDO HOLT Report Released Date/Time: March 13, 2025 11:13 AM Reporting Lab: [place] [facility] [address] [place] [address] Performing Lab: [place] [facility] [address] [place] [address] CREATININE 1.00 mg/dL 0.7-1.3 UREA NITROGEN 15 [...] 13 U/L 8-40 EGFR (CKD-EPI 2020) 80 Social History: Smoking Status (Most current) and Tobacco Use (All prior to encounter date) This section includes the most current, and the historical, smoking and tobacco- related health factors from the MD facility where the Encounter took place. Current Smoking Status This section includes the most current smoking, or tobacco-related health factor, from the MD facility where the Encounter took place. Date/Time Current Smoking Status Comment Andi syed March 13, 2025 11:00 AM VA-TOBACCO NEVER USED CIGARETTES [facility] Tobacco Use History This section includes a history of the smoking, or tobacco-related health factors, that were collected on or before the date of the Encounter. The data comes from the MD facility where the Encounter took place. Date/Time Smoking Status/Tobacco Use Comment Obdulio wing March 13, 2025 11:00 AM VA-TOBACCO NEVER USED OTHER TYPE [facility] Oct 02, 2023 09:30 AM VA-TOBACCO NEVER USED [facility] Apr 26, 2022 01:00 PM VA-TOBACCO FORMER USER [facility] Apr 26, 2022 01:00 PM VA-TOBACCO QUIT 5 TO < 15 YRS [facility] May 04, 2021 11:00 AM VA-TOBACCO NEVER USED [facility] Aug 16, 2019 02:05 PM VA-TOBACCO NEVER USED [facility] Jun 05, 2014 01:09 PM LIFETIME NON-USER OF TOBACCO [facility] Advance Directives: All historical and current Section Date Range: From patient's date of to the date document was created. This section includes ALL of a patient's completed or amended VA Advance and Rescinded Directives. The entries below indicate that a directive exists for the patient, but an actual copy is not included with this document. The data comes from all MD facilities. Date Advance Directives Provider Source Apr 24, 2015 RESCINDED ADVANCE DIRECTIVE PETE CROFT [facility] Radiology Reports: +/- 30 days [...] the Encounter. The data comes from all MD treatment facilities. Date/Time Radiology Report Provider Source April 04, 2025 08:59 AM US ABDOMEN, LIMITE D: FLASH COTTRELL [id number] -1950 M Exm Date: APRIL 04, 2025@08:59 Req Phys: REINALDO HOLT Loc: OUTSIDE PB-ULTRASOUND (Req'g L Img Loc: OUTSIDE PB-ULTRASOUND Service: Unknown (Case [id number] COMPLETE) US ABDOMEN, LIMITED (US Detailed) CPT:92326 Reason for Study: Exam imported from outside Clinical History: Original Data for Imported Study Patient Name: FLASH COTTRELL Date: 1950 Sex: M Study Date: 04/04/25 Study Time: 08:59:20 Study Description: US ABDOMEN LIMITED Referring Physician: HOLT, REINALDO RENESA Series 1: 9 US files Series 2: 1 SR file, description: Report Report Status: Electronically Filed Date Reported: APR 22, 2025 Report: No report text Impression: No impression text VERIFIED BY: / *ELECTRONICALLY FILED* [place] [facility] Mar 03, 2025 09:33 AM KNEE,LEFT 1 OR 2 V IEWS: FLASH COTTRELL [id number] -1950 M Exm Date: MAR 03, 2025@09:33 Req Phys: BERNARDOWILL Pat Loc: PB-BARB PACT ECHO PROCEDURE (Re Img Loc: PB-XRAY [place] Service: [place] [address] (Case [id number] COMPLETE) KNEE,LEFT 1 OR 2 VIEWS (RAD Detailed) CPT:75703 Proc Modifiers : LEFT Reason for Study: pain no injury Clinical History: Report Status: Verified Date Reported: MAR 03, 2025 Date Verified: MAR 03, 2025 Shot Lighter E-Sig: Report: 2 views of the left knee reveal mild degenerative skeletal change with no acute osseous or adjacent soft tissue abnormality. Vascular calcifications are noted. Impression: No acute process Primary Interpreting Staff: CAROL RAJAN, RADIOLOGIST (Shot Lighter, no e-sig) /CAROL Bello [facility] Mar 03, 2025 09:33 AM KNEE,RIGHT,1 OR 2 VIEWS: FLASH COTTRELL RULA [id number] -1950 M Exm Date: MAR 03, 2025@09:33 Req Phys: WILL CHANG Pat Loc: PB-BARB PACT ECHO PROCEDURE (Re Img Loc: PB-XRAY [place] Service: [place] [address] (Case [id number] COMPLETE) KNEE,RIGHT,1 OR 2 VIEWS (RAD Detailed) CPT:14391 Proc Modifiers : RIGHT Reason for Study: PAIN NO INJURY Clinical History: Report Status: Verified Date Reported: MAR 03, 2025 Date Verified: MAR 03, 2025 Shot Lighter E-Sig: Report: 2 views of the right knee reveal moderate to extensive degenerative skeletal change with osteophytosis and joint space narrowing. There is no appreciable acute osseous or adjacent soft tissue abnormality. Vascular calcifications are noted Impression: 1. DJD 2. No acute process Primary Interpreting Staff: CAROL RAJAN, RADIOLOGIST (Shot Lighter, no e-sig) /CAROL Bello [facility] Encounter Notes: All associated encounter notes This section contains the clinical notes associated to the Encounter. Date/Time Encounter Note(s) Provider Source March 18, 2025 02:01 PM GENERAL MEDICINE N OTE: LOCAL TITLE: General Note PB STANDARD TITLE: GENERAL MEDICINE NOTE DATE OF NOTE: MARCH 18, 2025@14:01 ENTRY DATE: MARCH 18, 2025@14:01:23 AUTHOR: DYLAN VELAZQUEZ EXP COSIGNER: URGENCY: STATUS: COMPLETED Attempted to confirm 03/19/25 Audiology appt, no answer /es/ DYLAN VELAZQUEZ Telehealth Clinical Marine Farmer Signed: 03/18/2025 14:01 DYLAN VELAZQUEZ OC
--- OUTSIDE RECORDS SUMMARY | 2025-03-19 07:01 | XMS_ITS | Encounter Summary ---
Author Name [facility] [place] [facility] [place] Address [address] [place] [address] Care Team Providers Care Gis Professor Name Role Phone MIRNA HOLTERINE Primary Care Provider Unavail able Insurance Providers: [...] Mcgraw CATALYST RX PRESCRIPT ION ACTIV E [id number] May 13, 2012 [id number] [phone] SIMBAFunmi SVENCyrus PATIENT MEDICARE (WNR) MEDICARE (M) PART A Apr 13, 2016 PART A [id number] COTTRELLFunmi SVENL PATIENT MEDICARE (WNR) MEDICARE (M) PART A Apr 13, 2016 PART A [id number] [phone] COTTRELLFunmi AUL PATIENT MEDICARE (WNR) MEDICARE (M) PART A Apr 13, 2016 PART A [id number] Funmi COTTRELL AUL PATIENT [facility] POINT OF SERVICE [place] Bridges [facility] May 13, 2008 [id number] Funmi COTTRELL AUCyrus PATIENT Selected Encounter This section includes the information on record at [place] for the Encounter. Date/Time Encounter Type Encounter Description Reason Provider Source March 19, 2025 12:01 PM HEARING AID CHECK BINAURAL AUDIOLOGY ICD-10-CM Z46.1 Encounter for fitting and adjustment of hearing aid RON NEGRO RA Dot [facility] Encounter Template Text not used by [place] Assessments - Encounter Diagnoses This section includes the primary and secondary diagnoses documented for the Encounter. Date/Time Primary/Secondary Diagnosis Diagnosis Name Provider Source March 19, 2025 12:55 PM PRIMARY Encounter for fitting and adjustment of hearing aid RON NEGRO RA Chris [facility] [facility] March 19, 2025 12:55 PM SECONDARY Sensorineural hearing loss, bilateral RON NEGRO RA Chris [facility] [facility] March 19, 2025 12:55 PM SECONDARY Tinnitus, bilateral RON NEGRO RA A [facility] [facility] [facility] Plan of Treatment: Future Appointments (+ 6 months) and Future Tests (+/- 45 days) The Plan of Treatment section includes future care activities for the patient from all [place] treatmentfacilities. This section includes future appointments and future orders which are active, pending or scheduled. Future Appointments This section includes appointments that were scheduled to occur 6 months from the date of the Encounter, up to a maximum of 20 appointments. The data comes from all [place] treatment facilities. Appointment Date/Time Appointment Type Appointme nt Facility Name March 20, 2025 11:00 AM [facility] [place] [facility] March 21, 2025 01:30 PM [facility]BULATORY - MEDICINE [facility] April 03, 2025 01:00 PM AMBULATORY - MEDICINE [facility] April 04, 2025 09:15 AM [facility] [place] [facility] April 08, 2025 08:30 AM [facility]ORY - MEDICINE [facility] April 08, 2025 08:31 AM [facility] [place] [facility] Apr 15, 2025 12:00 PM [facility] [place] [facility] Apr 15, 2025 12:01 PM [facility] [place] [facility] [facility] Apr 24, 2025 01:20 PM [facility] May 07, 2025 12:30 PM [facility] May 07, 2025 12:31 PM [facility] [place] [facility] May 29, 2025 11:30 AM [facility] [place] [facility] May 29, 2025 01:00 PM [facility] Jun 04, 2025 10:30 AM [facility] Jun 04, 2025 10:31 AM [facility] [place] [facility] Jun 18, 2025 01:45 PM [facility] - [facility] [place] [facility] Sep 15, 2025 11:00 AM [facility] Active, Pending, and Scheduled Orders This section includes a listing of several types of active, pending, and scheduled orders, including clinic medications orders, diagnostic test orders, procedure orders and consult orders; where the start date of the order is 45 days before the date of the Encounter or 45 days after the date of theEncounter. The data comes from all [place] treatment facilities. Test Date/Time Test Type Test Details Facility Name Apr 27, 2025 01:59 PM Consult Order [facility]IAT[facility] [id number] Cons Core Winding Operator's Choice [facility] Lab Results: +/- 30 days of the encounter This section includes the Chemistry and Hematology Lab Results on record with [place] for the patient. Radiology Reports and Pathology Reports are provided separately, in subsequent sections. Lab Results This section contains the Chemistry/Hematology Results that were resulted 30 days before or 30 daysafter the date of the Encounter. Date/Time Source Result Type Result - Unit Interpretation Reference Range Specimen Type Comment March 13, 2025 11:28 AM [facility] HGA1C BLOOD Specimen Type: BLOOD No comment entered. Ordering Provider: REINALDO HOLT Report Released Date/Time: March 13, 2025 11:13 AM Reporting Lab: [place] [facility] [address] [place] [address] Performing Lab: [place] [facility] [address] [place] [address] HGA1C 7.1 H 4.0-6.0 March 13, 2025 11:28 AM [facility] CHOLESTEROL PANEL (PB) PLASMA Specimen Type: P LASMA No comment entered. Ordering Provider: REINALDO HOLT Report Released Date/Time: March 13, 2025 11:13 AM Reporting Lab: [place] [facility] [address] [place] [address] Performing Lab: [place] [facility] [address] [place] [address] CHOLESTEROL 135 mg/dL 0-200 TRIGLYCERIDE 124 mg/dL 0-150 CALCULATED LDL 75.0 mg/dL HDL(New) 35.2 mg/dL L >40 HDL % OF TOTAL CHOLESTEROL (PB) 26.1 >25 March 13, 2025 11:28 AM [facility] URINE ALBUMIN PROFILE-ih (PB) URINE Specimen Type: URINE No comment entered. Ordering Provider: REINALDO HOLT Report Released Date/Time: March 13, 2025 11:13 AM Reporting Lab: [facility] [facility] [address] [place] [address] Performing Lab: [place] [facility] [address] [place] [address] URINE ALBUMIN (PB-STL) 39.95 mg/L uACR (PB-MA) 64.52 mg/g H 0-30 CREATININE URINE/OTHERS 61.92 mg/dL March 13, 2025 11:28 AM [facility] URINALYSIS (STL-PB) URINE Specimen Type: URIN E Comment: Specific [place] may be elevated due to high Urine Glucose or high Urine Protein Ordering Provider: REINALDO HOLT Report Released Date/Time: March 13, 2025 11:13 AM Reporting Lab: [place] [facility] [address] [place] [address] Performing Lab: [facility] [facility] [address] [place] [address] URINE COLOR Light Yellow Yellow U.BILIRUBIN NEGATIVE [...] 1.028 1.005-1.029 March 13, 2025 11:28 AM [facility] COMPREHENSIVE METABOLIC PANEL PLASMA Specimen Type: PLASMA No comment entered. Ordering Provider: REINALDO HOLT Report Released Date/Time: March 13, 2025 11:13 AM Reporting Lab: [facility] [address] [facility] [address] Performing Lab: [facility] [address] [facility] [address] CREATININE 1.00 mg/dL 0.7-1.3 UREA NITROGEN 15 [...] 13 U/L 8-40 EGFR (CKD-EPI 2020) 80 Advance Directives: All historical and current Section Date Range: From patient's date of to the date document was created. This section includes ALL of a patient's completed or amended [place] Advance and Rescinded Directives. The entries below indicate that a directive exists for the patient, but an actual copy is not included with this document. The data comes from all [place] facilities. Date Advance Directives Provider Source Apr 24, 2015 RESCINDED ADVANCE DIRECTIVE PETE CROFT [facility] Radiology Reports: +/- 30 days [...] the Encounter. The data comes from all [place] treatment facilities. Date/Time Radiology Report Provider Source April 04, 2025 08:59 AM US ABDOMEN, LIMITE D: FLASH COTTRELL [id number] -[id number] M Exm Date: APRIL 04, 2025@08:59 Req Phys: REINALDO HOLT Loc: OUTSIDE PB-ULTRASOUND (Req'g L Img Loc: OUTSIDE PB-ULTRASOUND Service: Unknown (Case [id number] COMPLETE) US ABDOMEN, LIMITED (US Detailed) CPT:25531 Reason for Study: Exam imported from outside [...] VERIFIED BY: / *ELECTRONICALLY FILED* [facility] Mar 03, 2025 09:33 AM KNEE,LEFT 1 OR 2 V IEWS: FLASH COTTRELL [id number] -[id number] M Exm Date: MAR 03, 2025@09:33 Req Phys: WILL CHANG Loc: PB-BARB PACT ECHO PROCEDURE (Re Img Loc: PB-XRAY [facility] Service: Unknown [place] [address] (Case [id number] COMPLETE) KNEE,LEFT 1 OR 2 VIEWS (RAD Detailed) CPT:00523 Proc Modifiers : LEFT Reason for Study: pain no injury Clinical History: Report Status: Verified Date Reported: MAR 03, 2025 Date Verified: MAR 03, 2025 Engineering Technologist E-Sig: Report: 2 views of the left knee reveal mild degenerative skeletal change with no acute osseous or adjacent soft tissue abnormality. Vascular calcifications are noted. Impression: No acute process Primary Interpreting Staff: CAROL RAJAN RADIOLOGIST (Engineering Technologist, no e-sig) /CAROL Bello [facility] Mar 03, 2025 09:33 AM KNEE,RIGHT,1 OR 2 VIEWS: FLASH COTTRELL [id number] -1950 M Exm Date: MAR 03, 2025@09:33 Req Phys: LILLIAN CHANGMY Kailey Loc: PB-BARB PACT ECHO PROCEDURE (Re Img Loc: PB-XRAY [facility] Service: [place] [address] (Case [id number] COMPLETE) KNEE,RIGHT,1 OR 2 VIEWS (RAD Detailed) CPT:62396 Proc Modifiers : RIGHT Reason for Study: PAIN NO INJURY Clinical History: Report Status: Verified Date Reported: MAR 03, 2025 Date Verified: MAR 03, 2025 Engineering Technologist E-Sig: Report: 2 views of the right knee reveal moderate to extensive degenerative skeletal change with osteophytosis and joint space narrowing. There is no appreciable acute osseous or adjacent soft tissue abnormality. Vascular calcifications are noted Impression: 1. DJD 2. No acute process Primary Interpreting Staff: CAROL RAJAN RADIOLOGIST (Engineering Technologist, no e-sig) /CAROL Bello [facility] Encounter Notes: All associated encounter notes This section contains the clinical notes associated to the Encounter. Date/Time Encounter Note(s) Provider Source March 19, 2025 12:37 PM AUDIOLOGY NOTE: LOCAL TITLE: HEARING CLINIC STANDARD TITLE: AUDIOLOGY NOTE DATE OF NOTE: MARCH 19, 2025@12:37 ENTRY DATE: MARCH 19, 2025@12:37:48 AUTHOR: FEDERICA NEGRO COSIGNER: URGENCY: STATUS: COMPLETED HEARING CLINIC Has ADDENDA Diagnosis: Sensorineural Hearing Loss, Bilateral and Tinnitus, Bilateral Treatment: Hearing Aid Check Time spent with Chama: 30 minutes Chama seen for a hearing aid check via Audio Telehealth and verbally consented to the Telehealth modality. Multi-factor personally identifiable information of the was obtained verbally (full name and date of ). accompanied by: none Patient site: [place] ____ HISTORY: Reason for Appointment: Patient is here today requesting to increased overall gain for 2022 hearing aids. He brought with 2021 right hearing aid for repair. HEARING DEVICES: 08/08/23 KAPIL NINOSKA AI ITC R R [id number] 08/08/23 KAPIL NINOSKA AI ITC R L [id number] - HEARCLEAR BACK UP HEARING DEVICES: 06/22/22 KAPIL EVOLV AI ITC R R [id number]* 06/22/22 KAPIL EVOLV AI ITC R L [id number]* OBJECTIVE/ASSESSMENT: Otoscopy was performed by collaboration of telehealth clinical fill technician and provider via telehealth technology/video otoscope which revealed: Right ear: minimal non-occluding cerumen Left ear: moderate partially occluding cerumen Both hearing aids were cleaned and a listening check performed by the TCT confirmed proper function. Connected hearing aids to software. Datalogging showed over 12 hours of daily use. Increased gain from experience level 3 to level 4. Increased overall gain an additional 2 clicks. Patient expressed satisfaction with changes. He feels hearing has declined and he is interested in an updated hearing test. Visual inspection of 2021 hearing aids confirmed case damage to right device. Ordered additional filters for Chama in [facility]. The was counseled/educated on services provided today and is in agreement with the plan. PLAN: 1. Mail 2021 right hearing aid for repair. Return direct through [facility]. 2. Annual hearing test scheduled through [facility]. /smith/ Rae Caputo [facility] Signed: 03/19/2025 13:14 03/19/2025 ADDENDUM STATUS: COMPLETED 2022 right/left hearing aids cleaned/check/programmed. 2021 right/left hearing aids checked. Right 2021 processed for repair. /smith/ Rae Caputo [facility] Signed: 03/19/2025 13:15 04/01/2025 ADDENDUM STATUS: COMPLETED Correction: 2022 right device was sent for repair. Alerted by [facility] that they received the device and are processing request. /Rae Mcfarlane [facility] Signed: 04/01/2025 11:24 FEDERICA NEGRO [facility]
--- OUTSIDE RECORDS SUMMARY | 2025-03-19 08:54 | XMS_ITS | Encounter Summary ---
Author Name [facility] [place] Address [address] [place] [address] Care Team Providers Care Consultant Education Name Role Phone YANET REINALDO Primary Care [...] Mcgraw CATALYST RX PRESCRIPT ION ACTIV E [id number] A25 May 13, 2012 [id number] Funmi COTTRELL PATIENT MEDICARE (WNR) MEDICARE (M) PART A Apr 13, 2016 PART A [id number] Funmi COTTRELL PATIENT MEDICARE (WNR) MEDICARE (M) PART A Apr 13, 2016 PART A [id number] Funmi COTTRELLL PATIENT MEDICARE (WNR) MEDICARE (M) PART A Apr 13, 2016 PART A [id number] Funmi COTTRELL AUL PATIENT [facility] [place] [place] Bridges [facility] May 13, 2008 [id number] Funmi COTTRELL PATIENT Selected Encounter This section includes the information on record at CT for the Encounter. Date/Time Encounter Type Encounter Description Reason Provider Source March 19, 2025 01:54 PM UNLISTED ORL SERVICE/PX AUDIOLOGY ICD-10-CM H93.13 Tinnitus, bilateral GRAVES,ALEXAND RA A IHE Encounter Template Text not used by CT Assessments - Encounter Diagnoses This section includes the primary and secondary diagnoses documented for the Encounter. Date/Time Primary/Secondary Diagnosis Diagnosis Name Provider Source March 19, 2025 03:08 PM PRIMARY Tinnitus, bilateral GRAVES,ALEXAND RA A [place] [facility] March 19, 2025 03:08 PM SECONDARY Sensorineural hearing loss, bilateral GRAVES,ALEXAND RA A [place] [facility] Plan of Treatment: Future Appointments (+ 6 months) and Future Tests (+/- 45 days) The Plan of Treatment section includes future care activities for the patient from all CT treatmentfacilities. This section includes future appointments and future orders which are active, pending or scheduled. Future Appointments This section includes appointments that were scheduled to occur 6 months from the date of the Encounter, up to a maximum of 20 appointments. The data comes from all CT treatment facilities. Appointment Date/Time Appointment Type Appointme nt Facility Name March 20, 2025 11:00 AM AMBULATORY - MEDICINE [place] [facility] March 21, 2025 01:30 PM AMBUL[facility]ORY - MEDICINE [facility] April 03, 2025 01:00 PM AMBULATORY - MEDICINE [facility] April 04, 2025 09:15 AM [facility]ULATORY - [place]ICINE [place] [facility] April 08, 2025 08:30 AM [facility] [place] [facility] April 08, 2025 08:31 AM AMBULATORY - MEDICINE [place] [facility] Apr 15, 2025 12:00 PM AMBULATORY - MEDICINE [place] [facility] Apr 15, 2025 12:01 PM [facility] [place] [facility] Apr 24, 2025 01:20 PM [facility] - MED[facility]INE [facility] May 07, 2025 12:30 PM [facility] [place] [facility] May 07, 2025 12:31 PM AMBULATORY - MEDICINE [place] [facility] May 29, 2025 11:30 AM AMBULATORY - MEDICINE [place] [facility] May 29, 2025 01:00 PM [facility] [place] [facility] Jun 04, 2025 10:30 AM [facility] - MED[facility]INE [facility] Jun 04, 2025 10:31 AM AMBULATORY - MEDICINE [place] [facility] Jun 18, 2025 01:45 PM AMBULATORY - MEDICINE [place] [facility] Sep 15, 2025 11:00 AM AMBULATORY - MEDICINE [facility] Active, Pending, and Scheduled Orders This section includes a listing of several types of active, pending, and scheduled orders, including clinic medications orders, diagnostic test orders, procedure orders and consult orders; where the start date of the order is 45 days before the date of the Encounter or 45 days after the date of theEncounter. The data comes from all CT treatment facilities. Test Date/Time Test Type Test Details Facility Name Apr 27, 2025 01:59 PM Consult Order [facility] [id number] Cons [place]ile [place] Operator's Choice [facility] Lab Results: +/- 30 days of the encounter This section includes the Chemistry and Hematology Lab Results on record with CT for the patient. Radiology Reports and Pathology Reports are provided separately, in subsequent sections. Lab Results This section contains the Chemistry/Hematology Results that were resulted 30 days before or 30 daysafter the date of the Encounter. Date/Time Source Result Type Result - Unit Interpretation Reference Range Specimen Type Comment March 13, 2025 11:28 AM [facility] HGA1C BLOOD Specimen Type: BLOOD No comment entered. Ordering Provider: REINALDO HOLT Report Released Date/Time: March 13, 2025 11:13 AM Reporting Lab: [place] [facility] [address] [place] [address] Performing Lab: [place] [facility] [address] [place] [address] HGA1C 7.1 H 4.0-6.0 March 13, 2025 11:28 AM [facility] URINE ALBUMIN PROFILE-ih (PB) URINE Specimen Type: URINE No comment entered. Ordering Provider: REINALDO HOLT Report Released Date/Time: March 13, 2025 11:13 AM Reporting Lab: [place] [facility] [address] [place] [facility] Performing Lab: [place] [facility] [address] [place] [address] URINE ALBUMIN (PB-STL) 39.95 mg/L uACR (PB-MA) 64.52 mg/g H 0-30 CREATININE URINE/OTHERS 61.92 mg/dL March 13, 2025 11:28 AM [facility] CHOLESTEROL PANEL (PB) PLASMA Specimen Type: P LASMA No comment entered. Ordering Provider: REINALDO HOLT Report Released Date/Time: March 13, 2025 11:13 AM Reporting Lab: [place] [facility] [address] [place] [address] Performing Lab: [place] [facility] [address] [place] [address] CHOLESTEROL 135 mg/dL 0-200 TRIGLYCERIDE 124 mg/dL 0-150 CALCULATED LDL 75.0 mg/dL HDL(New) 35.2 mg/dL L >40 HDL % OF TOTAL CHOLESTEROL (PB) 26.1 >25 March 13, 2025 11:28 AM [facility] URINALYSIS (STL-PB) URINE Specimen Type: URIN E Comment: Specific [place] may be elevated due to high Urine Glucose or high Urine Protein Ordering Provider: REINALDO HOLT Report Released Date/Time: March 13, 2025 11:13 AM Reporting Lab: [place] [facility] [address] [place] [facility] Performing Lab: [place] [facility] [address] [place] [address] URINE COLOR Light Yellow Yellow U.BILIRUBIN NEGATIVE [...] 1.028 1.005-1.029 March 13, 2025 11:28 AM [facility] COMPREHENSIVE METABOLIC PANEL PLASMA Specimen Type: PLASMA No comment entered. Ordering Provider: REINALDO HOLT Report Released Date/Time: March 13, 2025 11:13 AM Reporting Lab: [facility] [address] [facility] [address] Performing Lab: [facility] [address] [facility] [address] CREATININE 1.00 mg/dL 0.7-1.3 UREA NITROGEN 15 [...] ALL of a patient's completed or amended CT Advance and Rescinded Directives. The entries below indicate that a directive exists for the patient, but an actual copy is not included with this document. The data comes from all CT facilities. Date Advance Directives Provider Source Apr 24, 2015 RESCINDED ADVANCE DIRECTIVE PETE CROFT [facility] Radiology Reports: +/- 30 days of [...] the Encounter. The data comes from all CT treatment facilities. Date/Time Radiology Report Provider Source April 04, 2025 08:59 AM US ABDOMEN, LIMITE D: FLASH COTTRELL [id number] -1950 M Exm Date: APRIL 04, 2025@08:59 Req Phys: REINALDO HOLT Loc: OUTSIDE PB-ULTRASOUND (Req'g L Img Loc: OUTSIDE PB-ULTRASOUND Service: Unknown (Case [id number] COMPLETE) US ABDOMEN, LIMITED (US Detailed) CPT:25896 Reason for Study: Exam imported from outside [...] VERIFIED BY: / *ELECTRONICALLY FILED* [place] [facility] Mar 03, 2025 09:33 AM KNEE,LEFT 1 OR 2 V IEWS: FLASH COTTRELL [id number] -1950 M Exm Date: MAR 03, 2025@09:33 Req Phys: WILL CHANG Loc: PB-BARB PACT ECHO PROCEDURE (Re Img Loc: PB-XRAY [place] Service: Unknown [facility] [place] [address] (Case [id number] COMPLETE) KNEE,LEFT 1 OR 2 VIEWS (RAD Detailed) CPT:98638 Proc Modifiers : LEFT Reason for Study: pain no injury Clinical History: Report Status: Verified Date Reported: MAR 03, 2025 Date Verified: MAR 03, [address] E-Sig: Report: 2 views of the left knee reveal mild degenerative skeletal change with no acute osseous or adjacent soft tissue abnormality. Vascular calcifications are noted. Impression: No acute process Primary Interpreting Staff: CAROL RAJAN RADIOLOGIST (Senior Rd Engineer, no e-sig) /CAROL Bello [facility] Mar 03, 2025 09:33 AM KNEE,RIGHT,1 OR 2 VIEWS: FLASH COTTRELL [id number] -1950 M Exm Date: MAR 03, 2025@09:33 Req Phys: BERNARDO,TAMMY Pat Loc: PB-BARB PACT ECHO PROCEDURE (Re Img Loc: PB-XRAY [place] Service: [place] [address] (Case [id number] COMPLETE) KNEE,RIGHT,1 OR 2 VIEWS (RAD Detailed) CPT:50004 Proc Modifiers : RIGHT Reason for Study: PAIN NO INJURY Clinical History: Report Status: Verified Date Reported: MAR 03, 2025 Date Verified: MAR 03, [address] E-Sig: Report: 2 views of the right knee reveal moderate to extensive degenerative skeletal change with osteophytosis and joint space narrowing. There is no appreciable acute osseous or adjacent soft tissue abnormality. Vascular calcifications are noted Impression: 1. DJD 2. No acute process Primary Interpreting Staff: CAROL RAJAN RADIOLOGIST (Senior Rd Engineer, no e-sig) /CAROL Bello [facility] [place] [facility] Encounter Notes: All associated encounter notes This section contains the clinical notes associated to the Encounter. Date/Time Encounter Note(s) Provider Source March 19, 2025 01:54 PM AUDIOLOGY CONSULT: LOCAL TITLE: AUDIOLOGY CONSULTS STANDARD TITLE: AUDIOLOGY CONSULT DATE OF NOTE: MARCH 19, 2025@13:54 ENTRY DATE: MARCH 19, 2025@13:55:09 AUTHOR: FEDERICA NEGRO COSIGNER: URGENCY: STATUS: COMPLETED TELEAUDIOLOGY IMAGING REPORT Diagnosis: Hearing Loss, Bilateral and Tinnitus, Bilateral Treatment: Store and Forward Image Review Time spent readin minute __ OBJECTIVE FINDINGS: Otoscopy was performed by telehealth clinical scrub technician and via video otoscope which revealed: Right ear: minimal non-occluding cerumen Left ear: moderate partially occluding cerumen Audiometric testing did not save in system. _ PLAN: will be contact by telephone to develop a plan. Patient feels hearing has declined. /smith/ Rae Caputo [facility] Signed: 03/19/2025 15:10 FEDERICA NEGRO [facility]
--- OUTSIDE RECORDS SUMMARY | 2025-04-08 03:31 | XMS_ITS | Encounter Summary ---
Author Name [facility] [place] Organization [facility] [place] Address [address] [place] [address] Care Team Providers Care Industrial Electrical Engineer Name Role Phone YANET REINALDO Primary Care [...] Mcgraw CATALYST RX PRESCRIPT ION ACTIV E [id number] A25 May 13, 2012 [id number] Funmi COTTRELL PATIENT MEDICARE (WNR) MEDICARE (M) PART A Apr 13, 2016 PART A [id number] [id number] Funmi COTTRELLL PATIENT MEDICARE (WNR) MEDICARE (M) PART A Apr 13, 2016 PART A [id number] Funmi COTTRELLL PATIENT MEDICARE (WNR) MEDICARE (M) PART A Apr 13, 2016 PART A [id number] Funmi COTTRELL PATIENT [facility] POINT [place]ICE [place] Bridges [place] May 13, 2008 [id number] Funmi COTTRELL PATIENT Selected Encounter This section includes the information on record at CT for the Encounter. Date/Time Encounter Type Encounter Description Reason Provider Source April 08, 2025 08:31 AM SPECIAL SUPPLIES PHYS/QHP AUDIOLOGY ICD-10-CM H93.13 Tinnitus, bilateral GRAVES,ALEXAND RA A IHE Encounter Template Text not used by CT Assessments - Encounter Diagnoses This section includes the primary and secondary diagnoses documented for the Encounter. Date/Time Primary/Secondary Diagnosis Diagnosis Name Provider Source April 08, 2025 08:59 AM PRIMARY Tinnitus, bilateral GRAVES,ALEXAND RA A [place] [facility] April 08, 2025 08:59 AM SECONDARY Sensorineural hearing loss, bilateral GRAVES,ALEXAND RA A [place] [facility] Plan of Treatment: Future Appointments (+ [...] Date/Time Appointment Type Appointme nt Facility Name Apr 15, 2025 12:00 PM AMBULATORY - MEDICINE [place] [facility] Apr 15, 2025 12:01 PM AMBULATORY - MEDICINE [place] [facility] Apr 24, 2025 01:20 PM [facility]ORY - MEDIC[place] [facility] May 07, 2025 12:30 PM [facility]ORY - [place]IC[place] [facility] May 07, 2025 12:31 PM AMBULATORY - MEDICINE [place] [facility] May 29, 2025 11:30 AM AMBULATORY - MEDICINE [place] [facility] May 29, 2025 01:00 PM AMBULATORY - MEDICINE [place] [facility] Jun 04, 2025 10:30 AM AMBUL[facility]ORY - MEDICINE [place] [facility] Jun 04, 2025 10:31 AM AMBULATORY - MEDICINE [place] [facility] Jun 18, 2025 01:45 PM AMBULATORY - MEDICINE [place] [facility] Sep 15, 2025 11:00 AM AMBULATORY - MEDICINE [facility] Active, Pending, and Scheduled Orders This section [...] Apr 27, 2025 01:59 PM Consult Order [facility] [id number] Cons Supervisor [facility] May 06, 2025 12:52 PM Consult Order [facility] [id number] Supervisor [facility] Lab Results: +/- 30 days of [...] Type Comment March 13, 2025 11:28 AM [facility] HGA1C BLOOD Specimen Type: BLOOD No comment entered. Ordering Provider: REINALDO HOLT Report Released Date/Time: March 13, 2025 11:13 AM Reporting Lab: [place] [facility] [address] [place] [address] Performing Lab: [place] [facility] [address] [place] [address] HGA1C 7.1 H 4.0-6.0 March 13, 2025 11:28 AM [facility] URINE ALBUMIN PROFILE-ih (PB) URINE Specimen Type: URINE No comment entered. Ordering Provider: REINALDO HOLT Report Released Date/Time: March 13, 2025 11:13 AM Reporting Lab: [place] [facility] [address] [place] [address] Performing Lab: [place] [facility] [address] [place] [address] URINE ALBUMIN (PB-STL) 39.95 mg/L uACR (PB-MA) 64.52 mg/g H 0-30 CREATININE URINE/OTHERS 61.92 mg/dL March 13, 2025 11:28 AM [facility] CHOLESTEROL PANEL (PB) PLASMA Specimen Type: P [place] No comment entered. Ordering Provider: REINALDO HOLT Report Released Date/Time: March 13, 2025 11:13 AM Reporting Lab: [place] [facility] [address] [place] [address] Performing Lab: [place] [facility] [address] [facility] [place] [address] CHOLESTEROL 135 mg/dL 0-200 TRIGLYCERIDE 124 mg/dL 0-150 CALCULATED LDL 75.0 mg/dL HDL(New) 35.2 mg/dL L >40 HDL % OF TOTAL CHOLESTEROL (PB) 26.1 >25 March 13, 2025 11:28 AM [facility] URINALYSIS (STL-PB) URINE Specimen Type: URIN E Comment: Specific [place] may be elevated due to high Urine Glucose or high Urine Protein Ordering Provider: REINALDO HOLT Report Released Date/Time: March 13, 2025 11:13 AM Reporting Lab: [place] [facility] [address] [place] [address] Performing Lab: [place] [facility] [address] [place] [address] URINE COLOR Light Yellow Yellow U.BILIRUBIN NEGATIVE [...] 1.028 1.005-1.029 March 13, 2025 11:28 AM [facility] COMPREHENSIVE METABOLIC PANEL PLASMA Specimen Type: PLASMA No comment entered. Ordering Provider: REINALDO HOLT Report Released Date/Time: March 13, 2025 11:13 AM Reporting Lab: [place] [facility] [address] [facility] [place] [address] Performing Lab: [place] [facility] [address] [facility] [place] [address] CREATININE 1.00 mg/dL 0.7-1.3 UREA NITROGEN 15 [...] 24, 2015 RESCINDED ADVANCE DIRECTIVE PETE CROFT [facility] Radiology Reports: +/- 30 days of the [...] AM US ABDOMEN, LIMITE D: FLASH COTTRELL [id number] -1950 M Exm Date: APRIL 04, 2025@08:59 Req Phys: REINALDO HOLT Loc: OUTSIDE PB-ULTRASOUND (Req'g L Img Loc: OUTSIDE PB-ULTRASOUND Service: Unknown (Case [id number] COMPLETE) US ABDOMEN, LIMITED (US Detailed) CPT:44070 Reason for Study: Exam imported from outside [...] impression text VERIFIED BY: / *ELECTRONICALLY FILED* [place] [facility] Encounter Notes: All associated encounter notes This section contains the clinical notes associated to the Encounter. Date/Time Encounter Note(s) Provider Source April 08, 2025 07:29 AM AUDIOLOGY NOTE: LOCAL TITLE: HEARING CLINIC STANDARD TITLE: AUDIOLOGY NOTE DATE OF NOTE: APRIL 08, 2025@07:29 ENTRY DATE: APRIL 08, 2025@07:30:01 AUTHOR: FEDERICA NEGRO COSIGNER: URGENCY: STATUS: COMPLETED Diagnosis: Sensorineural Hearing Loss, Bilateral and Tinnitus, Bilateral Treatment: Hearing Evaluation Time spent with : 60 minutes * Patient arrived ~ 15 minutes late to visit seen for an audiogram via Audio Telehealth and verbally consented to the Telehealth modality. Multi-factor personally identifiable information of the was obtained verbally (full name and date of ). [place] accompanied by: none Patient site: [place] [facility] AUDIOLOGIC HISTORY: Patient seen today for an updated hearing evaluation. - Ear surgery: no - Aural Pain/Pressure/Drainage: no - Tinnitus: bilateral/intermittent - Noise Exposure: yes Patient continues to report difficulties with clarity when wearing hearing aids. CURRENT HEARING DEVICES: 08/08/23 [facility] NINOSKA AI ITC R R [id number] 08/08/23 [facility] NINOSKA AI ITC R L [id number] - HEARCLEAR BACK UP HEARING DEVICES: 06/22/22 KAPIL EVOLV AI ITC R R [id number]* 06/22/22 KAPIL EVOLV AI ITC R L [id number]* AUDIOMETRIC EXAM: Otoscopy was performed by collaboration of telehealth clinical instrumentation and controls technician and provider via telehealth technology/video otoscope which revealed: Right: unremarkable Left: unremarkable Immittance Testing: not performed due to time constraints Pure-Tone Air and Bone-Conduction Audiometric Testing revealed: Right: moderate to profound sensorineural hearing loss Left: mild to profound sensorineural hearing loss Speech Recognition Threshold testing yielded: Right: 80 dBHL Left: 70 dBHL Word Recognition testing yielded: Right: 16% @ 95 dBHL Left: 36% @ 95 dBHL Word scoring may be impacted by quality of audio through telehealth medium. Patient could not tolerate louder presentation level. Test Reliability: Good Telehealth clinical instrumentation and controls technician cleaned three hearing aids including replacement filters and removal of build-up from vents. A listening check revealed proper function. PROVIDER COMMENTS/RECOMMENDATIONS: Hearing test results were reviewed with patient. Hearing stable. Patient was counseled regarding realistic expectations for hearing aids, more specifically that hearing aids can make sounds louder but may not make speech more clear or understandable. Hearing conservation techniques were discussed and recommended. The following devices ordered: - STARLINK MINI REMOTE CUCA PLAN: 1) Return to clinic for issue of STARLINK MINI REMOTE CUCA 2) Recommend hearing evaluation annually or prn. [place] expressed understanding and is in agreement with the plan. * Patient is NOT a good candidate for AMTAS in the future due to failed past attempt. /smith/ Rae Caputo [facility] Signed: 04/08/2025 09:30 FEDERICA NEGRO [facility]
--- OUTSIDE RECORDS SUMMARY | 2025-04-10 09:43 | XMS_ITS | Encounter Summary ---
Author Name [facility] [place] Address [address] [place] [address] Care Team Providers Care Black Studies Professor Name Role Phone REINALDO HOLT Primary Care [...] Mcgraw CATALYST RX PRESCRIPT ION ACTIV E [id number] A25 May 13, 2012 [id number] Funmi COTTRELL PATIENT MEDICARE (WNR) MEDICARE (M) PART A Apr 13, 2016 PART A [id number] [phone] Funmi COTTRELL PATIENT MEDICARE (WNR) MEDICARE (M) PART A Apr 13, 2016 PART A [id number] Funmi COTTRELLL PATIENT MEDICARE (WNR) MEDICARE (M) PART A Apr 13, 2016 PART A [id number] Funmi COTTRELL PATIENT [facility] POINT OF SERVICE [place] Bridges [facility] May [birth year], 2006 [id number] Funmi COTTRELL PATIENT Selected Encounter This section includes the information on record at [place] for the Encounter. Date/Time Encounter Type Encounter Description Reason Pro vider Source April 10, 2025 02:43 PM Outpatient Encounter ADMIN PAT ACTIVTIES (MASNONCT) IHE Encounter Template Text not used by NM Plan of Treatment: Future Appointments (+ 6 months) and Future Tests (+/- 45 days) The Plan of Treatment section includes future care activities for the patient from all [place] treatmentfacilities. This section includes future appointments and future orders which are active, pending or scheduled. Future Appointments This section includes appointments that were scheduled to occur 6 months from the date of the Encounter, up to a maximum of 20 appointments. The data comes from all [place] treatment facilities. Appointment Date/Time Appointment Type Appointme nt Facility Name Apr 15, 2025 12:00 PM AMBULATORY [place] [facility] Apr 15, 2025 12:01 PM [facility] [place] [facility] Apr 24, 2025 01:20 PM [facility] [place] [facility] May 07, 2025 12:30 PM AMBULATORY - MEDICINE [facility] May 07, 2025 12:31 PM AM[facility]ORY - [place] [facility] May 29, 2025 11:30 AM AM[facility]ULATORY - [place] [facility] May 29, 2025 01:00 PM [facility] Jun 04, 2025 10:30 AM [facility] [place] [facility] Jun 04, 2025 10:31 AM AMBUL[facility]ORY [place] [facility] Jun 18, 2025 01:45 PM AMBULATORY - [place] [facility] Sep 15, 2025 11:00 AM AMBULATORY - MEDICINE [facility] Active, Pending, and Scheduled Orders This section includes a listing of several types of active, pending, and scheduled orders, including clinic medications orders, diagnostic test orders, procedure orders and consult orders; where the start date of the order is 45 days before the date of the Encounter or 45 days after the date of theEncounter. The data comes from all [place] treatment facilities. Test Date/Time Test Type Test Details Facility Name Apr 27, 2025 01:59 PM Consult Order [facility]-PODIATRY [id number] Cons Storage Worker's Choice [facility] May 06, 2025 12:52 PM Consult Order [facility] [id number] Cons Storage Worker's [facility] Lab Results: +/- 30 days of the encounter This section includes the Chemistry and Hematology Lab Results on record with [place] for the patient. Radiology Reports and Pathology Reports are provided separately, in subsequent sections. Lab Results This section contains the Chemistry/Hematology Results that were resulted 30 days before or 30 daysafter the date of the Encounter. Date/Time Source Result Type Result - Unit Interpretation Reference Range Specimen Type Comment March 13, 2025 11:28 AM [facility] HGA1C BLOOD Specimen Type: BLOOD No comment entered. Ordering Provider: REINALDO HOLT Report Released Date/Time: March 13, 2025 11:13 AM Reporting Lab: [place] [facility] [address] [place] [address] Performing Lab: [place] [facility] [address] [place] [address] HGA1C 7.1 H 4.0-6.0 March 13, 2025 11:28 AM [facility] CHOLESTEROL PANEL (PB) PLASMA Specimen Type: P LASMA No comment entered. Ordering Provider: REINALDO HOLT Report Released Date/Time: March 13, 2025 11:13 AM Reporting Lab: [place] [facility] [address] [place] [address] Performing Lab: [place] [facility] [address] [place] [address] CHOLESTEROL 135 mg/dL 0-200 TRIGLYCERIDE 124 mg/dL 0-150 CALCULATED LDL 75.0 mg/dL HDL(New) 35.2 mg/dL L >40 HDL % OF TOTAL CHOLESTEROL (PB) 26.1 >25 March 13, 2025 11:28 AM [facility] URINE ALBUMIN PROFILE-ih (PB) URINE Specimen Type: URINE No comment entered. Ordering Provider: REINALDO HOLT Report Released Date/Time: March 13, 2025 11:13 AM Reporting Lab: [place] [facility] [address] [place] [address] Performing Lab: [place] [facility] [address] [place] [address] URINE ALBUMIN (PB-STL) 39.95 mg/L uACR (PB-MA) 64.52 mg/g H 0-30 CREATININE URINE/OTHERS 61.92 mg/dL March 13, 2025 11:28 AM [facility] URINALYSIS (STL-PB) URINE Specimen Type: URIN E Comment: Specific [place] may be elevated due to high Urine Glucose or high Urine Protein Ordering Provider: REINALDO HOLT Report Released Date/Time: March 13, 2025 11:13 AM Reporting Lab: [place] [facility] [address] [place] [address] Performing Lab: [place] [facility] [address] [place] [address] URINE COLOR Light Yellow Yellow U.BILIRUBIN NEGATIVE [...] 1.028 1.005-1.029 March 13, 2025 11:28 AM [facility] COMPREHENSIVE METABOLIC PANEL PLASMA Specimen Type: PLASMA No comment entered. Ordering Provider: REINALDO HOLT Report Released Date/Time: March 13, 2025 11:13 AM Reporting Lab: [place] [facility] [address] [place] [address] Performing Lab: [place] [facility] [address] [place] [facility] CREATININE 1.00 mg/dL 0.7-1.3 UREA NITROGEN 15 [...] and tobacco- related health factors from the [place] facility where the Encounter took place. Current Smoking Status This section includes the most current smoking, or tobacco-related health factor, from the [place] facility where the Encounter took place. Date/Time Current Smoking Status Comment Andi syed March 13, 2025 11:00 AM VA-TOBACCO NEVER USED CIGARETTES [place] [facility] Tobacco Use History This section includes a history of the smoking, or tobacco-related health factors, that were collected on or before the date of the Encounter. The data comes from the [place] facility where the Encounter took place. Date/Time [...] 01:09 PM LIFETIME NON-USER OF TOBACCO [place] [facility] Advance Directives: All historical and current Section Date Range: From patient's date of to the date document was created. This section includes ALL of a patient's completed or amended VA Advance and Rescinded Directives. The entries below indicate that a directive exists for the patient, but an actual copy is not included with this document. The data comes from all [place] facilities. Date Advance Directives Provider Source Apr 24, 2015 RESCINDED ADVANCE DIRECTIVE PETE CROFT [facility] Radiology Reports: +/- 30 days of the [...] the Encounter. The data comes from all [place] treatment facilities. Date/Time Radiology Report Provider Source April 04, 2025 08:59 AM US ABDOMEN, LIMITE D: FLASH COTTRELL [id number] -1950 M Exm Date: APRIL 04, 2025@08:59 Req Phys: REINALDO HOLT Loc: OUTSIDE PB-ULTRASOUND (Req'g L Img Loc: OUTSIDE PB-ULTRASOUND Service: Unknown (Case [id number] COMPLETE) US ABDOMEN, LIMITED (US Detailed) CPT:02538 Reason for Study: Exam imported from outside [...] text VERIFIED BY: / *ELECTRONICALLY FILED* ALICE OSEGUERA [facility] Encounter Notes: All associated encounter notes This section contains the clinical notes associated to the Encounter. Date/Time Encounter Note(s) Provider Source April 10, 2025 02:43 PM GENERAL MEDICINE N OTE: LOCAL TITLE: General Note PB STANDARD TITLE: GENERAL MEDICINE NOTE DATE OF NOTE: APRIL 10, 2025@14:43 ENTRY DATE: APRIL 10, 2025@14:43:55 AUTHOR: REJI KAISER EXP COSIGNER: URGENCY: STATUS: COMPLETED Rec'd remote control and certified in [facility]. [place] has upcoming appt on 05/07/ [facility] VOGEL [place] [facility] Signed: 04/10/2025 14:44 REJI [facility]
--- OUTSIDE RECORDS SUMMARY | 2025-04-14 06:56 | XMS_ITS | Encounter Summary ---
Author Name [facility] [place] Address [address] [place] [address] Care Team Providers Care Flow Match Sofa Cutter Name Role Phone REINALDO HOLT Primary Care [...] Mcgraw CATALYST RX PRESCRIPT ION ACTIV E [id number] A25 May 13, 2012 [id number] [phone] Funmi COTTRELL PATIENT MEDICARE (WNR) MEDICARE (M) PART A Apr 13, 2016 PART A [id number] [phone] Funmi COTTRELL AUL PATIENT MEDICARE (WNR) MEDICARE (M) PART A Apr 13, 2016 PART A [id number] Funmi COTTRELL AUL PATIENT MEDICARE (WNR) MEDICARE (M) PART A Apr 13, 2016 PART A [id number] Funmi COTTRELL AUL PATIENT [facility] POINT OF SERVICE [place] Bridges [facility] May 13, 2006 [id number] Funmi COTTRELL AUCyrus PATIENT Selected Encounter This section includes the information on record at [place] for the Encounter. Date/Time Encounter Type Encounter Description Reason Pro vider Source Apr 14, 2025 11:56 AM Outpatient Encounter ADMIN PAT ACTIVTIES (MASNONCT) IHE Encounter Template Text not used by [place] Plan of Treatment: Future Appointments (+ 6 months) and Future Tests (+/- 45 days) The Plan of Treatment section includes future care activities for the patient from all [place] treatmentfacilities. This section includes future appointments and future orders which are active, pending or scheduled. Future Appointments This section includes appointments that were scheduled to occur 6 months from the date of the Encounter, up to a maximum of 20 appointments. The data comes from all [place] treatment facilities. Appointment Date/Time Appointment Type Appointme nt Facility Name Apr 15, 2025 12:00 PM AM[facility]UL[facility]ORY [place] [facility] Apr 15, 2025 12:01 PM [facility] [place] [facility] Apr 24, 2025 01:20 PM [facility] [place] [facility] May 07, 2025 12:30 PM AMBULATORY - MEDICINE [facility] May 07, 2025 12:31 PM AMBUL[facility]ORY [facility] [place] [facility] May 29, 2025 11:30 AM AM[facility] [place] [facility] May 29, 2025 01:00 PM [facility]ICINE [facility] Jun 04, 2025 10:30 AM [facility] [place] [facility] Jun 04, 2025 10:31 AM AM[facility] [place] [facility] Jun 18, 2025 01:45 PM AMBULATORY - [place]IC[place] [facility] Sep 15, 2025 11:00 AM AMBULATORY - MEDICINE [facility] Active, Pending, and Scheduled Orders This section includes a listing of several types of active, pending, and scheduled orders, including clinic medications orders, diagnostic test orders, procedure orders and consult orders; where the start date of the order is 45 days before the date of the Encounter or 45 days after the date of theEncounter. The data comes from all [place] treatment facilities. Test Date/Time Test Type Test Details Facility Name Apr 27, 2025 01:59 PM Consult Order [facility]ARE-PODIATRY [id number] Cons Account Development Representative's Choice [place] [facility] May 06, 2025 12:52 PM Consult Order [facility]-CHIROPRACTIC [id number] Cons Account Development Representative's Choice [place] [facility] May 29, 2025 12:49 PM Laboratory - Chemi stry Order POC UA (STL-PB-MA) URINE SP [place] [facility] Social History: Smoking Status (Most current) and Tobacco Use (All prior to encounter date) This section includes the most current, and the historical, smoking and tobacco- related health factors from the [facility] facility where the Encounter took place. Current Smoking Status This section includes the most current smoking, or tobacco-related health factor, from the [facility] facility where the Encounter took place. Date/Time Current Smoking Status Comment Facil ity March 13, 2025 11:00 AM VA-TOBACCO NEVER USED CIGARETTES [place] [facility] Tobacco Use History This section includes a history of the smoking, or tobacco-related health factors, that were collected on or before the date of the Encounter. The data comes from the [facility] facility where the Encounter took place. Date/Time [...] this document. The data comes from all [place] facilities. Date Advance Directives Provider Source Apr 24, 2015 RESCINDED ADVANCE DIRECTIVE PETE CROFT [facility] Radiology Reports: +/- 30 days [...] the Encounter. The data comes from all [place] treatment facilities. Date/Time Radiology Report Provider Source April 04, 2025 08:59 AM US ABDOMEN, LIMITE D: FLASH COTTRELL [id number] -1950 M Exm Date: APRIL 04, 2025@08:59 Req Phys: REINALDO HOLT Loc: OUTSIDE PB-ULTRASOUND (Req'g L Img Loc: OUTSIDE PB-ULTRASOUND Service: Unknown (Case [id number] COMPLETE) US ABDOMEN, LIMITED (US Detailed) CPT:71094 Reason for Study: Exam imported from outside [...] VERIFIED BY: / *ELECTRONICALLY FILED* ALICE OSEGUERA [facility] Encounter Notes: All associated encounter notes This section contains the clinical notes associated to the Encounter. Date/Time Encounter Note(s) Provider Source Apr 14, 2025 11:56 AM GENERAL MEDICINE N OTE: LOCAL TITLE: General Note PB STANDARD TITLE: GENERAL MEDICINE NOTE DATE OF NOTE: APR 14, 2025@11:56 ENTRY DATE: APR 14, 2025@11:56:33 AUTHOR: REJI KAISER EXP COSIGNER: URGENCY: STATUS: COMPLETED Confirmed audio appt for 04/15 with /es/ [facility] Signed: 04/14/2025 11:57 REJI [facility]ER [facility]
--- OUTSIDE RECORDS SUMMARY | 2025-04-15 07:00 | XMS_ITS | Encounter Summary ---
Author Name [facility] [place] Organization [place] Address [address] [place] [address] Care Team Providers Care Steward/Stewardess Dining Room Name Role Phone MIRNA HOLTERINE Primary Care [...] Mcgraw CATALYST RX PRESCRIPT ION ACTIV E [id number] A25 May 13, 2012 [id number] [phone] SIMBAFunmi SVENCyrus PATIENT MEDICARE (WNR) MEDICARE (M) PART A Apr 13, 2016 PART A [id number] COTTRELLFunmi SVENL PATIENT MEDICARE (WNR) MEDICARE (M) PART A Apr 13, 2016 PART A [id number] COTTRELLFunmi AUL PATIENT MEDICARE (WNR) MEDICARE (M) PART A Apr 13, 2016 PART A [id number] Funmi COTTRELL AUL PATIENT [facility] POINT OF SERVICE [place] Bridges [facility] May 13, 2006 [id number] Funmi COTTRELL AUCyrus PATIENT Selected Encounter This section includes the information on record at [place] for the Encounter. Date/Time Encounter Type Encounter Description Reason Provider Source Apr 15, 2025 12:00 PM HEARING AID CHECK BINAURAL AUDIOLOGY ICD-10-CM Z46.1 Encounter for fitting and adjustment of hearing aid RON NEGRO RA Dot E Encounter Template Text not used by [place] Assessments - Encounter Diagnoses This section includes the primary and secondary diagnoses documented for the Encounter. Date/Time Primary/Secondary Diagnosis Diagnosis Name Provider Source Apr 15, 2025 12:19 PM PRIMARY Encounter for fitting and adjustment of hearing aid RON NEGRO RA [place] [facility] Apr 15, 2025 12:19 PM SECONDARY Sensorineural hearing loss, bilateral RON NEGRO RA A [place] [facility] Apr 15, 2025 12:19 PM SECONDARY Tinnitus, bilateral RON NEGRO RA A [place] [facility] Plan of Treatment: Future Appointments (+ [...] Appointment Type Appointme nt Facility Name Apr 24, 2025 01:20 PM AMB[place]ORY [place] [facility] May 07, 2025 12:30 PM [facility] [place] [facility] May 07, 2025 12:31 PM AMBULATORY - MEDICINE [place] [facility] May 29, 2025 11:30 AM AMBULATORY - [place]IC[place] [facility] May 29, 2025 01:00 PM AMBULATORY - MEDICINE [place] [facility] Jun 04, 2025 10:30 AM AMBULATORY [place] [facility] Jun 04, 2025 10:31 AM AMBULATORY - [place]ICINE [place] [facility] Jun 18, 2025 01:45 PM AMBULATORY - [place]ICINE [place] [facility] Sep 15, 2025 11:00 AM AMBULATORY - MEDICINE [facility] Active, Pending, and Scheduled Orders This section includes a listing of several types of active, pending, and scheduled orders, including clinic medications orders, diagnostic test orders, procedure orders and consult orders; where the start date of the order is 45 days before the date of the Encounter or 45 days after the date of theEncounter. The data comes from all [facility]. Test Date/Time Test Type Test Details Facility Name Apr 27, 2025 01:59 PM Consult Order COMMUNITY CARE-PODIATRY [id number] Cons Mill [facility]er[facility] May 06, 2025 12:52 PM Consult Order [facility] CARE-CHIROPRACTIC [id number] Cons [employer] [facility] May 29, 2025 12:49 PM Laboratory - Chemi stry Order POC UA (STL-PB-MA) URINE SP [facility] Advance Directives: All historical and current Section Date Range: From patient's date of to the date document was created. This section includes ALL of a patient's completed or amended [place] Advance and Rescinded Directives. The entries below indicate that a directive exists for the patient, but an actual copy is not included with this document. The data comes from all [facility]. Date Advance Directives Provider Source Apr 24, [...] the Encounter. The data comes from all [facility] facilities. Date/Time Radiology Report Provider Source April 04, 2025 08:59 AM US ABDOMEN, LIMITE D: FLASH COTTRELL [id number] -1950 M Exm Date: APRIL 04, 2025@08:59 Req Phys: REINALDO HOLT Loc: OUTSIDE PB-ULTRASOUND (Req'g L Img Loc: OUTSIDE PB-ULTRASOUND Service: Unknown (Case [id number] COMPLETE) US ABDOMEN, LIMITED (US Detailed) CPT:61608 Reason for Study: Exam imported from outside [...] VERIFIED BY: / *ELECTRONICALLY FILED* ALICE OSEGUERA [facility] Encounter Notes: All associated encounter notes This section contains the clinical notes associated to the Encounter. Date/Time Encounter Note(s) Provider Source Apr 15, 2025 07:06 AM AUDIOLOGY NOTE: LOCAL TITLE: HEARING CLINIC STANDARD TITLE: AUDIOLOGY NOTE DATE OF NOTE: APR 15, 2025@07:06 ENTRY DATE: APR 15, 2025@07:06:54 AUTHOR: FEDERICA NEGRO COSIGNER: URGENCY: STATUS: COMPLETED Diagnosis: Sensorineural Hearing Loss, Bilateral and Tinnitus, Bilateral Treatment: Hearing Aid Check Time spent with [place]: 30 minutes seen for a hearing aid check via Audio Telehealth and verbally consented to the Telehealth modality. Multi-factor personally identifiable information of the was obtained verbally (full name and date of ). accompanied by: none Patient site: [place] ____ HISTORY: Reason for Appointment: Patient is here today for issue of new accessory. He notes 2022 hearing aids are not linked together since recent vendor repair. CURRENT HEARING DEVICES: 08/08/23 KAPIL NINOSKA AI ITC R R [id number] 08/08/23 KAPIL NINOSKA AI ITC R L [id number] - HEARCLEAR Accessories: STARLINK MINI REMOTE CUCA (activate by double tap) BACK UP HEARING DEVICES: 06/22/22 KAPIL EVOLV AI ITC R R [id number]* 06/22/22 KAPIL EVOLV AI ITC R L [id number]* OBJECTIVE/ASSESSMENT: Otoscopy was performed by collaboration of telehealth clinical senior laboratory technician and provider via telehealth technology/video otoscope which revealed: Right ear: unremarkable Left ear: unremarkable Visual inspection of all four hearing aids revealed no noticeable damage or defects. A listening check performed by the TCT confirmed proper function. Connected 2022 hearing aids to software. Updated firmware Loaded user settings from clinic database. Paired 2022 devices to remote cuca and educated on use. 2022 Settings - Program: Personal, Crowd, Outdoors, Autophone - Short Push: right/raise, left/lower - Long Push: Sleep Mode - Tap: Accessory start/stop The was counseled/educated on services provided today and is in agreement with the plan. PLAN: Follow up as needed or scheduled. /smith/ Rae Caputo [facility] Signed: 04/15/2025 12:39 FEDERICA NEGRO [facility]
--- OUTSIDE RECORDS SUMMARY | 2025-04-24 08:20 | XMS_ITS | Encounter Summary ---
Author Name [facility] [place] [facility] [place] Address [address] [place] [address] Care Team Providers Care Sheep Herder Name Role Phone REINALDO HOLT Primary Care [...] Mcgraw CATALYST RX PRESCRIPT ION ACTIV E [id number] [id number] May 13, [id number] [phone] Funmi COTTRELL PATIENT MEDICARE (WNR) MEDICARE (M) PART A Apr 13, 2016 PART A [id number] COTTRELLFunmi SVENCyrus PATIENT MEDICARE (WNR) MEDICARE (M) PART A Apr 13, 2016 PART A [id number] COTTRELLFunmi PATIENT MEDICARE (WNR) MEDICARE (M) PART A Apr 13, 2016 PART A [id number] Funmi COTTRELL PATIENT [facility] POINT OF SERVICE [place] Bridges [facility] May [birth year], 2008 [id number] Funmi COTTRELL PATIENT Selected Encounter This section includes the information on record at [place] for the Encounter. Date/Time Encounter Type Encounter Description Reason Provider Source Apr 24, 2025 01:20 PM CHIROPRACT MANJ 1-2 [facility] INSURANCE HEARING OFFICER ICD-10-CM M99.01 Segmental and somatic dysfunction of cervical region BECCA JARAMILLO Encounter Template Text not used by [place] Assessments - Encounter Diagnoses This section includes the primary and secondary diagnoses documented for the Encounter. Date/Time Primary/Secondary Diagnosis Diagnosis Name Provider Source Apr 24, 2025 01:49 PM PRIMARY Segmental and somatic dysfunction of cervical region BECCA JARAMILLO [facility] Apr 24, 2025 01:49 PM SECONDARY Cervicalgia BECCA JARAMILLO [facility] Apr 24, 2025 01:49 PM SECONDARY Pain in thoracic spine BECCA JARAMILLO [place] [facility] Apr 24, 2025 01:49 PM SECONDARY Segmental and somatic dysfunction of thoracic region ELLABECCA [place] [facility] Plan of Treatment: Future Appointments (+ 6 months) and Future Tests (+/- 45 days) The Plan of Treatment section includes future care activities for the patient from all [place] treatmentfacilities. This section includes future appointments and future orders which are active, pending or scheduled. Future Appointments This section includes appointments that were scheduled to occur 6 months from the date of the Encounter, up to a maximum of 20 appointments. The data comes from all [place] treatment facilities. Appointment Date/Time Appointment Type Appointme nt Facility Name May 07, 2025 12:30 PM AMBULATORY - MEDICINE [facility] [place] [facility] May 07, 2025 12:31 PM [place]UL[place] [facility] May 29, 2025 11:30 AM [place] [facility] May 29, 2025 01:00 PM [place] [facility] Jun 04, 2025 10:30 AM AMBULATORY - MEDICINE [facility] [place] [facility] Jun 04, 2025 10:31 AM [place] [facility] Jun 18, 2025 01:45 PM [facility] - [facility] [place] [facility] [facility] Sep 15, 2025 11:00 AM AMBULATORY - MEDICINE [facility] Active, Pending, and Scheduled Orders This section includes a listing of several types of active, pending, and scheduled orders, including clinic medications orders, diagnostic test orders, procedure orders and consult orders; where the start date of the order is 45 days before the date of the Encounter or 45 days after the date of theEncounter. The data comes from all [place] treatment facilities. Test Date/Time Test Type Test Details Facility Name Apr 27, 2025 01:59 PM Consult Order COMMUNITY CARE-PODIATRY [id number] Cons Cellar Worker's Choice [facility] May 06, 2025 12:52 PM Consult Order COMMUNITY CARE-CHIROPRACTIC [id number] Cons Cellar Worker's [facility] May 29, 2025 12:49 PM Laboratory - Chemi stry Order POC UA (STL-PB-MA) URINE SP [facility] Social History: Smoking Status (Most current) and Tobacco Use (All prior to encounter date) This section includes the most current, and the historical, smoking and tobacco- related health factors from the [place] facility where the Encounter took place. Current Smoking Status This section includes the most current smoking, or tobacco-related health factor, from the [place] facility where the Encounter took place. Date/Time Current Smoking Status Comment Andi ity March 13, 2025 11:00 AM VA-TOBACCO NEVER USED CIGARETTES [facility] Tobacco Use History This section includes a history of the smoking, or tobacco-related health factors, that were collected on or before the date of the Encounter. The data comes from the [place] facility where the Encounter took place. Date/Time Smoking Status/Tobacco Use Comment F acility March 13, 2025 11:00 AM VA-TOBACCO NEVER USED OTHER TYPE [facility] Oct 02, 2023 09:30 AM VA-TOBACCO NEVER USED [facility] Apr 26, 2022 01:00 PM VA-TOBACCO FORMER USER [facility] Apr 26, 2022 01:00 PM VA-TOBACCO QUIT 5 TO < 15 YRS [facility] [place] [facility] May 04, 2021 11:00 AM VA-TOBACCO NEVER USED [facility] Aug 16, 2019 02:05 PM VA-TOBACCO NEVER USED [facility] Jun 05, 2014 01:09 PM LIFETIME NON-USER OF TOBACCO [facility] Advance Directives: All historical and current Section Date Range: From patient's date of to the date document was created. This section includes ALL of a patient's completed or amended [place] Advance and Rescinded Directives. The entries below indicate that a directive exists for the patient, but an actual copy is not included with this document. The data comes from all [place] facilities. Date Advance Directives Provider Source Apr 24, 2015 RESCINDED ADVANCE DIRECTIVE PETE CROFT [facility] Radiology Reports: +/- 30 days of [...] the Encounter. The data comes from all [place] treatment facilities. Date/Time Radiology Report Provider Source April 04, 2025 08:59 AM US ABDOMEN, LIMITE D: FLASH COTTRELL [id number] -1950 M Exm Date: APRIL 04, 2025@08:59 Req Phys: REINALDO HOLT Loc: OUTSIDE PB-ULTRASOUND (Req'g L Img Loc: OUTSIDE PB-ULTRASOUND Service: Unknown (Case [id number] COMPLETE) US ABDOMEN, LIMITED (US Detailed) CPT:26757 Reason for Study: Exam imported from outside [...] impression text VERIFIED BY: / *ELECTRONICALLY FILED* RAMONEALESSIO [place] OSEGUERA [facility] Encounter Notes: All associated encounter notes This section contains the clinical notes associated to the Encounter. Date/Time Encounter Note(s) Provider Source Apr 24, 2025 01:20 PM CHIROPRACTIC NOTE: LOCAL TITLE: CHIROPRACTIC FOLLOW UP NOTE PB STANDARD TITLE: CHIROPRACTIC NOTE DATE OF NOTE: APR 24, 2025@13:20 ENTRY DATE: APR 24, 2025@13:20:27 AUTHOR: BECCA JARAMILLO COSIGNER: URGENCY: STATUS: COMPLETED CHIROPRACTIC FOLLOW-UP VISIT Patient's language preference for health information: Bangladeshi Other Communication Methods Needed: SUBJECTIVE: The [place] is a 74 year old MALE being seen in the Chiropractic clinic for follow-up visit. The [place] states his neck has been painful for the past 2-3 weeks. He states he is uncertain of any aggravating event. He describes the pain as a mix of achy and sharp on the right side of his neck. He finds some relief with heat and pain roll-on. Today, the rates his pain level as a 5/10. PAST MEDICAL HISTORY: see problem list SOCIO-ECONOMIC HISTORY: Tobacco: No Prior Tobacco Use Status Available Alcohol: ____ ALLERGIES/ADVERSE REACTIONS: Patient has answered NKA OBJECTIVE: CERVICAL SPINE: MOVEMENT/POSTURE: Upon inspection, observation is unremarkable. PALPATION: Tightness and tenderness to palpation was present in the cervical spine at C2 and C5. SEGMENTAL DYFUNCTION: Joint dysfunctions present upon evaluation C spine: C2 and C5. RANGE OF MOTION: AROM of the cervical spine was slightly restricted in all planes of motion. The [place] experience pain with the restricted AROM. THORACIC SPINE: MOVEMENT/POSTURE: The ambulates slowly and using a cane. SEGMENTAL DYSFUNCTION: Joint dysfunction was noted in the T spine: T2 and T8. PALPATION: The following vertebral spinous processes were tender to palpation: T2 and T8. RANGE OF MOTION: AROM of the thoracic spine was slightly restricted and painful in all planes of motion. REVIEW OF DIAGNOSTIC IMAGING: No data available ASSESSMENT: Cervical spine and thoracic spine joint dysfunction with associated myofascial pain. PLAN: This is -driven appointment. The is instructed to coordinate additional chiropractic treatment through his PCP. Prognosis: Good Today's treatment of the consisted of chiropractic spinal adjustment of the cervical spine (prone) and thoracic spine (prone) using Arthrostim. The treatment was well tolerated by the . Today's treatment of the consisted of chiropractic spinal adjustment of the cervical spine (supine), thoracic spine (prone), lumbar spine (side posture), and the pelvis (side posture) using diversified technique. The procedure was well tolerated by the . GOALS: The goals of treatment include: 1) The reduction of symptomatology. 2) Instructing the in home exercises to improve cervical flexibility and strength, core strength, and lower extremity and core flexibility. /smith/ [facility] Signed: 04/24/2025 13:49 BECCA JARAMILLO
--- OUTSIDE RECORDS SUMMARY | 2025-05-06 05:48 | XMS_ITS | Encounter Summary ---
Author Name [facility] [place] [facility] [place] [facility] [place] Address [address] [place] [address] Care Team Providers Care Network Systems Analyst Name Role Phone REINALDO HOLT Primary [...] Mcgraw CATALYST RX PRESCRIPT ION ACTIV E [id number] [id number] May 13, [id number] [id number] Funmi COTTRELL PATIENT MEDICARE (WNR) MEDICARE (M) PART A Apr 13, 2016 PART A [id number] Funmi COTTRELL PATIENT MEDICARE (WNR) MEDICARE (M) PART A Apr 13, 2016 PART A [id number] Funmi COTTRELLL PATIENT MEDICARE (WNR) MEDICARE (M) PART A Apr 13, 2016 PART A [id number] Funmi COTTRELL PATIENT [facility] POINT OF SERVICE [place] Bridges BOARD May [birth year], 2006 [id number] Funmi COTTRELL PATIENT Selected Encounter This section includes the information on record at [place] for the Encounter. Date/Time Encounter Type Encounter Description Reason Pro vider Source May 06, 2025 10:48 AM Outpatient Encounter ADMIN PAT ACTIVTIES (MASNONCT) IHE Encounter Template Text not used by [place] Plan of Treatment: Future Appointments (+ 6 months) and Future Tests (+/- 45 days) The Plan of Treatment section includes future care activities for the patient from all [place] treatmentfacilities. This section includes future appointments and future orders which are active, pending or scheduled. Future Appointments This section includes appointments that were scheduled to occur 6 months from the date of the Encounter, up to a maximum of 20 appointments. The data comes from all [facility]. Appointment Date/Time Appointment Type Appointme nt Facility Name May 07, 2025 12:30 PM AMBULATORY - MEDICINE [facility] May 07, 2025 12:31 PM [facility]ORY - [place]IC[place] [facility] May 29, 2025 11:30 AM AMBULATORY - MEDIC[place] [facility] May 29, 2025 01:00 PM AMBULATORY - MEDICINE [facility] Jun 04, 2025 10:30 AM AMBULATORY - MEDICINE [facility] Jun 04, 2025 10:31 AM AMBULATORY - MEDIC[place] [facility] Jun 18, 2025 01:45 PM AMBULATORY - MEDICINE [place] [facility] Sep 15, 2025 11:00 AM AMBULATORY - MEDICINE [facility] Active, Pending, and Scheduled Orders This section includes a listing of several types of active, pending, and scheduled orders, including clinic medications orders, diagnostic test orders, procedure orders and consult orders; where the start date of the order is 45 days before the date of the Encounter or 45 days after the date of theEncounter. The data comes from all [facility]. Test Date/Time Test Type Test Details Facility Name Apr 27, 2025 01:59 PM Consult Order COMMUNITY CARE-PODIATRY [id number] Cons Floor Layer Apprentice's Choice [facility] May 06, 2025 12:52 PM Consult Order COMMUNITY CARE-CHIROPRACTIC [id number] Cons Floor Layer Apprentice's Choice [facility] May 29, 2025 12:49 PM Laboratory - Chemi stry Order POC UA (STL-PB-MA) URINE SP [facility] Lab Results: +/- 30 days of the encounter This section includes the Chemistry and Hematology Lab Results on record with [place] for the patient. Radiology Reports and Pathology Reports are provided separately, in subsequent sections. Lab Results This section contains the Chemistry/Hematology Results that were resulted 30 days before or 30 daysafter the date of the Encounter. Date/Time Source Result Type Result - Unit Interpretation Reference Range Specimen Type Comment May 29, 2025 12:56 PM [facility] POC UA (STL-PB-MA) URINE Specimen Type: URINE No comment entered. Ordering Provider: REINALDO HOLT Report Released Date/Time: May 29, 2025 01:03 PM Reporting Lab: [facility] [address] [facility] [id number] Performing Lab: [facility] [address] [facility] [id number] PROTEIN POC UA 30 mg/dL Negative BLOOD POC UA Large Negative LEUKOCYTES POC UA Negative Negative COLOR POC UA Red YELLOW SPEC GRAV POC UA 1.010 1.005-1.030 UROBILINOGEN POC UA 0.2 {Leonela'U}/dL 0 .1-1.0 BILIRUBIN POC UA Negative Negative KETONES POC UA Negative mg/dL Negative GLUCOSE POC UA >=1000 mg/dL Negative pH POC UA 5.0 5.0-8.0 NITRITE POC UA Negative Negative CLARITY POC UA Cloudy CLEAR Social History: Smoking Status (Most current) and Tobacco Use (All prior to encounter date) This section includes the most current, and the historical, smoking and tobacco- related health factors from the [place] facility where the Encounter took place. Current Smoking Status This section includes the most current smoking, or tobacco-related health factor, from the [place] facility where the Encounter took place. Date/Time Current Smoking Status Comment Facil ity March 13, 2025 11:00 AM VA-TOBACCO NEVER USED CIGARETTES [facility] Tobacco Use History This section includes a history of the smoking, or tobacco-related health factors, that were collected on or before the date of the Encounter. The data comes from the [place] facility where the Encounter took place. Date/Time Smoking Status/Tobacco Use Comment F acility March 13, 2025 11:00 AM VA-TOBACCO NEVER USED OTHER TYPE [facility] [place] [facility] Oct 02, 2023 09:30 AM VA-TOBACCO NEVER USED [facility] Apr 26, 2022 01:00 PM VA-TOBACCO FORMER USER [facility] Apr 26, 2022 01:00 PM VA-TOBACCO QUIT 5 TO < 15 YRS [place] [facility] May 04, 2021 11:00 AM VA-TOBACCO NEVER USED [facility] Aug 16, 2019 02:05 PM VA-TOBACCO NEVER USED [facility] Jun 05, 2014 01:09 PM LIFETIME NON-USER OF TOBACCO [place] [facility] Advance Directives: All historical and current Section Date Range: From patient's date of to the date document was created. This section includes ALL of a patient's completed or amended [place] Advance and Rescinded Directives. The entries below indicate that a directive exists for the patient, but an actual copy is not included with this document. The data comes from all [place] facilities. Date Advance Directives Provider Source Apr 24, 2015 RESCINDED ADVANCE DIRECTIVE PETE CROFT [facility] Radiology Reports: +/- 30 days of [...] the Encounter. The data comes from all [place] treatment facilities. Date/Time Radiology Report Provider Source May 29, 2025 01:09 PM ABDOMEN X-RAY,1 EW: FLASH COTTRELL [id number] -1950 M Exm Date: MAY 29, 2025@13:09 Req Phys: REINALDO HOLT Loc: PB-BARB PACT MAGDALENO NAVARRETE (Req'g Img Loc: PB-XRAY [place] Service: [place] [address] (Case [id number] COMPLETE) ABDOMEN X-RAY,1 VIEW (RAD Detailed) CPT:62190 Reason for Study: hematuria Clinical History: suspect kidney stones Report Status: Verified Date Reported: MAY 29, 2025 Date Verified: MAY 29, 2025 Manufacturing Leader E-Sig: Report: Abdomen one view HISTORY: Hematuria suspected kidney stones DATE: 05/29/2025 FINDINGS: Nonspecific bowel gas pattern with a few mildly air-filled loops of small bowel. Bowel gas throughout most the colon. Fecal debris throughout most the colon. Bowel gas and fecal debris obscures some detail of the kidneys. No definite renal calcification. Calcification right upper quadrant most likely representing cholelithiasis. No organomegaly. Degenerative bony spine, sacroiliac joints and hip joints. Plaque in the iliac arteries. Small calcification right side the pelvis 6 probably representing phlebolith. Ureteral stone less likely cannot definitely be ruled out. Impression: 1. Nonspecific bowel gas pattern with a few loops of mildly air-filled loops of small bowel with bowel gas throughout most the colon 2. Fecal debris throughout most the colon 3. Calcification right upper quadrant most likely representing cholelithiasis 4. Small calcification right side the pelvis probably a phlebolith. Ureteral stone less likely cannot definitely be ruled out Primary Interpreting Staff: LILIYA FLORES, RADIOLOGIST (Manufacturing Leader, no e-sig) /LILIYA Crow [facility] Encounter Notes: All associated encounter notes This section contains the clinical notes associated to the Encounter. Date/Time Encounter Note(s) Provider Source May 06, 2025 10:48 AM GENERAL MEDICINE N OTE: LOCAL TITLE: General Note PB STANDARD TITLE: GENERAL MEDICINE NOTE DATE OF NOTE: MAY 06, 2025@10:48 ENTRY DATE: MAY 06, 2025@10:48:38 AUTHOR: DYLAN VELAZQUEZ EXP COSIGNER: URGENCY: STATUS: COMPLETED Attempted to confirm 05/07/25 Audio appt, no answer /es/ DYLAN VELAZQUEZ Telehealth Clinical Store Clerk Cashier Signed: 05/06/2025 10:49 DYLAN VELAZQUEZ [facility]
--- OUTSIDE RECORDS SUMMARY | 2025-05-07 07:31 | XMS_ITS | Encounter Summary ---
Author Name [facility] [place] Address [address] [place] [address] Care Team Providers Care Motor Equipment Commanding Officer Name Role Phone REINALDO HOLT Primary Care [...] Mcgraw CATALYST RX PRESCRIPT ION ACTIV E [id number] A25 May 13, 2012 [id number] SIMBAFunmi SVENCyrus PATIENT MEDICARE (WNR) MEDICARE (M) PART A Apr 13, 2016 PART A [id number] COTTRELLFunmi SVENL PATIENT MEDICARE (WNR) MEDICARE (M) PART A Apr 13, 2016 PART A [id number] [phone] SIMBAFunmi SVENL PATIENT MEDICARE (WNR) MEDICARE (M) PART A Apr 13, 2016 PART A [id number] SIMBAFunmi AUCyrus PATIENT [facility] POINT OF SERVICE [place] Bridges BOARD May 13, 2008 [id number] Funmi COTTRELL PATIENT Selected Encounter This section includes the information on record at [place] for the Encounter. Date/Time Encounter Type Encounter Description Reason Provider Source May 07, 2025 12:31 PM HEARING AID REPAIR/MODIFYIN G AUDIOLOGY ICD-10-CM Z46.1 Encounter for fitting and adjustment of hearing aid RON NEGRO RA Chris E Encounter Template Text not used by [place] Assessments - Encounter Diagnoses This section includes the primary and secondary diagnoses documented for the Encounter. Date/Time Primary/Secondary Diagnosis Diagnosis Name Provider Source May 07, 2025 01:00 PM PRIMARY Encounter for fitting and adjustment of hearing aid SARAH NEGRODAGOBERTO Chris [facility] May 07, 2025 01:00 PM SECONDARY Sensorineural hearing loss, bilateral RON NEGRO RA Chris [facility] May 07, 2025 01:00 PM SECONDARY Tinnitus, bilateral RON NEGRO RA A [facility] Plan of Treatment: Future Appointments (+ 6 months) and Future Tests (+/- 45 days) The Plan of Treatment section includes future care activities for the patient from all [place] treatmentfacilities. This section includes future appointments and future orders which are active, pending or scheduled. Future Appointments This section includes appointments that were scheduled to occur 6 months from the date of the Encounter, up to a maximum of 20 appointments. The data comes from all [place] treatment facilities. Appointment Date/Time Appointment Type Appointme nt Facility Name May 29, 2025 11:30 AM AMBULATORY - MEDICINE [facility] May 29, 2025 01:00 PM AMBULATORY - MEDICINE [facility] Jun 04, 2025 10:30 AM AMBULATORY - MEDICINE [facility] Jun 04, 2025 10:31 AM AMBULATORY - [place]IC[place] [facility] Jun 18, 2025 01:45 PM AMBULATORY - MEDICINE [place] [facility] Sep 15, 2025 11:00 AM AMBULATORY - MEDICINE [facility] Active, Pending, and Scheduled Orders This section includes a listing of several types of active, pending, and scheduled orders, including clinic medications orders, diagnostic test orders, procedure orders and consult orders; where the start date of the order is 45 days before the date of the Encounter or 45 days after the date of theEncounter. The data comes from all [place] treatment facilities. Test Date/Time Test Type Test Details Facility Name Apr 27, 2025 01:59 PM Consult Order COMMUNITY CARE-PODIATRY [id number] Cons Parking Station Attendant's Choice [facility] May 06, 2025 12:52 PM Consult Order COMMUNITY [facility]-CHIROPRACTIC [id number] Cons Parking Station Attendant's [facility] May 29, 2025 12:49 PM Laboratory - Chemi stry Order POC UA (STL-PB-MA) URINE SP [facility] Lab Results: +/- 30 days of the encounter This section includes the Chemistry and Hematology Lab Results on record with [place] for the patient. Radiology Reports and Pathology Reports are provided separately, in subsequent sections. Lab Results This section contains the Chemistry/Hematology Results that were resulted 30 days before or 30 daysafter the date of the Encounter. Date/Time Source Result Type Result - Unit Interpretation Reference Range Specimen Type Comment May 29, 2025 12:56 PM [facility] POC UA (STL-PB-MA) URINE Specimen Type: URINE No comment entered. Ordering Provider: REINALDO HOLT Report Released Date/Time: May 29, 2025 01:03 PM Reporting Lab: [facility] [address] [facility] [address] Performing Lab: [facility] [address] [facility] [address] PROTEIN POC UA 30 mg/dL Negative BLOOD [...] Negative Negative CLARITY POC UA Cloudy CLEAR Advance Directives: All historical and current Section Date Range: From patient's date of to the date document was created. This section includes ALL of a patient's completed or amended [place] Advance and Rescinded Directives. The entries below indicate that a directive exists for the patient, but an actual copy is not included with this document. The data comes from all [place] facilities. Date Advance Directives Provider Source Apr 24, 2015 RESCINDED ADVANCE DIRECTIVE TERRIARIN HICKMANSTEVEN Gonzalez [facility] Radiology Reports: +/- 30 days of [...] the Encounter. The data comes from all [place] treatment facilities. Date/Time Radiology Report Provider Source May 29, 2025 01:09 PM ABDOMEN X-RAY,1 EW: FLASH COTTRELL [id number] -1950 M Exm Date: MAY 29, 2025@13:09 Req Phys: REINALDO HOLT Loc: PB-BARB PACT MAGDALENO NAVARRETE (Req'g Img Loc: PB-XRAY MYLO Service: [place] [address] (Case [id number] COMPLETE) ABDOMEN X-RAY,1 VIEW (RAD Detailed) CPT:87188 Reason for Study: hematuria Clinical History: suspect kidney stones Report Status: Verified Date Reported: MAY 29, 2025 Date Verified: MAY 29, 2025 Nutrition Associate E-Sig: Report: Abdomen one view HISTORY: Hematuria [...] out Primary Interpreting Staff: LILIYA FLORES, RADIOLOGIST (Nutrition Associate, no e-sig) /LILIYA Crow [facility] Encounter Notes: All associated encounter notes This section contains the clinical notes associated to the Encounter. Date/Time Encounter Note(s) Provider Source May 07, 2025 07:07 AM AUDIOLOGY NOTE: LOCAL TITLE: HEARING CLINIC STANDARD TITLE: AUDIOLOGY NOTE DATE OF NOTE: MAY 07, 2025@07:07 ENTRY DATE: MAY 07, 2025@07:07:37 AUTHOR: FEDERICA NEGRO COSIGNER: URGENCY: STATUS: COMPLETED Diagnosis: Sensorineural Hearing Loss, Bilateral and Tinnitus, Bilateral Treatment: Hearing Aid Check Time spent with : 30 minutes [place] seen for a hearing aid check via Audio Telehealth and verbally consented to the Telehealth modality. Multi-factor personally identifiable information of the was obtained verbally (full name and date of ). [place] accompanied by: Patient site: [employer] ____ HISTORY: Reason for Appointment: Patient is here today [facility] CURRENT HEARING DEVICES: 08/08/23 EDITA NINOSKA AI ITC R R [id number] 08/08/23 EDITA NINOSKA LUZ MARINA ITC R L [id number] - HEARCLEAR Accessories: STARLINK MINI REMOTE CUCA (automatic) 2022 Settings - Program: Personal, Crowd, Outdoors, Autophone - Short Push: right/raise, left/lower - Long Push: Sleep Mode - Tap: Accessory start/stop Phone Connectivity: no * STARLINK MINI REMOTE CUCA BACK UP HEARING DEVICES: 06/22/22 EDITA EVOLV AI ITC R R [id number]* 06/22/22 EDITA EVOLV AI ITC R L [id number]* OBJECTIVE/ASSESSMENT: Both hearing aids were cleaned including replacement of filters. A listening check performed by the TCT confirmed proper function. Spoke with [employer] sales representative [employer] products. [employer] states mini remote cuca should function automatically when cuca is turned on. Attempted to reset and repair device but automatic connection unavailable. [employer] recommends mailing device for repair. The was counseled/educated on services provided today and is in agreement with the plan. PLAN: 1. Mail mini remote cuca for repair. Return to clinic. 2. Return to clinic for issue of repaired mini remote microphone. Please ensure proper pairing to hearing aids. Connection should be automatic when microphone is turned off. Consider removing double tap function. /smith/ Rae Caputo [facility] Signed: 05/07/2025 13:01 FEDERICA NEGRO [facility]
--- OUTSIDE RECORDS SUMMARY | 2025-05-19 07:54 | XMS_ITS | Encounter Summary ---
Author Name [place] Address [address] [place] [address] Care Team Providers Care Elevator Attendant Name Role Phone REINALDO HOLT Primary Care [...] Mcgraw CATALYST RX PRESCRIPT ION ACTIV E [id number] A25 May 13, 2012 [id number] Funmi COTTRELL PATIENT MEDICARE (WNR) MEDICARE (M) PART A Apr 13, 2016 PART A [id number] Funmi COTTRELL PATIENT MEDICARE (WNR) MEDICARE (M) PART A Apr 13, 2016 PART A [id number] Funmi COTTRELLL PATIENT MEDICARE (WNR) MEDICARE (M) PART A Apr 13, 2016 PART A [id number] Funmi COTTRELL PATIENT [facility] POINT OF SERVICE [place] Bridges BOARD May [birth year], 2008 [id number] Funmi COTTRLEL PATIENT Selected Encounter This section includes the information on record at [place] for the Encounter. Date/Time Encounter Type Encounter Description Reason Pro vider Source May 19, 2025 12:54 PM Outpatient Encounter ADMIN PAT ACTIVTIES (MASNONCT) IHE Encounter Template Text not used by [place] Plan of Treatment: Future Appointments (+ 6 [...] The data comes from all [place] treatment [facility]. Appointment Date/Time Appointment Type Appointme nt Facility Name May 29, 2025 11:30 AM AMBULATORY - MEDICINE [facility] May 29, 2025 01:00 PM AMBULATORY - MEDICINE [facility] Jun 04, 2025 10:30 AM AMBULATORY - MEDICINE [facility] Jun 04, 2025 10:31 AM AMBULATORY - MEDICINE [facility] Jun 18, 2025 01:45 PM AMBULATORY - MEDICINE [facility] Sep 15, 2025 11:00 AM AMBULATORY - MEDICINE [facility] Active, Pending, and Scheduled Orders This section includes a listing of several types of active, pending, and scheduled orders, including clinic medications orders, diagnostic test orders, procedure orders and consult orders; where the start date of the order is 45 days before the date of the Encounter or 45 days after the date of theEncounter. The data comes from all [facility]. Test Date/Time Test Type Test Details Facility Name Apr 27, 2025 01:59 PM Consult Order COMMUNITY CARE-PODIATRY [id number] Cons Charge Attendant's Choice [facility] May 06, 2025 12:52 PM Consult Order COMMUNITY CARE-CHIROPRACTIC [id number] Cons Charge Attendant's Choice [facility] May 29, 2025 12:49 PM Laboratory - Chemi stry Order POC UA (STL-PB-MA) URINE SP [facility] Lab Results: +/- 30 days of the encounter This section includes the Chemistry and Hematology Lab Results on record with [place] for the patient. Radiology Reports and Pathology Reports are provided separately, in subsequent sections. Lab Results This section contains the Chemistry/Hematology Results that were resulted 30 days before or 30 daysafter the date of the Encounter. Date/Time Source Result Type Result - Unit Interpretation Reference Range Specimen Type Comment May 29, 2025 12:56 PM [facility] POC UA (STL-PB-MA) URINE Specimen Type: URINE No comment entered. Ordering Provider: REINALDO HOLT Report Released Date/Time: May 29, 2025 01:03 PM Reporting Lab: [facility] [address] [facility] [address] Performing Lab: [facility] [address] [facility] [address] [facility] [address] PROTEIN POC UA 30 mg/dL Negative BLOOD [...] and tobacco- related health factors from the [place] facility where the Encounter took place. Current Smoking Status This section includes the most current smoking, or tobacco-related health factor, from the [place] facility where the Encounter took place. Date/Time Current Smoking Status Comment Facil ity March 13, 2025 11:00 AM [place]-TOBACCO NEVER USED CIGARETTES [facility] Tobacco Use History This section includes a history of the smoking, or tobacco-related health factors, that were collected on or before the date of the Encounter. The data comes from the [place] facility where the Encounter took place. Date/Time Smoking Status/Tobacco Use Comment F acility March 13, 2025 11:00 AM VA-TOBACCO NEVER USED OTHER TYPE [facility] [place] [facility] Oct 02, 2023 09:30 AM VA-TOBACCO NEVER USED [facility] Apr 26, 2022 01:00 PM VA-TOBACCO FORMER USER [facility] Apr 26, 2022 01:00 PM VA-TOBACCO QUIT 5 TO < 15 YRS [facility] May 04, 2021 11:00 AM VA-TOBACCO NEVER USED [facility] Aug 16, 2019 02:05 PM VA-TOBACCO NEVER USED [facility] Jun 05, 2014 01:09 PM LIFETIME NON-USER OF TOBACCO [facility] Advance Directives: All historical and [...] 24, 2015 RESCINDED ADVANCE DIRECTIVE PETE CROFT [facility] Radiology Reports: +/- 30 days [...] the Encounter. The data comes from all [place] treatment facilities. Date/Time Radiology Report Provider Source May 29, 2025 01:09 PM ABDOMEN X-RAY,1 EW: COTTRELLFLASH [id number] -1950 M Exm Date: MAY 29, 2025@13:09 Req Phys: REINALDO HOLT Loc: PB-BARB PACT MAGDALENO NAVARRETE (Req'g Img Loc: PB-XRAY [place] Service: [place] [address] (Case [id number] COMPLETE) ABDOMEN X-RAY,1 VIEW (RAD Detailed) CPT:36694 Reason for Study: hematuria Clinical History: suspect kidney stones Report Status: Verified Date Reported: MAY 29, 2025 Date Verified: MAY 29, 2025 Jboss Developer E-Sig: Report: Abdomen one view HISTORY: Hematuria [...] out Primary Interpreting Staff: LILIYA FLORES, RADIOLOGIST (Jboss Developer, no e-sig) /LILIYA Crow [facility] Encounter Notes: All associated encounter notes This section contains the clinical notes associated to the Encounter. Date/Time Encounter Note(s) Provider Source May 19, 2025 12:54 PM GENERAL MEDICINE N OTE: LOCAL TITLE: General Note PB STANDARD TITLE: GENERAL MEDICINE NOTE DATE OF NOTE: MAY 19, 2025@12:54 ENTRY DATE: MAY 19, 2025@12:54:26 AUTHOR: REJI KAISER EXP COSIGNER: URGENCY: STATUS: COMPLETED Rec'd remote control certified in [facility]. has upcoming appt for pickling solution maker. /smith/ CARMEN VOGEL [facility] Signed: 05/19/2025 12:55 REJI KAISER [facility]
--- OUTSIDE RECORDS SUMMARY | 2025-05-22 06:10 | XMS_ITS | Encounter Summary ---
Author Name [facility] [place] Address [address] [place] [address] Care Team Providers Care It Support Specialist Name Role Phone REINALDO HOLT Primary Care [...] Mcgraw CATALYST RX PRESCRIPT ION ACTIV E 93023 A25 May 13, 2012 [id number] SIMBAFunmi SVENCyrus PATIENT MEDICARE (WNR) MEDICARE (M) PART A Apr 13, 2016 PART A [id number] BARGERFunmi SVENL PATIENT MEDICARE (WNR) MEDICARE (M) PART A Apr 13, 2016 PART A [id number] SIMBAFunmi SVENL PATIENT MEDICARE (WNR) MEDICARE (M) PART A Apr 13, 2016 PART A [id number] SIMBAFunmi AUCyrus PATIENT [facility] POINT OF SERVICE [place] Bridges BOARD May [birth year], 2008 [id number] Funmi BARGER PATIENT Selected Encounter This section includes the information on record at [place] for the Encounter. Date/Time Encounter Type Encounter Description Reason Pro vider Source May 22, 2025 11:10 AM Outpatient Encounter COMMUNITY CARE CONSULT IHE Encounter Template Text not used by [place] Plan of Treatment: Future Appointments (+ 6 months) and Future Tests (+/- 45 days) The Plan of Treatment section includes future care activities for the patient from all [place] treatmentfacilities. This section includes future appointments and future orders which are active, pending or scheduled. Future Appointments This section includes appointments that were scheduled to occur 6 months from the date of the Encounter, up to a maximum of 20 appointments. The data comes from all [place] treatment [facility]. Appointment Date/Time Appointment Type Appointme nt Facility Name May 29, 2025 11:30 AM [place] [place] [facility] May 29, 2025 01:00 PM AMBULATORY - MEDICINE [facility] Jun 04, 2025 10:30 AM AMBULATORY - MEDICINE [facility] Jun 04, 2025 10:31 AM AMBULATORY - MEDICINE POPL [facility] Jun 18, 2025 01:45 PM AMBULATORY - MEDICINE POPL [facility] Sep 15, 2025 11:00 AM AMBULATORY - MEDICINE [facility] Active, Pending, and Scheduled Orders This section includes a listing of several types of active, pending, and scheduled orders, including clinic medications orders, diagnostic test orders, procedure orders and consult orders; where the start date of the order is 45 days before the date of the Encounter or 45 days after the date of theEncounter. The data comes from all [facility]. Test Date/Time Test Type Test Details Facility Name Apr 27, 2025 01:59 PM Consult Order COMMUNITY CARE-PODIATRY [id number] Cons Glass Etcher's Choice [facility] May 06, 2025 12:52 PM Consult Order COMMUNITY CARE-CHIROPRACTIC [id number] Cons Glass Etcher's Choice [facility] May 29, 2025 12:49 PM Laboratory - Chemi stry Order POC UA (STL-PB-MA) URINE SP [facility] Lab Results: +/- 30 days of the encounter This section includes the Chemistry and Hematology Lab Results on record with [place] for the patient. Radiology Reports and Pathology Reports are provided separately, in subsequent sections. Lab Results This section contains the Chemistry/Hematology Results that were resulted 30 days before or 30 daysafter the date of the Encounter. Date/Time Source Result Type Result - Unit Interpretation Reference Range Specimen Type Comment May 29, 2025 12:56 PM [facility] POC UA (STL-PB-MA) URINE Specimen Type: URINE No comment entered. Ordering Provider: REINALDO HOLT Report Released Date/Time: May 29, 2025 01:03 PM Reporting Lab: [facility] [address] [facility] [address] Performing Lab: [facility] [address] [facility] [address] [facility] [address] PROTEIN POC UA 30 mg/dL Negative BLOOD [...] this document. The data comes from all [place] facilities. Date Advance Directives Provider Source Apr 24, 2015 RESCINDED ADVANCE DIRECTIVE PETE CROFT [facility] Radiology Reports: +/- 30 days [...] the Encounter. The data comes from all [place] treatment facilities. Date/Time Radiology Report Provider Source May 29, 2025 01:09 PM ABDOMEN X-RAY,1 EW: LOEN BARGER [id number] -1950 M Exm Date: MAY 29, 2025@13:09 Req Phys: REINALDO HOLT Loc: PB-BARB PACT MAGDALENO NAVARRETE (Req'g Img Loc: PB-XRAY [place] Service: [place] [address] (Case [id number] COMPLETE) ABDOMEN X-RAY,1 VIEW (RAD Detailed) CPT:52208 Reason for Study: hematuria Clinical History: suspect kidney stones Report Status: Verified Date Reported: MAY 29, 2025 Date Verified: MAY 29, 2025 Sterilization Tech E-Sig: Report: Abdomen one view HISTORY: Hematuria [...] out Primary Interpreting Staff: LILIYA FLORES, RADIOLOGIST (Sterilization Tech, no e-sig) /LILIYA Crow [facility] Encounter Notes: All associated encounter notes This section contains the clinical notes associated to the Encounter. Date/Time Encounter Note(s) Provider Source May 22, 2025 11:10 AM LETTERS: LOCAL TITLE: COMMUNITY CARE-REFERRAL PB (AUTO-PRINT) STANDARD TITLE: LETTERS DATE OF NOTE: MAY 22, 2025@11:10:32 ENTRY DATE: MAY 22, 2025@11:10:32 AUTHOR: JESSICA CARTER COSIGNER: URGENCY: STATUS: COMPLETED Leon Barger [address] [place], [place] [address] Dear LEON BARGER, Your VA provider has referred you to a provider within the community for care. Your medical care for podiatry has been authorized with the Community Care Provider listed below. DO NOT REPORT TO THE [place] [facility] Provider info: An appointment has been scheduled for you on: May 29, 2025 11:30 AM Office Name: DR ROSALIND MALLOY Address: [address] [facility] Address: [place] [address] Auth #: [id number] Referral Issue Date: 05/12/2025 Expiration Date: 11/25/2025 If you are unable to keep this appointment or the appointment is no longer needed, please contact the community provider above for notification/rescheduling and then call the [facility] [place] Community Care Office at [phone] Ext [phone]. If you need additional care/services not mentioned above, please contact your primary care provider for a new referral. Co-Payments: If you are required to pay a VA co-payment, you will be billed by the VA for each authorized visit that you attend. However, you are NOT REQUIRED to make co-payments to a Community Provider. Prescriptions: Your community provider may write a prescription related to the authorized care. If there is an immediate need for your prescriptions from your community care visit, you may be able to get up to a 14-day fill of your prescription at your own expense for the cost of the medication, and may seek reimbursement from the VA. If you require more than a 14-day supply or if the prescribed medication is not immediately needed, your community provider will send a prescription to a VA pharmacy so that the VA can provide you with your routine medication. In-network locations can be found at https://www.va.gov/find-loc ations/ Medical Devices: Your community provider may recommend that medical devices, adapted equipment, or other items be provided for the treatment or rehabilitation of your medical condition. Veterans are generally required to obtain these items through the Prosthetics and Sensory Aids Service (PSAS) in your referring facility. Emergency/Inpatient Services: You, your community provider, or your family must provide notification within 72hr or ER visit and/or admission by [phone]. Thank you for the opportunity to serve you and for your service to our great nation! DANETTE Lopez [facility] Care in the Community [address] [place] [address] JESSICA CARTER [facility]
--- OUTSIDE RECORDS SUMMARY | 2025-05-23 04:22 | XMS_ITS | Encounter Summary ---
Author Name [facility] [place] [facility] [place] [facility] [facility] [place] Address [address] [place] [address] Care Team Providers Care Packaging Sales Representative Name Role Phone YANET REINALDO Primary Care [...] Mcgraw CATALYST RX PRESCRIPT ION ACTIV E [id number] May 13, 2012 [id number] [phone] Funmi BARGER PATIENT MEDICARE (WNR) MEDICARE (M) PART A Apr 13, 2016 PART A [id number] Funmi BARGERL PATIENT MEDICARE (WNR) MEDICARE (M) PART A Apr 13, 2016 PART A [id number] Funmi BARGER AUL PATIENT MEDICARE (WNR) MEDICARE (M) PART A Apr 13, 2016 PART A [id number] SIMBAFunmi AUCyrus PATIENT [facility] POINT OF SERVICE [place] BOARD May 13, 2008 [id number] Funmi BARGER PATIENT Selected Encounter This section includes the information on record at [place] for the Encounter. Date/Time Encounter Type Encounter Description Reason Pro vider Source May 23, 2025 09:22 AM Outpatient Encounter COMMUNITY CARE CONSULT IHE Encounter Template Text not used by [place] Plan of Treatment: Future Appointments (+ 6 months) and Future Tests (+/- 45 days) The Plan of Treatment section includes future care activities for the patient from all [place] treatmentfacilities. This section includes future appointments and future orders which are active, pending or scheduled. Future Appointments This section includes appointments that were scheduled to occur 6 months from the date of the Encounter, up to a maximum of 20 appointments. The data comes from all [place] treatment [facility]. Appointment Date/Time Appointment Type Appointme nt Facility Name May 29, 2025 11:30 AM [facility] May 29, 2025 01:00 PM AMBULATORY - MEDICINE [facility] Jun 04, 2025 10:30 AM AMBULATORY - MEDICINE [facility] Jun 04, 2025 10:31 AM [facility]ULATORY - MEDICINE [facility] Jun 18, 2025 01:45 PM AMBULATORY - MEDICINE [facility] Sep 15, 2025 11:00 AM AMBULATORY - MEDICINE [facility] Active, Pending, and Scheduled Orders This section includes a listing of several types of active, pending, and scheduled orders, including clinic medications orders, diagnostic test orders, procedure orders and consult orders; where the start date of the order is 45 days before the date of the Encounter or 45 days after the date of theEncounter. The data comes from all [facility]. Test Date/Time Test Type Test Details Facility Name Apr 27, 2025 01:59 PM Consult Order COMMUNITY CARE-PODIATRY [id number] Cons Home Supervisor's Choice [facility] May 06, 2025 12:52 PM Consult Order COMMUNITY CARE-CHIROPRACTIC [id number] Cons Home Supervisor's Choice [facility] May 29, 2025 12:49 PM Laboratory - Chemi stry Order POC UA (STL-PB-MA) URINE SP [facility] Lab Results: +/- 30 days of the encounter This section includes the Chemistry and Hematology Lab Results on record with [place] for the patient. Radiology Reports and Pathology Reports are provided separately, in subsequent sections. Lab Results This section contains the Chemistry/Hematology Results that were resulted 30 days before or 30 daysafter the date of the Encounter. Date/Time Source Result Type Result - Unit Interpretation Reference Range Specimen Type Comment May 29, 2025 12:56 PM [facility] POC UA (STL-PB-MA) URINE Specimen Type: URINE No comment entered. Ordering Provider: REINALDO HOLT Report Released Date/Time: May 29, 2025 01:03 PM Reporting Lab: [facility] [address] [facility] [id number] Performing Lab: [facility] [address] [facility] [id number] PROTEIN POC UA 30 mg/dL Negative BLOOD [...] this document. The data comes from all [place] facilities. Date Advance Directives Provider Source Apr 24, 2015 RESCINDED ADVANCE DIRECTIVE PETE CROFT [facility] Radiology Reports: +/- 30 days [...] the Encounter. The data comes from all [place] treatment facilities. Date/Time Radiology Report Provider Source May 29, 2025 01:09 PM ABDOMEN X-RAY,1 EW: LEON BARGER [id number] M Exm Date: MAY 29, 2025@13:09 Req Phys: REINALDO HOLT Loc: PB-BARB PACT [facility]D[place] (Req'g Img Loc: PB-XRAY [place] Service: [place] [address] (Case [id number] COMPLETE) ABDOMEN X-RAY,1 VIEW (RAD Detailed) CPT:14103 Reason for Study: hematuria Clinical History: suspect kidney stones Report Status: Verified Date Reported: MAY 29, 2025 Date Verified: MAY 29, 2025 Manager Fashion E-Sig: Report: Abdomen one view HISTORY: Hematuria [...] out Primary Interpreting Staff: LILIYA FLORES, RADIOLOGIST (Manager Fashion, no e-sig) /LILIYA Crow [facility] Encounter Notes: All associated encounter notes This section contains the clinical notes associated to the Encounter. Date/Time Encounter Note(s) Provider Source May 23, 2025 09:22 AM LETTERS: LOCAL TITLE: COMMUNITY CARE-REFERRAL [place] (AUTO-PRINT) STANDARD TITLE: LETTERS DATE OF NOTE: MAY 23, 2025@09:22:24 ENTRY DATE: MAY 23, 2025@09:22:25 AUTHOR: CHANA LYLES EXP COSIGNER: URGENCY: STATUS: COMPLETED Leon Triplettlorena Barger [address] [place], [place] [address] May 23, 2025 Dear LEON BARGER, Your [facility] Care Provider has ordered medically necessary health care services that are not available at the [facility]. This medical service has been referred to the local Community Care Department to coordinate your care with an outside, in-network provider at [facility]. Our community Care Team has made attempt(s) to contact you by phone regarding scheduling. Unfortunately, we've been unable to reach you. If you have any questions regarding the referral or would like to schedule these authorized community care services, please contact the [place] Facility Community Care Office at [phone] If we do not hear from you within 14 calendar days from the date of this letter, the authorization for these services will be discontinued and returned to your [facility] provider. Thank you for the opportunity to serve you. Chana Armstrong [facility] [address] [place] [address] CHANA LYLES [facility]
--- OUTSIDE RECORDS SUMMARY | 2025-05-29 06:37 | XMS_ITS | Continuity of Care Document ---
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 It does not include entries that were removed or entered in error. Problem Status Onset Date Problem Type Date of Resolution Comments Source Allergic urticaria (ICD-9-CM 708.0) Active Condition [facility] Angina Active Condition [place] [facility] ANGINA PECTORIS NEC/NOS Active Condition Jan 20, 2000 Entered By: MICHELL ABDUL Comment: PRINZMETAL'S WITH CA '94, CLEAN CORONARIES [facility] Balanoposthitis Active Condition [facility] Benign paroxysmal positional vertigo (ICD-9-CM 386.11) Active Condition [facility] Benign prostatic hyperplasia Active Condition [place] [facility] Bilateral tinnitus Active Condition [place] [facility] Bladder, 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 [place] [facility] Diabetes Mellitus Type II or unspecified * (ICD-9-CM 250.00) Active Condition [facility] DM - Diabetes mellitus (SNOMED CT 93970730) Active Condition [place] [facility] Dyslipidemia (ICD-9-CM 272.4) Active Condition [facility] Gastro-esophageal reflux (SNOMED CT 621336709) Active Condition [place] [facility] Hearing loss * (ICD-9-CM 389.9) Active Condition [facility] Hypertension * (ICD-9-CM 401.9) Active Condition [facility] Hypertrophy (Benign) of Prostate with Urinary obstruction (ICD-9-CM 600.01) Active Condition [facility] Knee: arthralgia * (ICD-9-CM 719.46) [facility] Low Back Pain * (ICD-9-CM 724.2) [facility] Nocturia Active Condition [facility] Obesity Active Condition [facility] [facility] Osteoarthritis Active Condition [facility] Partner relationship problem Active Condition [place] [facility] Primary hypertension (SNOMED CT 91253184) Active Condition [place] [facility] Sensorineural hearing loss of bilateral ears Active Condition [place] [facility] Sleep Apnea (SCT [id number]) Active Condition Jul 04, 2019 Entered By: LUCY VENEGAS Comment: Moderate per Sleep Study 07/01. 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 11/17/2023 [place] [facility] Cellulitis and abscess of upper arm and forearm (ICD-9-CM 682.3) Inactive Condition 10/31/2011 [facility] Dry Skin (ICD-9-CM 706.8) Inactive Condition 10/31/2011 [facility] Health Maintenance (ICD-9-CM V65.9) Inactive Condition 10/31/2011 [facility] Insect Bite NEC (ICD-9-CM 919.4) Inactive Condition 10/31/2011 [facility] JOINT PAIN-ANKLE Inactive Condition 05/02/2012 [facility] Oliguria (ICD-9-CM 788.5) Inactive Condition 10/31/2011 Sep 25, 2008 Entered By: KESHA DILLARD Comment: Urinary retention with secondary UTI; normal RFTs [facility] Urinary Frequency Inactive Condition 10/31/2011 [facility] Urticaria * (ICD-9-CM 708.9) Inactive Condition 05/02/2012 [facility] UTI (ICD-9-CM 599.0) Inactive Condition 10/31/2011 [facility] Diagnosis: ICD-10-CM Z46.1 Encounter for fitting and adjustment of hearing aid Active Diagnosis [place] [facility] Diagnosis: ICD-10-CM M99.01 Segmental and somatic dysfunction of cervical region Active Diagnosis [facility] Diagnosis: ICD-10-CM H93.13 Tinnitus, bilateral Active Diagnosis [place] [facility] Diagnosis: ICD-10-CM H90.3 Sensorineural hearing loss, bilateral Active Diagnosis [facility] Diagnosis: ICD-10-CM L08.9 Local infection of the skin and subcutaneous tissue, unsp Active Diagnosis [facility] Diagnosis: ICD-10-CM Z13.5 Encounter for screening for eye and ear disorders Active Diagnosis [facility] Diagnosis: ICD-10-CM E11.9 Type 2 diabetes mellitus without complications Active Diagnosis [facility] Diagnosis: ICD-10-CM M17.0 Bilateral primary osteoarthritis of knee Active Diagnosis [facility] Diagnosis: ICD-10-CM B35.1 Tinea unguium Active Diagnosis [place] [facility] Diagnosis: ICD-10-CM H52.222 Regular astigmatism, left eye Active Diagnosis [place] [facility] Diagnosis: ICD-10-CM Z63.0 Problems in relationship with spouse or partner Active Diagnosis [facility] Diagnosis: ICD-10-CM H57.11 Ocular pain, right eye Active Diagnosis [place] [facility] Diagnosis: ICD-10-CM K59.00 Constipation, unspecified Active Diagnosis [place] [facility] Diagnosis: ICD-10-CM L57.8 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 Active Diagnosis [place] [facility] Diagnosis: ICD-10-CM L98.9 Disorder of the skin and subcutaneous tissue, unspecified Active Diagnosis [facility] Diagnosis: ICD-10-CM L60.3 Nail dystrophy Active Diagnosis [place] [facility] Diagnosis: ICD-10-CM K21.9 Gastro-esophageal reflux disease without esophagitis Active Diagnosis [place] [facility] Diagnosis: ICD-10-CM Z71.89 Other specified counseling Active Diagnosis [facility] Medications Combined list of outpatient medications from Department of Defense and Veterans Affairs facilities.Medications provided include 1) outpatient medications from the last 15 months, and 2) patient-reported medications. Medication Details Route Status Patient Instructions Prescription Expires Prescription Number Last Dispense Date Ordering Provider Order Date Order Qty Source ACETAMINOPH EN 500MG TAB TAKE ONE TABLET BY MOUTH FOUR TIMES A DAY FOR PAIN CAUTION: DO NOT EXCEED 4000MG PER DAY ACETAMIN OPHEN (APAP) FROM ALL MEDS. ORAL SUSPEND ED 01/07/2026 [id number] 5 NAFISA TODD 2024 400 [place] [facility] ALBUTEROL SO4 90MCG/ACTUA T (CFC-F) INHL,ORAL,8 .5GM INHALE 2 PUFFS BY ORAL INHALATI ON FOUR TIMES A DAY FOR COPD SHAKE WELL. RINSE MOUTHPIE CE FREQUENT LY TO PREVENT CLOGGING . RESPIR ATORY (INHAL ATION) ACTIVE 09/14/2025 [id number] 5 PUMA BANG 2023 3 [facility] BENZOYL PEROXIDE 5% WASH WASH TO AFFECTED AREA(S) ONCE A DAY USE BODY WASH. ALLOW TO SIT FOR 2 MINUTES BEFORE RINSING TOPICA L ACTIVE 09/25/2025 [id number] 5 SALLY UQIROZ A 2023 150 [place] [facility] BISACODYL 5MG TAB,EC TAKE FOUR TABLETS BY MOUTH ONE-TIME FOR BOWEL EMPTYING ORAL 03/29/2024 [id number] 4 EMMANUEL VENEGAS 2023 4 [facility] CHOLECALCIF FERMÍN 50MCG (2,000UNIT) TAB TAKE ONE TABLET BY MOUTH ONCE A DAY FOR VITAMIN D DEFICIEN CY. ORAL ACTIVE 03/11/2026 [id number] 5 Elmer HOLT 2024 100 [facility] CHOLECALCIF FERMÍN 50MCG (2,000UNIT) TAB TAKE ONE TABLET BY MOUTH ONCE A DAY FOR VITAMIN D DEFICIEN CY. ORAL DISCONT INUED 02/28/2025 [id number] 5 EMMANUEL VENEGAS 2023 100 [facility] CLOBETASOL PROPIONATE 0.05% CREAM,TOP APPLY TO AFFECTED AREA(S) TWICE DAILY NEEDED ON LEGS. NO MORE THAN TWO WEEKS OF THE MONTH.DO NOT USE ON FACE,OSCAR IN,OR SKIN FOLDS. TOPICDot L ACTIVE 09/25/2025 [id number] 4 SALLY QUIROZ A 2023 60 [place] [facility] CLOTRIMAZOL E 1% CREAM,TOP APPLY SPARINGL Y TO AFFECTED AREA(S) TWICE A DAY TOPICA L ACTIVE ASHISH CLEMENTS OMAS H 2014 [facility] DILTIAZEM (EQV-TIAZAC AB4) 240MG 24HR CAP TAKE ONE CAPSULE BY MOUTH EVERY MORNING BEFORE A MEAL FOR HEART OR TO LOWER BLOOD PRESSURE ORAL ACTIVE 03/11/2026 [id number] 5 Elmer HOLT R [address] [place] [address] [facility] DILTIAZEM (EQV-TIAZAC AB4) 240MG 24HR CAP TAKE ONE CAPSULE BY MOUTH EVERY MORNING BEFORE A MEAL FOR HEART OR TO LOWER BLOOD PRESSURE ORAL DISCONT INUED 02/28/2025 [id number] 5 EMMANUEL VENEGAS [address] [place] [address] [facility] DOCUSATE NA 100MG CAP TAKE ONE CAPSULE BY MOUTH THREE TIMES A DAY FOR SOFTENIN G STOOL HOLD FOR LOOSE STOOL/DI ARRHEA. ORAL 03/26/2025 [id number] 4 EMMANUEL VENEGAS 2023 300 [facility] EMPAGLIFLOZ IN 25MG TAB TAKE ONE TABLET BY MOUTH ONCE A DAY ORAL ACTIVE 03/11/2026 [id number] 5 Elmer HOLT R [address] [place] [address] [facility] EMPAGLIFLOZ IN 25MG TAB TAKE ONE TABLET BY MOUTH ONCE A DAY ORAL DISCONT INUED 02/28/2025 [id number] 5 EMMANUEL VENEGAS [address] [place] [address] [facility] EPINEPHRINE (EQV-ADRENA CLICK) 0.3MG/0.3ML INJECTOR INJECT 1 PEN (0.3MG/0 .3ML) INTRAMUS CULARLY ONE-TIME FOR ALLERGIC REACTION INTRAM USCULA R ACTIVE 07/28/2025 [id number] 5 Elmer HOLT R 2024 2 [place] [facility] FLUTICASONE 250MCG/SALM ETEROL 50MCG INHL,ORAL,D ISKUS,60 INHALE 1 INHALATI ON BY ORAL INHALATI ON TWICE A DAY FOR COPD (OPEN DISKUS; CLICK ONLY ONCE; MAY INHALE TWICE TO COMPLETE DOSE; CLOSE WHEN FINISHED ) RINSE MOUTH AND SPIT AFTER EACH USE. RESPIR ATORY (INHAL ATION) DISCONT INUED BY JAKE R 08/01/2025 [id number] 4 PUMA BANG 2023 3 [facility] FOLIC ACID 0.4MG TAB TAKE ONE TABLET BY MOUTH ONCE A DAY ORAL ACTIVE 10/25/2025 [id number] 5 Elmer HOLT R 2024 100 [facility] FOLIC ACID 0.4MG TAB TAKE ONE TABLET BY MOUTH ONCE A DAY ORAL DISCONT INUED 10/11/2024 [id number] 4 EMMANUEL VENEGAS 2022 100 [facility] FUROSEMIDE 20MG TAB TAKE ONE TABLET BY MOUTH EVERY MORNING NEEDED FOR FLUID RETENTIO N (EDEMA) ORAL ACTIVE 01/08/2026 [id number] 5 NAFISA TODD 2024 90 [place] [facility] FUROSEMIDE 20MG TAB TAKE ONE TABLET BY MOUTH EVERY MORNING NEEDED FOR FLUID RETENTIO N (EDEMA) ORAL DISCONT INUED 04/27/2025 [id number] 5 Elmer HOLT R 2023 90 [facility] FUROSEMIDE 20MG TAB TAKE ONE TABLET BY MOUTH EVERY MORNING NEEDED FOR FLUID RETENTIO N (EDEMA) ORAL DISCONT INUED (EDIT) 03/01/2025 [id number] 4 EMMANUEL VENEGAS 2023 50 [facility] GABAPENTIN 300MG CAP TAKE ONE CAPSULE BY MOUTH TWICE DAILY NEEDED FOR NERVE PAIN ORAL ACTIVE 08/11/2025 [id number] 5 Elmer HOLT R 2024 180 [facility] GABAPENTIN 300MG CAP TAKE ONE CAPSULE BY MOUTH TWICE DAILY NEEDED FOR NERVE PAIN ORAL DISCONT INUED 05/09/2026 [id number] 5 Elmer HOLT R 2024 60 [facility] GABAPENTIN 300MG CAP TAKE ONE CAPSULE BY MOUTH TWICE DAILY NEEDED FOR NERVE PAIN ORAL DISCONT INUED 02/27/2026 [id number] 5 Elmer HOLT R 2024 60 [facility] GABAPENTIN 300MG CAP TAKE ONE CAPSULE BY MOUTH TWICE DAILY NEEDED FOR NERVE PAIN ORAL DISCONT INUED 01/07/2026 [id number] 5 NAFISA TODD 2024 60 [place] [facility] INSULIN SYRINGE 1ML 31G 6MM USE SYRINGE UNDER THE SKIN TWICE A DAY FOR USE WITH INSULIN TO CONTROL BLOOD SUGAR. SUBCUT ANEOUS ACTIVE 10/25/2025 [id number] 4 Elmer HOLT R 2023 200 [facility] INSULIN,ASP ART,HUMAN 70/30 INJ,NOVOLOG INJECT 21 UNITS UNDER THE SKIN EVERY EVENING FOR DIABETES (ADMINIS TER DOSE WITHIN 5-10 MINUTES OF START OF A MEAL) SUBCUT ANEOUS ACTIVE 10/02/2025 [id number] 4 PUMA BANG 2023 2 [facility] KETOCONAZOL E 2% CREAM,TOP APPLY TO AFFECTED AREA(S) ONCE A DAY FOR 28 DAYS MAY USE FOR RECURREN T FLARES. TOPICA L ACTIVE 09/25/2025 [id number] 4 SALLY QUIROZ A 2023 60 [place] [facility] KETOTIFEN 0.025% SOLN,OPH INSTILL 1 DROP IN BOTH EYES TWICE DAILY NEEDED FOR EYE INFLAMMA TION OPHTHA LMIC ACTIVE 01/07/2026 [id number] 5 NAFISA TODD 2024 5 [place] [facility] LISINOPRIL 40MG TAB TAKE ONE-HALF TABLET BY MOUTH ONCE A DAY FOR HIGH BLOOD PRESSURE FOR BLOOD PRESSURE THIS TABLET IS TO BE CUT IN HALF FOR YOUR DOSE ORAL ACTIVE 03/11/2026 [id number] 5 Elmer HOLT 2024 45 [facility] LISINOPRIL 40MG TAB TAKE ONE-HALF TABLET BY MOUTH ONCE A DAY FOR HIGH BLOOD PRESSURE FOR BLOOD PRESSURE THIS TABLET IS TO BE CUT IN HALF FOR YOUR DOSE ORAL DISCONT INUED 02/28/2025 [id number] 5 EMMANUEL VENEGAS 2023 45 [facility] MECLIZINE HCL 25MG TAB,CHEWABL E CHEW AND SWALLOW ONE TABLET BY MOUTH THREE TIMES A DAY NEEDED FOR VERTIGO CHEWABLE TABLETS MAY BE CHEWED OR SWALLOWE D WHOLE. MAY CAUSE DROWSINE SS. ORAL 11/17/2024 [id number] 4 EMMANUEL VENEGAS 2023 100 [facility] MICONAZOLE NITRATE 2% PWDR,TOP APPLY TO AFFECTED AREA(S) ONCE A DAY NEEDED TO SKIN FOLDS. (EXTERNA L USE ONLY) TOPICA L ACTIVE 09/25/2025 [id number] 4 SALLY QUIROZ A 2023 90 [place] [facility] MULTIVIT/OP HTH AREDS2/LUTE IN/ZEAXANTH IN CAP/TAB TAKE 1 CAP/TAB BY MOUTH TWICE A DAY WITH MEAL(S) FOR EYE HEALTH AVOID IF YOU HAVE PEANUT ALLERGY. ORAL ACTIVE 03/14/2026 [id number] 5 Elmer HOLT R 2024 240 [facility] MULTIVIT/OP HTH AREDS2/LUTE IN/ZEAXANTH IN CAP/TAB TAKE 1 CAP/TAB BY MOUTH TWICE A DAY WITH MEAL(S) FOR EYE HEALTH AVOID IF YOU HAVE PEANUT ALLERGY. ORAL DISCONT INUED (EDIT) 01/07/2026 [id number] 5 NAFISA TODD 2024 120 [place] [facility] NAPROXEN 500MG TAB TAKE ONE TABLET BY MOUTH TWICE A DAY FOR PAIN TAKE WITH FOOD. ORAL ACTIVE 12/17/2025 [id number] 5 Elmer HOLT R 2024 180 [facility] NAPROXEN 500MG TAB TAKE ONE TABLET BY MOUTH TWICE DAILY NEEDED FOR PAIN AND/OR INFLAMMA TION. TAKE WITH FOOD. ORAL 10/11/2024 [id number] 4 EMMANUEL VENEGAS 2022 100 [facility] NITROGLYCER IN 0.4MG TAB,SUBLING UAL DISSOLVE ONE TABLET UNDER THE TONGUE ONE-TIME FOR CHEST PAIN NEEDED ; IF NO IMPROVEM ENT AFTER FIRST DOSE CALL 9-1-1. MAY TAKE 2 ADDITION AL DOSES, 5 MINUTES APART. TAKE WHILE SITTING. SUBLIN GUAL 04/18/2025 [id number] 4 KIMANI BALLESTEROS G 2023 100 [facility] OMEPRAZOLE 40MG CAP,EC TAKE ONE CAPSULE BY MOUTH ONCE A DAY TAKE 30 MINUTES PRIOR TO FOOD. ORAL DISCONT INUED 02/23/2025 [id number] 5 WANG LECHUGA MD 2024 90 [place] [facility] ONDANSETRON HCL 4MG TAB,ORALLY DISINTEGRAT ING TAKE TWO TABLETS UNDER THE TONGUE EVERY EIGHT(8) HOURS NEEDED FOR NAUSEA AND VOMITING SUBLIN GUAL 08/01/2024 [id number] 4 Leslie ULRICH 2023 30 [place] [facility] PANTOPRAZOL E NA 40MG TAB,EC TAKE ONE TABLET BY MOUTH TWICE A DAY TAKE 30 MINUTES BEFORE MEAL(S) DO NOT TAKE WITH OMEPRAZO LE ORAL ACTIVE 03/11/2026 [id number] 5 Elmer HOLT 2024 180 [facility] PANTOPRAZOL E NA 40MG TAB,EC TAKE ONE TABLET BY MOUTH TWICE A DAY TAKE 30 MINUTES BEFORE MEAL(S) DO NOT TAKE WITH OMEPRAZO LE ORAL DISCONT INUED 12/19/2025 [id number] 5 MOOKIE CHANDLER 2024 180 [place] [facility] PEG-3350/EL ECTROLYTES (EQV-MOVIPR EP) PWDR MIX AND DRINK CONTENTS OF KIT BY MOUTH ONE-TIME FOR COLONOSC OPY PREP. ORAL 12/14/2024 [id number] 5 MOOKIE CHANDLER 2024 1 [place] [facility] PIOGLITAZON E HCL 30MG TAB TAKE ONE TABLET BY MOUTH ONCE A DAY FOR DIABETES TAKE WITH MORNING MEAL ORAL ACTIVE 03/11/2026 [id number] 5 Elmer HOLT 2024 90 [facility] PIOGLITAZON E HCL 30MG TAB TAKE ONE TABLET BY MOUTH ONCE A DAY FOR DIABETES TAKE WITH MORNING MEAL ORAL DISCONT INUED 02/28/2025 [id number] 5 EMMANUEL VENEGAS 2023 90 [facility] POTASSIUM CHLORIDE 20MEQ TAB,SA (DISPERSIBL E) TAKE ONE-HALF TABLET BY MOUTH EVERY OTHER DAY FOR POTASSIU M SUPPLEME NTATION TAKE WITH FOOD TAKE WITH LASIX ORAL SUSPEND ED 05/08/2026 [id number] 5 Elmer HOLT 2024 23 [facility] POTASSIUM CHLORIDE 20MEQ TAB,SA (DISPERSIBL E) TAKE ONE-HALF TABLET BY MOUTH EVERY OTHER DAY FOR POTASSIU M SUPPLEME NTATION TAKE WITH FOOD TAKE WITH LASIX ORAL DISCONT INUED 05/14/2025 [id number] 5 PUMA BANG 2024 23 [facility] POTASSIUM CHLORIDE 20MEQ TAB,SA (DISPERSIBL E) TAKE ONE-HALF TABLET BY MOUTH EVERY OTHER DAY FOR POTASSIU M SUPPLEME NTATION TAKE WITH FOOD TAKE WITH LASIX ORAL DISCONT INUED 05/14/2025 [id number] 4 PUMA BANG 2023 23 [facility] POTASSIUM CHLORIDE 20MEQ TAB,SA (DISPERSIBL E) TAKE ONE-HALF TABLET BY MOUTH ONCE A DAY FOR POTASSIU M SUPPLEME NTATION TAKE WITH FOOD TAKE WITH LASIX ORAL DISCONT INUED (EDIT) 04/27/2025 [id number] 4 Elmer HOLT 2023 45 [facility] SEMAGLUTIDE 1MG/0.75ML INJ,SOLN,PE N,3ML INJECT 1MG UNDER THE SKIN EVERY WEEK FOR DIABETES SUBCUT ANEOUS ACTIVE 11/16/2025 [id number] 5 PUMA BANG 2024 3 [facility] SEMAGLUTIDE 1MG/0.75ML INJ,SOLN,PE N,3ML INJECT 1MG UNDER THE SKIN EVERY WEEK FOR DIABETES SUBCUT ANEOUS DISCONT INUED 12/22/2024 [id number] 5 PUMA BANG 2023 1 [facility] SIMVASTATIN 20MG TAB TAKE ONE-HALF TABLET BY MOUTH EVERY EVENING TO LOWER CHOLESTE ROL (REPORT ANY MUSCLE PAIN OR WEAKNESS ) THIS TABLET IS TO BE CUT IN HALF FOR YOUR DOSE ORAL ACTIVE 01/07/2026 [id number] 5 NAFIAS TODD 2024 45 [facility] SIMVASTATIN 20MG TAB TAKE ONE-HALF TABLET BY MOUTH EVERY EVENING TO LOWER CHOLESTE ROL (REPORT ANY MUSCLE PAIN OR WEAKNESS ) THIS TABLET IS TO BE CUT IN HALF FOR YOUR DOSE ORAL DISCONT INUED 08/13/2025 [id number] 4 Elmer HOLT 2023 45 [facility] SIMVASTATIN 20MG TAB TAKE ONE-HALF TABLET BY MOUTH EVERY EVENING TO LOWER CHOLESTE ROL (REPORT ANY MUSCLE PAIN OR WEAKNESS ) THIS TABLET IS TO BE CUT IN HALF FOR YOUR DOSE ORAL DISCONT INUED 07/20/2024 [id number] 4 EMMANUEL VENEGAS 2022 45 [facility] SUCRALFATE 1GM TAB TAKE ONE TABLET BY MOUTH FOUR TIMES A DAY FOR ACID REFLUX - TAKE ON AN EMPTY STOMACH. ORAL ACTIVE 07/31/2025 [id number] 5 PUMA BANG 2023 360 [facility] SUCRALFATE 1GM TAB TAKE ONE TABLET BY MOUTH FOUR TIMES A DAY REFLUX - TAKE ON AN EMPTY STOMACH. ORAL 04/05/2024 [id number] 4 HOUTS,BRA DLEY RAY 2023 56 [place] [facility] TAMSULOSIN HCL 0.4MG CAP TAKE TWO CAPSULES BY MOUTH EVERY EVENING FOR BENIGN PROSTATI C HYPERPLA NEETU APPROXIM ATELY 30 MINUTES AFTER THE SAME MEAL EACH DAY (FOR PROSTATE ) ORAL ACTIVE 01/07/2026 [id number] 5 NAFISA TODD 2024 180 [facility] TAMSULOSIN HCL 0.4MG CAP TAKE TWO CAPSULES BY MOUTH EVERY EVENING FOR BENIGN PROSTATI C HYPERPLA NEETU APPROXIM ATELY 30 MINUTES AFTER THE SAME MEAL EACH DAY (FOR PROSTATE ) ORAL DISCONT INUED 02/28/2025 [id number] 4 EMMANUEL VENEGAS Leslie 2023 180 [facility] UREA 40% CREAM,TOP APPLY LIGHTLY TO AFFECTED AREA(S) TWICE DAILY TO PROMOTE HEALING. RUB IN UNTIL COMPLETE LY ABSORBED . FOR TOPICAL USE ONLY. TOPICA L 02/28/2025 [id number] 4 RUBIEMMANUEL BAPTISTE Leslie 2023 210 [facility] Allergies, Adverse Reactions, Alerts Combined list of allergies from Department of Defense and Veterans Affairs facilities. It does not include entries that were removed or entered in error. Substance Category Reaction Severity Reaction type Status Date Reported Comments Source BEE STINGS Propensity to adverse reaction (finding) Swelling active 9 [facility] BEE STINGS Propensity to adverse reaction (finding) Urticaria active 7 [facility] Propensity to adverse reactions to drug (finding) Nausea and vomiting active 4 [facility] Propensity to adverse reactions to drug (finding) active 9 [facility] Propensity to adverse reactions to drug (finding) Nausea and vomiting, Headache MILD active 9 [facility] Immunizations Combined list of available immunizations from the Department of Defense and Veterans Affairs facilities. Immunization Series Date Given Administered By Site Reaction Lot Number CVX Code Drug Reliability Technician Status Comments Source COVID-19 (MODERNA), MRNA, LNP-S, PF, 50 MCG/0.5 ML (AGES 12+ YEARS) 2022 [facility] LEFT DELTO ID [id number] 312 complet ed [facility] INFLUENZA, INJECTABLE, QUADRIVALENT, PRESERVATIVE FREE 2022 AMAURIEDE ESCALANTE R RIGHT DELTO ID [id number] A 150 complet ed [facility] COVID-19 (MODERNA), MRNA, LNP-S, BIVALENT, PF, 50 MCG/0.5 ML OR 25MCG/0.25 ML DOSE 4 2021 229 complet ed HISTORICA L INFORMATI ON - FROM OTHER REGISTRY, [facility] INFLUENZA, INJECTABLE, QUADRIVALENT, PRESERVATIVE FREE 2021 150 complet ed [place] [facility] COVID-19 (MODERNA), MRNA, LNP-S, PF, 100 MCG/0.5ML DOSE OR 50 MCG/0.25ML DOSE 3 2020 207 complet ed [facility] PNEUMOCOCCAL POLYSACCHARID E PPV23 2020 [facility] ([facility]), MRNA, LNP-S, PF, 100 MCG/0.5ML DOSE OR 50 MCG/0.25ML DOSE 2 2020 207 complet ed [facility] COVID-19 (MODERNA), MRNA, LNP-S, PF, 100 MCG/0.5ML DOSE OR 50 MCG/0.25ML DOSE 1 2020 207 complet ed [facility] ZOSTER RECOMBINANT 2 2018 187 complet ed [facility] INFLUENZA, INJECTABLE, QUADRIVALENT, PRESERVATIVE FREE 2017 150 complet ed [place] [facility] PNEUMOCOCCAL CONJUGATE PCV 13 2017 133 complet ed [facility] ZOSTER RECOMBINANT 1 2017 187 complet ed [facility] INFLUENZA, SEASONAL, INJECTABLE, PRESERVATIVE FREE 2016 140 complet ed Left Deltoid [facility] INFLUENZA, SEASONAL, INJECTABLE, PRESERVATIVE FREE 2016 140 complet ed [facility] TDAP 2016 115 complet ed [facility] INFLUENZA, SEASONAL, INJECTABLE, PRESERVATIVE FREE 2014 140 complet ed [place] [facility] PNEUMOCOCCAL POLYSACCHARID E PPV23 2014 33 complet ed [facility] ZOSTER LIVE 2014 121 complet ed [facility] INFLUENZA, UNSPECIFIED FORMULATION 2013 88 complet ed [facility] ZOSTER LIVE 1 2012 121 complet ed HISTORICA L INFORMATI ON - FROM OTHER REGISTRY, [facility] INFLUENZA, UNSPECIFIED FORMULATION 2011 88 complet ed [facility] PNEUMOCOCCAL, UNSPECIFIED FORMULATION 2011 109 complet ed [facility] TD(ADULT) UNSPECIFIED FORMULATION 2011 139 complet ed [facility] INFLUENZA, UNSPECIFIED FORMULATION 2010 88 complet ed [facility] INFLUENZA, UNSPECIFIED FORMULATION 2009 88 complet ed [facility] NOVEL INFLUENZA-H1N 1-09, ALL FORMULATIONS 2009 128 complet ed [facility] INFLUENZA, UNSPECIFIED FORMULATION 2007 88 complet ed [facility] INFLUENZA, UNSPECIFIED FORMULATION 2006 88 complet ed [facility] FLU,3 YRS (HISTORICAL) 2006 NONE 88 complet ed [facility] PNEUMOCOCCAL, UNSPECIFIED FORMULATION 2006 109 complet ed HISTORICA L INFORMATI ON - FROM OTHER REGISTRY, [facility] HEP B, ADULT 1 2005 43 complet ed HISTORICA L INFORMATI ON - FROM OTHER REGISTRY, [facility] FLU,3 YRS (HISTORICAL) 2005 88 complet ed [facility] INFLUENZA, UNSPECIFIED FORMULATION 2004 88 complet ed [facility] TD(ADULT) UNSPECIFIED FORMULATION 2000 139 complet ed [address] Results Combined list of recent chemistry, hematology and other laboratory results from [facility] of Defense and [facility] Affairs, ranging from 15 months to all on record, depending upon the facility. Order Name Results Value Reference Range Date Interpretation Specimen Comments Source CHOLESTERO L PANEL (PB) CHOLESTEROL [MASS/VOLUM E] IN SERUM OR PLASMA 135 mg/dL 0 - 200 03/13 Specimen Type: PLASMA No comment entered. Ordering Provider: Elmer HOLT Report Released Date/Time : March 13, 2025 11:13 AM Reporting Lab: [place] [facility] [address] [place] [address] Performin g Lab: [place] [facility] [address] [place] [address] [facility] CHOLESTERO L PANEL (PB) TRIGLYCERID E [MASS/VOLUM E] IN SERUM OR PLASMA 124 mg/dL 0 - 150 03/13 Specimen Type: PLASMA No comment entered. Ordering Provider: Elmer HOLT Report Released Date/Time : March 13, 2025 11:13 AM Reporting Lab: [place] [facility] [address] [place] [address] Performin g Lab: [place] [facility] [address] [place] [address] [facility] CHOLESTERO L PANEL (PB) CHOLESTEROL IN LDL [MASS/VOLUM E] IN SERUM OR PLASMA BY CALCULATION 75.0 mg/dL 03/13 Specimen Type: PLASMA No comment entered. Ordering Provider: Elmer HOLT Report Released Date/Time : March 13, 2025 11:13 AM Reporting Lab: [place] [facility] [address] [place] [address] Performin g Lab: [place] [facility] [address] [place] [address] 8 [facility] CHOLESTERO L PANEL (PB) CHOLESTEROL IN HDL [MASS/VOLUM E] IN SERUM OR PLASMA 35.2 mg/dL 40 03/13 L Specimen Type: PLASMA No comment entered. Ordering Provider: Elmer OHLT Report Released Date/Time : March 13, 2025 11:13 AM Reporting Lab: [place] [facility] [address] [place] [address] Performin g Lab: [place] [facility] [address] [place] [address] [facility] CHOLESTERO L PANEL (PB) CHOLESTEROL IN HDL/CHOLEST FERMÍN.TOTAL [MASS RATIO] IN SERUM OR PLASMA 26.1 25 03/13 Specimen Type: PLASMA No comment entered. Ordering Provider: Elmer HOLT Report Released Date/Time : March 13, 2025 11:13 AM Reporting Lab: [place] [facility] [address] [place] [address] Performin g Lab: [place] [facility] [address] [place] [address] 8 [facility] COMPREHENS MAURIZIO METABOLIC PANEL CREATININE [MASS/VOLUM E] IN SERUM OR PLASMA 1.00 mg/dL 0.7 - 1.3 03/13 Specimen Type: PLASMA No comment entered. Ordering Provider: Elmer HOLT Report Released Date/Time : March 13, 2025 11:13 AM Reporting Lab: [place] [facility] [address] [place] [address] 8 Performin g Lab: [place] [facility] [address] [place] [address] 8 [facility] COMPREHENS MAURIZIO METABOLIC PANEL UREA NITROGEN [MASS/VOLUM E] IN SERUM OR PLASMA 15 mg/dL 9 - 25 03/13 Specimen Type: PLASMA No comment entered. Ordering Provider: Elmer HOLT R Report Released Date/Time : March 13, 2025 11:13 AM Reporting Lab: [place] [facility] [address] [place] [address] 8 Performin g Lab: [place] [facility] [address] [place] [address] 8 [facility] COMPREHENS MAURIZIO METABOLIC PANEL GLUCOSE [MASS/VOLUM E] IN SERUM OR PLASMA 142 mg/dL 72 - 99 03/13 H Specimen Type: PLASMA No comment entered. Ordering Provider: Elmer HOLT R Report Released Date/Time : March 13, 2025 11:13 AM Reporting Lab: [place] [facility] [address] [place] [address] Performin g Lab: [place] [facility] [address] [place] [address] 8 [facility] COMPREHENS MAURIZIO METABOLIC PANEL SODIUM [MOLES/VOLU ME] IN SERUM OR PLASMA 138 meq/L 136 - 145 03/13 Specimen Type: PLASMA No comment entered. Ordering Provider: Elmer HOLT Report Released Date/Time : March 13, 2025 11:13 AM Reporting Lab: [place] [facility] [address] [place] [address] Performin g Lab: [place] [facility] [address] [place] [address] 8 [facility] COMPREHENS MAURIZIO METABOLIC PANEL POTASSIUM [MOLES/VOLU ME] IN SERUM OR PLASMA 4.7 meq/L 3.5 - 5 03/13 Specimen Type: PLASMA No comment entered. Ordering Provider: Elmer HOLT R Report Released Date/Time : March 13, 2025 11:13 AM Reporting Lab: [place] [facility] [address] [place] [address] 8 Performin g Lab: [place] [facility] [address] [place] [address] [facility] COMPREHENS MAURIZIO METABOLIC PANEL CHLORIDE [MOLES/VOLU ME] IN SERUM OR PLASMA 102 meq/L 98 - 107 03/13 Specimen Type: PLASMA No comment entered. Ordering Provider: Elmer HOLT R Report Released Date/Time : March 13, 2025 11:13 AM Reporting Lab: [place] [facility] [address] [place] [address] 8 Performin g Lab: [place] [facility] [address] [place] [address] 8 [facility] COMPREHENS MAURIZIO METABOLIC PANEL CARBON DIOXIDE, TOTAL [MOLES/VOLU ME] IN SERUM OR PLASMA 26 meq/L 22 - 31 03/13 Specimen Type: PLASMA No comment entered. Ordering Provider: Elmer HOLT R Report Released Date/Time : March 13, 2025 11:13 AM Reporting Lab: [place] [facility] [address] [place] [address] Performin g Lab: [place] [facility] [address] [place] [address] 8 [facility] COMPREHENS MAURIZIO METABOLIC PANEL CALCIUM [MASS/VOLUM E] IN SERUM OR PLASMA 9.1 mg/dL 8.4 - 10.4 03/13 Specimen Type: PLASMA No comment entered. Ordering Provider: Elmer HOLT Report Released Date/Time : March 13, 2025 11:13 AM Reporting Lab: [place] [facility] [address] [place] [address] Performin g Lab: [place] [facility] [address] [place] [address] 8 [facility] COMPREHENS MAURIZIO METABOLIC PANEL PROTEIN [MASS/VOLUM E] IN SERUM OR PLASMA 6.6 g/dL 6 - 8.6 03/13 Specimen Type: PLASMA No comment entered. Ordering Provider: Elmer HOLT Report Released Date/Time : March 13, 2025 11:13 AM Reporting Lab: [place] [facility] [address] [place] [address] Performin g Lab: [place] [facility] [address] [place] [address] 8 [facility] COMPREHENS MAURIZIO METABOLIC PANEL ALBUMIN [MASS/VOLUM E] IN SERUM OR PLASMA 3.9 g/dL 3.4 - 5 03/13 Specimen Type: PLASMA No comment entered. Ordering Provider: Elmer HOLT R Report Released Date/Time : March 13, 2025 11:13 AM Reporting Lab: [place] [facility] [address] [place] [address] 8 Performin g Lab: [place] [facility] [address] [place] [address] 8 [facility] COMPREHENS MAURIZIO METABOLIC PANEL BILIRUBIN.T OTAL [MASS/VOLUM E] IN SERUM OR PLASMA 0.4 mg/dL 0.2 - 1.2 03/13 Specimen Type: PLASMA No comment entered. Ordering Provider: Elmer HOLT R Report Released Date/Time : March 13, 2025 11:13 AM Reporting Lab: [place] [facility] [address] [place] [address] Performin g Lab: [place] [facility] [address] [place] [address] [facility] COMPREHENS MAURIZIO METABOLIC PANEL ALKALINE PHOSPHATASE [ENZYMATIC ACTIVITY/VO LUME] IN SERUM OR PLASMA 78 U/L 40 - 150 03/13 Specimen Type: PLASMA No comment entered. Ordering Provider: HOLT,C ATHERINE R Report Released Date/Time : March 13, 2025 11:13 AM Reporting Lab: [place] [facility] [address] [place] [address] Performin g Lab: [place] [facility] [address] [place] [address] 8 [facility] COMPREHENS MAURIZIO METABOLIC PANEL ASPARTATE AMINOTRANSF ERASE [ENZYMATIC ACTIVITY/VO LUME] IN SERUM OR PLASMA 12 U/L 5 - 34 03/13 Specimen Type: PLASMA No comment entered. Ordering Provider: Elmer HOLT R Report Released Date/Time : March 13, 2025 11:13 AM Reporting Lab: [place] [facility] [address] [place] [address] 8 Performin g Lab: [place] [facility] [address] [place] [address] 8 [facility] COMPREHENS MAURIZIO METABOLIC PANEL ALANINE AMINOTRANSF ERASE [ENZYMATIC ACTIVITY/VO LUME] IN SERUM OR PLASMA 13 U/L 8 - 40 03/13 Specimen Type: PLASMA No comment entered. Ordering Provider: Elmer HOLT Report Released Date/Time : March 13, 2025 11:13 AM Reporting Lab: [place] [facility] [address] [place] [address] 8 Performin g Lab: [place] [facility] [address] [place] [address] 8 [facility] COMPREHENS MAURIZIO METABOLIC PANEL GLOMERULAR FILTRATION RATE/1.73 SQ M.PREDICTED [VOLUME RATE/AREA] IN SERUM, PLASMA OR BLOOD BY CREATININE- BASED FORMULA (CKD-EPI 2020) 80 03/13 Specimen Type: PLASMA No comment entered. Ordering Provider: Elmer HOLT R Report Released Date/Time : March 13, 2025 11:13 AM Reporting Lab: [place] [facility] [address] [place] [address] Performin g Lab: [place] [facility] [address] [place] [address] [facility] HGA1C HEMOGLOBIN A1C/HEMOGLO BIN.TOTAL IN BLOOD 7.1 4.0 - 6.0 03/13 H Specimen Type: BLOOD No comment entered. Ordering Provider: Elmer HOLT Report Released Date/Time : March 13, 2025 11:13 AM Reporting Lab: [place] [facility] [address] [place] [address] Performin g Lab: [place] [facility] [address] [place] [address] [facility] URINALYSIS (STL-PB) COLOR OF URINE Light Yellow 03/13 Specimen Type: URINE Comment: Specific [place] may be elevated due to high Urine Glucose or high Urine Protein Ordering Provider: Elmer HOLT Report Released Date/Time : March 13, 2025 11:13 AM Reporting Lab: [place] [facility] [address] [place] [address] 8 Performin g Lab: [place] [facility] [address] [place] [address] [facility] URINALYSIS (STL-PB) BILIRUBIN.T OTAL [PRESENCE] IN URINE BY TEST STRIP NEGATIVEm g/dL 03/13 Specimen Type: URINE Comment: Specific [place] may be elevated due to high Urine Glucose or high Urine Protein Ordering Provider: Elmer HOLT Report Released Date/Time : March 13, 2025 11:13 AM Reporting Lab: [place] [facility] [address] [place] [address] 8 Performin g Lab: [place] [facility] [address] [place] [address] 8 [facility] URINALYSIS (STL-PB) PH OF URINE BY TEST STRIP 6.0 5.0 - 8.0 03/13 Specimen Type: URINE Comment: Specific [place] may be elevated due to high Urine Glucose or high Urine Protein Ordering Provider: Elmer HOLT Report Released Date/Time : March 13, 2025 11:13 AM Reporting Lab: [place] [facility] [address] [place] [address] Performin g Lab: [place] [facility] [address] [place] [address] [facility] URINALYSIS (STL-PB) LEUKOCYTES [#/AREA] IN URINE SEDIMENT BY MICROSCOPY HIGH POWER FIELD 7 /[HPF] 0 - 5 03/13 H Specimen Type: URINE Comment: Specific [place] may be elevated due to high Urine Glucose or high Urine Protein Ordering Provider: Elmer HOLT Report Released Date/Time : March 13, 2025 11:13 AM Reporting Lab: [place] [facility] [address] [place] [address] 8 Performin g Lab: [place] [facility] [address] [place] [address] 8 [facility] URINALYSIS (STL-PB) ERYTHROCYTE S [#/VOLUME] IN URINE SEDIMENT BY MICROSCOPY HIGH POWER FIELD 63 /[HPF] 0 - 5 03/13 H Specimen Type: URINE Comment: Specific [place] may be elevated due to high Urine Glucose or high Urine Protein Ordering Provider: Elmer HOLT Report Released Date/Time : March 13, 2025 11:13 AM Reporting Lab: [place] [facility] [address] [place] [address] 8 Performin g Lab: [place] [facility] [address] [place] [address] 8 [facility] URINALYSIS (STL-PB) APPEARANCE OF URINE CLEAR 03/13 Specimen Type: URINE Comment: Specific [place] may be elevated due to high Urine Glucose or high Urine Protein Ordering Provider: Elmer HOLT Report Released Date/Time : March 13, 2025 11:13 AM Reporting Lab: [place] [facility] [address] [place] [address] 8 Performin g Lab: [place] [facility] [address] [place] [address] 8 [facility] URINALYSIS (STL-PB) NITRITE [PRESENCE] IN URINE BY TEST STRIP NEGATIVEm g/dL 03/13 Specimen Type: URINE Comment: Specific [place] may be elevated due to high Urine Glucose or high Urine Protein Ordering Provider: Elmer HOLT Report Released Date/Time : March 13, 2025 11:13 AM Reporting Lab: [place] [facility] [address] [place] [address] 8 Performin g Lab: [place] [facility] [address] [place] [address] 8 [facility] URINALYSIS (STL-PB) EPITHELIAL CELLS [#/AREA] IN URINE SEDIMENT BY MICROSCOPY LOW POWER FIELD 1 /[HPF] 0 - 5 03/13 Specimen Type: URINE Comment: Specific [place] may be elevated due to high Urine Glucose or high Urine Protein Ordering Provider: Elmer HOLT Report Released Date/Time : March 13, 2025 11:13 AM Reporting Lab: [place] [facility] [address] [place] [address] 8 Performin g Lab: [place] [facility] [address] [place] [address] 8 [facility] URINALYSIS (STL-PB) MUCUS [PRESENCE] IN URINE SEDIMENT BY LIGHT MICROSCOPY RARE/[LPF ] 03/13 Specimen Type: URINE Comment: Specific [place] may be elevated due to high Urine Glucose or high Urine Protein Ordering Provider: Elmer HOLT Report Released Date/Time : March 13, 2025 11:13 AM Reporting Lab: [place] [facility] [address] [place] [address] 8 Performin g Lab: [place] [facility] [address] [place] [address] 8 [facility] URINALYSIS (STL-PB) GLUCOSE [MASS/VOLUM E] IN URINE BY TEST STRIP >=1000mg/ dL 03/13 H Specimen Type: URINE Comment: Specific [place] may be elevated due to high Urine Glucose or high Urine Protein Ordering Provider: Elmer HOLT Report Released Date/Time : March 13, 2025 11:13 AM Reporting Lab: [place] [facility] [address] [place] [address] 8 Performin g Lab: [place] [facility] [address] [place] [address] 8 [facility] URINALYSIS (STL-PB) PROTEIN [MASS/VOLUM E] IN URINE BY TEST STRIP NEGATIVEm g/dL 03/13 Specimen Type: URINE Comment: Specific [place] may be elevated due to high Urine Glucose or high Urine Protein Ordering Provider: Emler HOLT Report Released Date/Time : March 13, 2025 11:13 AM Reporting Lab: [place] [facility] [address] [place] [address] 8 Performin g Lab: [place] [facility] [address] [place] [address] 8 [facility] URINALYSIS (STL-PB) URN.UROBILI NOGEN NORMALmg/ dL 03/13 Specimen Type: URINE Comment: Specific [place] may be elevated due to high Urine Glucose or high Urine Protein Ordering Provider: Elmer HOLT Report Released Date/Time : March 13, 2025 11:13 AM Reporting Lab: [place] [facility] [address] [place] [address] 8 Performin g Lab: [place] [facility] [address] [place] [address] 8 [facility] URINALYSIS (STL-PB) HEMOGLOBIN [MASS/VOLUM E] IN URINE BY TEST STRIP 2+mg/dL 03/13 H Specimen Type: URINE Comment: Specific [place] may be elevated due to high Urine Glucose or high Urine Protein Ordering Provider: Elmer HOLT Report Released Date/Time : March 13, 2025 11:13 AM Reporting Lab: [place] [facility] [address] [place] [address] 8 Performin g Lab: [place] [facility] [address] [place] [address] 8 [facility] URINALYSIS (STL-PB) KETONES [MASS/VOLUM E] IN URINE BY TEST STRIP NEGATIVEm g/dL 03/13 Specimen Type: URINE Comment: Specific [place] may be elevated due to high Urine Glucose or high Urine Protein Ordering Provider: Elmer HOLT Report Released Date/Time : March 13, 2025 11:13 AM Reporting Lab: [place] [facility] [address] [place] [address] 8 Performin g Lab: [place] [facility] [address] [place] [address] 8 [facility] URINALYSIS (STL-PB) URN.LEUK.ES T. NEGATIVE 03/13 Specimen Type: URINE Comment: Specific [place] may be elevated due to high Urine Glucose or high Urine Protein Ordering Provider: Elmer HOLT Report Released Date/Time : March 13, 2025 11:13 AM Reporting Lab: [place] [facility] [address] [place] [address] 8 Performin g Lab: [place] [facility] [address] [place] [address] 8 [facility] URINALYSIS (STL-PB) SPECIFIC GRAVITY OF URINE 1.028 1.005 - 1.029 03/13 Specimen Type: URINE Comment: Specific [place] may be elevated due to high Urine Glucose or high Urine Protein Ordering Provider: Elmer HOLT Report Released Date/Time : March 13, 2025 11:13 AM Reporting Lab: [place] [facility] [address] [place] [address] Performin g Lab: [place] [facility] [address] [place] [address] 8 [facility] URINE ALBUMIN PROFILE-ih (PB) ALBUMIN [MASS/VOLUM E] IN URINE 39.95 mg/L 03/13 Specimen Type: URINE No comment entered. Ordering Provider: Elmer HOLT Report Released Date/Time : March 13, 2025 11:13 AM Reporting Lab: [place] [facility] [address] [place] [address] 8 Performin g Lab: [place] [facility] [address] [place] [address] 8 [facility] URINE ALBUMIN PROFILE-ih (PB) ALBUMIN/CRE ATININE [MASS RATIO] IN URINE 64.52 mg/g 0 - 30 03/13 H Specimen Type: URINE No comment entered. Ordering Provider: Elmer HOLT Report Released Date/Time : March 13, 2025 11:13 AM Reporting Lab: [place] [facility] [address] [place] [address] 8 Performin g Lab: [place] [facility] [address] [place] [address] 8 [place] [facility] URINE ALBUMIN PROFILE-ih (PB) CREATININE [MASS/VOLUM E] IN URINE 61.92 mg/dL 03/13 Specimen Type: URINE No comment entered. Ordering Provider: Elmer HOLT Report Released Date/Time : March 13, 2025 11:13 AM Reporting Lab: [place] [facility] [address] [place] [address] 8 Performin g Lab: [place] [facility] [address] [place] [address] 8 [facility] LEUKOCYTES [#/VOLUME] IN BLOOD BY AUTOMATED COUNT 10.3 10*3/uL 3.6 - 11.2 01/06 Specimen Type: BLOOD No comment entered. Ordering Provider: NAFISA TODD Report Released Date/Time : Jan 06, 2025 08:43 AM Reporting Lab: [place] [facility] [address] [place] [address] Performin g Lab: [place] [facility] [address] [place] [address] 8 [place] [facility] CBC ERYTHROCYTE S [#/VOLUME] IN BLOOD BY AUTOMATED COUNT 5.18 10*6/uL 4.10 - 5.70 01/06 Specimen Type: BLOOD No comment entered. Ordering Provider: NAFISA TODD Report Released Date/Time : Jan 06, 2025 08:43 AM Reporting Lab: [place] [facility] [address] [place] [address] 8 Performin g Lab: [place] [facility] [address] [place] [address] 8 [place] [facility] CBC HEMOGLOBIN [MASS/VOLUM E] IN BLOOD 15.0 g/dL 13.1 - 16.8 01/06 Specimen Type: BLOOD No comment entered. Ordering Provider: NAFISA TODD Report Released Date/Time : Jan 06, 2025 08:43 AM Reporting Lab: [place] [facility] [address] [place] [address] 8 Performin g Lab: [place] [facility] [address] [place] [address] 8 [place] [facility] CBC HEMATOCRIT [VOLUME FRACTION] OF BLOOD 48.1 38.2 - 48.4 01/06 Specimen Type: BLOOD No comment entered. Ordering Provider: NAFISA TODD Report Released Date/Time : Jan 06, 2025 08:43 AM Reporting Lab: [place] [facility] [address] [place] [address] 8 Performin g Lab: [place] [facility] [address] [place] [address] 8 [place] [facility] CBC MCV [ENTITIC VOLUME] BY AUTOMATED COUNT 92.9 fL 80.0 - 100.0 01/06 Specimen Type: BLOOD No comment entered. Ordering Provider: NAFISA TODD Report Released Date/Time : Jan 06, 2025 08:43 AM Reporting Lab: [place] [facility] [address] [place] [address] Performin g Lab: [place] [facility] [address] [place] [address] [place] [facility] CBC MCH [ENTITIC MASS] BY AUTOMATED COUNT 29.0 pg 27.0 - 34.0 01/06 Specimen Type: BLOOD No comment entered. Ordering Provider: NAFISA TODD Report Released Date/Time : Jan 06, 2025 08:43 AM Reporting Lab: [place] [facility] [address] [place] [address] Performin g Lab: [place] [facility] [address] [place] [address] [place] [facility] CBC MCHC [MASS/VOLUM E] BY AUTOMATED COUNT 31.2 g/dL 33.0 - 36.0 01/06 L Specimen Type: BLOOD No comment entered. Ordering Provider: NAFISA TODD Report Released Date/Time : Jan 06, 2025 08:43 AM Reporting Lab: [place] [facility] [address] [place] [address] Performin g Lab: [place] [facility] [address] [place] [address] [place] [facility] CBC PLATELETS [#/VOLUME] IN BLOOD BY AUTOMATED COUNT 302 10*3/uL 150 - 400 01/06 Specimen Type: BLOOD No comment entered. Ordering Provider: NAFISA TODD Report Released Date/Time : Jan 06, 2025 08:43 AM Reporting Lab: [place] [facility] [address] [place] [address] Performin g Lab: [place] [facility] [address] [place] [address] [place] [facility] [facility] PLATELET MEAN VOLUME [ENTITIC VOLUME] IN BLOOD BY AUTOMATED COUNT 10.4 fL 7.5 - 11.2 01/06 Specimen Type: BLOOD No comment entered. Ordering Provider: NAFISA TODD Report Released Date/Time : Jan 06, 2025 08:43 AM Reporting Lab: [place] [facility] [address] [place] [address] Performin g Lab: [place] [facility] [address] [place] [address] [place] [facility] CBC ERYTHROCYTE DISTRIBUTIO N WIDTH [RATIO] BY AUTOMATED COUNT 13.6 11.8 - 15.1 01/06 Specimen Type: BLOOD No comment entered. Ordering Provider: NAFISA TODD Report Released Date/Time : Jan 06, 2025 08:43 AM Reporting Lab: [place] [facility] [address] [place] [address] 8 Performin g Lab: [place] [facility] [address] [place] [address] 8 [place] [facility] CBC LYMPHOCYTES /100 LEUKOCYTES IN BLOOD BY AUTOMATED COUNT 17.1 01/06 Specimen Type: BLOOD No comment entered. Ordering Provider: NAFISA TODD Report Released Date/Time : Jan 06, 2025 08:43 AM Reporting Lab: [place] [facility] [address] [place] [address] 8 Performin g Lab: [place] [facility] [address] [place] [address] 8 [place] [facility] CBC MONOCYTES/1 00 LEUKOCYTES IN BLOOD BY AUTOMATED COUNT 5.4 01/06 Specimen Type: BLOOD No comment entered. Ordering Provider: NAFISA TODD Report Released Date/Time : Jan 06, 2025 08:43 AM Reporting Lab: [place] [facility] [address] [place] [address] 8 Performin g Lab: [place] [facility] [address] [place] [address] 8 [place] [facility] CBC NEUTROPHILS /100 LEUKOCYTES IN BLOOD BY AUTOMATED COUNT 74.5 01/06 Specimen Type: BLOOD No comment entered. Ordering Provider: NAFISA TODD Report Released Date/Time : Jan 06, 2025 08:43 AM Reporting Lab: [place] [facility] [address] [place] [address] 8 Performin g Lab: [place] [facility] [address] [place] [address] 8 [place] [facility] CBC EOSINOPHILS /100 LEUKOCYTES IN BLOOD BY AUTOMATED COUNT 2.1 01/06 Specimen Type: BLOOD No comment entered. Ordering Provider: NAFISA TODD Report Released Date/Time : Jan 06, 2025 08:43 AM Reporting Lab: [place] [facility] [address] [place] [address] 8 Performin g Lab: [place] [facility] [address] [place] [address] 8 [place] [facility] CBC BASOPHILS/1 00 LEUKOCYTES IN BLOOD BY AUTOMATED COUNT 0.5 01/06 Specimen Type: BLOOD No comment entered. Ordering Provider: NAFISA TODD Report Released Date/Time : Jan 06, 2025 08:43 AM Reporting Lab: [place] [facility] [address] [place] [address] 8 Performin g Lab: [place] [facility] [address] [place] [address] 8 [place] [facility] CBC LYMPHOCYTES [#/VOLUME] IN BLOOD BY AUTOMATED COUNT 1.76 10*3/uL 0.77 - 4.50 01/06 Specimen Type: BLOOD No comment entered. Ordering Provider: NAFISA TODD Report Released Date/Time : Jan 06, 2025 08:43 AM Reporting Lab: [place] [facility] [address] [place] [address] 8 Performin g Lab: [place] [facility] [address] [place] [address] 8 [place] [facility] CBC MONOCYTES [#/VOLUME] IN BLOOD BY AUTOMATED COUNT 0.55 10*3/uL 0.19 - 0.8 01/06 Specimen Type: BLOOD No comment entered. Ordering Provider: NAFISA TODD Report Released Date/Time : Jan 06, 2025 08:43 AM Reporting Lab: [place] [facility] [address] [place] [address] 8 Performin g Lab: [place] [facility] [address] [place] [address] 8 [place] [facility] CBC NEUTROPHILS [#/VOLUME] IN BLOOD BY AUTOMATED COUNT 7.66 10*3/uL 2.10 - 8.00 01/06 Specimen Type: BLOOD No comment entered. Ordering Provider: NAFISA TODD Report Released Date/Time : Jan 06, 2025 08:43 AM Reporting Lab: [place] [facility] [address] [place] [address] 8 Performin g Lab: [place] [facility] [address] [place] [address] 8 [place] [facility] CBC EOSINOPHILS [#/VOLUME] IN BLOOD BY AUTOMATED COUNT 0.22 10*3/uL 0.00 - 0.60 01/06 Specimen Type: BLOOD No comment entered. Ordering Provider: NAFISA TODD Report Released Date/Time : Jan 06, 2025 08:43 AM Reporting Lab: [place] [facility] [address] [place] [address] 8 Performin g Lab: [place] [facility] [address] [place] [address] 8 [place] [facility] CBC BASOPHILS [#/VOLUME] IN BLOOD BY AUTOMATED COUNT 0.05 10*3/uL 0.00 - 0.20 01/06 Specimen Type: BLOOD No comment entered. Ordering Provider: NAFISA TODD Report Released Date/Time : Jan 06, 2025 08:43 AM Reporting Lab: [place] [facility] [address] [place] [address] 8 Performin g Lab: [place] [facility] [address] [place] [address] 8 [place] [facility] CBC IMMATURE GRANULOCYTE S/100 LEUKOCYTES IN BLOOD BY AUTOMATED COUNT 0.4 01/06 Specimen Type: BLOOD No comment entered. Ordering Provider: NAFISA TODD Report Released Date/Time : Jan 06, 2025 08:43 AM Reporting Lab: [place] [facility] [address] [place] [address] 8 Performin g Lab: [place] [facility] [address] [place] [address] 8 [place] [facility] CBC IMMATURE GRANULOCYTE S [#/VOLUME] IN BLOOD BY AUTOMATED COUNT 0.04 10*3/uL 0.00 - 0.05 01/06 Specimen Type: BLOOD No comment entered. Ordering Provider: NAFISA TODD Report Released Date/Time : Jan 06, 2025 08:43 AM Reporting Lab: [place] [facility] [address] [place] [address] 8 Performin g Lab: [place] [facility] [address] [place] [address] 8 [place] [facility] COMPREHENS MAURIZIO METABOLIC PANEL CREATININE [MASS/VOLUM E] IN SERUM OR PLASMA 1.05 mg/dL 0.7 - 1.3 01/06 Specimen Type: PLASMA No comment entered. Ordering Provider: NAFISA TODD Report Released Date/Time : Jan 06, 2025 08:43 AM Reporting Lab: [place] [facility] [address] [place] [address] 8 Performin g Lab: [place] [facility] [address] [place] [address] 8 [place] [facility] COMPREHENS MAURIZIO METABOLIC PANEL UREA NITROGEN [MASS/VOLUM E] IN SERUM OR PLASMA 20 mg/dL 9 - 25 01/06 Specimen Type: PLASMA No comment entered. Ordering Provider: NAFISA TODD Report Released Date/Time : Jan 06, 2025 08:43 AM Reporting Lab: [place] [facility] [address] [place] [address] 8 Performin g Lab: [place] [facility] [address] [place] [address] 8 [place] [facility] COMPREHENS MAURIZIO METABOLIC PANEL GLUCOSE [MASS/VOLUM E] IN SERUM OR PLASMA 207 mg/dL 72 - 99 01/06 H Specimen Type: PLASMA No comment entered. Ordering Provider: NAFISA TODD Report Released Date/Time : Jan 06, 2025 08:43 AM Reporting Lab: [place] [facility] [address] [place] [address] 8 Performin g Lab: [place] [facility] [address] [place] [address] 8 [place] [facility] COMPREHENS MAURIZIO METABOLIC PANEL SODIUM [MOLES/VOLU ME] IN SERUM OR PLASMA 141 meq/L 136 - 145 01/06 Specimen Type: PLASMA No comment entered. Ordering Provider: NAFISA TODD Report Released Date/Time : Jan 06, 2025 08:43 AM Reporting Lab: [place] [facility] [address] [place] [address] 8 Performin g Lab: [place] [facility] [address] [place] [address] 8 [place] [facility] COMPREHENS MAURIZIO METABOLIC PANEL POTASSIUM [MOLES/VOLU ME] IN SERUM OR PLASMA 5.4 meq/L 3.5 - 5 01/06 H Specimen Type: PLASMA No comment entered. Ordering Provider: NAFISA TODD Report Released Date/Time : Jan 06, 2025 08:43 AM Reporting Lab: [place] [facility] [address] [place] [address] 8 Performin g Lab: [place] [facility] [address] [place] [address] 8 [place] [facility] COMPREHENS MAURIZIO METABOLIC PANEL CHLORIDE [MOLES/VOLU ME] IN SERUM OR PLASMA 105 meq/L 98 - 107 01/06 Specimen Type: PLASMA No comment entered. Ordering Provider: NAFISA TODD Report Released Date/Time : Jan 06, 2025 08:43 AM Reporting Lab: [place] [facility] [address] [place] [address] 8 Performin g Lab: [place] [facility] [address] [place] [address] 8 [place] [facility] COMPREHENS MAURIZIO METABOLIC PANEL CARBON DIOXIDE, TOTAL [MOLES/VOLU ME] IN SERUM OR PLASMA 26 meq/L 22 - 31 01/06 Specimen Type: PLASMA No comment entered. Ordering Provider: NAFISA TODD Report Released Date/Time : Jan 06, 2025 08:43 AM Reporting Lab: [place] [facility] [address] [place] [address] 8 Performin g Lab: [place] [facility] [address] [place] [address] 8 [place] [facility] COMPREHENS MAURIZIO METABOLIC PANEL CALCIUM [MASS/VOLUM E] IN SERUM OR PLASMA 9.5 mg/dL 8.4 - 10.4 01/06 Specimen Type: PLASMA No comment entered. Ordering Provider: NAFISA TODD Report Released Date/Time : Jan 06, 2025 08:43 AM Reporting Lab: [place] [facility] [address] [place] [address] 8 Performin g Lab: [place] [facility] [address] [place] [address] 8 [place] [facility] COMPREHENS MAURIZIO METABOLIC PANEL PROTEIN [MASS/VOLUM E] IN SERUM OR PLASMA 7.0 g/dL 6 - 8.6 01/06 Specimen Type: PLASMA No comment entered. Ordering Provider: NAFISA TODD Report Released Date/Time : Jan 06, 2025 08:43 AM Reporting Lab: [place] [facility] [address] [place] [address] 8 Performin g Lab: [place] [facility] [address] [place] [address] 8 [place] [facility] COMPREHENS MAURIZIO METABOLIC PANEL ALBUMIN [MASS/VOLUM E] IN SERUM OR PLASMA 4.2 g/dL 3.4 - 5 01/06 Specimen Type: PLASMA No comment entered. Ordering Provider: NAFISA TODD Report Released Date/Time : Jan 06, 2025 08:43 AM Reporting Lab: [place] [facility] [address] [place] [address] 8 Performin g Lab: [place] [facility] [address] [place] [address] 8 [place] [facility] COMPREHENS MAURIZIO METABOLIC PANEL BILIRUBIN.T OTAL [MASS/VOLUM E] IN SERUM OR PLASMA 0.5 mg/dL 0.2 - 1.2 01/06 Specimen Type: PLASMA No comment entered. Ordering Provider: NAFISA TODD Report Released Date/Time : Jan 06, 2025 08:43 AM Reporting Lab: [place] [facility] [address] [place] [address] 8 Performin g Lab: [place] [facility] [address] [place] [address] 8 [place] [facility] COMPREHENS MAURIZIO METABOLIC PANEL ALKALINE PHOSPHATASE [ENZYMATIC ACTIVITY/VO LUME] IN SERUM OR PLASMA 87 U/L 40 - 150 01/06 Specimen Type: PLASMA No comment entered. Ordering Provider: NAFISA TODD Report Released Date/Time : Jan 06, 2025 08:43 AM Reporting Lab: [place] [facility] [address] [place] [address] 8 Performin g Lab: [place] [facility] [address] [place] [address] 8 [place] [facility] COMPREHENS MAURIZIO METABOLIC PANEL ASPARTATE AMINOTRANSF ERASE [ENZYMATIC ACTIVITY/VO LUME] IN SERUM OR PLASMA 14 U/L 5 - 34 01/06 Specimen Type: PLASMA No comment entered. Ordering Provider: NAFISA TODD Report Released Date/Time : Jan 06, 2025 08:43 AM Reporting Lab: [place] [facility] [address] [place] [address] 8 Performin g Lab: [place] [facility] [address] [place] [address] 8 [place] [facility] COMPREHENS MAURIZIO METABOLIC PANEL ALANINE AMINOTRANSF ERASE [ENZYMATIC ACTIVITY/VO LUME] IN SERUM OR PLASMA 11 U/L 8 - 40 01/06 Specimen Type: PLASMA No comment entered. Ordering Provider: NAFISA TODD Report Released Date/Time : Jan 06, 2025 08:43 AM Reporting Lab: [place] [facility] [address] [place] [address] 8 Performin g Lab: [place] [facility] [address] [place] [address] 8 [place] [facility] COMPREHENS MAURIZIO METABOLIC PANEL GLOMERULAR FILTRATION RATE/1.73 SQ M.PREDICTED [VOLUME RATE/AREA] IN SERUM, PLASMA OR BLOOD BY CREATININE- BASED FORMULA (CKD-EPI 2020) 75 01/06 Specimen Type: PLASMA No comment entered. Ordering Provider: NAFISA TODD Report Released Date/Time : Jan 06, 2025 08:43 AM Reporting Lab: [place] [facility] [address] [place] [address] 8 Performin g Lab: [place] [facility] [address] [place] [address] 8 [place] [facility] URINALYSIS W/ CX REFLEX (STL-PB) COLOR OF URINE Light Yellow 01/06 Specimen Type: URINE Comment: Specific [place] may be elevated due to high Urine Glucose or high Urine Protein Ordering Provider: NAFISA TODD Report Released Date/Time : Jan 06, 2025 08:44 AM Reporting Lab: [place] [facility] [address] [place] [address] 8 Performin g Lab: [place] [facility] [address] [place] [address] 8 [place] [facility] URINALYSIS W/ CX REFLEX (STL-PB) BILIRUBIN.T OTAL [PRESENCE] IN URINE BY TEST STRIP NEGATIVEm g/dL 01/06 Specimen Type: URINE Comment: Specific [place] may be elevated due to high Urine Glucose or high Urine Protein Ordering Provider: NAFISA TODD Report Released Date/Time : Jan 06, 2025 08:44 AM Reporting Lab: [place] [facility] [address] [place] [address] 8 Performin g Lab: [place] [facility] [address] [place] [address] 8 [place] [facility] URINALYSIS W/ CX REFLEX (STL-PB) PH OF URINE BY TEST STRIP 6.0 5.0 - 8.0 01/06 Specimen Type: URINE Comment: Specific [place] may be elevated due to high Urine Glucose or high Urine Protein Ordering Provider: NAFISA TODD Report Released Date/Time : Jan 06, 2025 08:44 AM Reporting Lab: [place] [facility] [address] [place] [address] 8 Performin g Lab: [place] [facility] [address] [place] [address] 8 [place] [facility] URINALYSIS W/ CX REFLEX (STL-PB) LEUKOCYTES [#/AREA] IN URINE SEDIMENT BY MICROSCOPY HIGH POWER FIELD 6 /[HPF] 0 - 5 01/06 H Specimen Type: URINE Comment: Specific [place] may be elevated due to high Urine Glucose or high Urine Protein Ordering Provider: NAFISA TODD Report Released Date/Time : Jan 06, 2025 08:44 AM Reporting Lab: [place] [facility] [address] [place] [address] 8 Performin g Lab: [place] [facility] [address] [place] [address] 8 [place] [facility] URINALYSIS W/ CX REFLEX (STL-PB) ERYTHROCYTE S [#/VOLUME] IN URINE SEDIMENT BY MICROSCOPY HIGH POWER FIELD 5 /[HPF] 0 - 5 01/06 Specimen Type: URINE Comment: Specific [place] may be elevated due to high Urine Glucose or high Urine Protein Ordering Provider: NAFISA TODD Report Released Date/Time : Jan 06, 2025 08:44 AM Reporting Lab: [place] [facility] [address] [place] [address] 8 [facility]formin g Lab: [place] [facility] [address] [place] [address] 8 [place] [facility] URINALYSIS W/ CX REFLEX (STL-PB) APPEARANCE OF URINE CLEAR 01/06 Specimen Type: URINE Comment: Specific [place] may be elevated due to high Urine Glucose or high Urine Protein Ordering Provider: NAFISA TODD Report Released Date/Time : Jan 06, 2025 08:44 AM Reporting Lab: [place] [facility] [address] [place] [address] 8 Performin g Lab: [place] [facility] [address] [place] [address] 8 [place] [facility] URINALYSIS W/ CX REFLEX (STL-PB) NITRITE [PRESENCE] IN URINE BY TEST STRIP NEGATIVEm g/dL 01/06 Specimen Type: URINE Comment: Specific [place] may be elevated due to high Urine Glucose or high Urine Protein Ordering Provider: NAFISA TODD Report Released Date/Time : Jan 06, 2025 08:44 AM Reporting Lab: [place] [facility] [address] [place] [address] 8 [facility]formin g Lab: [place] [facility] [address] [place] [address] 8 [place] [facility] URINALYSIS W/ CX REFLEX (STL-PB) EPITHELIAL CELLS [#/AREA] IN URINE SEDIMENT BY MICROSCOPY LOW POWER FIELD <1/[HPF] 0 - 5 01/06 Specimen Type: URINE Comment: Specific [place] may be elevated due to high Urine Glucose or high Urine Protein Ordering Provider: NAFISA TODD Report Released Date/Time : Jan 06, 2025 08:44 AM Reporting Lab: [place] [facility] [address] [place] [address] 8 Performin g Lab: [place] [facility] [address] [place] [address] 8 [place] [facility] URINALYSIS W/ CX REFLEX (STL-PB) GLUCOSE [MASS/VOLUM E] IN URINE BY TEST STRIP >=1000mg/ dL 01/06 H Specimen Type: URINE Comment: Specific [place] may be elevated due to high Urine Glucose or high Urine Protein Ordering Provider: NAFISA TODD Report Released Date/Time : Jan 06, 2025 08:44 AM Reporting Lab: [place] [facility] [address] [place] [address] 8 [facility]formin g Lab: [place] [facility] [address] [place] [address] 8 [place] [facility] URINALYSIS W/ CX REFLEX (STL-PB) PROTEIN [MASS/VOLUM E] IN URINE BY TEST STRIP NEGATIVEm g/dL 01/06 Specimen Type: URINE Comment: Specific [place] may be elevated due to high Urine Glucose or high Urine Protein Ordering Provider: NAFISA TODD Report Released Date/Time : Jan 06, 2025 08:44 AM Reporting Lab: [place] [facility] [address] [place] [address] 8 [facility]formin g Lab: [place] [facility] [address] [place] [address] 8 [place] [facility] URINALYSIS W/ CX REFLEX (STL-PB) URN.UROBILI NOGEN NORMALmg/ dL 01/06 Specimen Type: URINE Comment: Specific [place] may be elevated due to high Urine Glucose or high Urine Protein Ordering Provider: NAFISA TODD Report Released Date/Time : Jan 06, 2025 08:44 AM Reporting Lab: [place] [facility] [address] [place] [address] 8 [facility] g [facility]: [place] [facility] [address] [place] [address] 8 [place] [facility] URINALYSIS W/ CX REFLEX (STL-PB) HEMOGLOBIN [MASS/VOLUM E] IN URINE BY TEST STRIP 2+mg/dL 01/06 H Specimen Type: URINE Comment: Specific [place] may be elevated due to high Urine Glucose or high Urine Protein Ordering Provider: NAFISA TODD Report Released Date/Time : Jan 06, 2025 08:44 AM Reporting Lab: [place] [facility] [address] [place] [address] 8 [facility] g [facility]: [place] [facility] [address] [place] [address] 8 [place] [facility] URINALYSIS W/ CX REFLEX (STL-PB) KETONES [MASS/VOLUM E] IN URINE BY TEST STRIP NEGATIVEm g/dL 01/06 Specimen Type: URINE Comment: Specific [place] may be elevated due to high Urine Glucose or high Urine Protein Ordering Provider: NAFISA TODD Report Released Date/Time : Jan 06, 2025 08:44 AM Reporting Lab: [place] [facility] [address] [place] [address] 8 [facility]: [place] [facility] [address] [place] [address] 8 [place] [facility] URINALYSIS W/ CX REFLEX (STL-PB) URN.LEUK.ES T. NEGATIVE 01/06 Specimen Type: URINE Comment: Specific [place] may be elevated due to high Urine Glucose or high Urine Protein Ordering Provider: NAFISA TODD Report Released Date/Time : Jan 06, 2025 08:44 AM Reporting Lab: [place] [facility] [address] [place] [address] 8 [facility]: [place] [facility] [address] [place] [address] 8 [place] [facility] URINALYSIS W/ CX REFLEX (STL-PB) SPECIFIC GRAVITY OF URINE 1.037 1.005 - 1.029 01/06 H Specimen Type: URINE Comment: Specific [place] may be elevated due to high Urine Glucose or high Urine Protein Ordering Provider: NAFISA TODD Report Released Date/Time : Jan 06, 2025 08:44 AM Reporting Lab: [place] [facility] [address] [place] [address] Performin g Lab: [place] [facility] [address] [place] [address] [place] [facility] CHOLESTERO L PANEL (PB) CHOLESTEROL [MASS/VOLUM E] IN SERUM OR PLASMA 126 mg/dL 0 - 200 09/24 Specimen Type: PLASMA No comment entered. Ordering Provider: PUMA BANG Report Released Date/Time : May 13, 2024 07:16 AM Reporting Lab: [place] [facility] [address] [place] [address] Performin g Lab: [place] [facility] [address] [place] [address] [facility] CHOLESTERO L PANEL (PB) TRIGLYCERID E [MASS/VOLUM E] IN SERUM OR PLASMA 130 mg/dL 0 - 150 09/24 Specimen Type: PLASMA No comment entered. Ordering Provider: PUMA BANG Report Released Date/Time : May 13, 2024 07:16 AM Reporting Lab: [place] [facility] [address] [place] [address] Performin g Lab[place] [facility] [address] [place] [address] [facility] CHOLESTERO L PANEL (PB) CHOLESTEROL IN LDL [MASS/VOLUM E] IN SERUM OR PLASMA BY CALCULATION 60.0 mg/dL 09/24 Specimen Type: PLASMA No comment entered. Ordering Provider: PUMA BANG Report Released Date/Time : May 13, 2024 07:16 AM Reporting Lab: [place] [facility] [address] [place] [address] Performin g Lab: [place] [facility] [address] [place] [address] [facility] CHOLESTERO L PANEL (PB) CHOLESTEROL IN HDL [MASS/VOLUM E] IN SERUM OR PLASMA 40.0 mg/dL 40 09/24 H Specimen Type: PLASMA No comment entered. Ordering Provider: PUMA BANG Report Released Date/Time : May 13, 2024 07:16 AM Reporting Lab: [place] [facility] [address] [place] [address] Performin g Lab: [place] [facility] [address] [place] [address] [facility] CHOLESTERO L PANEL (PB) CHOLESTEROL IN HDL/CHOLEST FERMÍN.TOTAL [MASS RATIO] IN SERUM OR PLASMA 31.7 25 09/24 Specimen Type: PLASMA No comment entered. Ordering Provider: PUMA BANG Report Released Date/Time : May 13, 2024 07:16 AM Reporting Lab: [place] [facility] [address] [place] [address] Performin g Lab: [place] [facility] [address] [place] [address] [place] [facility] DIRECT LDL (MA-PB) CHOLESTEROL IN LDL [MASS/VOLUM E] IN SERUM OR PLASMA BY DIRECT ASSAY 73.1 mg/dL 0 - 99.9 09/24 Specimen Type: PLASMA No comment entered. Ordering Provider: PUMA BANG Report Released Date/Time : May 13, 2024 07:16 AM Reporting Lab: [place] [facility] [address] [place] [address] Performin g Lab: [place] [facility] [address] [place] [address] [place] [facility] Vital Signs Combined list of inpatient and outpatient Vital Signs from Department of Defense and Veterans Affairs, ranging from 12 months to all on record, depending upon the facility. Vital Sign Value Date Comments Source SYSTOLIC BLOOD PRESSURE 139 03/21/2025 14:05:00 [place] [facility] DIASTOLIC BLOOD PRESSURE 75 03/21/2025 14:05:00 [facility] PULSE OXIMETRY 95 03/21/2025 14:05:00 [facility] WEIGHT 328.4 03/21/2025 14:05:00 [facility] BMI 50 kg/m2 03/21/2025 14:05:00 [facility] TEMPERATURE 97.7 03/21/2025 14:05:00 [place] [facility] PULSE 65 03/21/2025 14:05:00 [facility] RESPIRATION 18 03/21/2025 14:05:00 [facility] SYSTOLIC BLOOD PRESSURE 131 03/13/2025 11:08:00 [facility] DIASTOLIC BLOOD PRESSURE 51 03/13/2025 11:08:00 [facility] PULSE OXIMETRY 98 03/13/2025 11:08:00 [facility] [place] [facility] WEIGHT 335.2 03/13/2025 11:08:00 [facility] BMI 51 kg/m2 03/13/2025 11:08:00 [facility] TEMPERATURE 97.5 03/13/2025 11:08:00 [place] [facility] PULSE 66 03/13/2025 11:08:00 [place] [facility] RESPIRATION 20 03/13/2025 11:08:00 [place] [facility] WEIGHT 344.8 03/03/2025 09:39:25 [place] [facility] BMI 53 kg/m2 03/03/2025 09:39:25 [place] [facility] HEIGHT 68 03/03/2025 09:39:25 [place] [facility] SYSTOLIC BLOOD PRESSURE 125 01/06/2025 10:35:00 [place] [facility] DIASTOLIC BLOOD PRESSURE 80 01/06/2025 10:35:00 [place] [facility] PULSE OXIMETRY 97 01/06/2025 10:35:00 [place] [facility] WEIGHT 330.6 01/06/2025 10:35:00 [place] [facility] BMI 50 kg/m2 01/06/2025 10:35:00 [place] [facility] HEIGHT 68.0 01/06/2025 10:35:00 [place] [facility] PULSE 78 01/06/2025 10:35:00 [place] [facility] RESPIRATION 22 01/06/2025 10:35:00 [place] [facility] SYSTOLIC BLOOD PRESSURE 124 10/24/2024 14:18:21 [place] [facility] DIASTOLIC BLOOD PRESSURE 78 10/24/2024 14:18:21 [place] [facility] PULSE OXIMETRY 97 10/24/2024 14:18:21 [facility] [place] [facility] WEIGHT 336.5 10/24/2024 14:18:21 [place] [facility] BMI 51 kg/m2 10/24/2024 14:18:21 [place] [facility] PAIN 3 10/24/2024 14:18:21 [place] [facility] TEMPERATURE 97.8 10/24/2024 14:18:21 [place] [facility] PULSE 58 10/24/2024 14:18:21 [place] [facility] RESPIRATION 22 10/24/2024 14:18:21 [facility] [place] [facility] Encounters Combined list of: 1) Encounters from Department of Veterans Affairs facilities going backup to the last 18 months, not all VA inpatient encounters are included; 2) Encounters from the Department of Defense facilities going backup to 280 months. 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 JOSUE DU 12/08 [facility] Outpatient Encounter [id number] 12/08 [facility] [place] [facility] OFF/OP EST MARCH X REQ PHY/QHP [id number] [id number] Diagnos is: ICD-10- CM L60.3 Nail dystrop hy TALCOKEVYN,TR ACY L 12/11 [place] [facility] Outpatient Encounter [id number] Diagnos is: ICD-10- CM E11.9 Type 2 diabete s mellitu s without complic ations Milady BANG W 12/12 [facility] [place] [facility] [place] 1/ [id number] [id number] Diagnos is: ICD-10- CM E11.9 Type 2 diabete s mellitu s without complic ations REID,TY LER N 12/20 [place] [facility] [place] [facility] QNHP OL DIG ASSMT&MGMT 5-10 [id number] [id number] Diagnos is: ICD-10- CM E11.9 Type 2 diabete s mellitu s without complic ations MEENAKSHI PINEDO V 12/22 [place] [facility] Outpatient Encounter [id number] Diagnos is: ICD-10- CM E11.9 Type 2 diabete s mellitu s without complic ations Milady BANG DELTA W 12/22 [facility] [place] [facility] Outpatient Encounter [id number] 01/03 [place] [facility] MTMS BY PHARM ADDL 15 MIN [id number] [id number] Diagnos is: ICD-10- CM E11.9 Type 2 diabete s mellitu s without complic ations Milady BANG DELTA W 01/08 [facility] Outpatient Encounter [id number] [id number] 01/08 [facility] Encounter [id number] [id number] 01/16 [facility] Outpatient Encounter [id number] [id number] 01/21 [facility] Outpatient Encounter [id number] [id number] 01/21 [place] [facility] Outpatient Encounter [id number] [id number] 02/07 [facility] Encounter [id number] [id number] 02/08 [facility] Out[facility] Encounter [id number] [id number] 02/14 [facility] Encounter [id number] [id number] 02/18 [facility] Encounter [id number] [id number] BISI TAMAYO A 02/18 [facility] Outpatient Encounter [id number] [id number] Diagnos is: ICD-10- CM E11.9 Type 2 diabete s mellitu s without complic ations Milady BANG DELTA W 02/19 [facility] Outpatient Encounter [id number] [id number] 02/21 [facility] Outpatient Encounter [id number] [id number] 02/21 [facility] Outpatient Encounter [id number] [id number] 02/28 [facility] OFFICE O/P EST MOD 30 MIN [id number] [id number] Diagnos is: ICD-10- CM E11.9 Type 2 diabete s mellitu s without complic ations Lorenzo VENEGAS 02/28 [facility] MTMS BY PHARM ADDL 15 MIN [id number] [id number] Diagnos is: ICD-10- CM E11.9 Type 2 diabete s mellitu s without complic ations Milady BANG W 02/28 [facility] Outpatient Encounter [id number] [id number] Lorenzo VENEGAS 03/01 [facility] [place] [facility] Outpatient Encounter [id number] [id number] JONE MARINA 03/06 [place] [facility] [place] [facility] Outpatient Encounter [id number] [id number] Diagnos is: ICD-10- CM K21.9 Gastro- esophag eal reflux disease without esophag itis DEMETRIO POSEY RAY 03/06 [place] [facility] Outpatient Encounter [id number] [id number] 03/11 [facility] [place] [facility] Outpatient Encounter [id number] [id number] 03/11 [place] [facility] Outpatient Encounter [id number] [id number] 03/22 [facility] En[facility] [id number] [id number] 03/25 [facility] [place] [facility] OFF/OP EST MARCH X REQ PHY/QHP [id number] [id number] Diagnos is: ICD-10- CM L60.3 Nail dystrop hy RENUKA CARTER CCA 03/25 [place] [facility] [id number] [id number] 03/25 [facility] Outpatient Encounter [id number] [id number] 04/10 [facility] Encounter [id number] [id number] 04/10 [facility] [place] [facility] Outpatient Encounter [id number] [id number] RENETTA LICEA 04/12 [place] [facility] Outpatient Encounter [id number] [id number] 04/15 [facility] Outpatient Encounter [id number] [id number] 04/15 [facility] Outpatient Encounter [id number] [id number] 04/26 [facility] Outpatient Encounter [id number] [id number] 05/02 [facility] OFFICE O/P EST LOW 20 MIN [id number] [id number] Diagnos is: ICD-10- CM E11.9 Type 2 diabete s mellitu s without complic ations MARIE HOLT THERINE R 05/09 [facility] Outpatient Encounter [id number] [id number] 05/13 [facility] MTMS BY PHARM ADDL 15 MIN [id number] [id number] Diagnos is: ICD-10- CM E11.9 Type 2 diabete s mellitu s without complic ations BETI,Milady DELTA W 05/13 [facility] MTMS BY PHARM ADDL 15 MIN [id number] [id number] Diagnos is: ICD-10- CM E11.9 Type 2 diabete s mellitu s without complic ations BETI,J DELTA W 05/14 [facility] MTMS BY PHARM ADDL 15 MIN [id number] [id number] Diagnos is: ICD-10- CM E11.9 Type 2 diabete s mellitu s without complic ations BETIJ DELTA W 05/20 [facility] Outpatient Encounter [id number] [id number] 05/21 [facility] Outpatient Encounter [id number] [id number] 05/22 [facility] En[facility] [id number] [id number] MARTINA MCKEON A 05/27 [place] [facility] TE[facility]ALTH FACILITY FEE [id number] [id number] Diagnos is: ICD-10- CM H90.3 Sensori neural hearing loss, NICOLE Robins A 05/29 [facility] [place] [facility] [place]MPANOMET RY [id number] [id number] Diagnos is: ICD-10- CM H90.3 Sensori neural hearing loss, NICOLE Robins A 05/29 [place] [facility] FEE [id number] [id number] Diagnos is: ICD-10- CM Z46.1 Encount er for fitting and adjustm ent of hearing aid NICOLE NEGRO A 05/29 [facility] [place] [facility] CONFORMITY EVALUATION [id number] [id number] Diagnos is: ICD-10- CM Z46.1 Encount er for fitting and adjustm ent of hearing aid NICOLE NEGRO A 05/29 [place] [facility] OFF/OP EST MARCH X REQ PHY/QHP [id number] [id number] Diagnos is: ICD-10- CM H93.13 Tinnitu s, bilater al Milady CANTU 06/14 [facility] MTMS BY PHARM ADDL 15 MIN [id number] [id number] Diagnos is: ICD-10- CM E11.9 Type 2 diabete s mellitu s without complic ations Milady BANG 06/18 [facility] Outpatient Encounter [id number] [id number] 06/21 [facility] Outpatient Encounter [id number] [id number] 07/08 [facility] [place] [facility] OFF/OP EST MAY X REQ PHY/QHP [id number] [id number] Diagnos is: ICD-10- CM L60.3 Nail dystrop hy SANDY ROCHA M 07/09 [facility] [facility] En[facility] [id number] [id number] 07/30 [facility] OFF/OP EST MARCH X REQ PHY/QHP [id number] [id number] Diagnos is: ICD-10- CM L98.9 Disorde r of the skin and subcuta neous tissue, unspeci Milady Sanchez 07/30 [facility] Outpatient Encounter [id number] [id number] 07/31 [facility] Outpatient Encounter [id number] [id number] 08/12 [facility] Outpatient Encounter [id number] [id number] 08/21 [facility] FAC[facility] FEE [id number] [id number] Diagnos is: ICD-10- CM Z46.1 Encount er for fitting and adjustm ent of hearing aid NICOLE NEGRO Dot 08/23 [facility] HEARING AID REPAIR/MOD IFYING [id number] [id number] Diagnos is: ICD-10- CM Z46.1 Encount er for fitting and adjustm ent of hearing aid NICOLE NEGRO Dot 08/23 [facility] Encounter [id number] [id number] 09/02 [facility] Outpatient Encounter [id number] [id number] 09/02 [facility] Outpatient Encounter [id number] [id number] 09/03 [facility] Outpatient Encounter [id number] [id number] 09/09 [facility] Outpatient Encounter [id number] [id number] 09/09 [facility] [place] [facility] Outpatient Encounter [id number] [id number] 09/09 [place] [facility] MTMS BY PHARM ADDL 15 MIN [id number] [id number] Diagnos is: ICD-10- CM E11.9 Type 2 diabete s mellitu s without complic ations Milady BANG W 09/13 [facility] Outpatient Encounter [id number] [id number] 09/16 [facility] [place] [facility] QNHP OL DIG ASSMT&MGMT 5-10 [id number] [id number] Diagnos is: ICD-10- CM 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 KHRISMEENAKSHI STERLING V 09/25 [place] [facility] Outpatient Encounter [id number] [id number] MARIE HOLT 10/01 [facility] MTMS BY PHARM ADDL 15 MIN [id number] [id number] Diagnos is: ICD-10- CM E11.9 Type 2 diabete s mellitu s without complic ations BETIMilady W 10/01 [facility] Outpatient Encounter [id number] [id number] 10/21 [facility] Outpatient Encounter [id number] [id number] MARIE HOLT R 10/24 [facility] OFFICE O/P EST MOD 30 MIN [id number] [id number] Diagnos is: ICD-10- CM K59.00 Constip ation, unspeci fied MARIE HOLT R 10/24 [facility] Outpatient Encounter [id number] [id number] 10/25 [facility] Outpatient Encounter [id number] [id number] 10/28 [facility] [place] [facility] OFF/OP EST MARCH X REQ PHY/QHP [id number] [id number] Diagnos is: ICD-10- CM B35.1 Tinea unguium SUKHWINDER VERA 10/29 [place] [facility] Outpatient Encounter [id number] [id number] 11/08 [facility] En[facility] [id number] [id number] 11/22 [place] [facility] Outpatient Encounter [id number] [id number] 11/25 [facility] Outpatient Encounter [id number] [id number] 11/25 [facility] Outpatient Encounter [id number] [id number] 11/25 [facility] Outpatient Encounter [id number] [id number] 12/13 [facility] Outpatient Encounter [id number] [id number] 12/13 [facility] Outpatient Encounter [id number] [id number] 12/14 [facility] Outpatient Encounter [id number] [id number] 12/16 [facility] Outpatient Encounter [id number] [id number] MCKINLEY BANDA 12/17 [facility] MTMS BY PHARM UPTWIST SPINNER 15 MIN [id number] [id number] Diagnos is: ICD-10- CM K59.00 Constip ation, unspeci MEENAKSHI Iraheta V 12/17 [facility] Outpatient Encounter [id number] [id number] 12/17 [facility] FEE [id number] [id number] Diagnos is: ICD-10- CM H57.11 Ocular pain, right eye CRAFFORDElmer 01/06 [facility] OFFICE O/P EST MOD 30 MIN 88299-5.65 [id number] Diagnos is: ICD-10- CM H57.11 Ocular pain, right eye CRAFFElmer SOTO M 01/06 [place] [facility] Encounter [id number] [id number] 01/06 [facility] Outpatient Encounter [id number] [id number] 01/07 [facility] Outpatient Encounter [id number] [id number] 01/09 [facility] PSYTX W PT 60 MINUTES 02279-7.65 [id number] 001 Diagnos is: ICD-10- CM Z63.0 Problem s in relatio nship with spouse or partner BETH REYNOLDS P 01/17 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, left eye SLAVA MATHEWS N 01/22 [place] [facility] Encounter [id number] [id number] 02/04 [facility] Outpatient Encounter [id number] [id number] 02/07 [facility] OFF/OP EST MAY X REQ PHY/QHP [id number] [id number] Diagnos is: ICD-10- CM B35.1 Pradipea marysoluiSUKHWINDER Peace 02/10 [place] [facility] Encounter [id number] [id number] 02/13 [facility] [place] [facility] Outpatient Encounter [id number] [id number] 02/25 [place] [facility] Outpatient Encounter [id number] [id number] 02/27 [facility] OFFICE O/P EST LOW 20 MIN [id number] [id number] Diagnos is: ICD-10- CM 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 Outpatient Encounter [id number] [id number] 03/10 [facility] Outpatient Encounter [id number] [id number] MARIE HOLT R 03/13 [facility] OFFICE O/P EST MOD 30 MIN [id number] [id number] Diagnos is: ICD-10- CM E11.9 Type 2 diabete s mellitu s without complic ations MARIE HOLT THERINE R 03/13 [facility] Outpatient Encounter [id number] [id number] 03/18 [facility] Outpatient Encounter [id number] [id number] 03/18 [facility] TELEHEALTH FACILITY FEE [id number] [id number] Diagnos is: ICD-10- CM Z46.1 Encount er for fitting and adjustm ent of hearing aid NICOLE NEGRO A 03/19 [facility] [place] [facility] HEARING AID CHECK BINAURAL [id number] [id number] Diagnos is: ICD-10- CM Z46.1 Encount er for fitting and adjustm ent of hearing aid NICOLE NEGRO 03/19 [place] [facility] TE[facility]ALTH FACILITY FEE 99040-3.65 [id number] Diagnos is: ICD-10- CM Z13.5 Encount er for screeni ng for eye and ear disorde rs AWILDAMO GRACIE M 03/19 [facility] [place] [facility] UNLISTED ORL SERVICE/PX 20192-9.65 [id number] Diagnos is: ICD-10- CM H93.13 Tinnitu s, NICOLE Robins 03/19 [place] [facility] PH[facility] ASSMT&MGMT NQHP 5-10 98091-6.65 [id number] Diagnos is: ICD-10- CM H90.3 Sensori neural hearing loss, NICOLE Robins 03/20 [place] [facility] OFF/OP EST MAY X REQ PHY/QHP [id number] [id number] Diagnos is: ICD-10- CM L08.9 Local infecti on of the skin and subcuta neous tissue, unsp Milady CANTU 03/21 [facility] Outpatient Encounter [id number] [id number] 03/28 [facility] OFF/OP EST MAY X REQ PHY/QHP [id number] [id number] Diagnos is: ICD-10- CM H90.3 Sensori neural hearing loss, sharif SUZANNE Mc 04/03 [facility] Outpatient Encounter [id number] [id number] 04/04 [facility] TELEHEALTH FACILITY FEE [id number] Diagnos is: ICD-10- CM H93.13 sharif Walsh [facility] [facility] SPECIAL SUPPLIES PHYS/QHP [id number] [id number] Diagnos is: ICD-10- CM H93.13 sharif Walsh ALE XANDRA A 04/08 [place] [facility] Outpatient Encounter [id number] 04/09 [facility] Outpatient Encounter [id number] 04/10 [facility] Outpatient Encounter [id number] 04[facility] [place] [facility] HEARING AID CHECK BINAURAL [id number] [id number] Diagnos is: ICD-10- CM Z46.1 Encount er for fitting and adjustm ent of hearing aid NICOLE NEGRO A 04/15 [place] [facility] TELEHEALTH FACILITY FEE [id number] [id number] Diagnos is: ICD-10- CM Z46.1 Encount er for fitting and adjustm ent of hearing aid NICOLE NEGRO A 04/15 [facility] Outpatient Encounter [id number] 04/21 [facility] Outpatient Encounter [id number] 04/21 [facility]-2 REGIONS [id number] Diagnos is: ICD-10- CM M99.01 Segment al and somatic dysfunc tion of cervica l region OBED JARAMILLO BARBIE E 04/24 [facility] Outpatient Encounter [id number] 04/28 [facility] Encounter [id number] LUAN CHACON A 04/29 [facility] [place] [facility] Outpatient Encounter [id number] 04/29 [place] [facility] [place] [facility] Outpatient Encounter [id number] [id number] 04/29 [place] [facility] Outpatient Encounter [id number] [id number] 05/06 [facility] Outpatient Encounter [id number] [id number] 05/06 [facility] TELEHEALTH FACILITY FEE [id number] [id number] Diagnos is: ICD-10- CM Z46.1 Encount er for fitting and adjustm ent of hearing aid NICOLE NEGRO A 05/07 [facility] HEARING AID REPAIR/MOD IFYING [id number] [id number] Diagnos is: ICD-10- CM Z46.1 Encount er for fitting and adjustm ent of hearing aid NICOLE NEGRO A 05/07 [place] [facility] Outpatient Encounter [id number] 05/07 [facility] Outpatient Encounter [id number] [id number] 05/12 [facility] [facility] Outpatient Encounter [id number] 05/15 [facility] Outpatient Encounter [id number] 05/15 [facility] Outpatient Encounter [id number] 05/19 [facility] Outpatient Encounter [id number] 05/22 [facility] Outpatient Encounter [id number] 05/23 [facility] Social History Combined list of available smoking, tobacco, and other social history from Department of Defense and Veterans Affairs facilities. Social History Type Response Date Comment Sour e Tobacco smoking status NHIS VA-TOBACCO NEVER USED CIGARETTES 03/13/2025 [facility] History of tobacco use MO-TOBACCO NEVER USED OTHER TYPE 03/13/2025 [facility] History of tobacco use VA-TOBACCO NEVER USED 10/02/2023 [facility] History of tobacco use VA-TOBACCO FORMER USER 04/26/2022 [facility] History of tobacco use VA-TOBACCO NEVER USED 05/04/2021 [facility] History of tobacco use VA-TOBACCO NEVER USED 08/16/2019 [facility] History of tobacco use LIFETIME NON-USER OF TOBACCO 06/05/2014 [facility] History of tobacco use TOBACCO LIFETIME NON USER 02/03/2014 [facility] History of tobacco use LIFETIME NON-TOBACCO USER 02/15/2001 [facility] History of tobacco use NON-TOBACCO USER 01/20/[address] [facility] Plan of Care List of future care activities from Department of Veterans Affairs facilities. Additional future care activities may be listed in the Assessment and Plan section. Date/Time Care Activity Care Activity Detail Facili ty 05/29/2025 AMBULATORY - MEDICINE AMBULATORY - [facility]ICI [facility] Advance Directives List of completed, amended, or rescinded Advance Directives on record at Department of Veterans Affairs facilities. An actual copy of the Directive is not included. Date Advance Directive Provider Source 04/24/2015 RESCINDED ADVANCE DIRECTIVE [facility]
[2025-05-29 15:01] VITALS: BP 112/52; PULSE 65; RESP 15; TEMP 36.9; O2SAT 97
--- OUTSIDE RECORDS SUMMARY | 2025-05-29 15:14 | XMS_ITS | Clinical Summary ---
Author Organization [facility] Address [address] [address] Phone Care Team Providers Care Screen Printing Cloth Spreader Name Role Phone Russell Harris MD Primary Care Provider [phone] Allergies Active Allergy Reactions Criticality Noted Date Comments Bee Venom Protein (Honey Bee) Unknown 2022 Hydrocodone-Acetaminophen Unknown 04/19/2023 Morphine Nausea and Vomiting Low 06/06/2016 Medications raNITIdine (ZANTAC) 150 mg tablet Take 150 mg by mouth every 4 hours as needed for Indigestion. 9 Active tamsulosin (FLOMAX) 0.4 mg capsule Take 0.4 mg by mouth daily. 9 Active simvastatin (ZOCOR) 20 mg tablet Take 20 mg by mouth daily at bedtime. 9 Active lisinopriL (PRINIVIL) 5 mg tablet Take 5 mg by mouth daily. 9 Active ALBUTEROL SULFATE HFA INHALATION Take by inhalation 2 times daily as needed. 9 Active clotrimazole (LOTRIMIN) 1 % Cream Apply to affected area 1 time daily as needed. 6 Active EPINEPHrine (EPIPEN JR) 0.15 mg/0.3 mL Auto-Injector Inject 0.15 mg by intramuscular injection one time only. 6 Active promethazine (PHENERGAN) 25 mg tablet Take 25 mg by mouth every 6 hours as needed for Nausea/Emesis. 6 Active naproxen (NAPROSYN) 500 mg tablet Take 500 mg by mouth 1 time daily as needed for Pain, Moderate. Active meclizine (ANTIVERT) 25 mg tablet Take 25 mg by mouth 1 time daily as needed for Dizziness. Active diltiaZEM (CARDIZEM CD) 240 mg Controlled Delivery 24 hour capsule Take 240 mg by mouth daily. Active diazePAM (VALIUM) 2 mg tablet Take 2 mg by mouth every 6 hours as needed for Anxiety. Active nitroglycerin (NITROSTAT) 0.4 mg Tablet, Sublingual Place 0.4 mg under tongue every 5 minutes as needed for Chest Pain. Active cephALEXin (KEFLEX) 500 mg capsule Take 500 mg by mouth 1 time daily as needed. Active aspirin (BARBARA CHEWABLE) 81 mg Tablet, Chewable Take 81 mg by mouth daily. Active insulin NPH-regular (HUMULIN 70-30,NOVOLIN 70-30) 100 unit/mL (70-30) injection Inject 75 Units by subcutaneous injection 2 times daily before meals. Active Active Problems Problem Noted Date Diagnosed Date Dizziness 01/22/2019 Encounters Date Type Department Care Team Description 04/29/2025 External Device Data [facility] Provider, Abstract 04/08/2025 External Device Data [facility] Provider, Abstract 04/04/2025 8:46 AM CDT - 04/04/2025 11:59 PM CDT Hospital Encounter [facility] [address] [place] [id number] Sara Santillan FNP Discharge Disposition: Home or Self Care 03/20[facility] [place] [address] [place] [address] Sara Santillan FNP Encounter for other specified special examinations (Primary Dx) from Last 3 Months Social History Tobacco Use Types Packs/Day Years Used Date Smoking Tobacco: Former Smokeless Tobacco: Never Alcohol Use Standard Drinks/Week Comments No 0 (1 standard drink = 0.6 oz pur e alcohol) Sex and Gender Information Value Date Recorded Sex Assigned at Not on file Legal Sex Male 12:04 AM [employer]LECT[employer] Gender Identity Not on file Sexual Orientation Not on file Last Filed Vital Signs Vital Sign Reading Time Taken Comments Blood Pressure 124/40 04/16/2021 3:45 PM CDT Pulse 74 05/09/2019 2:06 PM CDT Temperature 36.8 C (98.3 F) 04/16/2021 1:44 PM CDT Respiratory Rate 20 04/16/2021 3:45 PM CDT Oxygen Saturation - - Inhaled Oxygen Concentration - - Weight 166.8 kg (367 lb 12.8 oz) 04/16/2021 1:44 PM CDT Height 172.7 cm (5' 8 ) 04/16/2021 1:44 PM CDT Body Mass Index 55.92 04/16/2021 1:44 PM CDT Plan of Treatment Health Maintenance Due Date Last Done Comments DIABETES ANNUAL FOOT EXAM 1970 DIABETES MICROALBUMIN ANNUAL SCREEN 1970 LDL CHOLESTEROL ANNUAL 1970 FIT-DNA Q 3 years 1997 FIT/FOBT Q 1 year 1997 Flex Sig/CT Colonography Q 5 years 1997 RSV VACCINE (60+ or ) (1 - Risk 60-74 years 1-dose series) 2012 COVID-19 Vaccine (2023-2 5 season) 2024 09/15/2023, 10/04/2022, 11/11/2021, Additional history exists INFLUENZA VACCINE (#1) 2025 , 08/24/2022, 08/17/2018, Additional history exists DIABETES HBA1C Q 6 MONTHS 09/13/20252024, 04/16/2021, 04/16/2021 DIABETES ANNUAL RETINAL EXAM 01/22/2026 01/22/2025, 12/20/2023 DTAP/TDAP/TD VACCINES (2 - T d or Tdap) 12/26/2026 12/26/2016, 03/13/2012, 02/15/2001 COLORECTAL SCREENING 08/06/2034 08/06/2024 Colorectal Cancer Screening 08/06/2034 ZOSTER VACCINE Completed 06/17/2019, 0507/2018, 11/14/2014, Additional history exists PNEUMOCOCCAL VACCINE 50+ YEARS Completed 0 05/04/2021, 03/21/2018, 03/11/2015, Additional history exists Procedures Procedure Name Priority Date/Time Associated Diagnosis Comments US ABDOMEN LIMITED Routine 04/04/2025 9: 16 AM CDT Encounter for other specified special examinations HEMOGLOBIN A1C Routine 04/16/2021 2:15 PM CDT from Last 3 Months or Most Recently Relevant to Health Maintenance Results * US ABDOMEN LIMITED (04/04/2025 9:16 AM CDT) Anatomical Region Laterality Modality Abdomen Ultrasound 04/04/2025 9:16 AM CDT Impressions 04/05/2025 4:19 PM CDT IMPRESSION: See below. Exam: US ABDOMEN LIMITED Date/Time of Exam: 04/04/2025 9:16 AM Reason For Exam: See Diagnosis. Diagnosis: Encounter for other specified special examinations Findings: There are no comparison ultrasounds. There is a CT from 04/16/2021. Ultrasound imaging of the umbilical region was performed with and without Valsalva. This reveals a possible small fat-containing umbilical hernia. Narrative Procedure Note Denisse Alvarez MD - 04/05/2025 IMPRESSION: See below. Exam: US ABDOMEN LIMITED Date/Time of Exam: 04/04/2025 9:16 AM Reason For Exam: See Diagnosis. Diagnosis: Encounter for other specified special examinations Findings: There are no comparison ultrasounds. There is a CT from 04/16/2021. Ultrasound imaging of the umbilical region was performed with and without Valsalva. This reveals a possible small fat-containing umbilical hernia. us Sara Santillan ENTRY CLERK US ORDERABLES Fin al Result * (ABNORMAL) HEMOGLOBIN A1C (04/16/2021 2:15 PM CDT) HEMOGLOBIN A1C 7.4(H) <=5.6 % 04/16/2021 2:57 PM CDT [facility] EST. AVG GLUCOSE, A1C 166 mg/dL 04/16/2021 2:57 PM CDT [facility] Blood Venipuncture / Unknown 04/16/2021 2:15 PM CDT 04/16/2021 2:23 PM CDT Narrative [facility] - 04/16/2021 2:57 PM CDT HGB A1C INTERPRETATION NORMAL: <5.7% PRE-DIABETES: 5.7 - 6.4% DIABETES: 6.5% OR GREATER Alejandro Walsh (Excluded Provider) Connor GUADARRAMA CHEMISTRY ORDERABLES Final Result [facility] CLIA # [id number] [address] [place] [id number] [facility] CLIA # [id number] [address] [place] [id number] from Last 3 Months or Most Recently Relevant to Health Maintenance Insurance [facility] [place] [facility] [employer] Care Teams Screen Printing Cloth Spreader Relationship Specialty Start Date End Date Russell Harris MD PCP - General Emergency Medicine 01/22/19
--- OUTSIDE RECORDS SUMMARY | 2025-05-29 15:17 | XMS_ITS | Data Portability ---
Author Organization [place] [facility] [place], ADMIN Address [address] [place] [address] Care Team Providers Care Top Stitcher Name Role Phone CORRY HERRING Primary Care Provider Assessment Encounter Date Assessment Date Assessment LastModified by Organization Details LastModified Time 01/03/2022 01/03/2022 This is a 71-year-old male who is being seen in consultation for evaluation of a screening/surveill ance colonoscopy. Patient reports that his last colonoscopy was 5 years ago 2 polyps were identified at that time. No family history of colon cancer the patient reports no change in bowel habit rectal bleeding abdominal pain fever chills or night sweats. Impression: 1. Screening/surveill ance colonoscopy for colorectal cancer none was colon polyps 2. History of colorectal polyps 3. Previous colonoscopy 5 years ago 4. No family history of colorectal cancer. Recommendations: 1. Schedule screening/surveill ance colonoscopy patient earliest convenience 2. Follow-up and further recommendations based on endoscopic findings. [email or web address] Not available 01/03/2022 18:32:09 11/14/2024 11/14/2024 Impression: 1. Screening/surveill ance colonoscopy for colorectal cancer none was colon polyps --Colonoscopy incomplete August 06, 2024 at [place] 2. History of colorectal polyps 3. GERD 4. Abdominal cramping 5. No family history of colorectal cancer. 6. Other medical issues: Angina, vertigo, hypertension, type 2 diabetes, GLP-1 (Ozempic) Recommendations: 1. Schedule colonoscopy for further evaluation of incomplete colonoscopy from [facility] in July 2024 (Moviprep) 2. Schedule EGD for further evaluation of GERD 3. Follow-up in 2 weeks for clinical reassessment after having colonoscopy. Not available 11/14/2024 12:54:23 12/17/2024 12/17/2024 Impression: 1. colon polyps --Colonoscopy 11/25/2024 revealed small to moderate size internal hemorrhoids. Mild to moderate pandiverticulosis. 11 mm sessile hepatic flexure polyp. 10 mm sessile right colon polyp. Otherwise normal examination to the cecum. Pathology tubular adenoma. 2. History of colorectal polyps 3. GERD with dysphagia --Omeprazole 40 mg p.o. daily. --Previously been on carafate and omeprazole. --EGD 11/25/2024 revealed grade B erosive esophagitis. 4 cm hiatal hernia. Mild nonerosive gastritis. Pathology H. pylori negative. Negative for dysplasia or malignancy. 4. Abdominal cramping 5. No family history of colorectal cancer. 6. Other medical issues: Angina, vertigo, hypertension, type 2 diabetes, GLP-1 (Ozempic) Recommendations: 1. See if insurance will cover dexilant 60 mg PO daily 2. Hold if dexilant approved Omeprazole 40 mg p.o. daily. 3. High-fiber diet. 4. Antireflux precautions. 5. Repeat screening/surveill ance colonoscopy in 3 years November 2027. 6. Follow-up in 6 weeks after starting dexilant This note was created in part with the assistance of [employer] voice recognition software. Conductor/Brakeman variances and errors may occur. [email or web address] Not available 12/17/2024 11:41:21 Plan of Treatment Reminders Order Date Submit Date Provider Last Modified By Organization Details Last Modified Time Details Appointments None recorded. Lab None recorded. Referral None recorded. Procedures colonoscop y procedure (PROC) - IV Lock, Initiate Take biopsies if indicated, possible hemorroida l banding, possible argon plasma coagulatio n, possible hot/cold snare polypectom y, possible dilation of stricture. CPT: 18922, 41269, 32756,4538 2 2024 025 [facility], [address], [place], [address], 13:34:12 upper endoscopy procedure (EGD) (PROC) - Possible Procedures : Take biopsies if indicated, possible variceal banding, possible argon plasma coagulatio n, possible esophageal dilation, possible snare polypectom y. Pre-Proced ure Orders: 1. Start 20 gauge or larger heparin/sa line lock, may use 0.5 ml of 1% lidocaine or topical anesthetic cream. Start IVF of Lactated Ringers at 80 ML/HR. Post Procedure: 1. Vitals every 5 minutes times 3, then every 30 minutes until discharge. 2. Remove IV when tolerating liquids well. 3. Discharge when meets criteria. 4. Schedule Clinic Follow up in 3 weeks CPT: 13069, 61275, 86296, 78778 2024 025 [facility], [address], [place], [address], 5 13:34:36 Surgeries colonoscop y (SURG) 2021 022 [email or web address] [facility], [address], [place], [address], 2 12:31:14 Imaging None recorded. Medication Orders dexlansopr azole 60 mg capsule,bi phase delayed release 2024 025 [email or web address] [facility], [address] [place], [address], 5 16:17:23 MoviPrep 100 gram-7.5 gram-2.691 gram oral powder packet 2024 025 [email or web address] [facility], [address] [place], [address], 5 16:04:24 Suprep Bowel Prep Kit 17.5 gram-3.13 gram-1.6 gram oral solution 2021 022 [email or web address] [facility], [address] [place], [address], 5 12:03:39 Patient TargetsNo targets recorded. Patient Instructions Encounter Date Encounter Id Patient Instructions Last Modified By Organization Details Last Modified Time 11/14/2024 [id number] colonoscopy education [email or web address] Not available 11/14/2024 12:33:03 colonoscopy prep [email or web address] Not available 11/14/2024 12:33:03 colonoscopy: before your procedure [email or web address] Not available 11/14/2024 12:33:03 learning about colonoscopy Not available 11/14/2024 12:33:03 upper GI endoscopy: before your procedure [email or web address] Not available 11/14/2024 12:54:44 12/17/2024 [id number] GERD diet education [email or web address] Not available 12/17/2024 11:22:24 colon polyp education [email or web address] Not available 12/17/2024 11:22:24 colon polyps: care instructions [email or web address] Not available 12/17/2024 11:22:24 Reason for Referral None Reported. Results Created Date Observation Date Name Description Value Unit Range Abnormal Flag Note LastModifiedBy Organization Detail LastModifiedTime 11/25/1911/25/2024 GLUCO SE LEVEL POC BEDSI DE glu POC bdside 125 mg/dL 65-90 [place] ID: [id number] Not Available [facility] (Lab)_do Not Use [address], [place], [address], 11/25/2024 11:12:29 Result Notes None recorded. Problems Name Problem SNOMED Code Status Onset Date Resolution Date Notes Provider Name and Address Organization Details Recorded Time Diabetes mellitus 57511517 Active 2021 Jailyn abrams, MD - [facility] [place] 2 14:48:23 Hypertensive disorder 69782478 Active 2021 Jailyn abrams, MD - [facility] [place] 2 14:48:30 Gastroesophage al reflux disease 510745463 Active 2024 KTAERINA CHANDLER, LYDIA [address], [place], [address], [facility] - [facility] [place] 5 12:54:23 History of polyp of colon 633526561 Active 2024 KATERINA CHANDLER, MANAGER RESPIRATORY [address], [place], [address], [address] 5 12:54:24 Problem Notes None recorded. Procedures Surgical History Date Name Laterality Status Provider Name and Address Organization Details Recorded Time 4 colonoscopy completed Varsha Stevens LPN [address] 11/14/2024 12:11:05 Colonoscopy completed Jailyn Stahl [address] 01/03/2022 14:48:52 Imaging Results None recorded. Procedure Notes None recorded. Medical Equipment None Reported. Allergies Allergen ID Allergen Name Allergen Category Reaction Reaction Severity Criticality Documentation Date Start Date Code Code System Note Provider Name and Address Organization Details Recorded Time 523293 morphine medicatio n Not available Not available Not available 01/03/2022 7052 RxNorm Jailyn Stahl [facility] [address] 2 14:43:48 300914 honey bee venom medicatio n Not available Not available Not available 11/14/2024 78890 7 RxNorm Varsha Stevens LPN aliza, [address] 5 12:01:38 Medications Name Sig Start Date Stop Date Status Note LastModified by Organization Details LastModified Time diltiazem CD 240 mg capsule,ext ended release 24 hr Take 1 capsule every day by oral route. active Not Available Not Available No t Available sucralfate 1 gram tablet Take 1 tablet 4 times a day by oral route as needed. active Not Available Not Available No t Available lisinopril 20 mg tablet TAKE 1 TABLET BY MOUTH DAILY 11/14 completed Not Available Not Available Not Available aspirin 81 mg tablet,yuan yed release Take 1 tablet every day by oral route. active Not Available Not Available No t Available ondansetron 8 mg disintegrat ing tablet Place 1 tablet twice a day by transling ual route as needed. active Not Available Not Available No t Available tamsulosin 0.4 mg capsule Take 1 capsule every day by oral route. active Not Available Not Available No t Available meclizine 25 mg tablet Take 1 tablet 3 times a day by oral route as needed. active Not Available Not Available No t Available pantoprazol e 40 mg tablet,yuan yed release Take 1 tablet twice a day by oral route as directed for 30 days. 2024 active Not Available Not Available Not Avai lable simvastatin 20 mg tablet Take 1 tablet every day by oral route. active Not Available Not Available No t Available epinephrine 0.1 mg/mL injection syringe Take by injection route. active Not Available Not Available No t Available nitroglycer in 0.[address] as needed by sublingua l route. active Not Available Not Available No t Available omeprazole 20 mg capsule,del ayed release Take 1 capsule every day by oral route. 11/14 completed Not Available Not Available Not Available lisinopril 5 mg tablet Take 1 tablet every day by oral route. 11/14 completed Not Available Not Available Not Available furosemide 20 mg tablet Take 1 tablet every day by oral route. active Not Available Not Available No t Available pioglitazon e 30 mg tablet Take 1 tablet every day by oral route. active Not Available Not Available No t Available lisinopril 40 mg tablet Take 1 tablet every day by oral route. active Not Available Not Available No t Available naproxen 500 mg tablet Take 1 tablet every day by oral route. active Not Available Not Available No t Available guaifenesin 400 mg tablet Take 1 tablet every day by oral route. active Not Available Not Available No t Available Novolog Mix 70-30 U-100 Insulin 100 unit/mL subcutaneou s solution Inject 0.4 units twice a day by subcutane ous route. active Not Available Not Available No t Available Insulin Syringe 1 mL 29 gauge x 1/2 11/14 completed Not Available Not Available Not Available MoviPrep 100 gram-7.5 gram-2.691 gram oral powder packet Take as directed in office for 1 day for colonosco py prep. 12/18 completed Not Available Not Available Not Available cholecalcif minh (vitamin D3) 50 mcg (2,000 unit) capsule Take 1 capsule every day by oral route. active Not Available Not Available No t Available UNLISTED MEDICATION folic acid 0.4 mg daily active Not Available Not Available No t Available dexlansopra zole 60 mg capsule,bip hase delayed release Take 1 capsule every day by oral route for 90 days. 2024 active Not Available Not Available Not Avai lable Suprep Bowel Prep Kit 17.5 gram-3.13 gram-1.6 gram oral solution Take 177 mL twice a day by oral route as directed for 1 day. 11/14 completed Not Available Not Available Not Available potassium chloride ER 20 mEq tablet,exte nded release Take 0.5 tablets every day by oral route. active Not Available Not Available No t Available empaglifloz in 25 mg tablet Take 1 tablet every day by oral route. active Not Available Not Available No t Available halobetasol propionate 0.05 % lotion APPLY A THIN LAYER TO THE AFFECTED AREA(S) BY TOPICAL ROUTE 2 TIMES PER DAY DO NOT EXCEED 50 GRAMS PER WEEK OR 2 WEEKS DURATION 11/14 completed Not Available Not Available Not Available Ozempic 1 mg/dose (4 mg/3 mL) subcutaneou s pen injector Inject 1 mg every week by subcutane ous route. active Not Available Not Available No t Available Vitals Date Recorded Body height Body mass index (BMI) Body weight Oxygen saturation Oxygen saturation in Arterial blood by Pulse oximetry Heart rate Systolic And Diastolic Provider Name and Address Organization Details Last Updated DateTime 5 172.72 cm 50.1 kg/m2 130850. 05 g 94 % 94 % 79 /min 131/66 mm[Hg] Varsha Stevens LPN [facility] [place] 5 12:01:11 Date Recorded Body height Body mass index (BMI) Body weight Oxygen saturation Oxygen saturation in Arterial blood by Pulse oximetry Heart rate Systolic And Diastolic Provider Name and Address Organization Details Last Updated DateTime 5 172.72 cm 50.2 kg/m2 370359. 56 g 98 % 98 % 63 /min 110/80 mm[Hg] eCe Lawler LPN [facility] [place] 5 11:03:23 Date Recorded Body height Body mass index (BMI) Body weight Body temperature Oxygen saturation Oxygen saturation in Arterial blood by Pulse oximetry Heart rate Systolic And Diastolic Provider Name and Address Organization Details Last Updated DateTime 2 172.72 cm 55.6 kg/m2 116216. 81 g 97.5 [degF] 95 % 95 % 69 /min 168/75 mm[Hg] Jailyn Stahl [facility] [place] 14:42:56 Social History Question Answer Notes LastModified by Organizat ion Details LastModified Time Tobacco Smoking Status Never Smoker Jailyn abrams [place] - [facility] [place] 01/03/2022 14:49:35 What Is Your Level Of Caffeine Consumption? Moderate Information not available 11/14/2024 What Was The Date Of Your Most Recent Tobacco Screening? 11/14/2024 [email or web address] Information not available 11/14/2024 Sex: Unknown Functional Status Question Answer Note LastModified by Organizat ion Details LastModified Time Do you use any illicit or recreational drugs? No [email or web address] Information not available 11/14/2024 What is your level of alcohol consumption? None [email or web address] Information not available 11/14/2024 Mental Status None recorded. Family History Relationship Description Onset Age of this Age Resolved Age Notes LastModified by Organization Details LastModified Time Mother Heart disease [email or web address] Not available 2021 14:49:16 Sister Diabetes mellitus [email or web address] Not available 2021 14:49:24 Medical History No medical history recorded. Past Encounters Encounter ID Performer Location Encounter Start Date Encounter Closed Date Diagnosis/Indication Diagnosis SNOMED-CT Code Diagnosis ICD10 Code Diagnosis Note [id number] Anselmo Ortiz MD [facility] [address] [place] [address] 01/03/2022 14:16:50 01/04/2022 10:10:33 Screening colonoscopy 294141303 Z12.11 [id number] Anselmo Ortiz MD [facility] [address] [facility] [email or web address] [address] 11/14/2024 11:26:51 11/14/2024 12:27:26 Screening colonoscopy 927726982 Z12.11 History of polyp of colon 189983560 Z86.0100 Gastroesop hageal reflux disease 836492895 K21.9 [id number] Anselmo Ortiz MD [facility] [address] [facility] [place] [address] 12/17/2024 10:45:24 12/17/2024 11:35:59 Polyp of colon 63170267 K63.5 Gastro-eso phageal reflux disease with esophagitis 954888518 K21.00 Dysphagia 05306631 R13.1 0 Abdominal bloating 27883 9008 R14.0 Constipati on alternates with diarrhea 436261298 K59.00 Health Concerns Section Related Observation LastModified by Organization Detai ls LastModified Time None Recorded Concern Status LastModified by Organization Details LastModified Time None Recorded Advance Directives Directive None Recorded Payers Insurance Date Sequence Insurance Name Policy Number Policy Mcgraw Covered Member ID Mcgraw Member ID Guarantor Name 12/17/2024 1 INTERFACE REVIEW REQUIRED Leon Barger 12/17/2024 OPT - [facility] Leon Barger [id number] Leon Barger Notes Date Note Type Note Provider Name and Address Organization Details Recorded Time 01/03/2022 text/html This is a 71-yea r-old male who is being seen in consultation for evaluation of a screening/surveillanc e colonoscopy. Patient reports that his last colonoscopy was 5 years ago 2 polyps were identified at that time. No family history of colon cancer the patient reports no change in bowel habit rectal bleeding abdominal pain fever chills or night sweats.Impression: 1. Screening/surveillanc e colonoscopy for colorectal cancer none was colon polyps 2. History of colorectal polyps 3. Previous colonoscopy 5 years ago 4. No family history of colorectal cancer.Recommendation s: 1. Schedule screening/surveillanc e colonoscopy patient earliest convenience 2. Follow-up and further recommendations based on endoscopic findings. Anselmo Ortiz MD [facility] [place], [address], [facility] - [facility] [place] 01/03/2022 18:32:32 11/14/2024 text/html 74 y/o male pres ents to clinic to discuss colonoscopy. He had a colonoscopy 3 months ago in [place] that was incomplete due to poor bowel prep. He reports that he has a bowel movement that varies based on his diet. He will have a couple per day and then he will go a couple days without having a bowel movement. He reports that he is having a lot of heartburn and acid reflux. He reports that his blood sugars have been good. He is taking ozempic. KATERINA CHANDLER NP [facility] [place], [address], [place] [facility] [place] 11/14/2024 12:54:47 12/17/2024 text/html 74-year-old male presents to clinic for follow-up after having EGD and colonoscopy completed. He is taking the omeprazole and not having any improvement in his symptoms. He reports that he has been on carafate and no improvement. He has been on omeprazole previously without any improvement. KATERINA CHANDLER, LYDIA [address] [facility], [place], [address], [place] [facility] [place] 12/17/2024 11:41:24
--- OUTSIDE RECORDS SUMMARY | 2025-05-29 15:17 | XMS_ITS | Clinical Summary ---
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 Active cephALEXin (KEFLEX) 500 mg capsule Take 500 mg by mouth 1 time daily as needed. Active diltiazem (CARDIZEM CD) 240 mg Controlled Delivery 24 hour capsule Take 240 mg by mouth daily. Active aspirin (BARBARA CHEWABLE) 81 mg Tablet, Chewable Take 81 mg by mouth daily. Active naproxen (NAPROSYN) 500 mg tablet Take 500 mg by mouth 1 time daily as needed for Pain, Moderate. Active diazepam (VALIUM) 2 mg tablet Take 2 mg by mouth every 6 hours as needed for Anxiety. Active meclizine (ANTIVERT) 25 mg tablet Take 25 mg by mouth 1 time daily as needed for Dizziness. Active promethazine (PHENERGAN) 25 mg tablet Take 25 mg by mouth every 6 hours as needed for Nausea/Emesis. Active nitroglycerin (NITROSTAT) 0.4 mg Tablet, Sublingual Place 0.4 mg under tongue every 5 minutes as needed for Chest Pain. Active insulin NPH-regular (HUMULIN 70-30,NOVOLIN 70-30) 100 unit/mL (70-30) injection Inject 75 Units by subcutaneous injection 2 times daily before meals. Active EPINEPHrine (EPIPEN JR) 0.15 mg/0.3 mL Auto-Injector Inject 0.15 mg by intramuscular injection one time only. Active tamsulosin (FLOMAX) 0.4 mg capsule Take 0.4 mg by mouth daily. Active raNITIdine (ZANTAC) 150 mg tablet Take 150 mg by mouth every 4 hours as needed for Indigestion. Active ALBUTEROL SULFATE HFA INHALATION Take by inhalation 2 times daily as needed. Active simvastatin (ZOCOR) 20 mg tablet Take 20 mg by mouth daily at bedtime. Active lisinopril (PRINIVIL) 5 mg tablet Take 5 mg by mouth daily. Active Active Problems Problem Noted Date Diagnosed Date Dizziness 01/22/2019 Social History Tobacco Use Types Packs/Day Years Used Date Smoking Tobacco: Former Smokeless Tobacco: Never Alcohol Use Standard Drinks/Week Comments No 0 (1 standard drink = 0.6 oz pur e alcohol) Sex and Gender Information Value Date Recorded Sex Assigned at Not on file Legal Sex Male 9:54 AM CDT Gender Identity Not on file Sexual Orientation Not on file Last Filed Vital Signs Vital Sign Reading Time Taken Comments Blood Pressure 124/40 04/16/2021 3:45 PM CDT Pulse 74 05/09/2019 2:06 PM CDT Temperature 36.8 C (98.3 F) 04/16/2021 1:44 PM CDT Respiratory Rate 20 04/16/2021 3:45 PM CDT Oxygen Saturation 94% 04/16/2021 3:45 PM CDT Inhaled Oxygen Concentration - - Weight 166.8 kg (367 lb 12.8 oz) 04/16/2021 1:44 PM CDT Height 172.7 cm (5' 8 ) 04/16/2021 1:44 PM CDT Body Mass Index 55.92 04/16/2021 1:44 PM CDT Plan of Treatment Health Maintenance Due Date Last Done Comments DIABETES ANNUAL FOOT EXAM 1970 DIABETES ANNUAL RETINAL EXAM 1970 DIABETES MICROALBUMIN ANNUAL SCREEN 1970 LDL CHOLESTEROL ANNUAL 1970 COLORECTAL SCREENING 1997 Colorectal Cancer Screening 1997 FIT-DNA Q 3 years 1997 FIT/FOBT Q 1 year 1997 Flex Sig/CT Colonography Q 5 years 1997 ZOSTER VACCINE (1 of 2) 2002 DIABETES HBA1C Q 6 MONTHS 10/16/2021 04/16/2021 PNEUMOCOCCAL VACCINE 50+ YEA RS (3 of 3 - PCV20 or PCV21) 03/21/2023 03/21/2018, 03/11/2015 INFLUENZA VACCINE (#1) 2025 08/17/2018, 2016 DTAP/TDAP/TD VACCINES (2 - Td or Tdap) 12/26/2026 RSV VACCINE (60+ or ) (1 - 1-dose 75+ series) 2027 Procedures Procedure Name Priority Date/Time Associated Diagnosis Comments HEMOGLOBIN A1C Stat 04/16/2021 2:15 PM CDT from Last 3 Months or Most Recently Relevant to Health Maintenance Results * (ABNORMAL) HEMOGLOBIN A1C (04/16/2021 2:15 PM CDT) HEMOGLOBIN A1C 7.4(H) <=5.6 % 04/16/2021 2:57 PM CDT [facility] EST. AVG GLUCOSE, A1C 166 mg/dL 04/16/2021 2:57 PM CDT [facility] Blood Venipuncture / Unknown 04/16/2021 2:15 PM CDT 04/16/2021 2:23 PM CDT Narrative [facility] - 04/16/2021 2:57 PM CDT HGB A1C INTERPRETATION NORMAL: <5.7% PRE-DIABETES: 5.7 - 6.4% DIABETES: 6.5% OR GREATER Alejandro Walsh (Excluded Provider) Connor GUADARRAMA CHEMISTRY ORDERABLES Final Result [facility] CLIA # [id number] [address] [place] [id number] from Last 3 Months or Most Recently Relevant to Health Maintenance [place] [address] [place] [address] [employer] Care Teams Flooring Machine Operator Relationship Specialty Start Date End Date Russell Harris MD PCP - General Emergency Medicine 01/22/19
[2025-05-29 15:25] LABS: Glucose Urine UA 1+ (Normal); Nitrate Urine Positive (Negative); Specific Gravity, Urine 1.027 (1.005-1.030)
[2025-05-29 15:28] LABS: Add Urine Microscopic? YES; Universal Test for UA Present (0)
[2025-05-29 16:14] LABS: UA Manual Slide Review YES
--- NOTE | 2025-05-29 16:29 | PC.PHAR ---
Pt is [facility] faxed med list prior to pt being placed in an ED room. Medications added and verified. Will follow up with last taken when he gets placed.
--- NOTE | 2025-05-29 16:33 | CTR_ITS ---
PROCEDURE INFORMATION: Exam: CT Abdomen And Pelvis Without Contrast Exam date and time: 05/29/2025 5:01 PM Age: 74 years old Clinical indication: Abdominal pain; Flank; Left; Additional info: Flank pain TECHNIQUE: Imaging protocol: Computed tomography of the abdomen and pelvis without contrast. Radiation optimization: All CT scans at this facility use at least one of these dose optimization techniques: automated exposure control; mA and/or kV adjustment per patient size (includes targeted exams where dose is matched to clinical indication); or iterative reconstruction. COMPARISON: CT abdomen pelvis w con* [id number] 10/31/2023 12:45 PM RADIATION DOSE METRICS: Total DLP (mGy-cm): 1389.23 FINDINGS: Lungs: Lung bases are unremarkable. Coronary arteries: Moderate coronary arterial calcification, indicating the presence of coronary artery disease. Diaphragm: Small hiatal hernia. Liver: The liver is unremarkable. Gallbladder and biliary ducts: Multiple gallstones are present. No pericholecystic inflammatory changes to suggest cholecystitis. Pancreas: The pancreas is unremarkable. Spleen: The spleen is unremarkable. Adrenal glands: The adrenal glands are unremarkable. Kidneys and ureters: No hydronephrosis or nephrolithiasis. Stomach and bowel: No evidence of bowel obstruction. No pericolonic inflammatory stranding. Appendix: Normal appendix. Intraperitoneal space: No significant peritoneal free fluid. No free peritoneal air. Vasculature: Aortic caliber is normal. Lymph nodes: No lymph node enlargement. Urinary bladder: 2.4 cm focus of intraluminal hyperdensity posterolaterally in the bladder. Bladder assessment is limited by streak artifact in the pelvis from body habitus. Reproductive: Marked prostate calcification is again. Bones/joints: No acute osseous abnormality. Soft tissues: Unremarkable. CT/CT abdomen pelvis wo con [id number] IMPRESSION: 1. Hyperdense region posterolaterally in the left side of the bladder, suspicious for neoplasm. Urologic consultation is recommended. 2. Cholelithiasis without evidence of acute cholecystitis. 3. Moderate coronary arterial calcification, indicating the presence of coronary artery disease. If the patient has associated symptoms recommend management as per chest pain guidelines. If the patient is asymptomatic consider reviewing modifiable cardiovascular risk factors and managing as per guidelines for primary prevention.
[2025-05-29 16:39] LABS: Hematocrit 42.3 % (37-53); Hemoglobin 13.60 g/dL (11.27-16.99); Mean Corpuscular HGB Conc 32.2 g/dL (30-55); Mean Corpuscular Hemoglobin 29.6 pg (27-33); Mean Corpuscular Volume 92.2 fl (82-101); Nucleated Red Blood Cells % 0 %; Platelet Count 203 10^3/cmm (157-399); Red Blood Count 4.59 10^6/uL (3.85-5.65); White Blood Count 7.54 10^3/uL (3.29-11.43)
--- NOTE | 2025-05-29 17:14 | W.ED.MALEGU ---
HPI - Male Genitourinary General: Chief complaint: Urogenital-Male Stated complaint: [facility] sent blood in urine Time Seen by Provider: 05/29/25 17:03 History of Present Illness: 74-year-old man with a history of obesity, hypertension and diabetes who presents the emergency room with hematuria. He says he went to the [facility] and they told him to come to the emergency room thinking he might need a CT scan. Said no flank pain. No fevers. He is not on any anticoagulation. He has had some dysuria. No trouble emptying or pelvic pain. Related Data Home Medications ?Medication ?Instructions ?Recorded ?Confirmed diltiazem HCl 240 mg 240 mg PO QAM 12/24/19 05/29/25 capsule,extended release 24 hr simvastatin 20 mg tablet 10 mg PO QPM 12/24/19 05/29/25 cholecalciferol (vitamin D3) 50 50 mcg PO DAILY 09/15/23 05/29/25 mcg (2,000 unit) capsule (Vitamin D3) empagliflozin 25 mg tablet 25 mg PO QAM 09/15/23 05/29/25 (Jardiance) epinephrine 0.3 mg/0.3 mL 0.3 mg SUBCUT PRN PRN Allergic 09/15/23 05/29/25 injection, auto-injector (EpiPen) Reaction nitroglycerin 0.4 mg sublingual 0.4 mg sublingual Q5M PRN Chest 09/15/23 05/29/25 tablet (Nitrostat) Pain pioglitazone 30 mg tablet (Actos) 30 mg PO QAM 09/15/23 05/29/25 tamsulosin 0.4 mg capsule 0.8 mg PO QPM 09/15/23 05/29/25 aspirin 81 mg tablet,delayed 81 mg PO DAILY 11/05/23 05/29/25 release furosemide 20 mg tablet 20 mg PO QAM PRN fluid retention 07/30/24 05/29/25 lisinopril 40 mg tablet 40 mg PO DAILY 07/30/24 05/29/25 sucralfate 1 gram tablet 1 g PO QID 07/30/24 05/29/25 acetaminophen 500 mg tablet 500 mg PO QID PRN Pain 05/29/25 05/29/25 albuterol sulfate 90 mcg/actuation 2 puff inhalation QID 05/29/25 05/29/25 aerosol inhaler clobetasol 0.05 % topical cream 1 applic topical BID PRN Skin 05/29/25 05/29/25 Irritation clotrimazole 1 % topical cream 1 applic topical BID 05/29/25 05/29/25 docusate sodium 100 mg capsule 100 mg PO TID 05/29/25 05/29/25 (Colace) folic acid 400 mcg tablet 0.4 mg PO DAILY 05/29/25 05/29/25 insulin NPH-regular 70-30 U-100 21 unit SUBCUT QPM 05/29/25 05/29/25 insulin 100 unit/mL subcutaneous pen ketoconazole 2 % topical cream 1 applic topical DAILY 05/29/25 05/29/25 ketotifen fumarate 0.025 % (0.035 1 drp ophthalmic (eye) BID 05/29/25 05/29/25 %) eye drops miconazole nitrate 2 % topical 1 applic topical .DAILY TO SKIN 05/29/25 05/29/25 powder FOLDS PRN Skin Irritation naproxen 500 mg tablet (Naprosyn) 500 mg PO BID 05/29/25 05/29/25 pantoprazole 40 mg tablet,delayed 40 mg PO BID 05/29/25 05/29/25 release (Protonix) potassium chloride 20 mEq 20 meq PO .QOD 05/29/25 05/29/25 tablet,extended release semaglutide (weight loss) 1 mg/0.5 1 mg SUBCUT Q7D 05/29/25 05/29/25 mL subcutaneous pen injector urea 40 % topical cream 1 applic topical BID 05/29/25 05/29/25 vit C 250 mg-vit E 90 mg-zinc 40 1 tab PO BID 05/29/25 05/29/25 mg-copper 1 [id number] capsule (PreserVision AREDS-2) Previous Rx's ?Medication ?Instructions ?Recorded cefdinir 300 mg capsule 300 mg PO BID 7 days #14 caps 05/29/25 Allergies Allergy/AdvReac Type Severity Reaction Status Date / Time Opioids - Morphine Analogues Allergy Intermediate sick Verified 05/29/25 11:49 Review of Systems Narrative: Constitutional symptoms: Negative except as documented in HPI. Skin symptoms: Negative except as documented in HPI. Eye symptoms: Negative except as documented in HPI. ENMT symptoms: Negative except as documented in HPI. Respiratory symptoms: Negative except as documented in HPI. Cardiovascular symptoms: Negative except as documented in HPI. Gastrointestinal symptoms: Negative except as documented in HPI. Genitourinary symptoms: Negative except as documented in HPI. Musculoskeletal symptoms: Negative except as documented in HPI. Neurologic symptoms: Negative except as documented in HPI. Psychiatric symptoms: Negative except as documented in HPI. Endocrine symptoms: Negative except as documented in HPI. PFSH ED PFSH: Medical History (Updated 05/29/25 @ 18:05 by Samantha Linares MD) Otitis externa Essential hypertension DM type 2 (diabetes mellitus, type 2) GERD (gastroesophageal reflux disease) Surgical History History of prostate surgery 2017 History of colonoscopy with polypectomy Family History Denies family history of Anesthesia complication Bleeding disorder Social History Smoking and tobacco/nicotine status: never used tobacco/nicotine Second hand smoke exposure: No Alcohol intake: never Physical Exam Narrative: EXAM NARRATIVE: General: Alert, no acute distress. Skin: Warm, dry. Head: Normocephalic, atraumatic. Neck: Supple, trachea midline. Eye: Extraocular movements are intact. Ears, nose, mouth and throat: mucosa moist. Cardiovascular: Regular, Normal peripheral perfusion. Respiratory: Lungs are clear to auscultation, respirations are non-labored, breath sounds are equal, Symmetrical chest wall expansion. Gastrointestinal: Soft, Nontender, Non distended Musculoskeletal: Normal ROM, no deformity. Neurological: Alert and oriented, No focal neurological deficit observed. Psychiatric: Cooperative, appropriate mood & affect. Course Vital Signs: Vital signs: Vital Signs Temperature 98.5 F 05/29/25 15:01 Pulse Rate 65 05/29/25 15:01 Respiratory Rate 15 05/29/25 15:01 Blood Pressure 112/52 05/29/25 15:01 Pulse Oximetry 97 05/29/25 15:01 Oxygen Delivery Me thod Room Air 05/29/25 15:01 MDM - Male Medical Decision Making Medical decision making: Differential diagnosis for complaint of hematuria including but not limited to and based on the above HPI, review of systems and physical exam: UTI / hemorrhagic cystitis, pyelonephritis, kidney stones, bladder cancer Orders placed to evaluate differential diagnosis based on the above differential, HPI and physical exam Lab Review: Laboratory results were reviewed and interpreted by myself the emergency room physician. No leukocytosis. No anemia. No renal failure. Urinalysis is positive for nitrates. Positive for whites at 21-50 and too many to count red blood cells and 1+ bacteria. CT of the abdomen pelvis without contrast: Hyperdense region posterior laterally in the left side of the bladder suspicious for neoplasm. Other nonacute findings. This was reviewed and interpreted by myself the emergency room physician. I also reviewed the radiology report. I reviewed the patient's medical record. Reexamination: Patient remained stable. No increased work of breathing. No altered mental status. No focal motor deficits. I discussed findings and concern for a bladder mass versus hematoma or blood clot. He expresses understanding. [facility] Assessment and plan: Urinary tract infection Hematuria Dehydration Bladder mass ?IV Rocephin and IV normal saline bolus in the emergency room. - Discharged home - Discussed plan with patient. Answered any questions. - Evaluation and treatment of this problem were appropriate in the emergency setting. Lab Data 05/29/25 16:05 05/29/25 16:05 Radiology Impressions Abdomen/Pelvis CT 05/29/25 16:33 IMPRESSION: 1. Hyperdense region posterolaterally in the left side of the bladder, suspicious for neoplasm. Urologic consultation is recommended. 2. Cholelithiasis without evidence of acute cholecystitis. 3. Moderate coronary arterial calcification, indicating the presence of coronary artery disease. If the patient has associated symptoms recommend management as per chest pain guidelines. If the patient is asymptomatic consider reviewing modifiable cardiovascular risk factors and managing as per guidelines for primary prevention. Laboratory Results WBC 7.54 10^3/uL (3.29-11.43) 05/29/25 16:05 RBC 4.59 10^6/uL (3.85-5.65) 05/29/25 16:05 Hgb 13.60 g/dL (11.27-16.99) 05/29/25 16:05 Hct 42.3 % (37-53) 05/29/25 16:05 MCV 92.2 fl (82-101) 05/29/25 16:05 MCH 29.6 pg (27-33) 05/29/25 16:05 MCHC 32.2 g/dL (30-55) 05/29/25 16:05 RDW 14.2 % (12.1-15.1) 05/29/25 16:05 Plt Count 203 10^3/cmm (157-399) 05/29/25 16:05 MPV 9.8 fL (7.4-10.4) 05/29/25 16:05 Neut % (Auto) 74.1 % 05/29/25 16:05 Lymph % (Auto) 15.8 % 05/29/25 16:05 Burnet % (Auto) 6.9 % 05/29/25 16:05 Eos % (Auto) 2.0 % 05/29/25 16:05 Baso % (Auto) 0.7 % 05/29/25 16:05 Neut # (Auto) 5.59 10^3/uL (1.8-7.7) 05/29/25 16:05 Lymph # (Auto) 1.2 10^3/uL (0.8-4.8) 05/29/25 16:05 Burnet # (Auto) 0.5 10^3/uL (0.2-0.9) 05/29/25 16:05 Eos # (Auto) 0.2 10^3/uL (0.0-0.8) 05/29/25 16:05 Baso # (Auto) 0.1 10^3/uL (0.0-0.1) 05/29/25 16:05 Nucleated RBC % (auto) 0 % 05/29/25 16:05 Nucleated RBCs # 0.0 /100WBC 05/29/25 16:05 Sodium 140 mmol/L (136-145) 05/29/25 16:05 Potassium 4.0 mmol/L (3.5-5.1) 05/29/25 16:05 Chloride 101 mmol/L (98-107) 05/29/25 16:05 Carbon Dioxide 26 mmol/L (22-29) 05/29/25 16:05 Anion Gap 17.0 (5-19) 05/29/25 16:05 BUN 15 mg/dL (8-23) 05/29/25 16:05 Creatinine 1.0 mg/dL (0.7-1.2) 05/29/25 16:05 GFR Calculation Not Reportable 05/29/25 16:05 Glucose 129 mg/dL (65-115) H 05/29/25 16:05 Calculated Osmolality 293 mOsm/kg (285-295) 05/29/25 16:05 Calcium 8.8 mg/dL (8.5-10.5) 05/29/25 16:05 Total Bilirubin 0.4 mg/dL (0.15-1.2) 05/29/25 16:05 AST 11 U/L (0-40) 05/29/25 16:05 ALT 11 U/L (0-41) 05/29/25 16:05 Alkaline Phosphatase 80 U/L (40-130) 05/29/25 16:05 Total Protein 6.3 g/dL (6.6-8.7) L 05/29/25 16:05 Albumin 3.7 g/dL (3.5-5.2) 05/29/25 16:05 Globulin 2.6 g/dL (1.3-4.6) 05/29/25 16:05 Urine Color Red (Yellow) A 05/29/25 15:16 Urine Appearance Turbid (CLEAR) A 05/29/25 15:16 Urine pH 5.0 (5-7) 05/29/25 15:16 Ur Specific Franklin 1.027 (1.005-1.030) 05/29/25 15:16 Urine Protein 2+ (Negative) A 05/29/25 15:16 Urine Glucose (UA) 1+ (Normal) H 05/29/25 15:16 Urine Ketones Negative (Negative) 05/29/25 15:16 Urine Blood 3+ (Negative) A 05/29/25 15:16 Urine Nitrate Positive (Negative) A 05/29/25 15:16 Urine Bilirubin 1+ (Negative) H 05/29/25 15:16 Urine Urobilinogen 0.2 mg/dL (Negative) 05/29/25 15:16 Ur Leukocyte Esterase 1+ (Negative) A 05/29/25 15:16 Urine RBC Too numerous to cnt /hpf (0-2) H 05/29/25 15:16 Urine WBC 21-50 /hpf (0-5) H 05/29/25 15:16 Ur Squamous Epith Cells None /hpf (0-5) 05/29/25 15:16 Amorphous Sediment Not Reportable 05/29/25 15:16 Urine Bacteria 1+ /hpf (NONE) H 05/29/25 15:16 All radiology interpretation(s) finalized by discharge Discharge Plan Discharge Patient Disposition: Home Clinical Impression: Urinary tract infection, Hematuria, Bladder mass Condition: Stable Prescriptions: New cefdinir 300 mg capsule 300 mg PO BID 7 Days Qty: 14 0RF No Action diltiazem HCl 240 mg capsule,extended release 24hr 240 mg PO QAM simvastatin 20 mg tablet 10 mg PO QPM sucralfate 1 gram tablet 1 g PO QID furosemide 20 mg tablet 20 mg PO QAM PRN (Reason: fluid retention) lisinopril 40 mg tablet 40 mg PO DAILY ketotifen fumarate 0.025 % (0.035 %) Drops 1 drp OPHTHALMIC (EYE) BID Rx Instructions: administer at least 8 hours apart urea 40 % Cream 1 applic TOPICAL BID miconazole nitrate 2 % Powder 1 applic TOPICAL .DAILY TO SKIN FOLDS PRN (Reason: Skin Irritation) clobetasol 0.05 % Cream 1 applic TOPICAL BID MDD no more than 2 weeks monthly PRN (Reason: Skin Irritation) Rx Instructions: not for face, groin or skin folds. folic acid 400 mcg Tablet 0.4 mg PO DAILY acetaminophen 500 mg Tablet 500 mg PO QID PRN (Reason: Pain) pantoprazole [Protonix] 40 mg Tablet,Delayed Release (Dr/Ec) 40 mg PO BID docusate sodium [Colace] 100 mg Capsule 100 mg PO TID albuterol sulfate 90 mcg/actuation Hfa Aerosol Inhaler 2 puff INHALATION QID ketoconazole 2 % Cream 1 applic TOPICAL DAILY clotrimazole 1 % Cream 1 applic TOPICAL BID naproxen [Naprosyn] 500 mg Tablet 500 mg PO BID Humulin 70/30 Insulin Pen 100 unit/mL (70-30) Insulin Pen 21 unit SUBCUT QPM PreserVision AREDS-2 250-90-40-1 mg Capsule 1 tab PO BID potassium chloride 20 mEq Tablet Extended Release 20 meq PO .QOD semaglutide (weight loss) 1 mg/0.5 mL Pen Injector 1 mg SUBCUT Q7D tamsulosin 0.4 mg Capsule 0.8 mg PO QPM nitroglycerin [Nitrostat] 0.4 mg Tablet, Sublingual 0.4 mg SUBLINGUAL Q5M PRN (Reason: Chest Pain) Rx Instructions: do not exceed 3 doses per episode epinephrine [EpiPen] 0.3 mg/0.3 mL Auto-Injector 0.3 mg SUBCUT PRN PRN (Reason: Allergic Reaction) Rx Instructions: 0.3 mg intramuscularly one time to thigh as needed for allergic reaction/anaphylaxis. pioglitazone [Actos] 30 mg Tablet 30 mg PO QAM cholecalciferol (vitamin D3) [Vitamin D3] 50 mcg (2,000 unit) Capsule 50 mcg PO DAILY Jardiance 25 mg Tablet 25 mg PO QAM aspirin 81 mg Tablet,Delayed Release (Dr/Ec) 81 mg PO DAILY Discharge Orders: Discharge ED (Routine); Ordered 05/29/25 Ordered By: Samantha Linares Referrals: Justin Street [Referring, Urology] Referral Note: Please call for a follow-up appointment with Dr. Street or with the urologist of your choosing. Sara Santillan, MIDDLE [employer]ER [Primary Care Provider, Nurse Practitioner] Discharge Diet: Usual diet Discharge Activity: Increase activity as tolerated Patient Instructions: Opioid Safety, Pain Management, Patient Portal & Max Instructions Activity Restrictions/Additional Instructions: Thank you for choosing [facility] for your healthcare needs today. You have been screened and evaluated and felt safe for discharge. Health conditions do change or evolve sometimes and as such it is important that you follow up with your Primary Doctor to be re checked, 3-5 days is a general good time frame for follow up. You are always welcome to return to the ED for re assessment if your symptoms are worsening or you have new concerns Print Language: Amharic Coding Level of Care Code ED Co Founder And Chairman for Jose Aragon
[2025-05-29 17:23] LABS: Alanine Aminotransferase 11 U/L (0-41); Albumin Level 3.7 g/dL (3.5-5.2); Alkaline Phosphatase 80 U/L (40-130); Anion Gap 17.0 (5-19); Aspartate Amino Transferase 11 U/L (0-40); Blood Urea Nitrogen 15 mg/dL (8-23); Calcium 8.8 mg/dL (8.5-10.5); Carbon Dioxide 26 mmol/L (22-29); Chloride 101 mmol/L (98-107); Globulin 2.6 g/dL (1.3-4.6); Glucose 129 mg/dL (65-115); Osmolality Calculated 293 mOsm/kg (285-295); Potassium 4.0 mmol/L (3.5-5.1); Sodium 140 mmol/L (136-145); Total Protein 6.3 g/dL (6.6-8.7)
[2025-05-29] MEDS: cefTRIAXone 1,000 mg SDV 1000 MG IVP (18:31)
[2025-05-29 19:35] VITALS: BP 115/69; PULSE 68; RESP 16; O2SAT 98
== END 2025-05-29 19:35 | disposition home or self-care (01) ==
PROVIDERS: Emergency Provider Emergency Medicine; PCP Nurse Practitioner
DX: N39.0 Urinary tract infection, site not specified (principal); R31.9 Hematuria, unspecified; N32.9 Bladder disorder, unspecified; E86.0 Dehydration
CPT/HCPCS: 36415; 74176; 80053; 81001; 85025; 87086; 96361; 96374; 99203; 99285; J0696; J7030

== ENCOUNTER → 2025-10-20 10:57 | Outpatient (BNVA) | payer OTHER, SELFPAY | PROVIDERS: PCP Nurse Practitioner; Visit Provider Dermatology | DX: I87.2 Venous insufficiency (chronic) (peripheral) (principal); L71.1 Rhinophyma; D22.5 Melanocytic nevi of trunk | CPT/HCPCS: 99214 ==